=== PATIENT | female | born 1960 | race Caucasian/White ===

== ENCOUNTER 2020-01-01 15:02 | Emergency (ER) | payer OTHER, SELFPAY ==
--- NOTE | 2020-01-01 16:28 | XR_ITS ---
EXAMINATION: XR CHEST CLINICAL INFORMATION: Shortness of breath, chest pain for 2 weeks COMPARISON: 02/26/2019 TECHNIQUE: Frontal view of the chest was obtained. FINDINGS: No significant abnormality is noted involving the heart, lungs, mediastinum, bony thorax or soft tissues. XR/XR chest 1V IMPRESSION: No acute pulmonary disease. No significant change from prior study.
[2020-01-01 16:31] VITALS: BP 161/67; PULSE 92; RESP 16; TEMP 36.9; O2SAT 98; BMI 33.1
--- NOTE | 2020-01-01 16:33 | ED.CHESTPAIN ---
HPI - Chest Pain General Chief Complaint: Chest Pain Stated Complaint: chest pain Time Seen by Provider: 01/01/20 16:17 Source: patient Mode of arrival: ambulatory Limitations: language barrier ( speaks Welsh but able to communicate fairly well in Ukrainian) History of Present Illness HPI narrative: patient comes to the emergency room complaining of 2 weeks of constant chest pain. Patient states 2 weeks ago she started having sharp pain on the left side of her chest and left-sided arm pain, since then the pain has been present. Patient states a week ago she went to see her primary care physician, she was instructed to come to the emergency room but she was afraid to come to the hospital therefore she waited until today, patient is concerned about the ongoing chest pain And left arm pain MD complaint: chest pain Related Data Allergies Allergy/AdvReac Type Severity Reaction Status Date / Time No Known Allergies Allergy Unverified 11/10/19 19:32 [No Known Allergies*] Review of Systems Review of Systems: Constitutional : No Weight loss, No Fever, No Chills, No Night Sweats, No Fatigue, No Malaise ENT/Mouth : No Hearing loss, No Ear Pain, No Nasal Congestion, No Sinus Pain, No Hoarseness, No sore throat, No Rhinorrhea, No Swallowing Difficulty Eyes: No Eye Pain, No Swelling, No Redness, No Foreign Body, No Discharge, No Vision Changes Cardiovascular : patient complaining of sharp chest pain on the left side, continues, radiating to the left arm No Orthopnea, No Edema, No Palpitations Respiratory : No Cough, No Sputum, No Wheezing, No Smoke Exposure, No Dyspnea Gastrointestinal : No Nausea, No Vomiting, No Diarrhea, No Constipation, No abdominal Pain, No Hematochezia, No Melena Genitourinary : no irregular bleeding, No Dysuria, No Urinary Frequency, No Hematuria, No Urinary Incontinence, No Urgency, No Flank Pain, No Urinary Flow Changes, No Hesitancy Musculoskeletal : No joint pain, No Myalgias, No Joint Swelling Skin : No Skin Lesions, No rash Neuro : No Weakness, No Numbness, No Paresthesias, No Loss of Consciousness, No Dizziness, No Headache Psych : No Anxiety/Panic, No Depression, No SI/HI/AH/VH, No Social Issues, Heme/Lymph: No Bruising, No Bleeding,No Lymphadenopathy Endocrine : No Polyuria, No Polydipsia, No Temperature Intolerance PMFSH Past Medical History Medical History (Updated 01/01/20 @ 19:11 by Erica Raymundo MD) Anxiety Hypothyroidism Social History Social History Alcohol intake: never Smoking Status: Never smoker Use of substances other than those prescribed or required for medical reasons: No Advance Directives: No Advance Directives Information Provided: Yes Physical Exam Vital Signs: Vital Signs: Last Vital Signs Temp 98.4 F 01/01/20 16:31 Pulse 83 01/01/20 18:15 Resp 16 01/01/20 18:15 BP 148/79 H 01/01/20 18:15 Pulse Ox 97 01/01/20 18:15 Body Mass Index 33.1 Appearance: Alert. Oriented X3. No acute distress. anxious Eyes: Pupils equal, round and reactive to light. ENT: Pharynx normal. Neck: Patient has a small induration 2 cm x 2 cm on the right side of the neck, above the clavicle, does not seem to be her thyroid. CVS: Normal heart rate and rhythm. Pulses normal. Normal S1 and S2 Respiratory: No respiratory distress. Breath sounds normal. No Wheezing. No rales Abdomen: Soft and nontender. No rigidity. No distention. good BS x4 Skin: Skin warm and dry. Normal skin color. Normal skin turgor. Extremities: No lower extremity edema. No lower extremity edema. No Lacerations. No Rash. Pain to palpation from the upper arm all the way to the wrist to palpation. Neuro: Oriented X 3. No motor deficit. No sensory deficit. Moving all extermities. No slurred speech. Course Course Course Narrative: I discussed the labs and imaging with the patient, patient's troponin and dimer were negative, ultrasound of her left arm within normal limits. I also discussed with the patient her physical exam, the induration on her neck, does not seem to be her thyroid, patient's TSH within normal limits. Patient instructed to follow-up with her primary care physician. I also discussed with the patient that she will likely need a stress test if she continues having the chest discomfort that she has been having. MDM - Chest Pain Differential Diagnosis Differential diagnosis: Likely stable angina, atypical chest pain, costochondritis and chest pain Medical Records Data Attestation: I reviewed the patient's medical records. Lab Data Attestation: I reviewed the patient's lab results. Result diagrams: 01/01/20 16:44 01/01/20 16:44 Labs: Lab Results 01/01/20 01/01/20 01/01/20 Range/Units 16:44 16:44 16:44 WBC 7.8 (4.8-10.8) X10*3/uL RBC 4.46 (4.20-5.50) X10*6/uL Hgb 13.6 (12.0-16.0) g/dl Hct 40.4 (37-47) % MCV 90.6 (80-98) fL MCH 30.5 (27.0-33.0) pg MCHC 33.7 (31.0-35.0) g/dl RDW 11.7 (11.0-16.0) % Plt Count 401 H (160-400) X10*3/uL MPV 9.9 (9.4-12.3) fL Immature Gran % (Auto) 0.4 (0.0-0.4) % Neut % (Auto) 50.4 (45-73) % Lymph % (Auto) 42.7 H (20-40) % Coleman % (Auto) 4.4 (2-11) % Eos % (Auto) 1.5 (0-4) % Baso % (Auto) 0.6 (0-2) % Lymph # (Auto) 3.3 (1.2-4.9) X10*3/uL [place] # (Auto) 0.3 (0.1-1.2) X10*3/uL Eos # (Auto) 0.1 (0.0-0.4) X10*3/uL Baso # (Auto) 0.1 (0.0-0.2) X10*3/uL Abs Immat Gran (auto) 0.03 (0.00-0.03) X10*3/uL Absolute Neuts (auto) 3.9 (2.0-8.3) X10*3/uL Absolute Nucleated RBC 0.000 (0.0-0.012) X10*3/uL Nucleated RBC % (auto) 0.0 (0.0-0.2) /100WBC D-Dimer < 200 NG/ML Sodium 139 (135-145) mmol/L Potassium 4.1 (3.3-5.1) mmol/l Chloride 103 (96-108) mmol/L Carbon Dioxide 24 (22-29) mmol/L Anion Gap 16 (12-20) BUN 11 (9-16) mg/dL Creatinine 0.79 (0.5-1.4) mg/dL Estim Creat Clear Calc 87.1 Estimated GFR > 60 Random Glucose 110 (60-115) mg/dL Calcium 9.3 (8.4-10.2) mg/dL Troponin I High Sens (<3.5-17.0) ng/L TSH (0.32-4.0) mIU/mL 01/01/20 01/01/20 Range/Units 16:44 16:44 WBC (4.8-10.8) X10*3/uL RBC (4.20-5.50) X10*6/uL Hgb (12.0-16.0) g/dl Hct (37-47) % MCV (80-98) fL MCH (27.0-33.0) pg MCHC (31.0-35.0) g/dl RDW (11.0-16.0) % Plt Count (160-400) X10*3/uL MPV (9.4-12.3) fL Immature Gran % (Auto) (0.0-0.4) % Neut % (Auto) (45-73) % Lymph % (Auto) (20-40) % Coleman % (Auto) (2-11) % Eos % (Auto) (0-4) % Baso % (Auto) (0-2) % Lymph # (Auto) (1.2-4.9) X10*3/uL Coleman # (Auto) (0.1-1.2) X10*3/uL Eos # (Auto) (0.0-0.4) X10*3/uL Baso # (Auto) (0.0-0.2) X10*3/uL Abs Immat Gran (auto) (0.00-0.03) X10*3/uL Absolute Neuts (auto) (2.0-8.3) X10*3/uL Absolute Nucleated RBC (0.0-0.012) X10*3/uL Nucleated RBC % (auto) (0.0-0.2) /100WBC D-Dimer NG/ML Sodium (135-145) mmol/L Potassium (3.3-5.1) mmol/l Chloride (96-108) mmol/L Carbon Dioxide (22-29) mmol/L Anion Gap (12-20) BUN (9-16) mg/dL Creatinine (0.5-1.4) mg/dL Estim Creat Clear Calc Estimated GFR Random Glucose (60-115) mg/dL Calcium (8.4-10.2) mg/dL Troponin I High Sens < 3.5 (<3.5-17.0) ng/L TSH 1.08 (0.32-4.0) mIU/mL Imaging Data Left arm duplex ultrasound: Radiologist's impression: The left internal jugular vein, subclavian vein, axillary vein, brachial vein, basilic vein, cephalic vein, and visualized forearm veins were well-identified and normal. They demonstrate normal compressibility and color fill-in. ECG Data ECG #1: Attestation: I personally reviewed and interpreted this ECG as follows: ( sinus rhythm, heart rate 103, nonspecific T-wave abnormalities in V3 no reciprocal changes) Discharge Plan Discharge Clinical Impression: Atypical chest pain, Arm pain, left Patient Disposition: Home, Self-Care Instructions: Chest Pain (ED) Additional Instructions: you may use Tylenol or ibuprofen for the discomfort. Please follow-up with your primary care physician tomorrow. If you have any worsening or new symptoms, please return to the emergency room or call 911
--- NOTE | 2020-01-01 16:37 | ECG_ITS ---
Test Reason : CP Blood Pressure : / mmHG Vent. Rate : 103 BPM Atrial Rate : 103 BPM P-R Int : 144 ms QRS Dur : 088 ms QT Int : 504 ms P-R-T Axes : 034 006 032 degrees QTc Int : 660 ms Sinus tachycardia RSR' or QR pattern in V1 suggests right ventricular conduction delay Low voltage QRS Nonspecific T wave abnormality Abnormal ECG No previous ECGs available Referred By: Erica Raymundo Electronically Signed By:TREVIN CROWE MD
--- NOTE | 2020-01-01 16:47 | US_ITS ---
EXAMINATION: LEFT UPPER EXTREMITY VENOUS ULTRASOUND CLINICAL INFORMATION: Left arm pain and swelling COMPARISON: None. TECHNIQUE: Doppler spectral analysis and color flow Doppler imaging was performed of the left upper extremity. Compression and augmentation maneuvers were performed. FINDINGS: The left internal jugular vein, subclavian vein, axillary vein, brachial vein, basilic vein, cephalic vein, and visualized forearm veins were well-identified and normal. They demonstrate normal compressibility and color fill-in. US/US venous duplex UE LT IMPRESSION: No evidence for left upper extremity deep vein thrombosis.
[2020-01-01 16:50] LABS: MANUAL DIFF FLAG NO
[2020-01-01 16:53] LABS: Basophils Absolute Auto 0.1 X10*3/uL (0.0-0.2); Basophils Percent Auto 0.6 % (0-2); Eosinophils Absolute Auto 0.1 X10*3/uL (0.0-0.4); Eosinophils Percent Auto 1.5 % (0-4); Hematocrit 40.4 % (37-47); Hemoglobin 13.6 g/dl (12.0-16.0); Imm Gran Abs Auto 0.03 X10*3/uL (0.00-0.03); Imm Gran Pct Auto 0.4 % (0.0-0.4); Lymphocytes Absolute Auto 3.3 X10*3/uL (1.2-4.9); Lymphocytes Percent Auto 42.7 % (20-40); Mean Corpuscular HGB Conc 33.7 g/dl (31.0-35.0); Mean Corpuscular Hemoglobin 30.5 pg (27.0-33.0); Mean Corpuscular Volume 90.6 fL (80-98); Mean Platelet Volume 9.9 fL (9.4-12.3); Monocytes Absolute Auto 0.3 X10*3/uL (0.1-1.2); Monocytes Percent Auto 4.4 % (2-11); Neutrophils Absolute Auto 3.9 X10*3/uL (2.0-8.3); Neutrophils Percent Auto 50.4 % (45-73); Platelet Count 401 X10*3/uL (160-400); Red Blood Count 4.46 X10*6/uL (4.20-5.50); Red Cell Distribution Width 11.7 % (11.0-16.0); White Blood Count 7.8 X10*3/uL (4.8-10.8)
[2020-01-01 17:11] LABS: D Dimer < 200 NG/ML
[2020-01-01 17:15] LABS: Anion Gap 16 (12-20); Blood Urea Nitrogen 11 mg/dL (9-16); Calcium 9.3 mg/dL (8.4-10.2); Carbon Dioxide 24 mmol/L (22-29); Chloride 103 mmol/L (96-108); Creatinine Clr Calc Pharmacy 87.1; Estimated Glomerular Filt Rate > 60; Glucose Random 110 mg/dL (60-115); Potassium 4.1 mmol/l (3.3-5.1); Sodium 139 mmol/L (135-145)
[2020-01-01 17:19] LABS: Troponin-I High Sensitivity < 3.5 ng/L (<3.5-17.0)
[2020-01-01 17:36] LABS: TSH reflex Free T4 1.08 mIU/mL (0.32-4.0)
[2020-01-01 18:15] VITALS: BP 148/79; PULSE 83; RESP 16; O2SAT 97
== END 2020-01-01 19:22 | disposition home or self-care (01) ==
PROVIDERS: Emergency Provider Emergency Medicine; PCP Physician Assistant
DX: R07.9 Chest pain, unspecified (principal); M79.602 Pain in left arm; Z79.899 Other long term (current) drug therapy
CPT/HCPCS: 36415; 71045; 80048; 84443; 84484; 85025; 85379; 93005; 93971; 99284

== ENCOUNTER 2021-08-22 10:24 | Outpatient (REF) | payer OTHER, SELFPAY ==
[2021-08-22 11:44] LABS: MANUAL DIFF FLAG NO
[2021-08-22 12:24] LABS: Basophils Percent Auto 0.5 % (0-2); Eosinophils Absolute Auto 0.1 X10*3/uL (0.0-0.4); Eosinophils Percent Auto 2.2 % (0-4); Hematocrit 39.4 % (37.0-47.0); Hemoglobin 12.8 g/dl (12.0-16.0); Imm Gran Abs Auto 0.02 X10*3/uL (0.00-0.03); Imm Gran Pct Auto 0.3 % (0.0-0.4); Lymphocytes Absolute Auto 2.6 X10*3/uL (1.2-4.9); Lymphocytes Percent Auto 43.6 % (20-40); Mean Corpuscular HGB Conc 32.5 g/dl (31.0-35.0); Mean Corpuscular Hemoglobin 29.3 pg (27.0-33.0); Mean Corpuscular Volume 90.2 fL (80.0-98.0); Mean Platelet Volume 10.2 fL (9.4-12.3); Monocytes Absolute Auto 0.3 X10*3/uL (0.1-1.2); Monocytes Percent Auto 4.8 % (2-11); Neutrophils Absolute Auto 2.8 x10*3/uL (2.0-8.3); Neutrophils Percent Auto 48.6 % (45-73); Platelet Count 394 X10*3/uL (160-400); Red Blood Count 4.37 X10*6/uL (4.20-5.50); Red Cell Distribution Width 11.9 % (11.0-16.0); White Blood Count 5.9 X10*3/uL (4.8-10.8)
[2021-08-22 12:25] LABS: Free T4 (Free Thyroxine) 1.14 ng/dL (0.71-1.85); Thyroid Stimulating Hormone 1.09 uIU/mL (0.32-4.0); Vitamin D 25-OH Total 9.5 ng/mL (>30)
[2021-08-22 12:29] LABS: Erythrocyte Sedimentation Rate 15 MM/HR (0-20)
[2021-08-22 12:39] LABS: Alanine Aminotransferase 38 U/L (0-31); Albumin Level 4.2 g/dL (3.5-5.0); Alkaline Phosphatase 84 U/L (39-117); Anion Gap 11 (12-20); Aspartate Amino Transferase 29 U/L (5-31); Bilirubin Total 0.6 mg/dL (0.0-1.0); Blood Urea Nitrogen 10 mg/dL (9-16); C Reactive Protein 0.56 mg/dL (< or = 0.50); Calcium 9.3 mg/dL (8.4-10.2); Carbon Dioxide 26 mmol/L (22-29); Chloride 107 mmol/L (96-108); Cholesterol 265 mg/dL; Estimated Glomerular Filt Rate > 60; Glucose Fasting 104 mg/dL (60-99); HDL Cholesterol 42 mg/dL; LDL Cholesterol Calculated 173 mg/dl; Potassium 4.4 mmol/L (3.3-5.1); Sodium 140 mmol/L (135-145); Total Protein 7.3 g/dL (6.5-8.0); Triglycerides 254 mg/dL
[2021-08-22 12:40] LABS: Folate 12.9 ng/mL (> or = 4.0); Vitamin B12 193 pg/mL (200-900)
[2021-08-22 12:48] LABS: Rheumatoid Factor < 15.0 IU/mL (<15.0)
[2021-08-23 19:31] LABS: Thyroid Peroxidase Antibodies 8 IU/mL (<9)
[2021-08-27 10:22] LABS: Anti Nuclear Antibody Screen NEGATIVE (NEGATIVE)
== END 2021-08-22 10:25 | disposition home or self-care (01) ==
LOC: HO.HMGCLDS 10:24
PROVIDERS: PCP Internal Medicine; Visit Provider Internal Medicine
DX: Z00.01 Encounter for general adult medical examination with abnormal findings (principal); R53.83 Other fatigue; M79.7 Fibromyalgia; M25.50 Pain in unspecified joint; K80.20 Calculus of gallbladder without cholecystitis without obstruction; I83.813 Varicose veins of bilateral lower extremities with pain; G47.00 Insomnia, unspecified; F41.9 Anxiety disorder, unspecified; E03.9 Hypothyroidism, unspecified; Z78.0 Asymptomatic menopausal state
CPT/HCPCS: 36415; 80053; 80061; 82306; 82607; 82746; 84439; 84443; 85025; 85652; 86038; 86039; 86140; 86376; 86431

== ENCOUNTER 2021-09-16 16:35 | Outpatient (REF) | payer OTHER, SELFPAY ==
[2021-09-16 19:50] LABS: CT PCR NOT DETECTED (Not Detect.); NG PCR NOT DETECTED (Not Detect.)
[2021-09-17 09:10] LABS: BV Int Neg Control Negative (Negative); BV Int Pos Control Positive (Positive)
== END 2021-09-16 16:36 | disposition home or self-care (01) ==
LOC: HO.LNP 16:35
PROVIDERS: Visit Provider Physician Assistant
DX: Z11.3 Encounter for screening for infections with a predominantly sexual mode of transmission (principal); N89.8 Other specified noninflammatory disorders of vagina
CPT/HCPCS: 87480; 87491; 87510; 87591; 87660

== ENCOUNTER 2021-10-02 08:29 | Outpatient (REF) | payer OTHER, SELFPAY ==
--- NOTE | ~2021-10-02 | US_ITS ---
EXAMINATION: US ABDOMEN COMPLETE CLINICAL INFORMATION: Calculus in gallbladder without cholecystitis without obstruction. COMPARISON: CT abdomen and pelvis 02/26/2019. TECHNIQUE: Real-time imaging of the abdominal viscera. FINDINGS: PANCREAS: Normal. ABDOMINAL AORTA: The proximal, mid, and distal segments are normal in caliber. INFERIOR VENA CAVA: Visualized portions are normal. LIVER: The liver is normal in size. The liver contour is normal. The liver echotexture is increased. No focal hepatic lesion. There is no intrahepatic biliary duct dilatation seen. GALLBLADDER: Gallbladder is filled with gallstones. The gallbladder is normal in size. The gallbladder wall is normal. There is no pericholecystic fluid. COMMON BILE DUCT: Normal in caliber measuring 0.3 cm in diameter. RIGHT KIDNEY: Normal. No hydronephrosis. No renal calculi or focal parenchymal lesions. The kidney measures 11.3 cm in maximum dimension. LEFT KIDNEY: There are 2 cysts small cysts in the midpole, largest measuring 1.3 x 1 x 1.2 cm. No hydronephrosis or renal calculi. The kidney measures 10.8 cm in maximum dimension. SPLEEN: Normal. The spleen measures 10.0 cm in maximum dimension. FREE FLUID: None. US/US abdomen complete IMPRESSION: Gallbladder filled with gallstones. No evidence of cholecystitis. Slightly echogenic liver. Small left renal cysts.
== END 2021-10-02 08:30 | disposition home or self-care (01) ==
LOC: HO.HMGCX 08:29
PROVIDERS: PCP Internal Medicine; Visit Provider Internal Medicine
DX: R10.11 Right upper quadrant pain (principal); K80.20 Calculus of gallbladder without cholecystitis without obstruction
CPT/HCPCS: 76700

== ENCOUNTER 2021-10-24 15:53 | Outpatient (REF) | payer OTHER, SELFPAY ==
[2021-10-30 00:37] LABS: HPV mRNA E6/E7 rflx Not Detected (Not Detected)
== END 2021-10-24 15:54 | disposition home or self-care (01) ==
LOC: HO.LNP 15:53
PROVIDERS: Visit Provider Advanced Practice Midwife
DX: Z01.419 Encounter for gynecological examination (general) (routine) without abnormal findings (principal); N95.0 Postmenopausal bleeding; R10.2 Pelvic and perineal pain; N76.0 Acute vaginitis; B96.89 Other specified bacterial agents as the cause of diseases classified elsewhere
CPT/HCPCS: 87624; 88142; 99202

== ENCOUNTER 2021-12-10 14:09 | Outpatient (REF) | payer OTHER, SELFPAY ==
--- NOTE | ~2021-12-10 | US_ITS ---
EXAMINATION: US PELVIS CLINICAL INFORMATION: Pain COMPARISON: Previous CT of the abdomen and pelvis February 2019 TECHNIQUE: Ultrasound of the pelvis is performed using both transabdominal and transvaginal transducers along with Doppler. Transvaginal imaging is performed due to inadequate visualization transabdominally. FINDINGS: The uterus is anteverted and measures 6.3 x 3.1 5.1 cm in dimension. No focal uterine lesion is seen. Endometrial thickness is normal measuring 0.4 cm. There is a small amount of fluid in the endometrial cavity. The ovaries are not seen. There is no fluid in the pelvis. US/US pelvic and transvaginal IMPRESSION: Normal-appearing uterus. Ovaries not seen.
== END 2021-12-10 14:10 | disposition home or self-care (01) ==
LOC: HO.US 14:09
PROVIDERS: Visit Provider Advanced Practice Midwife
DX: R10.2 Pelvic and perineal pain (principal); N95.0 Postmenopausal bleeding
CPT/HCPCS: 76830; 76856

== ENCOUNTER → 2021-12-25 14:25 | Outpatient (BNVA) | payer OTHER, SELFPAY | PROVIDERS: PCP Internal Medicine; Visit Provider Advanced Practice Midwife | DX: Z71.2 Person consulting for explanation of examination or test findings (principal) | CPT/HCPCS: 99212 ==

== ENCOUNTER → 2022-01-09 15:06 | Outpatient (REF) | payer OTHER, SELFPAY ==
--- NOTE | 2022-01-09 15:24 | ECG_ITS ---
Test Reason : PREOP Blood Pressure : / mmHG Vent. Rate : 084 BPM Atrial Rate : 084 BPM P-R Int : 150 ms QRS Dur : 094 ms QT Int : 402 ms P-R-T Axes : 042 009 020 degrees QTc Int : 475 ms Normal sinus rhythm Incomplete right bundle branch block Nonspecific T wave abnormality Abnormal ECG When compared with ECG of 09-JAN-2022 15:48, No significant change was found Heart rate has decreased Referred By: Wanda Davis Electronically Signed By:TREVIN CROWE MD
== END ==
LOC: HO.CARD 15:06
PROVIDERS: PCP Internal Medicine; Visit Provider Internal Medicine
DX: Z01.818 Encounter for other preprocedural examination (principal)
CPT/HCPCS: 93005

== ENCOUNTER 2022-01-24 09:51 | Outpatient (REF) | payer OTHER, SELFPAY ==
[2022-01-24 12:36] LABS: Alanine Aminotransferase 28 U/L (0-31); Aspartate Amino Transferase 21 U/L (5-31); Cholesterol 250 mg/dL; Glucose Fasting 95 mg/dL (60-99); HDL Cholesterol 40 mg/dL; LDL Cholesterol Calculated 154 mg/dl; Thyroid Stimulating Hormone 0.99 uIU/mL (0.32-4.0); Triglycerides 284 mg/dL; Vitamin D 25-OH Total 17.7 ng/mL (>30)
[2022-01-24 12:47] LABS: Estimated Average Glucose 88 mg/dL; Hemoglobin A1c % 4.7 %
[2022-01-24 12:59] LABS: Folate 11.7 ng/mL (> or = 4.0); Vitamin B12 366 pg/mL (200-900)
== END 2022-01-24 09:52 | disposition home or self-care (01) ==
LOC: HO.HMGCLDS 09:51
PROVIDERS: PCP Internal Medicine; Visit Provider Internal Medicine
DX: E03.9 Hypothyroidism, unspecified (principal); E53.8 Deficiency of other specified B group vitamins; E55.9 Vitamin D deficiency, unspecified; E78.2 Mixed hyperlipidemia; R73.01 Impaired fasting glucose
CPT/HCPCS: 36415; 80061; 82306; 82607; 82746; 82947; 83036; 84439; 84443; 84450; 84460

== ENCOUNTER 2022-09-11 14:09 | Emergency (ER) | payer OTHER, SELFPAY ==
--- NOTE | ~2022-09-11 | XR_ITS ---
EXAMINATION: XR CHEST CLINICAL INFORMATION: Shortness of breath. COMPARISON: Chest x-ray 01/01/2020 TECHNIQUE: 2 views of the chest were obtained. FINDINGS: No significant abnormality is noted involving the heart, lungs, mediastinum, bony thorax or soft tissues. XR/XR chest 2V IMPRESSION: Unremarkable examination.
--- NOTE | ~2022-09-11 | CT_ITS ---
EXAMINATION: CT HEAD WITHOUT CONTRAST CLINICAL INFORMATION: Pain. COMPARISON: None. TECHNIQUE: Contiguous axial imaging was performed from the skull base to vertex without intravenous administration of contrast. Coronal and sagittal reformatted images are performed at the CT scanner. [This CT examination was performed using dose optimization techniques as appropriate, variously including the following: *Automated exposure control *Adjustment of mA and/or kV according to patient size (this includes techniques or standardized protocols for targeted exams where dose is matched to indication/reason for exam; i.e. extremities or head) *Use of iterative reconstruction technique] DLP: 618 mGy-cm. FINDINGS: There is no evidence of acute intracranial hemorrhage or territorial infarction. No abnormal mass-effect or midline shift is seen. Baird to white matter differentiation is well preserved. No extra-axial fluid collections are identified. The ventricles are normal in size. There is no abnormal attenuation within the brain parenchyma. There is no osseous abnormality. The mastoid air cells and visualized portions of the paranasal sinuses are well-aerated. CT/CT head/brain wo IV con IMPRESSION: No acute intracranial pathology.
--- NOTE | 2022-09-11 14:11 | ECG_ITS ---
Test Reason : chest pain Blood Pressure : / mmHG Vent. Rate : 088 BPM Atrial Rate : 088 BPM P-R Int : 152 ms QRS Dur : 092 ms QT Int : 376 ms P-R-T Axes : 038 005 027 degrees QTc Int : 454 ms Normal sinus rhythm Incomplete right bundle branch block Borderline ECG When compared with ECG of 09-JAN-2022 15:51, No significant change was found Referred By: Generic ED Physician Electronically Signed By:John Rea
[2022-09-11 14:12] VITALS: BP 178/80; PULSE 103; RESP 18; TEMP 35.9; O2SAT 100; BMI 32.6
[2022-09-11 14:46] LABS: MANUAL DIFF FLAG NO
[2022-09-11 14:49] LABS: Basophils Percent Auto 0.6 % (0-2); Eosinophils Absolute Auto 0.1 X10*3/uL (0.0-0.4); Eosinophils Percent Auto 1.5 % (0-4); Hematocrit 37.9 % (37.0-47.0); Hemoglobin 12.4 g/dl (12.0-16.0); Imm Gran Abs Auto 0.02 X10*3/uL (0.00-0.03); Imm Gran Pct Auto 0.3 % (0.0-0.4); Lymphocytes Absolute Auto 2.8 X10*3/uL (1.2-4.9); Lymphocytes Percent Auto 42.1 % (20-40); Mean Corpuscular HGB Conc 32.7 g/dl (31.0-35.0); Mean Corpuscular Hemoglobin 29.6 pg (27.0-33.0); Mean Corpuscular Volume 90.5 fL (80.0-98.0); Mean Platelet Volume 9.9 fL (9.4-12.3); Monocytes Absolute Auto 0.4 X10*3/uL (0.1-1.2); Monocytes Percent Auto 5.2 % (2-11); Neutrophils Absolute Auto 3.4 x10*3/uL (2.0-8.3); Neutrophils Percent Auto 50.3 % (45-73); Platelet Count 369 X10*3/uL (160-400); Red Blood Count 4.19 X10*6/uL (4.20-5.50); Red Cell Distribution Width 12.1 % (11.0-16.0); White Blood Count 6.7 X10*3/uL (4.8-10.8)
[2022-09-11 15:00] LABS: COVID-19 Test Negative (Negative); IDNOW Serial# 08D9AD1C
[2022-09-11 15:02] LABS: Anion Gap 13 (12-20); Blood Urea Nitrogen 14 mg/dL (9-16); Calcium 9.4 mg/dL (8.4-10.2); Carbon Dioxide 24 mmol/L (22-29); Chloride 107 mmol/L (96-108); Creatinine Clr Calc Pharmacy 83.4; Estimated Glomerular Filt Rate > 60; Glucose Random 124 mg/dL (60-115); Potassium 3.5 mmol/L (3.3-5.1); Sodium 140 mmol/L (135-145)
[2022-09-11 15:14] LABS: Troponin-I High Sensitivity < 2.7 ng/L (<3.5-17.0)
--- NOTE | 2022-09-11 17:31 | ED_ITS ---
HPI - Chest Pain General Chief Complaint: Chest Pain Stated Complaint: Chest pain Time Seen by Provider: 09/11/22 17:31 Source: patient, family (), RN notes reviewed and old records reviewed Mode of arrival: ambulatory Limitations: no limitations History of Present Illness HPI narrative: 62-year-old female with past medical history significant for hypothyroidism, recent cholecystectomy in May of this year presents for evaluation of facial pain, headache and shortness of breath. Patient admits to having a dental procedure about 2 and half weeks ago. She states that shortly thereafter she developed a headache, facial congestion and ?mucus going down my throat. ? She states that she has not been able to sleep because she keeps being woken up by the mucus dripping down her throat She feels as though this is attributing to increased shortness of breath Patient denies any fevers or chills She took 2 ibuprofen with minimal relief of her symptoms She has no other complaints or concerns at this time Related Data Home Medications Medication Instructions Recorded Confirmed cholecalciferol (vitamin D3) 50 100 mcg PO DAILY 08/20/21 mcg (2,000 unit) capsule erythromycin 5 mg/gram (0.5 %) eye ophthalmic (eye) 01/21/22 01/21/22 ointment Previous Rx's Medication Instructions Recorded syringe with needle 3 mL 25 gauge #30 ea 09/04/21 x 1 (Monoject 3cc Syringe) clotrimazole-betamethasone 1 1 appl topical BID 10 days #45 02/11/22 %-0.05 % topical cream grams cholecalciferol (vitamin D3) 1,250 1,250 mcg PO QWEEK 3 months #13 05/10/22 mcg (50,000 unit) capsule caps acetaminophen 650 mg 650 mg PO Q8H PRN pain #60 tabs 06/04/22 tablet,extended release (Tylenol 8 Hour) levothyroxine 112 mcg tablet 112 mcg PO DAILY #90 tabs 08/17/22 zolpidem 10 mg tablet 10 mg PO BEDTIME PRN insomnia #15 08/17/22 tabs amoxicillin 875 mg-potassium 1 tab PO BID #14 tabs 09/11/22 clavulanate 125 mg tablet Allergies Allergy/AdvReac Type Severity Reaction Status Date / Time spicy food AdvReac Hives Uncoded 02/11/22 12:43 Review of Systems Constitutional: Constitutional: Denies chills, Denies fever(s), Reports headache(s) and Denies weakness ENT: Reports headache(s), Denies mouth pain, Reports nasal congestion, Denies nasal discharge, Reports sinus pressure and Denies sore throat Cardiovascular: Cardiovascular: Denies chest pain and Reports dyspnea Respiratory: Respiratory: Reports chest congestion, Reports cough and Reports dyspnea Gastrointestinal: Gastrointestinal: Denies abdominal pain, Denies nausea and Denies vomiting Musculoskeletal: Musculoskeletal: Denies back pain Neurologic: Reports headache(s) and Denies weakness PMFSH Past Medical History Medical History (Updated 09/11/22 @ 20:03 by Dean Edmondson) Acquired hypothyroidism Anxiety Cholelithiasis Dry skin dermatitis Fibromyalgia Impaired fasting glucose Insomnia Mixed dyslipidemia Polyarthralgia Polyarthralgia Varicose veins of bilateral lower extremities with pain Vitamin B12 deficiency Vitamin D deficiency Surgical History S/P cholecystectomy Family History Family History Sister Breast cancer Mother Essential hypertension Cholelithiasis Social History Social History Housing: House Alcohol intake: never Patient Tobacco Use Status: Never used Tobacco Smoked in Last 30 Days: No e-Cigarette/Vaping Use: Never Used Use of substances other than those prescribed or required for medical reasons: No Advance Directives: No Advance Directives Information Provided: No Current occupational status: unemployed Cognitive needs: No Hearing needs: No Vision needs: No Physical Exam Vital Signs: Vital Signs: Last Vital Signs Temp 98.1 F 09/11/22 19:27 Pulse 68 09/11/22 19:27 Resp 18 09/11/22 19:27 BP 126/58 L 09/11/22 19:27 Pulse Ox 98 09/11/22 19:27 O2 Del Method Room Air 09/11/22 19:27 BMI result Body Mass Index 32.6 Const: General: healthy appearing, comfortable, no acute distress, alert and awake Nutritional Appearance: well nourished Orientation/consciousness: patient oriented x3 HEENT: Head: Yes normocephalic and Yes atraumatic Face and sinus: Yes sinuses nontender and Yes face symmetric Mouth: Normal oral and palatal mucosa present and lip normal Teeth and gingiva: dentition normal Throat: Yes posterior oropharynx normal Eyes: Eyelids: Yes eyelids normal Conjunctivae: conjunctivae normal Sclerae: sclerae normal Corneas: corneas normal Pupils: Equal, round and reactive pupils present EOM: EOMs intact bilaterally Neck: Neck: Yes full ROM Resp: Effort & Inspection: normal respiratory effort, able to speak in complete sentences, no audible wheezes and not labored Auscultation: clear to auscultation bilaterally Cardio: Rate: regular rate Rhythm: regular rhythm GI: Inspection: No distended Palpation (GI): Soft to palpation, not firm, nontender, no guarding and not rigid Auscultation: normoactive bowel sounds Neuro: General: patient oriented x3 Cranial nerves: Yes CN's II-XII intact bilaterally, Yes Equal, round and reactive pupils present and Yes Bilaterally intact EOM present Cognition (Neuro): normal cognition Medications Administered Discontinued Medications Generic Name Dose Route Start Last Admin Trade Name Freq PRN Reason Stop Dose Admin Acetaminophen/Butalbital/Caffeine 2 tab 09/11/22 18:01 09/11/22 19:35 Butalb/Acetamin/Caff 50/325/40 Tablet PO 09/11/22 18:02 2 tab ONCE ONE Administration Medical Decision Making Medical Decision Making [facility] Narrative: 62-year-old female presents for evaluation of facial pain and headache. Symptoms are consistent acute sinusitis she has facial tenderness. She denies any history of headaches and therefore the CT scan of the brain to rule out other more severe pathology. Patient also has reported chest congestion, her lungs are clear to auscultation will get a chest x-ray to rule out pneumonia. Patient's labs are reassuring, EKG is nonischemic and troponin is negative. She denies any chest pain to me but did complain of chest pain at triage. Patient declined IV or IM medications, treat her headache with Fioricet. Differential Diagnosis Acute headache Acute sinusitis Viral syndrome Upper respiratory infection Intracranial hemorrhage Intracranial mass Pneumonia Lab Data [facility] Lab Attestation statement: I reviewed the patient's lab results. No leukocytosis, no significant anemia, normal platelet levels. Electrolytes are normal limits, renal function within normal limits. 09/11/22 14:34 09/11/22 14:34 Labs: Lab Results 07/20/23 07/20/23 07/20/23 Range/Units 14:34 14:34 14:34 WBC 6.7 (4.8-10.8) X10*3/uL RBC 4.19 L (4.20-5.50) X10*6/uL Hgb 12.4 (12.0-16.0) g/dl Hct 37.9 (37.0-47.0) % MCV 90.5 (80.0-98.0) fL MCH 29.6 (27.0-33.0) pg MCHC 32.7 (31.0-35.0) g/dl RDW 12.1 (11.0-16.0) % Plt Count 369 (160-400) X10*3/uL MPV 9.9 (9.4-12.3) fL Immature Gran % (Auto) 0.3 (0.0-0.4) % Neut % (Auto) 50.3 (45-73) % Lymph % (Auto) 42.1 H (20-40) % [place] % (Auto) 5.2 (2-11) % Eos % (Auto) 1.5 (0-4) % Baso % (Auto) 0.6 (0-2) % Lymph # (Auto) 2.8 (1.2-4.9) X10*3/uL [place] # (Auto) 0.4 (0.1-1.2) X10*3/uL Eos # (Auto) 0.1 (0.0-0.4) X10*3/uL Baso # (Auto) 0.0 (0.0-0.2) X10*3/uL Abs Immat Gran (auto) 0.02 (0.00-0.03) X10*3/uL Absolute Neuts (auto) 3.4 (2.0-8.3) x10*3/uL Absolute Nucleated RBC 0.000 (0.0-0.012) X10*3/uL Nucleated RBC % (auto) 0.0 (0.0-0.2) /100WBC Sodium 140 (135-145) mmol/L Potassium 3.5 D (3.3-5.1) mmol/L Chloride 107 (96-108) mmol/L Carbon Dioxide 24 (22-29) mmol/L Anion Gap 13 (12-20) BUN 14 (9-16) mg/dL Creatinine 0.79 (0.5-1.4) mg/dL Estim Creat Clear Calc 83.4 Estimated GFR > 60 Random Glucose 124 H (60-115) mg/dL Calcium 9.4 (8.4-10.2) mg/dL Troponin I High Sens < 2.7 (<3.5-17.0) ng/L COVID-19 (ZEESHAN) (Negative) COVID-19 Clin Com 09/11/22 Range/Units 14:34 WBC (4.8-10.8) X10*3/uL RBC (4.20-5.50) X10*6/uL Hgb (12.0-16.0) g/dl Hct (37.0-47.0) % MCV (80.0-98.0) fL MCH (27.0-33.0) pg MCHC (31.0-35.0) g/dl RDW (11.0-16.0) % Plt Count (160-400) X10*3/uL MPV (9.4-12.3) fL Immature Gran % (Auto) (0.0-0.4) % Neut % (Auto) (45-73) % Lymph % (Auto) (20-40) % [place] % (Auto) (2-11) % Eos % (Auto) (0-4) % Baso % (Auto) (0-2) % Lymph # (Auto) (1.2-4.9) X10*3/uL [place] # (Auto) (0.1-1.2) X10*3/uL Eos # (Auto) (0.0-0.4) X10*3/uL Baso # (Auto) (0.0-0.2) X10*3/uL Abs Immat Gran (auto) (0.00-0.03) X10*3/uL Absolute Neuts (auto) (2.0-8.3) x10*3/uL Absolute Nucleated RBC (0.0-0.012) X10*3/uL Nucleated RBC % (auto) (0.0-0.2) /100WBC Sodium (135-145) mmol/L Potassium (3.3-5.1) mmol/L Chloride (96-108) mmol/L Carbon Dioxide (22-29) mmol/L Anion Gap (12-20) BUN (9-16) mg/dL Creatinine (0.5-1.4) mg/dL Estim Creat Clear Calc Estimated GFR Random Glucose (60-115) mg/dL Calcium (8.4-10.2) mg/dL Troponin I High Sens (<3.5-17.0) ng/L COVID-19 (ZEESHAN) Negative (Negative) COVID-19 Clin Com See Note Independent Interpretation I performed an independent interpretation of an: Plain X-Ray (No infiltrate) Interpretation: Normal sinus rhythm with a rate of 88 beats per minute. No ST segment changes. No significant change when compared to previous from December of 2021 Radiology Impression Discussion of test interpretation with radiology: I have reviewed the radiologist's reading. Radiologist Impression: No acute pathology Discharge Plan Discharge Clinical Impression: Acute sinusitis Patient Disposition: Home, Self-Care Instructions: Sinusitis (ED) Additional Instructions: Your workup in the emergency room today was reassuring Your symptoms are likely related to a sinus infection Take Augmentin twice daily for the next 7 days Use an [id number] decongestant such as Sudafed Follow-up with your primary doctor Use ibuprofen or Tylenol for any further headache Prescriptions: New amoxicillin-pot clavulanate 875-125 mg tablet 1 tab PO BID Qty: 14 0RF No Action (DME) Monoject 3cc Syr 25Gx1 3 mL 25 gauge x 1 syringe See Rx Instructions .Route Qty: 30 2RF Rx Instructions: As directed once a week cholecalciferol (vitamin D3) 1,250 mcg (50,000 unit) capsule 1,250 mcg PO QWEEK 90 Days Qty: 13 0RF acetaminophen [Tylenol 8 Hour] 650 mg tablet extended release 650 mg PO Q8H PRN (Reason: pain) Qty: 60 1RF zolpidem 10 mg tablet 10 mg PO BEDTIME PRN (Reason: insomnia) Qty: 15 0RF levothyroxine 112 mcg tablet 112 mcg PO DAILY Qty: 90 3RF cholecalciferol (vitamin D3) 50 mcg (2,000 unit) capsule 100 mcg PO DAILY clotrimazole-betamethasone 1-0.05 % cream 1 appl topical BID 10 Days Qty: 45 0RF erythromycin 5 mg/gram (0.5 %) ointment ophthalmic (eye)
[2022-09-11 19:15] VITALS: BP 126/58; PULSE 68; RESP 14; O2SAT 98
[2022-09-11 19:27] VITALS: BP 126/58; PULSE 68; RESP 18; TEMP 36.7; O2SAT 98
--- NOTE | 2022-09-11 19:34 | PC.NURSE ---
declines tele monitor- pt hr stable. denies cp at this time. ecg taken in triage. baox4. calm, coopeartive.
[2022-09-11] MEDS: Butalb/Acetamin/Caff 50/325/40 TABLET 2 TAB PO (19:35)
== END 2022-09-11 20:13 | disposition home or self-care (01) ==
PROVIDERS: Emergency Provider Emergency Medicine; PCP Internal Medicine
DX: J01.90 Acute sinusitis, unspecified (principal); Z20.822 Contact with and (suspected) exposure to COVID-19; E78.2 Mixed hyperlipidemia; Z79.899 Other long term (current) drug therapy
CPT/HCPCS: 36415; 70450; 71046; 80048; 84484; 85025; 87635; 93005; 99284; 99285

== ENCOUNTER → 2022-09-11 14:11 | Outpatient (BNV) | payer OTHER, SELFPAY | PROVIDERS: Emergency Provider Emergency Medicine; PCP Internal Medicine; Visit Provider Internal Medicine Cardiovascular Disease | DX: R07.9 Chest pain, unspecified (principal); R94.31 Abnormal electrocardiogram [ECG] [EKG] | CPT/HCPCS: 93010 ==

== ENCOUNTER 2022-10-13 08:42 | Outpatient (AMB) | payer OTHER, SELFPAY ==
--- NOTE | 2022-10-13 08:51 | MHC.PC.OV ---
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 Required: No Accompanied by: Spouse Allergies spicy food Adverse Reaction (Uncoded 10/13/22 09:20) Hives Medication List - Last Reconciled 10/13/22 by Niecy Cabello MD acetaminophen ER (Tylenol 8 Hour) 650 mg PO Q8H PRN clotrimazole-betamethasone 1-0.05 % 1 appl topical BID 10 days ibuprofen 600 mg PO Q6H PRN levothyroxine 112 mcg PO DAILY syringe with needle (Monoject 3cc Syringe) As directed once a week zolpidem 10 mg PO BEDTIME PRN Tobacco use date assessed: 10/13/22 Dental Screening Dental Screen Date: 10/13/22 Did you have a dental visit in the last 12 months?: Yes Did you have a dental problem in the last 6 months where you did not have access to dental care?: No Was dental information given to patient?: Patient has dentist HPI HPI Comments History of Present Illness Details This is a 62-year-old female with acquired hypothyroidism and mixed hyperlipidemia that comes today accompanied by complaining of diffuse joint pain secondary to fibromyalgia and insomnia even with zolpidem. TSH and lipid panel will be order. I will start her on gabapentin at bedtime in a low dose to see how she responds. Also complains of left shoulder pain and would like to see a female Ortho. Gabapentin may help with the insomnia also. She also has chronic nasal congestion in which antibiotics has not work I will start her on nasal spray and antihistamines. [facility] Medical History (Updated 10/13/22 @ 09:31 by Niecy Cabello MD) Acquired hypothyroidism Anxiety Cholelithiasis Dry skin dermatitis Fibromyalgia Impaired fasting glucose Insomnia Mixed dyslipidemia Polyarthralgia Polyarthralgia Varicose veins of bilateral lower extremities with pain Vitamin B12 deficiency Vitamin D deficiency Surgical History S/P cholecystectomy Family History Sister Breast cancer Mother Essential hypertension Cholelithiasis Social History Housing: House Alcohol intake: never Patient Tobacco Use Status: Never used Tobacco e-Cigarette/Vaping Use: Never Used service: No Current occupational status: unemployed Cognitive needs: No Hearing needs: No Vision needs: No Questionnaire PHQ-9 Over the last 2 weeks, how often have you been bothered by any of the following problems? 1. Little interest or pleasure in doing things: several days 2. Feeling down, depressed, or hopeless: nearly every day 3. Trouble falling or staying asleep, or sleeping too much: nearly every day 4. Feeling tired or having little energy: nearly every day 5. Poor appetite or overeating: not at all 6. Feeling bad about yourself - or that you are a failure or have let yourself or your family down: not at all 7. Trouble concentrating on things, such as reading the newspaper or watching television: not at all 8. Moving or speaking so slowly that other people could have noticed. Or the opposite - being so fidgety or restless that you have been moving around a lot more than usual: not at all 9. Thoughts that you would be better off or of hurting yourself in some way: not at all Total score: 10 Depression Screening Interpretation: Positive Depression Screening Follow-up: Existing condition 68772 - PHQ-9 Billing: Yes Source: Developed by Drs. Sánchez Gupta, Maria Del Rosario Reyna, Jason Coleman and colleagues, with an educational james from [employer]. Thrive Questionnaire Date Thrive assessed: 10/13/22 I am a: Patient What is your living situation today?: I have a steady place to live Within the past 12 months, did the food you bought not last and you didn't have the money to get more?: Never true Within the past 12 months, did you worry whether your food would run out before you got money to buy more?: Never true Do you have trouble paying for medicines?: No Do you have trouble getting transportation to medical appointments?: No Do you have trouble paying your heating and electricity bill?: No Do you have trouble taking care of your child, family member or friend?: No Do you have trouble with day-to-day activities such as bathing, preparing meals, shopping, managing finances, etc.?: No Are you currently unemployed and looking for a job?: No Are you interested in more education?: No Please select the resources that you would like help with: None Currently or been in a relationship where the following occur: no concerns reported AUDIT C Alcohol Use Questionnaire (AUDIT-C) 1. How often do you have a drink containing alcohol?: Never Total Score: 0 HEMA-7 AMB Questionnaire HEMA-7 Date HEMA - 7 assessed: 10/13/22 Feeling nervous, anxious, or on edge: 2 = More than half the days Not being able to stop or control worryin = Not at all Worrying too much about different things: 1 = Several days Trouble relaxin = Not at all Being so restless that it is hard to sit still: 0 = Not at all Becoming easily annoyed or irritable: 0 = Not at all Feeling afraid as if something awful might happen: 0 = Not at all Total HEMA-7 score (0-4 normal; 5-9 mild; 10-14 moderate; 15-21 severe): 3 Source: Developed by Drs. Sánchez Gupta, Maria Del Rosario Reyna, Jason Coleman and colleagues, with an educational james from [employer]. HEMA-7 Assessment Billing HEMA-7 Assessment Tool: HEMA-7 Assessment 80179 Review of Systems Const All systems reviewed & are unremarkable except as noted in HPI and below Eyes Reports no additional complaints, Denies change in vision and Denies other visual disturbances Card Denies chest pain at rest, Denies chest pain with activity, Denies edema, Denies irregular heart rhythm, Denies claudication, Denies dyspnea, Denies dyspnea on exertion, Denies orthopnea, Denies paroxysmal nocturnal dyspnea and Denies slow heart rate Resp Denies cough, Denies dyspnea and Denies dyspnea on exertion GI Denies abdominal pain, Denies change in bowel habits, Denies excessive flatus, Denies nausea and Denies vomiting Denies urinary incontinence, Denies urinary hesitancy and Denies urinary urgency Musc Denies abnormal gait, Denies atrophy, Denies deformity, Reports arthralgias and Denies limited range of motion Skin/Breast Denies bleeding lesions, Denies changing lesions and Denies rash Neuro Denies abnormal gait and Denies lack of coordination Psych Reports abnormal sleep pattern Physical exam (Primary Care) Vital Signs: Last Vital Signs BP 130/80 10/13/22 08:55 BMI result Body Mass Index 32.7 Tobacco/Smoking Status: Tobacco use Status Tobacco use date assessed 10/13/22 10/13/22 09:05 Patient Tobacco Use Status Never used Tobacco 10/13/22 08:52 e-Cigarette/Vaping Use Never Used 10/13/22 08:52 PHQ-9: PHQ-9 Score PHQ-9: Total score 10 10/13/22 10:03 Depression Screening Interpretation: Positive Depression Screening Follow-up: Existing condition Thrive Assessment: Date of Thrive Assessment Date Thrive assessed 10/13/22 10/13/22 08:52 Currently or been in a relationship where the following occur: no concerns reported Eyes General: appearance normal, both eyes and all related structures Eyelids: Yes eyelids normal Conjunctivae: conjunctivae normal Neck Neck: Yes normal visual inspection and Yes supple Resp Effort & Inspection: normal respiratory effort Auscultation: clear to auscultation bilaterally Cardio Jugular venous distension: no JVD Rate: regular rate Rhythm: regular rhythm Heart sounds: S1 normal heart sound present and S2 normal heart sound present Extrem General: Yes full ROM Assessment and Plan Assessment & Plan (1) Fibromyalgia: Comment: sees by Dr amaya Code(s): M79.7 - Fibromyalgia Plan: Start gabapentin. (2) Acquired hypothyroidism: Code(s): E03.9 - Hypothyroidism, unspecified Plan: Continue levothyroxine. Monitor TSH. (3) Mixed dyslipidemia: Code(s): E78.2 - Mixed hyperlipidemia Plan: Repeat lipid panel. Start low-cholesterol diet. (4) Insomnia: Code(s): G47.00 - Insomnia, unspecified Plan: Continue zolpidem. Sleep hygiene education given. Orders: Orders Lipid Panel Today E78.5 - Hyperlipidemia, unspecified Vitamin D 25-OH Total Today E55.9 - Vitamin D deficiency, unspecified Complete Blood Count Auto Diff Today M25.50 - Pain in unspecified joint Comprehensive [place]inqu[place]. Panel Fast Today M25.50 - Pain in unspecified joint Thyroid Stimulating Hormone Today E03.9 - Hypothyroidism, unspecified Referrals Orthopedics Referral M25.512 - Pain in left shoulder Medications: New fluticasone propionate 50 mcg/actuation (Flonase Allergy Relief) administer into each nostril 1 spray intranasal DAILY 30 days 16 grams 1RF gabapentin 100 mg PO BEDTIME 30 days 30 caps 1RF cetirizine (All Day Allergy (cetirizine)) 10 mg PO DAILY 90 days PRN 90 tabs 0RF allergy symptoms Coding Level of Care Code Est Pt Level 4 (97007) Diagnoses Fibromyalgia M79.7 Acquired hypothyroidism E03.9 Mixed dyslipidemia E78.2 Insomnia G47.00 Additional Codes HEMA-7 Assessment Billing - HEMA-7 Assessment Tool: HEMA-7 Assessment 69035 ([id number]) Time Spent (min) 21
[2022-10-13 08:55] VITALS: BP 130/80; BMI 32.7
== END 2022-10-13 09:31 | disposition home or self-care (01) ==
PROVIDERS: Visit Provider Internal Medicine
DX: M79.7 Fibromyalgia (principal); E03.9 Hypothyroidism, unspecified; E78.2 Mixed hyperlipidemia; G47.00 Insomnia, unspecified
CPT/HCPCS: 99214

== ENCOUNTER 2022-10-13 09:41 | Outpatient (REF) | payer OTHER, SELFPAY ==
[2022-10-13 09:56] LABS: MANUAL DIFF FLAG NO
[2022-10-13 10:15] LABS: Basophils Percent Auto 0.5 % (0-2); Eosinophils Absolute Auto 0.1 X10*3/uL (0.0-0.4); Eosinophils Percent Auto 2.2 % (0-4); Hematocrit 36.9 % (37.0-47.0); Hemoglobin 12.1 g/dl (12.0-16.0); Imm Gran Abs Auto 0.01 X10*3/uL (0.00-0.03); Imm Gran Pct Auto 0.2 % (0.0-0.4); Lymphocytes Absolute Auto 2.6 X10*3/uL (1.2-4.9); Lymphocytes Percent Auto 45.1 % (20-40); Mean Corpuscular HGB Conc 32.8 g/dl (31.0-35.0); Mean Corpuscular Hemoglobin 29.6 pg (27.0-33.0); Mean Corpuscular Volume 90.2 fL (80.0-98.0); Monocytes Absolute Auto 0.3 X10*3/uL (0.1-1.2); Monocytes Percent Auto 5.3 % (2-11); Neutrophils Absolute Auto 2.7 x10*3/uL (2.0-8.3); Neutrophils Percent Auto 46.7 % (45-73); Platelet Count 337 X10*3/uL (160-400); Red Blood Count 4.09 X10*6/uL (4.20-5.50); Red Cell Distribution Width 12.1 % (11.0-16.0); White Blood Count 5.9 X10*3/uL (4.8-10.8)
[2022-10-13 10:47] LABS: Alanine Aminotransferase 57 U/L (0-31); Albumin Level 4.1 g/dL (3.5-5.0); Alkaline Phosphatase 74 U/L (39-117); Anion Gap 13 (12-20); Aspartate Amino Transferase 43 U/L (5-31); Bilirubin Total 0.7 mg/dL (0.0-1.0); Blood Urea Nitrogen 11 mg/dL (9-16); Carbon Dioxide 27 mmol/L (22-29); Chloride 105 mmol/L (96-108); Cholesterol 245 mg/dL (<200); Estimated Glomerular Filt Rate > 60; Glucose Fasting 92 mg/dL (60-99); HDL Cholesterol 42 mg/dL (>40); LDL Cholesterol Calculated 149 mg/dL (<100); Potassium 4.2 mmol/L (3.3-5.1); Sodium 141 mmol/L (135-145); Total Protein 7.3 g/dL (6.5-8.0); Triglycerides 270 mg/dL (<150)
[2022-10-13 11:04] LABS: Thyroid Stimulating Hormone 1.67 uIU/mL (0.32-4.0); Vitamin D 25-OH Total 16.1 ng/mL (>30)
== END 2022-10-13 09:42 | disposition home or self-care (01) ==
LOC: HO.LAB 09:41
PROVIDERS: PCP Internal Medicine; Visit Provider Internal Medicine
DX: E78.5 Hyperlipidemia, unspecified (principal); M25.50 Pain in unspecified joint; E55.9 Vitamin D deficiency, unspecified; E03.9 Hypothyroidism, unspecified
CPT/HCPCS: 36415; 80053; 80061; 82306; 84443; 85025

== ENCOUNTER 2022-10-21 07:20 | Outpatient (REF) | payer OTHER, SELFPAY ==
--- NOTE | ~2022-10-21 | XR_ITS ---
EXAMINATION: XR SHOULDER, LEFT CLINICAL INFORMATION: Pain in the left shoulder. COMPARISON: Chest radiograph 09/11/2022. TECHNIQUE: Two views of the left shoulder. FINDINGS: No acute fractures or subluxation. No significant degenerative changes. No osseous erosions. Radiopaque rounded bodies distributed with a linear orientation overlying the left shoulder, possibly external to the patient, correlate with physical examination. Radiopaque clip projecting over the mid cervical region, likely external as well. XR/XR shoulder LT min 2V IMPRESSION: 1. No acute fractures or subluxation. 2. Radiopaque rounded bodies overlying the left shoulder, possibly external to the patient, correlate with physical examination.
== END 2022-10-21 07:21 | disposition home or self-care (01) ==
LOC: HO.HOSX 07:20
PROVIDERS: Visit Provider Orthopaedic Surgery
DX: M54.2 Cervicalgia (principal); M25.512 Pain in left shoulder
CPT/HCPCS: 73030; 99202

== ENCOUNTER 2022-10-21 15:13 | Outpatient (AMB) | payer OTHER, SELFPAY ==
--- NOTE | 2022-10-21 15:34 | MHC.OFFVIS ---
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 She describes her pain as sharp in nature. Her pain has gotten worse over the last few years in spite of continued non operative treatments. She also reports intermittent pain along the lateral aspect of her left shoulder. Patient has tried Tylenol and anti-inflammatory medicines which gave her minimal relief. She has also done physical therapy for 12 weeks over the last 6 months which aggravated her pain. The patient has had injections in the past which gave her minimal relief. Allergies spicy food Adverse Reaction (Uncoded 10/13/22 09:20) Hives Medication List - Last Reconciled 10/21/22 by Mason Avila MD acetaminophen ER (Tylenol 8 Hour) 650 mg PO Q8H PRN cetirizine (All Day Allergy (cetirizine)) 10 mg PO DAILY PRN 90 days cholecalciferol (vitamin D3) 50 mcg PO DAILY 90 days clotrimazole-betamethasone 1-0.05 % 1 appl topical BID 10 days fluticasone propionate 50 mcg/actuation (Flonase Allergy Relief) 1 spray intranasal DAILY 30 days gabapentin 100 mg PO BEDTIME 30 days ibuprofen 600 mg PO Q6H PRN levothyroxine 112 mcg PO DAILY syringe with needle (Monoject 3cc Syringe) As directed once a week zolpidem 10 mg PO BEDTIME PRN PFSH Medical History Acquired hypothyroidism Anxiety Cholelithiasis Dry skin dermatitis Fibromyalgia Impaired fasting glucose Insomnia Mixed dyslipidemia Polyarthralgia Polyarthralgia Varicose veins of bilateral lower extremities with pain Vitamin B12 deficiency Vitamin D deficiency Surgical History S/P cholecystectomy Family History Sister Breast cancer Mother Essential hypertension Cholelithiasis Social History Housing: House Alcohol intake: never Patient Tobacco Use Status: Never used Tobacco e-Cigarette/Vaping Use: Never Used service: No Current occupational status: unemployed Cognitive needs: No Hearing needs: No Vision needs: No Physical Exam Vital Signs: BMI result Body Mass Index 34.7 Const Other: Well-nourished well-developed very friendly female awake alert and oriented x3 in no acute distress Neck Other: Cervical spine examination shows left-sided paraspinal muscle tenderness, pain with range of motion, positive Spurling's test, 4/5 strength with testing of her right biceps and wrist extensors when compared to 5/5 strength on her right side Extrem Other: Left shoulder examination shows slightly decreased range of motion when compared to her right shoulder, 4+ out of 5 strength with supraspinatus testing, positive impingement signs, no instability Results Reviewed Results Reviewed: X-rays of the patient's left shoulder show moderate acromioclavicular joint narrowing, type 2 acromion, no acute bony abnormalities Assessment & Plan Assessment & Plan (1) Neck pain: Code(s): M54.2 - Cervicalgia Plan Ms. Chavis presents with progressively worsening neck pain which radiates down her left arm as well as associated left arm weakness possibly due to cervical stenosis or a disc herniation. Thus, I will send the patient for an MRI of her cervical spine for further evaluation. I will contact her by phone once the MRI results are available. She will call me prior to that time should her symptoms worsen in any way. Feel free to call me at any time should questions regarding her orthopedic management arise. Thank you very much for asking me to see this very friendly patient. I spent 22 minutes in reviewing the patient's records and imaging studies, seeing the patient and documenting in the medical record. Orders: Orders XR shoulder LT min 2V 10/21/22 M25.512 - Pain in left shoulder MR cervical spine wo con 10/21/22 M54.2 - Cervicalgia Medications: New tramadol 50 mg PO Q12H PRN 30 tabs 0RF pain Coding Level of Care Code New Pt Level 2 (60008) Diagnoses Neck pain M54.2
[2022-10-21 15:35] VITALS: BMI 34.7
== END 2022-10-22 07:27 | disposition home or self-care (01) ==
PROVIDERS: PCP Internal Medicine; Visit Provider Orthopaedic Surgery
DX: M54.2 Cervicalgia (principal)
CPT/HCPCS: 99202

== ENCOUNTER 2022-11-07 08:08 | Outpatient (REF) | payer OTHER, SELFPAY ==
--- NOTE | ~2022-11-07 | US_ITS ---
EXAMINATION: US COMPLETE ABDOMEN WITH LIVER ELASTOGRAPHY CLINICAL INFORMATION: Elevated liver transaminase levels COMPARISON: Previous abdominal ultrasound September [address] of the abdomen and pelvis February 2019 TECHNIQUE: Real-time imaging of the abdominal viscera. Noninvasive ultrasound liver fibrosis assessment is performed using Rosaura ElastPQ point quantification shear wave elastography (2D-SWE) with a C5-2 MHz transducer. Multiple elastography samples are obtained. FINDINGS: PANCREAS: Normal. ABDOMINAL AORTA: The proximal, middle, and distal aortic segments are normal in caliber. INFERIOR VENA CAVA: Visualized portions are normal. LIVER: Liver echotexture is slightly increased. The liver demonstrates normal size, and contour. No focal lesion or intrahepatic biliary duct dilatation. The right lobe measures 16 cm in length. The left lobe measures 12 cm in length. Portal flow is normal/hepatopedal Shear wave liver elastography median stiffness is 1.5 m/s (reference: normal median stiffness is 1.3 m/s or less). IQR/median stiffness to assess sampling precision is 0.05 (reference: good quality data set is IQR/median stiffness of 0.15 or less). GALLBLADDER: Surgically removed COMMON BILE DUCT: Normal in caliber measuring 0.4 cm in diameter. Left KIDNEY: Cysts in the lateral lower pole measuring 2 cm. No imaging follow-up recommended. No hydronephrosis. No renal calculi. The kidney measures 11 cm in maximum dimension. Right KIDNEY: Normal. No hydronephrosis. No renal calculi or focal parenchymal lesions. The kidney measures 10.7 cm in maximum dimension. SPLEEN: Normal. The spleen measures 10.7 cm in maximum dimension. FREE FLUID: None. US/US abdomen comp w elastography IMPRESSION: 1. Impression: Slightly echogenic liver. Differential would include fatty infiltration and hepatocellular disease. 2. Liver elastography: Adequate liver sampling. In the absence of other known clinical signs, rules out compensated advanced chronic liver disease. REFERENCE: Society of Radiologists in Ultrasound Liver Stiffness Thresholds (2020): LIVER STIFFNESS THRESHOLDS: *Liver Stiffness equal or less than 1.3 m/s: High probability of being normal. *Liver Stiffness less than 1.7 m/s: In the absence of other known clinical signs, rules out compensated advanced chronic liver disease. *Liver Stiffness 1.7-2.1 m/s: Suggestive of compensated advanced chronic liver disease but need further test for confirmation. *Liver Stiffness over 2.1 m/s: Rules in compensated advanced chronic liver disease. *Liver Stiffness over 2.4 m/s: Suggestive of clinically significant portal hypertension. QUALITY OF DATA SET: *IQR/Median value equal or less than 0.15 implies a quality data set. *IQR/Median value over 0.15 implies a poor quality data set. SIGNIFICANT CHANGE FROM PRIOR EXAM: Significant change if liver stiffness measurement is 10% or greater from prior exam. OTHER CONSIDERATIONS: The stage of liver fibrosis may be overestimated in the setting of acute hepatitis, liver inflammation, elevated liver function tests, hepatic vascular congestion, obstructive cholestasis, non-fasting state, and infiltrative diseases such as amyloidosis and lymphoma. In some patients with NAFLD, the liver stiffness thresholds for compensated advanced chronic liver disease may be lower. In causes other than viral hepatitis and NAFLD, liver stiffness thresholds are not well established.
== END 2022-11-07 08:09 | disposition home or self-care (01) ==
LOC: HO.US 08:08
PROVIDERS: PCP Internal Medicine; Visit Provider Internal Medicine
DX: R74.01 Elevation of levels of liver transaminase levels (principal)
CPT/HCPCS: 76705; 76981

== ENCOUNTER 2022-12-11 10:14 | Outpatient (REF) | payer OTHER, SELFPAY ==
--- NOTE | ~2022-12-11 | MR_ITS ---
EXAMINATION: MR CERVICAL SPINE WITHOUT CONTRAST CLINICAL INFORMATION: Neck pain COMPARISON: None available. TECHNIQUE: MRI of the cervical spine was obtained using routine sequences without contrast. FINDINGS: The visualized posterior fossa is unremarkable. Straightening of the normal cervical lordosis. Grade 1 anterolisthesis at C2-C3. Heterogeneous bone marrow signal, likely degenerative. The vertebral body heights are preserved. Multilevel disc desiccation without significant disc height loss. The spinal cord is normal in caliber. No abnormal cord signal. C2-C3: Bilateral facet arthrosis. No significant spinal canal or neural foraminal narrowing. C3-C4: Disc osteophyte complex and bilateral uncovertebral hypertrophy. No significant spinal canal or neural foraminal narrowing. C4-C5: Disc osteophyte complex with superimposed left paracentral disc protrusion. Bilateral uncovertebral hypertrophy and facet arthrosis. There is near complete effacement of the ventral thecal sac with mild left eccentric spinal canal stenosis. No significant neural foraminal narrowing. C5-C6: Disc osteophyte complex and bilateral uncovertebral hypertrophy. There is partial effacement of the ventral thecal sac without significant spinal canal stenosis. Moderate left neural foraminal narrowing. C6-C7: Disc osteophyte complex. There is complete effacement of the ventral thecal sac with flattening of the cord. Mild spinal canal stenosis. Mild left neural foraminal narrowing. C7-T1: Left paracentral/subarticular disc protrusion and bilateral uncovertebral hypertrophy. No significant spinal canal or neural foraminal narrowing. The paravertebral soft tissues are unremarkable. MR/MR cervical spine wo con IMPRESSION: Multilevel cervical spondylosis as described above, most notable at C6-C7 and to a lesser extent C4-C5 where there is mild spinal canal stenoses. Additionally, there is moderate left neural foraminal narrowing at C5-C6.
== END 2022-12-11 10:15 | disposition home or self-care (01) ==
LOC: HO.MRI 10:14
PROVIDERS: PCP Internal Medicine; Visit Provider Orthopaedic Surgery
DX: M54.2 Cervicalgia (principal)
CPT/HCPCS: 72141

== ENCOUNTER 2023-01-12 12:47 | Emergency (ER) | payer OTHER, SELFPAY ==
--- NOTE | ~2023-01-12 | XR_ITS ---
EXAMINATION: XR HAND, LEFT CLINICAL INFORMATION: Trauma, cut finger with grief counsellor COMPARISON: None available. TECHNIQUE: PA, lateral, and oblique views of the left hand. FINDINGS: The bones and soft tissues are normal. No fracture. Alignment is anatomic. Joint spaces are maintained. No erosions or soft tissue calcifications. XR/XR hand LT min 3V IMPRESSION: Normal left hand.
[2023-01-12 13:28] VITALS: BP 163/82; PULSE 94; RESP 16; TEMP 37.1; O2SAT 100; BMI 35.7
--- NOTE | 2023-01-12 13:29 | ED_ITS ---
HPI - General Adult General Chief complaint: Skin/Abscess/Foreign Body Stated complaint: l index finger laceration trouble locator test desk at home Time Seen by Provider: 01/12/23 14:28 Source: patient Mode of arrival: ambulatory Limitations: no limitations History of Present Illness HPI narrative: 62-year-old female presents with laceration to left index finger status post reaching into a trouble locator test desk and cutting her hand on the bleed. Patient reports bleeding at the site, unclear of tetanus status. She reports this happened a few hours ago. Reports she can move her finger without difficulty. Denies fevers, chills, numbness, tingling. No previous injuries to this finger. Related Data Previous Rx's Medication Instructions Recorded syringe with needle 3 mL 25 gauge #30 ea 09/04/21 x 1 (Monoject 3cc Syringe) clotrimazole-betamethasone 1 1 appl topical BID 10 days #45 02/11/22 %-0.05 % topical cream grams acetaminophen 650 mg 650 mg PO Q8H PRN pain #60 tabs 06/04/22 tablet,extended release (Tylenol 8 Hour) levothyroxine 112 mcg tablet 112 mcg PO DAILY #90 tabs 08/17/22 ibuprofen 600 mg tablet 600 mg PO Q6H PRN pain #20 tabs 09/11/22 fluticasone propionate 50 1 spray intranasal DAILY 30 days 10/13/22 mcg/actuation nasal #16 grams spray,suspension (Flonase Allergy Relief) gabapentin 100 mg capsule 100 mg PO BEDTIME 30 days #30 caps 10/13/22 tramadol 50 mg tablet 50 mg PO Q12H PRN pain #30 tabs 10/21/22 zolpidem 10 mg tablet 10 mg PO BEDTIME PRN insomnia #15 12/26/22 tabs cetirizine 10 mg tablet (All Day 10 mg PO DAILY PRN allergy 01/11/23 Allergy (cetirizine)) symptoms 90 days #90 tabs cholecalciferol (vitamin D3) 50 50 mcg PO DAILY 90 days #90 caps 01/11/23 mcg (2,000 unit) capsule Allergies Allergy/AdvReac Type Severity Reaction Status Date / Time spicy food AdvReac Hives Uncoded 10/13/22 09:20 Review of Systems Review of Systems: Constitutional : No Fever, No Chills, Cardiovascular : No Chest Pain, No SOB Respiratory : No Dyspnea Gastrointestinal : No abdominal pain Musculoskeletal : No Joint Swelling Skin : No rash, positive skin laceration Neuro : No Weakness, No Numbness Psych : No SI/HI Yes all other systems are reviewed and are negative [facility] Past Medical History Attestation statement: The following information was validated with the patient. Source: old records reviewed and nursing notes reviewed Medical History Acquired hypothyroidism Anxiety Cholelithiasis Dry skin dermatitis Fibromyalgia Impaired fasting glucose Insomnia Mixed dyslipidemia Polyarthralgia Polyarthralgia Varicose veins of bilateral lower extremities with pain Vitamin B12 deficiency Vitamin D deficiency Surgical History S/P cholecystectomy Family History Family History Sister Breast cancer Mother Essential hypertension Cholelithiasis Social History Social History Housing: House Alcohol intake: never Patient Tobacco Use Status: Never used Tobacco e-Cigarette/Vaping Use: Never Used Advance Directives: No Advance Directives Information Provided: No service: No Current occupational status: unemployed Cognitive needs: No Hearing needs: No Vision needs: No Physical Exam ED Vital Signs: Vital Signs - 24 hr 01/12/23 13:28 Temperature 98.8 F Pulse Rate 94 Respiratory Rate 16 Blood Pressure 163/82 H Pulse Oximetry 100 Oxygen Delivery Method Room Air BMI result Body Mass Index 35.7 vss Appearance: Alert.? Oriented X3.? No acute distress.? Head: Normocephalic, atraumatic, no step-offs or deformities Eyes: Pupils equal, round and reactive to light.? ENT: Pharynx normal.? Neck: Normal inspection.? Neck supple.? CVS: Normal heart rate and rhythm.? Pulses normal.? Respiratory: No respiratory distress.? Breath sounds normal.? Abdomen: Soft and nontender.? Skin: Skin warm and dry.? Normal skin color.? Normal skin turgor.?+ superficial laceration to the left distal aspect of the index finger overlying the fingernail however not involving the nail bed. Approximately 1 cm. 2+ radial pulses equal bilateral. Capillary refill intact less than 2 seconds to bilateral upper extremity digits. Extremities: No lower extremity edema.? No calf ttp. 5/5 strength to bilateral upper and lower extremities Back: No midline tenderness, no C-spine tenderness, full range of motion, no CVA tenderness bilaterally Neuro: Oriented X 3.? No motor deficit.? No sensory deficit. CN 2-12 intact Course Course Course Narrative: RME performed by Shelby Cardoza PA-C. Patient is a 62 year old assigned female at presenting to the emergency department with left index finger injury after sticking her hand in a trouble locator test desk. Imaging ordered. Patient placed back in the waiting room pending room availability and results. Reevaluation(s) Reevaluation #1: X-ray unremarkable. Dermabond applied to superficial laceration. NV intact. Educated patient on diagnosis and treatment plan, answered all question, patient verbalizes understanding. At this time patient will be discharged home, advised to return with new or worsening symptoms. Educated on worrisome signs and symptoms and when to return. At this time I feel comfortable discharge home. Time: 14:55 Medical Decision Making Medical Decision Making [facility] Narrative: 1412 62-year-old female presents with laceration to left index finger cutting it on a blade of a trouble locator test desk Physical examsuperficial laceration to the left distal aspect of the index finger overlying the fingernail however not involving the nail bed. Approximately 1 cm. Concerns you for simple laceration unlikely fracture, dislocation, neurovascular compromise or threat to Borges. Plan imaging from triage Differential Diagnosis Differential Diagnoses: The differential diagnosis associated with the presentation includes Concerns you for simple laceration unlikely fracture, dislocation, neurovascular compromise or threat to Borges. Admission/Observation Consideration of admission/observation: Escalation of care including admission/observation considered Not indicated Independent Interpretation I performed an independent interpretation of an: Plain X-Ray (XR/XR hand LT min 3V IMPRESSION: Normal left hand.) Radiology Impression Discussion of test interpretation with radiology: I have reviewed the radiologist's reading. Discharge Plan Discharge Clinical Impression: Laceration of index finger Patient Disposition: Home, Self-Care Instructions: Laceration (ED), Laceration Without Closure (ED) Additional Instructions: Take your medications as prescribed. If you were prescribed antibiotics today, it is important that you take your medication to their entirety, do not skip any doses, do not finish them early. Follow-up with your primary care provider this week. Return to the emergency department with new or worsening symptoms. Such as fevers, chills, chest pain, shortness of breath, nausea, vomiting, dizziness, headache, vision changes, lethargy In case of emergency call 911 XR/XR hand LT min 3V IMPRESSION: Normal left hand. Prescriptions: No Action (DME) Monoject 3cc Syr 25Gx1 3 mL 25 gauge x 1 syringe See Rx Instructions .Route Qty: 30 2RF Rx Instructions: As directed once a week acetaminophen [Tylenol 8 Hour] 650 mg tablet extended release 650 mg PO Q8H PRN (Reason: pain) Qty: 60 1RF levothyroxine 112 mcg tablet 112 mcg PO DAILY Qty: 90 3RF zolpidem 10 mg tablet 10 mg PO BEDTIME PRN (Reason: insomnia) Qty: 15 0RF cholecalciferol (vitamin D3) 50 mcg (2,000 unit) capsule 50 mcg PO DAILY 90 Days Qty: 90 0RF cetirizine [All Day Allergy (cetirizine)] 10 mg tablet 10 mg PO DAILY PRN (Reason: allergy symptoms) 90 Days Qty: 90 0RF ibuprofen 600 mg tablet 600 mg PO Q6H PRN (Reason: pain) Qty: 20 0RF clotrimazole-betamethasone 1-0.05 % cream 1 appl topical BID 10 Days Qty: 45 0RF fluticasone propionate [Flonase Allergy Relief] 50 mcg/actuation spray,suspension 1 spray intranasal DAILY 30 Days Qty: 16 1RF Rx Instructions: administer into each nostril gabapentin 100 mg capsule 100 mg PO BEDTIME 30 Days Qty: 30 1RF tramadol 50 mg tablet 50 mg PO Q12H PRN (Reason: pain) Qty: 30 0RF Referrals: Niecy Cummins MD [Primary Care Provider] - 2 days
[2023-01-12] MEDS: Diphth,Pertus(ACell),Tet Adult 0.5 ML SYRINGE IM (15:19)
--- NOTE | 2023-01-12 15:24 | PC.NURSE ---
tdap given R deltoid, vis given, pt tolerated well.
== END 2023-01-12 15:24 | disposition home or self-care (01) ==
PROVIDERS: Emergency Provider Student in an Organized Health Care Education/Training Program; PCP Internal Medicine
DX: S61.217A Laceration without foreign body of left little finger without damage to nail, initial encounter (principal); W29.0XXA Contact with powered kitchen appliance, initial encounter; Y93.9 Activity, unspecified; Y92.010 Kitchen of single-family (private) house as the place of occurrence of the external cause; Y99.9 Unspecified external cause status
CPT/HCPCS: 12001; 73130; 90471; 90715; 99282; 99284

== ENCOUNTER 2023-02-03 11:16 | Outpatient (AMB) | payer OTHER, SELFPAY ==
--- NOTE | 2023-02-03 11:39 | MHC.OFFVIS ---
Intake Vital Signs 02/03/23 11:51 Height 5 ft 2 in Weight 190 lb BMI 34.7 BP 143/73 H Blood Pressure Location Lt brachial Position Sitting Pulse 96 Intake Visit Reasons: Elevated LFTs Intake Note: Patient new consult for Elevated LFTs. Patient cc: diarrhea, abdominal pain with burning sensation and swallowing problems. Accounting Representative Required: No Accompanied by: Spouse Allergies spicy food Adverse Reaction (Uncoded 05/21/23 15:45) Hives Medication List - Last Reconciled 02/03/23 by Gabrielle Herring MD acetaminophen ER (Tylenol 8 Hour) 650 mg PO Q8H PRN cetirizine (All Day Allergy (cetirizine)) 10 mg PO DAILY PRN 90 days cholecalciferol (vitamin D3) 50 mcg PO DAILY 90 days clotrimazole-betamethasone 1-0.05 % 1 appl topical BID 10 days fluticasone propionate 50 mcg/actuation (Flonase Allergy Relief) 1 spray intranasal DAILY 30 days gabapentin 100 mg PO BEDTIME 30 days ibuprofen 600 mg PO Q6H PRN levothyroxine 112 mcg PO DAILY syringe with needle (Monoject 3cc Syringe) As directed once a week tramadol 50 mg PO Q12H PRN zolpidem 10 mg PO BEDTIME PRN HPI Elevated LFTs HPI Details Initial GI clinic visist for this 62-year-old female with acquired hypothyroidism, mixed hyperlipidemia, diffuse joint pain secondary to fibromyalgia and insomnia even with zolpidem referred by Dr. Mclain for evaluation of elevated LFTs. LABS IN [facility] : Reviewed IMAGING STUDIES: 11/07/22 ABDOMINAL ULTRASOUND WITH ELASTOGRAPHY SHOWED: 1. Impression: Slightly echogenic liver. Differential would include fatty infiltration and hepatocellular disease. 2. Liver elastography: Adequate liver sampling. In the absence of other known clinical signs, rules out compensated advanced chronic liver disease. ENDOSCOPIC STUDIES: None in [facility] TODAY'S VISIT: Pt is accompanied by her Patient cc: diarrhea, abdominal pain with burning sensation and swallowing problems. Pt denies past or family hx hx of liver disease She had Lap Yohana in May, for gallstones Noted RUQ pain prior to the surgery and has not resolved after the surgery Pain is intermittent and is not related to eating. ? radiates to the back Usually notes pain when she lies down to sleep at night She has difficulty sleeping and unsure if pain keeps her from sleeping Has diarrhea since she had the surgery and unable to go out sometimes Can have 3 to 6 watery Bms a day - can vary in consistency. Denies post prandial diarrhea or association with milk products Does not take any medications for the diarrhea. Diarrhea appears to have become worse. Never had a colonoscopy - had a stool cologuard test < 1 year ago - negative Complains of intermittent shortness of breath Has been eating less and has lost some weight - from 196 lbs to 190 lbs. Denies black stools or rectal bleeding. Patient denies major cardiac or pulmonary problems, Admits to loud snoring and not tested for sleep apnea Denies being on chronic anticoagulation. Patient denies known family history of colon polyps, colon cancer or other GI malignancies. [facility] Medical History (Updated 05/22/23 @ 13:52 by Niecy Cabello MD) Polyarthralgia Dry skin dermatitis Impaired fasting glucose Mixed dyslipidemia Vitamin B12 deficiency Vitamin D deficiency Varicose veins of bilateral lower extremities with pain Polyarthralgia Cholelithiasis Insomnia Fibromyalgia Acquired hypothyroidism Anxiety Surgical History (Updated 05/21/23 @ 15:50 by Niecy Cabello MD) H/O blepharoplasty S/P cholecystectomy Family History Sister Breast cancer Mother Essential hypertension Cholelithiasis Social History Housing: House Alcohol intake: never Patient Tobacco Use Status: Never used Tobacco e-Cigarette/Vaping Use: Never Used service: No Current occupational status: unemployed Cognitive needs: No Hearing needs: No Vision needs: No Review of Systems Const All systems reviewed & are unremarkable except as noted in HPI and below Physical Exam Vital Signs: Last Vital Signs Pulse 96 02/03/23 11:51 BP 143/73 H 02/03/23 11:51 BMI result Body Mass Index 34.7 Const General: healthy appearing and no acute distress Nutritional Appearance: obese Orientation/consciousness: patient oriented x3 Limitations: no limitations HEENT Head: Yes normal to inspection Ears: hearing grossly normal bilaterally Eyes Sclerae: sclerae normal Pupils: Equal, round and reactive pupils present Neck Neck: Yes normal visual inspection Chest Chest palpation & inspection: normal inspection of the chest Resp Effort & Inspection: normal respiratory effort Auscultation: clear to auscultation bilaterally Cardio Palpation: normal PMI Rate: regular rate Rhythm: regular rhythm Heart sounds: S1 normal heart sound present, S2 normal heart sound present and no murmurs GI Palpation (GI): Soft to palpation, nontender and No hepatosplenomegaly present Auscultation: normal bowel sounds Rectal Exam - Female: deferred Skin General skin exam: no rashes or lesions noted Neuro General: patient oriented x3, gait normal and moves all extremities Cranial nerves: Yes Equal, round and reactive pupils present Psych Appearance: grossly normal Mental Status: mental status grossly normal Assessment & Plan Assessment & Plan (1) Elevated LFTs: Code(s): R79.89 - Other specified abnormal findings of blood chemistry (2) Chronic diarrhea: Code(s): K52.9 - Noninfective gastroenteritis and colitis, unspecified Plan 62-year-old female with acquired hypothyroidism, mixed hyperlipidemia, diffuse joint pain secondary to fibromyalgia and insomnia even with zolpidem referred by Dr. Mclain for evaluation of elevated LFTs. Pt is obese and abdominal US showed slighty echogenic liver - fatty infiltration versus hepatocellular disease. Compensated advanced liver disease was ruled out on elastography. Patient gives a history of intermittent RUQ pain and chronic diarrhea since gallbladder surgery in May, suggestive of post cholecystectomy syndrome Denies post prandial diarrhea or association with milk products Does not take any medications for the diarrhea. Never had a colonoscopy - had a stool cologuard test < 1 year ago - negative PLAN: 1. Repeat LFTs and hepatitis B and C serologies 2. Check fecal calprotectin and Pancreatic elastase 3. Tram of cholestyramine twice daily for diarrhea If above evaluation is negative and symptoms persist, I will schedule further evaluation with an MRCP and a colonoscopy Fu in 2 months POST CHOLECYSTECTOMY SYNDROME (FROM UPTODATE): PCS is defined as early if it occurs in the postoperative period and late if it occurs months or years after surgery. The symptoms of pain and dyspepsia referred to as PCS can be caused by a wide spectrum of conditions, both biliary and extrabiliary. About one-half of the patients with PCS are found to have biliary, pancreatic, or gastrointestinal disorders, while the remaining patients have extraintestinal disease ?Biliary causes of PCS include: Early PCS can be due to biliary injury, retained cystic duct, or CBD stones. Late PCS can be due to recurrent CBD stones, bile duct strictures, an inflamed cystic duct or gallbladder remnant, papillary stenosis, or biliary dyskinesia. Biliary dyskinesia refers to motor forms of sphincter of Oddi dysfunction. Sphincter of Oddi dysfunction can be evaluated with sphincter of Oddi manometry, which is discussed in detail elsewhere. ?Extrabiliary causes of PCS include: Gastrointestinal causes such as irritable bowel syndrome, pancreatitis, pancreatic tumors, pancreas divisum, hepatitis, peptic ulcer disease, mesenteric ischemia, diverticulitis, or esophageal diseases. Extraintestinal causes such as intercostal neuritis, wound neuroma, coronary artery disease, or psychosomatic disorders. Treatment for PCS is tailored to the specific cause of the symptoms. Diagnosis of the underlying problem causing PCS usually requires imaging to look for retained or recurrent stones or identify a bile duct leak, stricture, or transection. This can be accomplished in most cases with ultrasound and/or computed tomography (CT) scanning followed by direct cholangiography or magnetic resonance cholangiopancreatography (MRCP). MRCP provides a noninvasive alternative to direct cholangiography for evaluation of the biliary tract. Orders: Orders Prothrombin Time INR 02/03/23 R79.89 - Other specified abnormal findings of blood chemistry Hepatitis B Core Antibody 02/03/23 R79.89 - Other specified abnormal findings of blood chemistry Hepatitis B Surface Antibody 02/03/23 R79.89 - Other specified abnormal findings of blood chemistry Calprotectin, Fecal 02/03/23 K52.9 - Noninfective gastroenteritis and colitis, unspecified Pancreatic Elastase-1 02/03/23 K52.9 - Noninfective gastroenteritis and colitis, unspecified Immunoglobulin A 02/03/23 K52.9 - Noninfective gastroenteritis and colitis, unspecified C Reactive Protein 02/03/23 R79.89 - Other specified abnormal findings of blood chemistry Hepatitis B Surface Antigen 02/03/23 R79.89 - Other specified abnormal findings of blood chemistry Hepatitis C Antibody 02/03/23 R79.89 - Other specified abnormal findings of blood chemistry Liver Panel 02/03/23 R79.89 - Other specified abnormal findings of blood chemistry Transglutaminase IgA 02/03/23 K52.9 - Noninfective gastroenteritis and colitis, unspecified Medications: New cholestyramine-aspartame 4 gram (Cholestyramine Light) administer w/meal; avoid other meds within 1hr before or 4-6hr after dose 4 grams PO BID 239.4 grams 3RF 30 days K52.9 - Noninfective gastroenteritis and colitis, unspecified Coding Level of Care Code New Pt Level 4 (44307) Diagnoses Elevated LFTs R79.89 Chronic diarrhea K52.9 Time Spent (min) 34
[2023-02-03 11:51] VITALS: BP 143/73; PULSE 96; BMI 34.7
== END 2023-02-03 12:33 | disposition home or self-care (01) ==
PROVIDERS: PCP Internal Medicine; Visit Provider Internal Medicine Gastroenterology
DX: R79.89 Other specified abnormal findings of blood chemistry (principal); K52.9 Noninfective gastroenteritis and colitis, unspecified
CPT/HCPCS: 99204

== ENCOUNTER 2023-02-03 11:16 | Outpatient (REF) | payer OTHER, SELFPAY ==
[2023-02-03 13:30] LABS: INTERNATIONAL NORM RATIO 0.9 (0.9-1.1); Prothrombin Time 11.3 SEC (11.1-13.3)
[2023-02-03 13:57] LABS: Alanine Aminotransferase 42 U/L (0-31); Albumin Level 4.2 g/dL (3.5-5.0); Alkaline Phosphatase 82 U/L (39-117); Aspartate Amino Transferase 31 U/L (5-31); Bilirubin Total 0.5 mg/dL (0.0-1.0); C Reactive Protein 0.25 mg/dL (< or = 0.50); Total Protein 7.6 g/dL (6.5-8.0)
[2023-02-03 14:07] LABS: Bilirubin Direct 0.2 mg/dL (0.0-0.5)
[2023-02-04 09:02] LABS: HBS Num1 2.67 mIU/mL (0-7.99); HBc Num1 0.14 S/CO (0.00-0.79); HBsAGNum1 0.31 S/CO (0.00-0.99); Hepatitis B Core Antibody Nonreactive (Nonreactive); Hepatitis B Surface Antigen Negative (Negative); ~HepC Num1 0.21 S/CO (0.00-0.79); ~Hepatitis B Surface Antibody NONREACTIVE (Nonreactive); ~Hepatitis C Antibody Nonreactive (Nonreactive)
== END 2023-02-03 11:17 | disposition home or self-care (01) ==
LOC: HO.LAB 11:16
PROVIDERS: PCP Internal Medicine; Visit Provider Internal Medicine Gastroenterology
DX: R79.89 Other specified abnormal findings of blood chemistry (principal); K52.9 Noninfective gastroenteritis and colitis, unspecified
CPT/HCPCS: 36415; 80076; 85610; 86140; 86704; 86706; 86803; 87340; 99202

== ENCOUNTER 2023-02-24 10:20 | Outpatient (REF) | payer OTHER, SELFPAY ==
[2023-02-28 21:43] LABS: Calprotectin, Fecal 18 mcg/g
[2023-03-02 20:44] LABS: Pancreatic Elastase-1 >500 mcg/g
== END 2023-02-24 10:21 | disposition home or self-care (01) ==
LOC: HO.LNP 10:20
PROVIDERS: Visit Provider Internal Medicine Gastroenterology
DX: K52.9 Noninfective gastroenteritis and colitis, unspecified (principal)
CPT/HCPCS: 82656; 83993

== ENCOUNTER 2023-05-21 15:22 | Outpatient (AMB) | payer OTHER, SELFPAY ==
[2023-05-21 15:25] VITALS: BP 126/76; PULSE 85; O2SAT 98; BMI 35.3
--- NOTE | 2023-05-21 15:25 | A.OFFPC_ITS ---
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 Accompanied by: Self / Same As Patient Allergies spicy food Adverse Reaction (Uncoded 05/21/23 15:45) Hives Medication List - Last Reconciled 05/21/23 by Niecy Cabello MD acetaminophen ER (Tylenol 8 Hour) 650 mg PO Q8H PRN cetirizine (All Day Allergy (cetirizine)) 10 mg PO DAILY PRN 90 days cholecalciferol (vitamin D3) 50 mcg PO DAILY 90 days cholestyramine-aspartame 4 gram (Cholestyramine Light) 4 grams PO BID 30 days clotrimazole-betamethasone 1-0.05 % 1 appl topical BID 10 days fluticasone propionate 50 mcg/actuation (Flonase Allergy Relief) 1 spray intranasal DAILY 30 days gabapentin 100 mg PO BEDTIME 30 days ibuprofen 600 mg PO Q6H PRN levothyroxine 112 mcg PO DAILY syringe with needle (Monoject 3cc Syringe) As directed once a week tramadol 50 mg PO Q12H PRN zolpidem 10 mg PO BEDTIME PRN Tobacco use date assessed: 05/21/23 Dental Screening Dental Screen Date: 05/21/23 Did you have a dental visit in the last 12 months?: Yes Did you have a dental problem in the last 6 months where you did not have access to dental care?: No Was dental information given to patient?: Patient has dentist HPI HPI Comments History of Present Illness Details This is a 63-year-old female with moderate major depression that comes for her physical exam accompanied by . I will start her on duloxetine for her depression and fibromyalgia. Last mammogram was 2022 and was normal. Last Pap smear was 2021 and was normal. Colonoscopy still pending. No chest pain or shortness of breath. [facility] Medical History (Updated 05/22/23 @ 13:52 by Niecy Cabello MD) Polyarthralgia Dry skin dermatitis Impaired fasting glucose Mixed dyslipidemia Vitamin B12 deficiency Vitamin D deficiency Varicose veins of bilateral lower extremities with pain Polyarthralgia Cholelithiasis Insomnia Fibromyalgia Acquired hypothyroidism Anxiety Surgical History (Updated 05/21/23 @ 15:50 by Niecy Cabello MD) H/O blepharoplasty S/P cholecystectomy Family History Sister Breast cancer Mother Essential hypertension Cholelithiasis Social History Housing: House Alcohol intake: never Patient Tobacco Use Status: Never used Tobacco e-Cigarette/Vaping Use: Never Used service: No Current occupational status: unemployed Cognitive needs: No Hearing needs: No Vision needs: No Questionnaire PHQ-9 Over the last 2 weeks, how often have you been bothered by any of the following problems? 1. Little interest or pleasure in doing things: more than half the days 2. Feeling down, depressed, or hopeless: nearly every day 3. Trouble falling or staying asleep, or sleeping too much: nearly every day 4. Feeling tired or having little energy: nearly every day 5. Poor appetite or overeating: several days 6. Feeling bad about yourself - or that you are a failure or have let yourself or your family down: not at all 7. Trouble concentrating on things, such as reading the newspaper or watching television: several days 8. Moving or speaking so slowly that other people could have noticed. Or the opposite - being so fidgety or restless that you have been moving around a lot more than usual: not at all 9. Thoughts that you would be better off or of hurting yourself in some way: not at all Total score: 13 Depression Screening Interpretation: Positive Depression Screening Done: Yes 52174 - PHQ-9 Billing: Yes Source: Developed by Drs. Sánchez Gupta, Maria Del Rosario Reyna, Jason Coleman and colleagues, with an educational james from [employer]. Thrive Questionnaire Date Thrive assessed: 05/21/23 I am a: Patient What is your living situation today?: I have a steady place to live Within the past 12 months, did the food you bought not last and you didn't have the money to get more?: Never true Within the past 12 months, did you worry whether your food would run out before you got money to buy more?: Never true Do you have trouble paying for medicines?: No Do you have trouble getting transportation to medical appointments?: No Do you have trouble paying your heating and electricity bill?: No Do you have trouble taking care of your child, family member or friend?: No Do you have trouble with day-to-day activities such as bathing, preparing meals, shopping, managing finances, etc.?: No Are you currently unemployed and looking for a job?: No Are you interested in more education?: No Please select the resources that you would like help with: None THRIVE Score: 0 AUDIT C Alcohol Use Questionnaire (AUDIT-C) 1. How often do you have a drink containing alcohol?: Never Total Score: 0 HEMA-7 AMB Questionnaire HEMA-7 Date HEMA - 7 assessed: 05/21/23 Feeling nervous, anxious, or on edge: 0 = Not at all Not being able to stop or control worryin = Not at all Worrying too much about different things: 0 = Not at all Trouble relaxin = Not at all Being so restless that it is hard to sit still: 0 = Not at all Becoming easily annoyed or irritable: 0 = Not at all Feeling afraid as if something awful might happen: 0 = Not at all Total HEMA-7 score (0-4 normal; 5-9 mild; 10-14 moderate; 15-21 severe): 0 Source: Developed by Drs. Sánchez Gupta, Maria Del Rosario Reyna, Jason Coleman and colleagues, with an educational james from [employer]. HEMA-7 Assessment Billing HEMA-7 Assessment Tool: HEMA-7 Assessment 43154 Review of Systems Const All systems reviewed & are unremarkable except as noted in HPI and below Eyes Reports no additional complaints, Denies change in vision and Denies other visual disturbances Card Denies chest pain at rest, Denies chest pain with activity, Denies edema, Denies irregular heart rhythm, Denies claudication, Denies dyspnea, Denies dyspnea on exertion, Denies orthopnea, Denies paroxysmal nocturnal dyspnea and Denies slow heart rate Resp Denies cough, Denies dyspnea and Denies dyspnea on exertion GI Denies abdominal pain, Denies change in bowel habits, Denies excessive flatus, Denies nausea and Denies vomiting Denies urinary incontinence, Denies urinary hesitancy and Denies urinary urgency Physical exam (Primary Care) Vital Signs: Last Vital Signs Pulse 85 05/21/23 15:25 BP 126/76 05/21/23 15:25 Pulse Ox 98 05/21/23 15:25 Oxygen Delivery Method Room Air 05/21/23 15:25 BMI result Body Mass Index 35.3 Tobacco/Smoking Status: Tobacco use Status Tobacco use date assessed 05/21/23 05/21/23 15:26 Patient Tobacco Use Status Never used Tobacco 05/21/23 15:26 e-Cigarette/Vaping Use Never Used 05/21/23 15:26 PHQ-9: PHQ-9 Score PHQ-9: Total score 13 05/21/23 15:54 Depression Screening Interpretation: Positive Thrive Assessment: Date of Thrive Assessment Date Thrive assessed 05/21/23 05/21/23 15:26 Const Orientation/consciousness: patient oriented x3 HENMT Head: Yes normal to inspection, Yes normocephalic and Yes atraumatic Ears: external ears normal Eyes General: appearance normal, both eyes and all related structures Eyelids: Yes eyelids normal Conjunctivae: conjunctivae normal Neck Neck: Yes normal visual inspection and Yes supple Resp Effort & Inspection: normal respiratory effort Auscultation: clear to auscultation bilaterally Cardio Jugular venous distension: no JVD Rate: regular rate Rhythm: regular rhythm Heart sounds: S1 normal heart sound present and S2 normal heart sound present GI Inspection: Yes normal to inspection Palpation (GI): Soft to palpation and nontender Auscultation: normal bowel sounds Skin General skin exam: no rashes or lesions noted Neuro General: patient oriented x3 and no focal motor deficits Extrem General: Yes full ROM Psych Appearance: grossly normal Assessment and Plan Assessment & Plan (1) Physical exam: Code(s): Z00.00 - Encounter for general adult medical examination without abnormal findings Plan: Repeat in a year. (2) Moderate major depression: Code(s): F32.1 - Major depressive disorder, single episode, moderate Plan: Start duloxetine. Orders: Orders Vitamin B12 and Folate 05/21/23 E53.8 - Deficiency of other specified B group vitamins Vitamin D 25-OH Total 05/21/23 E55.9 - Vitamin D deficiency, unspecified IRON PROFILE 05/21/23 D64.9 - Anemia, unspecified Lipid Panel 05/21/23 E78.5 - Hyperlipidemia, unspecified Comprehensive [place]. Panel Fast 05/21/23 R79.89 - Other specified abnormal findings of blood chemistry Thyroid Stimulating Hormone 05/21/23 E03.9 - Hypothyroidism, unspecified Complete Blood Count Auto Diff 05/21/23 D64.9 - Anemia, unspecified Medications: New duloxetine 20 mg PO DAILY 90 caps 1RF 90 days Coding Level of Care Code Est Pt Prev Care 40-64y(00770) Diagnoses Physical exam Z00.00 Moderate major depression F32.1 Additional Codes HEMA-7 Assessment Billing - HEMA-7 Assessment Tool: HEMA-7 Assessment 80579 ([id number]) Time Spent (min) 34
== END 2023-05-21 16:03 | disposition home or self-care (01) ==
PROVIDERS: PCP Internal Medicine; Visit Provider Internal Medicine
DX: Z00.00 Encounter for general adult medical examination without abnormal findings (principal); F32.1 Major depressive disorder, single episode, moderate; M79.7 Fibromyalgia
CPT/HCPCS: 96127; 99396

== ENCOUNTER 2023-05-21 16:11 | Outpatient (REF) | payer OTHER, SELFPAY ==
[2023-05-21 16:39] LABS: MANUAL DIFF FLAG NO
[2023-05-21 18:00] LABS: Basophils Absolute Auto 0.1 X10*3/uL (0.0-0.2); Basophils Percent Auto 0.8 % (0-2); Eosinophils Absolute Auto 0.1 X10*3/uL (0.0-0.4); Eosinophils Percent Auto 2.1 % (0-4); Hematocrit 38.8 % (37.0-47.0); Hemoglobin 12.7 g/dl (12.0-16.0); Imm Gran Abs Auto 0.01 X10*3/uL (0.00-0.03); Imm Gran Pct Auto 0.2 % (0.0-0.4); Lymphocytes Absolute Auto 3.1 X10*3/uL (1.2-4.9); Lymphocytes Percent Auto 46.4 % (20-40); Mean Corpuscular HGB Conc 32.7 g/dl (31.0-35.0); Mean Corpuscular Hemoglobin 29.3 pg (27.0-33.0); Mean Corpuscular Volume 89.6 fL (80.0-98.0); Mean Platelet Volume 10.6 fL (9.4-12.3); Monocytes Absolute Auto 0.3 X10*3/uL (0.1-1.2); Neutrophils Percent Auto 45.5 % (45-73); Platelet Count 384 X10*3/uL (160-400); Red Blood Count 4.33 X10*6/uL (4.20-5.50); Red Cell Distribution Width 12.1 % (11.0-16.0); White Blood Count 6.6 X10*3/uL (4.8-10.8)
[2023-05-21 18:47] LABS: Alanine Aminotransferase 36 U/L (0-31); Albumin Level 4.1 g/dL (3.5-5.0); Alkaline Phosphatase 85 U/L (39-117); Anion Gap 12 (12-20); Aspartate Amino Transferase 27 U/L (5-31); Bilirubin Total 0.4 mg/dL (0.0-1.0); Blood Urea Nitrogen 11 mg/dL (9-16); Calcium 9.4 mg/dL (8.4-10.2); Carbon Dioxide 26 mmol/L (22-29); Chloride 107 mmol/L (96-108); Cholesterol 257 mg/dL (<200); Estimated Glomerular Filt Rate > 60; Glucose Fasting 92 mg/dL (60-99); HDL Cholesterol 47 mg/dL (>40); Iron 38 mcg/dL (30-160); LDL Cholesterol Calculated 168 mg/dL (<100); Percent Iron Saturation 11 % (15-50); Potassium 4.5 mmol/L (3.3-5.1); Sodium 140 mmol/L (135-145); Total Iron Binding Capacity 342 mcg/dL (228-428); Total Protein 7.4 g/dL (6.5-8.0); Triglycerides 212 mg/dL (<150); Unsaturated Iron Binding 304 ug/dL
[2023-05-21 18:52] LABS: Thyroid Stimulating Hormone 2.65 uIU/mL (0.32-4.0); Vitamin D 25-OH Total 15.1 ng/mL (>30)
[2023-05-21 19:08] LABS: Folate 9.7 ng/mL (> or = 4.0); Vitamin B12 281 pg/mL (200-900)
== END 2023-05-21 16:12 | disposition home or self-care (01) ==
LOC: HO.LAB 16:11
PROVIDERS: PCP Internal Medicine; Visit Provider Internal Medicine
DX: E53.8 Deficiency of other specified B group vitamins (principal); E55.9 Vitamin D deficiency, unspecified; E03.9 Hypothyroidism, unspecified; E78.5 Hyperlipidemia, unspecified; R79.89 Other specified abnormal findings of blood chemistry; D64.9 Anemia, unspecified
CPT/HCPCS: 36415; 80053; 80061; 82306; 82607; 82746; 83540; 84443; 85025

== ENCOUNTER 2023-06-04 13:12 | Outpatient (AMB) | payer OTHER, SELFPAY ==
--- NOTE | 2023-06-04 13:15 | A.OFFVIS_ITS ---
Vital Signs 06/04/23 13:16 Height 5 ft 2 in Weight 193 lb BMI 35.3 BP 142/62 H Blood Pressure Location Lt brachial Position Sitting Intake Visit Reasons: follow up chronic diarrhea Intake Note: Patient follow up fro chronic diarrhea. Patient cc: right abdominal pain with bloating, diarrhea, and acid reflex with burning sensation. 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 Accompanied by: Spouse Allergies spicy food Adverse Reaction (Uncoded 05/21/23 15:45) Hives Medication List - Last Reconciled 06/04/23 by Gabrielle Herring MD acetaminophen ER (Tylenol 8 Hour) 650 mg PO Q8H PRN cetirizine (All Day Allergy (cetirizine)) 10 mg PO DAILY PRN 90 days cholecalciferol (vitamin D3) 50 mcg PO DAILY 90 days cholestyramine-aspartame 4 gram (Cholestyramine Light) 4 grams PO BID 30 days clotrimazole-betamethasone 1-0.05 % 1 appl topical BID 10 days duloxetine 20 mg PO DAILY 90 days fluticasone propionate 50 mcg/actuation (Flonase Allergy Relief) 1 spray intranasal DAILY 30 days gabapentin 100 mg PO BEDTIME 30 days ibuprofen 600 mg PO Q6H PRN levothyroxine 112 mcg PO DAILY syringe with needle (Monoject 3cc Syringe) As directed once a week tramadol 50 mg PO Q12H PRN zolpidem 10 mg PO BEDTIME PRN HPI HPI follow up chronic diarrhea: Details: GI clinic visist for this 62-year-old female with acquired hypothyroidism, mixed hyperlipidemia, diffuse joint pain secondary to fibromyalgia and insomnia even with zolpidem referred by Dr. Mclain for evaluation of elevated LFTs. LABS IN [facility] : Reviewed IMAGING STUDIES: 11/07/22 ABDOMINAL ULTRASOUND WITH ELASTOGRAPHY SHOWED: 1. Impression: Slightly echogenic liver. Differential would include fatty infiltration and hepatocellular disease. 2. Liver elastography: Adequate liver sampling. In the absence of other known clinical signs, rules out compensated advanced chronic liver disease. ENDOSCOPIC STUDIES: None in [facility] TODAY'S VISIT: Pt is accompanied by her Patient cc: right abdominal pain with bloating, diarrhea, and acid reflex with burning sensation. Continues to have abdominal pain. No diarrhea since she was fasting. Today she had 3 loose BMs today. PAST VISITS: Pt denies past or family hx hx of liver disease She had Lap Yohana in May, for gallstones Noted RUQ pain prior to the surgery and has not resolved after the surgery Pain is intermittent and is not related to eating. ? radiates to the back Usually notes pain when she lies down to sleep at night She has difficulty sleeping and unsure if pain keeps her from sleeping Has diarrhea since she had the surgery and unable to go out sometimes Can have 3 to 6 watery Bms a day - can vary in consistency. Denies post prandial diarrhea or association with milk products Does not take any medications for the diarrhea. Diarrhea appears to have become worse. Never had a colonoscopy - had a stool cologuard test < 1 year ago - negative Complains of intermittent shortness of breath Has been eating less and has lost some weight - from 196 lbs to 190 lbs. Denies black stools or rectal bleeding. Patient denies major cardiac or pulmonary problems, Admits to loud snoring and not tested for sleep apnea Denies being on chronic anticoagulation. Patient denies known family history of colon polyps, colon cancer or other GI malignancy [facility] Medical History (Updated 06/04/23 @ 13:43 by Gabrielle Herring MD) Polyarthralgia Dry skin dermatitis Impaired fasting glucose Mixed dyslipidemia Vitamin B12 deficiency Vitamin D deficiency Varicose veins of bilateral lower extremities with pain Polyarthralgia Cholelithiasis Insomnia Fibromyalgia Acquired hypothyroidism Anxiety Surgical History H/O blepharoplasty S/P cholecystectomy Family History Sister Breast cancer Mother Essential hypertension Cholelithiasis Social History Housing: House Alcohol intake: never Patient Tobacco Use Status: Never used Tobacco e-Cigarette/Vaping Use: Never Used service: No Current occupational status: unemployed Cognitive needs: No Hearing needs: No Vision needs: No Review of Systems Const All systems reviewed & are unremarkable except as noted in HPI and below Physical Exam Vital Signs: Last Vital Signs BP 142/62 H 06/04/23 13:16 BMI result Body Mass Index 35.3 Const General: healthy appearing and no acute distress Nutritional Appearance: obese Orientation/consciousness: patient oriented x3 Limitations: no limitations HEENT Head: Yes normal to inspection Ears: hearing grossly normal bilaterally Eyes Sclerae: sclerae normal Pupils: Equal, round and reactive pupils present Neck Neck: Yes normal visual inspection Chest Chest palpation & inspection: normal inspection of the chest Resp Effort & Inspection: normal respiratory effort Auscultation: clear to auscultation bilaterally Cardio Palpation: normal PMI Rate: regular rate Rhythm: regular rhythm Heart sounds: S1 normal heart sound present, S2 normal heart sound present and no murmurs GI Palpation (GI): Soft to palpation, nontender and No hepatosplenomegaly present Auscultation: normal bowel sounds Rectal Exam - Female: deferred Skin General skin exam: no rashes or lesions noted Neuro General: patient oriented x3, gait normal and moves all extremities Cranial nerves: Yes Equal, round and reactive pupils present Psych Appearance: grossly normal Mental Status: mental status grossly normal Assessment & Plan Assessment & Plan (1) Vitamin B12 deficiency: Code(s): E53.8 - Deficiency of other specified B group vitamins Category: Medical (2) Elevated LFTs: Code(s): R79.89 - Other specified abnormal findings of blood chemistry Category: Medical (3) Chronic diarrhea: Code(s): K52.9 - Noninfective gastroenteritis and colitis, unspecified Category: Medical (4) RUQ abdominal pain: Code(s): R10.11 - Right upper quadrant pain Category: Medical Plan 63-year-old female with acquired hypothyroidism, mixed hyperlipidemia, diffuse joint pain secondary to fibromyalgia and insomnia even with zolpidem referred by Dr. Mclain for evaluation of elevated LFTs. Pt is obese and abdominal US showed slighty echogenic liver - fatty infiltration versus hepatocellular disease. Compensated advanced liver disease was ruled out on elastography. Patient gives a history of intermittent RUQ pain and chronic diarrhea since gallbladder surgery in May, suggestive of post cholecystectomy syndrome Denies post prandial diarrhea or association with milk products Does not take any medications for the diarrhea. Never had a colonoscopy - had a stool cologuard test < 1 year ago - negative PLAN: 1. Repeat LFTs and hepatitis B and C serologies 2. Check fecal calprotectin and Pancreatic elastase 3. [place] of cholestyramine twice daily for diarrhea 06/04/23 Continues to have abdominal pain. No diarrhea since she was fasting. Today she had 3 loose BMs today. Pt will be scheduled for an MRI with MRCP (evaluation of RUQ pain after Lap Yohana) and colonoscopy (chronic diarrhea) Fu in 4 months POST CHOLECYSTECTOMY SYNDROME (FROM UPTODATE): PCS is defined as early if it occurs in the postoperative period and late if it occurs months or years after surgery. The symptoms of pain and dyspepsia referred to as PCS can be caused by a wide spectrum of conditions, both biliary and extrabiliary. About one-half of the patients with PCS are found to have biliary, pancreatic, or gastrointestinal disorders, while the remaining patients have extraintestinal disease ?Biliary causes of PCS include: Early PCS can be due to biliary injury, retained cystic duct, or CBD stones. Late PCS can be due to recurrent CBD stones, bile duct strictures, an inflamed cystic duct or gallbladder remnant, papillary stenosis, or biliary dyskinesia. Biliary dyskinesia refers to motor forms of sphincter of Oddi dysfunction. Sphincter of Oddi dysfunction can be evaluated with sphincter of Oddi manometry, which is discussed in detail elsewhere. ?Extrabiliary causes of PCS include: Gastrointestinal causes such as irritable bowel syndrome, pancreatitis, pancreatic tumors, pancreas divisum, hepatitis, peptic ulcer disease, mesenteric ischemia, diverticulitis, or esophageal diseases. Extraintestinal causes such as intercostal neuritis, wound neuroma, coronary artery disease, or psychosomatic disorders. Treatment for PCS is tailored to the specific cause of the symptoms. Diagnosis of the underlying problem causing PCS usually requires imaging to look for retained or recurrent stones or identify a bile duct leak, stricture, or transection. This can be accomplished in most cases with ultrasound and/or computed tomography (CT) scanning followed by direct cholangiography or magnetic resonance cholangiopancreatography (MRCP). MRCP provides a noninvasive alternat scott to direct cholangiography for evaluation of the biliary tract Orders: Orders MR abdomen wo/w con 06/04/23 R10.11 - Right upper quadrant pain
[2023-06-04 13:16] VITALS: BP 142/62; BMI 35.3
== END 2023-06-04 14:37 | disposition home or self-care (01) ==
PROVIDERS: PCP Internal Medicine; Visit Provider Internal Medicine Gastroenterology
DX: E53.8 Deficiency of other specified B group vitamins (principal); R79.89 Other specified abnormal findings of blood chemistry; K52.9 Noninfective gastroenteritis and colitis, unspecified; R10.11 Right upper quadrant pain
CPT/HCPCS: 99214

== ENCOUNTER → 2023-06-04 13:12 | Outpatient (BNVA) | payer OTHER, SELFPAY | PROVIDERS: PCP Internal Medicine; Visit Provider Internal Medicine Gastroenterology | DX: E53.8 Deficiency of other specified B group vitamins (principal); R79.89 Other specified abnormal findings of blood chemistry; K52.9 Noninfective gastroenteritis and colitis, unspecified; R10.11 Right upper quadrant pain | CPT/HCPCS: 99212 ==

== ENCOUNTER 2023-08-17 16:20 | Outpatient (AMB) | payer OTHER, SELFPAY ==
[2023-08-17 16:27] VITALS: BP 132/80; BMI 36.3
--- NOTE | 2023-08-17 16:27 | A.OFFPC_ITS ---
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 Accompanied by: Spouse Allergies spicy food Adverse Reaction (Uncoded 08/17/23 16:33) Hives Medication List - Last Reconciled 08/17/23 by Niecy Cabello MD acetaminophen ER (Tylenol 8 Hour) 650 mg PO Q8H PRN cetirizine (All Day Allergy (cetirizine)) 10 mg PO DAILY PRN 90 days cholecalciferol (vitamin D3) 50 mcg PO DAILY 90 days cholestyramine-aspartame 4 gram (Cholestyramine Light) 4 grams PO BID 30 days clotrimazole-betamethasone 1-0.05 % 1 appl topical BID 10 days duloxetine 20 mg PO DAILY 90 days fluticasone propionate 50 mcg/actuation (Flonase Allergy Relief) 1 spray intranasal DAILY 30 days gabapentin 100 mg PO BEDTIME 30 days ibuprofen 600 mg PO Q6H PRN levothyroxine 112 mcg PO DAILY syringe with needle (Monoject 3cc Syringe) As directed once a week tramadol 50 mg PO Q12H PRN zolpidem 10 mg PO BEDTIME PRN Tobacco use date assessed: 05/21/23 Dental Screening Dental Screen Date: 05/21/23 HPI HPI Comments History of Present Illness Details This is a 63-year-old female with mild major depression, insomnia, fibromyalgia, hypothyroidism and low vitamin-D comes today accompanied by for follow-up on her conditions. Depression has been in remission. Insomnia still present with zolpidem and I will increase gabapentin from 100 mg to 300 mg for this matter. Last TSH was normal and this will be repeated as well as vitamin-D. No chest pain or shortness of breath. Complains of low back pain radiating to the left leg but declines physical therapy at the moment. She has obese with a BMI of 36.3 and was advised to diet and exercise to reach BMI goal less than 30. [facility] Medical History Polyarthralgia Dry skin dermatitis Impaired fasting glucose Mixed dyslipidemia Vitamin B12 deficiency Vitamin D deficiency Varicose veins of bilateral lower extremities with pain Polyarthralgia Cholelithiasis Insomnia Fibromyalgia Acquired hypothyroidism Anxiety Surgical History H/O blepharoplasty S/P cholecystectomy Family History Sister Breast cancer Mother Essential hypertension Cholelithiasis Social History Housing: House Alcohol intake: never Patient Tobacco Use Status: Never used Tobacco e-Cigarette/Vaping Use: Never Used Second Hand Smoke Exposure: No service: No Current occupational status: unemployed Cognitive needs: No Hearing needs: No Vision needs: No Questionnaire Thrive Questionnaire Date Thrive assessed: 05/21/23 HEMA-7 AMB Questionnaire HEMA-7 Date HEMA - 7 assessed: 05/21/23 Source: Developed by Drs. Sánchez Gupta, Maria Del Rosario Reyna, Jason Coleman and colleagues, with an educational james from [employer]. Review of Systems Const All systems reviewed & are unremarkable except as noted in HPI and below Card Denies chest pain at rest, Denies chest pain with activity, Denies edema, Denies irregular heart rhythm, Denies claudication, Denies dyspnea, Denies dyspnea on exertion, Denies orthopnea, Denies paroxysmal nocturnal dyspnea and Denies slow heart rate Resp Denies cough, Denies dyspnea and Denies dyspnea on exertion Physical exam (Primary Care) Vital Signs: Last Vital Signs BP 132/80 08/17/23 16:27 BMI result Body Mass Index 36.3 BMI Assessment/Plan discussion: High BMI High, discussed plan: lifestyle, weight reduction, dietary and physical activity Tobacco/Smoking Status: Tobacco use Status Tobacco use date assessed 05/21/23 08/17/23 16:32 Patient Tobacco Use Status Never used Tobacco 08/17/23 16:32 e-Cigarette/Vaping Use Never Used 08/17/23 16:32 Thrive Assessment: Date of Thrive Assessment Date Thrive assessed 05/21/23 08/17/23 16:32 Resp Effort & Inspection: normal respiratory effort Auscultation: clear to auscultation bilaterally Cardio Jugular venous distension: no JVD Rate: regular rate Rhythm: regular rhythm Heart sounds: S1 normal heart sound present and S2 normal heart sound present Extrem General: Yes full ROM Assessment and Plan Assessment & Plan (1) Moderate major depression: Code(s): F32.1 - Major depressive disorder, single episode, moderate Plan: In remission. (2) Insomnia: Code(s): G47.00 - Insomnia, unspecified Plan: Continue zolpidem. Increase gabapentin from 100 mg to 300 mg. (3) Fibromyalgia: Comment: sees by Dr amaya Code(s): M79.7 - Fibromyalgia Plan: Continue gabapentin. (4) Acquired hypothyroidism: Code(s): E03.9 - Hypothyroidism, unspecified Plan: Continue levothyroxine. Monitor TSH. (5) Vitamin D deficiency: Code(s): E55.9 - Vitamin D deficiency, unspecified Plan: Continue vitamin-D supplements. Orders: Orders Thyroid Stimulating Hormone Today E03.9 - Hypothyroidism, unspecified Vitamin D 25-OH Total Today E55.9 - Vitamin D deficiency, unspecified Vitamin B12 and Folate Today E53.8 - Deficiency of other specified B group vitamins Medications: New mecobalamin (vitamin B12) 1,000 mcg PO DAILY 90 days 90 tabs 1RF E53.8 - Deficiency of other specified B group vitamins cholecalciferol (vitamin D3) 50 mcg PO DAILY 90 days 90 tabs 2RF gabapentin 300 mg PO BEDTIME 90 days 90 caps 1RF Changed From acetaminophen ER (Tylenol 8 Hour) 650 mg PO Q8H PRN 60 tabs 1RF pain To acetaminophen ER (Tylenol 8 Hour) 650 mg PO Q8H 30 days PRN 90 tabs 11RF pain Refilled zolpidem 10 mg PO BEDTIME PRN 15 tabs 0RF insomnia cetirizine (All Day Allergy (cetirizine)) 10 mg PO DAILY 90 days PRN 90 tabs 2RF allergy symptoms ibuprofen 600 mg PO Q6H PRN 20 tabs 0RF pain levothyroxine 112 mcg PO DAILY 90 tabs 3RF Discontinued gabapentin Discontinued Reason: Patient Completed Course 100 mg PO BEDTIME 30 days 30 caps 1RF duloxetine Discontinued Reason: Patient Completed Course 20 mg PO DAILY 90 days 90 caps 1RF cholecalciferol (vitamin D3) Discontinued Reason: Patient Completed Course 50 mcg PO DAILY 90 days 90 caps 0RF Coding Level of Care Code Est Pt Level 4 (22764) Complex EM visit Add On G2211 Diagnoses Moderate major depression F32.1 Insomnia G47.00 Fibromyalgia M79.7 Acquired hypothyroidism E03.9 Vitamin D deficiency E55.9 Time Spent (min) 22
== END 2023-08-17 17:35 | disposition home or self-care (01) ==
PROVIDERS: PCP Internal Medicine; Visit Provider Internal Medicine
DX: F32.1 Major depressive disorder, single episode, moderate (principal); G47.00 Insomnia, unspecified; M79.7 Fibromyalgia; E03.9 Hypothyroidism, unspecified; E55.9 Vitamin D deficiency, unspecified
CPT/HCPCS: 99214; G2211

== ENCOUNTER 2023-08-17 16:53 | Outpatient (REF) | payer OTHER, SELFPAY ==
[2023-08-17 18:25] LABS: Thyroid Stimulating Hormone 3.22 uIU/mL (0.32-4.0); Vitamin D 25-OH Total 12.7 ng/mL (>30)
[2023-08-17 18:38] LABS: Folate 12.4 ng/mL (> or = 4.0); Vitamin B12 169 pg/mL (200-900)
== END 2023-08-17 16:54 | disposition home or self-care (01) ==
LOC: HO.LAB 16:53
PROVIDERS: PCP Internal Medicine; Visit Provider Internal Medicine
DX: E55.9 Vitamin D deficiency, unspecified (principal); E03.9 Hypothyroidism, unspecified; E53.8 Deficiency of other specified B group vitamins
CPT/HCPCS: 36415; 82306; 82607; 82746; 84443

== ENCOUNTER 2023-09-03 10:55 | Outpatient (AMB) | payer OTHER, SELFPAY ==
--- NOTE | 2023-09-03 11:06 | AM.OFFVISNUR ---
Intake Visit Reasons: B-12 Shot Allergies spicy food Adverse Reaction (Uncoded 08/17/23 16:33) Hives Office Meds cyanocobalamin (vitamin B-12) 1,000 mcg/mL injection solution Performing Provider: Niecy Cabello MD [facility] Administered by: Augusta Jo RN on 09/03/23 11:15 Dose Route Admin Location Dispensed Lot Number Expiration Date [facility] Splitter Hand 1,000 mcg IM Righ arm 1 mL [id number] 11/20/24 53075-454-35 [employer] Assessment & Plan Assessment & Plan Orders: Orders AMB Vitamin B12 Injection Patient Supplied Today E53.8 - Deficiency of other specified B group vitamins Medications: New cyanocobalamin (vitamin B-12) 1,000 mcg IM ONCE 1 mL 0RF E53.8 - Deficiency of other specified B group vitamins
== END 2023-09-03 11:17 | disposition home or self-care (01) ==
PROVIDERS: PCP Internal Medicine; Visit Provider Internal Medicine
DX: E53.8 Deficiency of other specified B group vitamins (principal)
CPT/HCPCS: 96372; J3420

== ENCOUNTER 2023-10-15 14:54 | Outpatient (AMB) | payer OTHER, SELFPAY ==
--- NOTE | 2023-10-15 15:17 | AM.OFFVISNUR ---
Intake Visit Reasons: B12 Allergies spicy food Adverse Reaction (Uncoded 08/17/23 16:33) Hives Office Meds cyanocobalamin (vitamin B-12) 1,000 mcg/mL injection solution Performing Provider: Niecy Cabello MD [facility] [place] [facility] Administered by: Kathy Vyas RN on 10/15/23 15:17 Dose Route Admin Location Dispensed Lot Number Expiration Date [place] [facility] Coordinator 1,000 mcg IM right deltoid 1 mL [id number] 02/21/25 24275-889-18 [employer] Assessment & Plan Assessment & Plan Orders: Orders AMB Vitamin B12 Injection Patient Supplied Today E53.8 - Deficiency of other specified B group vitamins Medications: New cyanocobalamin (vitamin B-12) 1,000 mcg IM ONCE 1 mL 0RF E53.8 - Deficiency of other specified B group vitamins
== END 2023-10-15 15:19 | disposition home or self-care (01) ==
PROVIDERS: PCP Internal Medicine; Visit Provider Internal Medicine
DX: E53.8 Deficiency of other specified B group vitamins (principal)
CPT/HCPCS: 96372; J3420

== ENCOUNTER 2024-03-24 13:14 | Outpatient (AMB) | payer OTHER, SELFPAY ==
--- NOTE | 2024-03-24 13:26 | MHC.OFFVIS ---
Vital Signs 03/24/24 13:33 Height 5 ft 2 in Weight 190 lb BMI 34.7 BP 133/62 Blood Pressure Location Lt brachial Position Sitting Pulse 73 Intake Visit Reasons: chronic diarrhea Intake Note: Patient follow up for chronic diarrhea. Patient denies any GI issues for today, medication help with diarrhea. She was order a MRI in last visit but I do not see any results. Street Worker Required: No Accompanied by: Spouse Allergies spicy food Adverse Reaction (Uncoded 08/17/23 16:33) Hives Medication List - Last Reconciled 03/24/24 by Gabrielle Herring MD acetaminophen ER (Tylenol 8 Hour) 650 mg PO Q8H PRN 30 days bisacodyl (Dulcolax (bisacodyl)) 20 mg (4 x 5 mg) PO ONCE 1 day cetirizine (All Day Allergy (cetirizine)) 10 mg PO DAILY PRN 90 days cholecalciferol (vitamin D3) 50 mcg PO DAILY 90 days clotrimazole-betamethasone 1-0.05 % 1 appl topical BID 10 days cyanocobalamin (vitamin B-12) 1,000 mcg IM Q4W 4 weeks fluticasone propionate 50 mcg/actuation (Flonase Allergy Relief) 1 spray intranasal DAILY 30 days gabapentin 300 mg PO BEDTIME 90 days ibuprofen 600 mg PO Q6H PRN insulin syringe-needle U-100 (Advocate Syringes) As directed levothyroxine 112 mcg PO DAILY polyethylene glycol 3350 (Miralax) 238 grams PO ONCE 1 day syringe with needle (Monoject 3cc Syringe) As directed once a week tramadol 50 mg PO Q12H PRN zolpidem 10 mg PO BEDTIME PRN HPI HPI chronic diarrhea: Details: GI clinic visit for this 63-year-old [place] female with acquired hypothyroidism, mixed hyperlipidemia, diffuse joint pain secondary to fibromyalgia and insomnia even with zolpidem followed in GI for elevated LFTs, postprandial diarrhea (after Lap Yohana) and colon cancer screening. LABS IN [facility] : Reviewed IMAGING STUDIES: 11/07/22 ABDOMINAL ULTRASOUND WITH ELASTOGRAPHY SHOWED: 1. Impression: Slightly echogenic liver. Differential would include fatty infiltration and hepatocellular disease. 2. Liver elastography: Adequate liver sampling. In the absence of other known clinical signs, rules out compensated advanced chronic liver disease. ENDOSCOPIC STUDIES: None in [facility] TODAY'S VISIT: Patient denies any GI issues for today, medication help with diarrhea Pt is accompanied by her States can have some diarrhea from time to time Has a BM 1-2 times a day which are normal. Notes intermittent RUQ pain - mostly at night when she goes to sleep. RUQ pain gradually improving PAST VISITS: Patient cc: right abdominal pain with bloating, diarrhea, and acid reflex with burning sensation. Continues to have abdominal pain. No diarrhea since she was fasting. Today she had 3 loose BMs today. Pt denies past or family hx hx of liver disease She had Lap Yohana in May, for gallstones Noted RUQ pain prior to the surgery and has not resolved after the surgery Pain is intermittent and is not related to eating. ? radiates to the back Usually notes pain when she lies down to sleep at night She has difficulty sleeping and unsure if pain keeps her from sleeping Has diarrhea since she had the surgery and unable to go out sometimes Can have 3 to 6 watery Bms a day - can vary in consistency. Denies post prandial diarrhea or association with milk products Does not take any medications for the diarrhea. Diarrhea appears to have become worse. Never had a colonoscopy - had a stool cologuard test < 1 year ago - negative Complains of intermittent shortness of breath Has been eating less and has lost some weight - from 196 lbs to 190 lbs. Denies black stools or rectal bleeding. Patient denies major cardiac or pulmonary problems, Admits to loud snoring and not tested for sleep apnea Denies being on chronic anticoagulation. Patient denies known family history of colon polyps, colon cancer or other GI malignancy [facility] Medical History Polyarthralgia Dry skin dermatitis Impaired fasting glucose Mixed dyslipidemia Vitamin B12 deficiency Vitamin D deficiency Varicose veins of bilateral lower extremities with pain Polyarthralgia Cholelithiasis Insomnia Fibromyalgia Acquired hypothyroidism Anxiety Surgical History H/O blepharoplasty S/P cholecystectomy Family History Sister Breast cancer Mother Essential hypertension Cholelithiasis Social History Housing: House Alcohol intake: never Patient Tobacco Use Status: Never used Tobacco e-Cigarette/Vaping Use: Never Used Second Hand Smoke Exposure: No service: No Current occupational status: unemployed Cognitive needs: No Hearing needs: No Vision needs: No Review of Systems Const All systems reviewed & are unremarkable except as noted in HPI and below Physical Exam Vital Signs: Last Vital Signs Pulse 73 03/24/24 13:33 BP 133/62 03/24/24 13:33 BMI result Body Mass Index 34.7 Const General: healthy appearing and no acute distress Nutritional Appearance: obese Orientation/consciousness: patient oriented x3 Limitations: no limitations HEENT Head: Yes normal to inspection Ears: hearing grossly normal bilaterally Eyes Sclerae: sclerae normal Pupils: Equal, round and reactive pupils present Neck Neck: Yes normal visual inspection Chest Chest palpation & inspection: normal inspection of the chest Resp Effort & Inspection: normal respiratory effort Auscultation: clear to auscultation bilaterally Cardio Palpation: normal PMI Rate: regular rate Rhythm: regular rhythm Heart sounds: S1 normal heart sound present, S2 normal heart sound present and no murmurs GI Palpation (GI): Soft to palpation, nontender and No hepatosplenomegaly present Auscultation: normal bowel sounds Rectal Exam - Female: deferred Skin General skin exam: no rashes or lesions noted Neuro General: patient oriented x3, gait normal and moves all extremities Cranial nerves: Yes Equal, round and reactive pupils present Psych Appearance: grossly normal Mental Status: mental status grossly normal Assessment & Plan Assessment & Plan (1) Vitamin D deficiency: Code(s): E55.9 - Vitamin D deficiency, unspecified Category: Medical (2) Vitamin B12 deficiency: Code(s): E53.8 - Deficiency of other specified B group vitamins Category: Medical (3) Elevated LFTs: Code(s): R79.89 - Other specified abnormal findings of blood chemistry Category: Medical (4) Chronic diarrhea: Code(s): K52.9 - Noninfective gastroenteritis and colitis, unspecified Category: Medical (5) RUQ abdominal pain: Code(s): R10.11 - Right upper quadrant pain Category: Medical (6) Pernicious anemia: Code(s): D51.0 - Vitamin B12 deficiency anemia due to intrinsic factor deficiency Category: Medical Plan 63-year-old female with acquired hypothyroidism, mixed hyperlipidemia, diffuse joint pain secondary to fibromyalgia and insomnia even with zolpidem referred by Dr. Mclain for evaluation of elevated LFTs. Pt is obese and abdominal US showed slighty echogenic liver - fatty infiltration versus hepatocellular disease. Compensated advanced liver disease was ruled out on elastography. Patient gives a history of intermittent RUQ pain and chronic diarrhea since gallbladder surgery in May, suggestive of post cholecystectomy syndrome Denies post prandial diarrhea or association with milk products Does not take any medications for the diarrhea. Never had a colonoscopy - had a stool cologuard test < 1 year ago - negative PLAN: 1. Repeat LFTs and hepatitis B and C serologies 2. Check fecal calprotectin and Pancreatic elastase 3. [place] of cholestyramine twice daily for diarrhea 06/04/23 Continues to have abdominal pain. No diarrhea since she was fasting. Today she had 3 loose BMs today. Pt will be scheduled for an MRI with MRCP (evaluation of RUQ pain after Lap Yohana) and colonoscopy (chronic diarrhea) 03/24/24 Postprandial diarrhea has improved. Scheduled for a colonoscopy last year and unable to keep the appt since she was out of town. She would like to reschedule Pt had low Vitamin B12 levels despite oral supplementation and switched to IM Vitamin B12 injections. 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 The symptoms of pain and dyspepsia referred to as PCS can be caused by a wide spectrum of conditions, both biliary and extrabiliary. About one-half of the patients with PCS are found to have biliary, pancreatic, or gastrointestinal disorders, while the remaining patients have extraintestinal disease ?Biliary causes of PCS include: Early PCS can be due to biliary injury, retained cystic duct, or CBD stones. Late PCS can be due to recurrent CBD stones, bile duct strictures, an inflamed cystic duct or gallbladder remnant, papillary stenosis, or biliary dyskinesia. Biliary dyskinesia refers to motor forms of sphincter of Oddi dysfunction. Sphincter of Oddi dysfunction can be evaluated with sphincter of Oddi manometry, which is discussed in detail elsewhere. ?Extrabiliary causes of PCS include: Gastrointestinal causes such as irritable bowel syndrome, pancreatitis, pancreatic tumors, pancreas divisum, hepatitis, peptic ulcer disease, mesenteric ischemia, diverticulitis, or esophageal diseases. Extraintestinal causes such as intercostal neuritis, wound neuroma, coronary artery disease, or psychosomatic disorders. Treatment for PCS is tailored to the specific cause of the symptoms. Diagnosis of the underlying problem causing PCS usually requires imaging to look for retained or recurrent stones or identify a bile duct leak, stricture, or transection. This can be accomplished in most cases with ultrasound and/or computed tomography (CT) scanning followed by direct cholangiography or magnetic resonance cholangiopancreatography (MRCP). MRCP provides a noninvasive alternative to direct cholangiography for evaluation of the biliary tract Orders: Orders Intrinsic Factor Antibodies Today D51.0 - Vitamin B12 deficiency anemia due to intrinsic factor deficiency, R79.89 - Other specified abnormal findings of blood chemistry Parietal Cell Antibody Today D51.0 - Vitamin B12 deficiency anemia due to intrinsic factor deficiency, R79.89 - Other specified abnormal findings of blood chemistry Gastrin Today D51.0 - Vitamin B12 deficiency anemia due to intrinsic factor deficiency, R79.89 - Other specified abnormal findings of blood chemistry Liver Panel Today D51.0 - Vitamin B12 deficiency anemia due to intrinsic factor deficiency, R79.89 - Other specified abnormal findings of blood chemistry Medications: Refilled polyethylene glycol 3350 (Miralax) the day before your procedure mix entire bottle with 64 ounces of a clear liquid, at 5pm start drinking 1 cup every 15 minutes until half is gone. finish drinking remaining prep at 10pm 238 grams PO ONCE 1 day 238 grams 0RF bisacodyl (Dulcolax (bisacodyl)) the day before colonoscopy take 2 pills at 12pm and 2 pills at 5pm with 8ounces of water 20 mg (4 x 5 mg) PO ONCE 1 day 4 tabs 0RF Coding Level of Care Code Est Pt Level 4 (54934) Diagnoses Vitamin D deficiency E55.9 Vitamin B12 deficiency E53.8 Elevated LFTs R79.89 Chronic diarrhea K52.9 RUQ abdominal pain R10.11 Pernicious anemia D51.0 Time Spent (min) 23
[2024-03-24 13:33] VITALS: BP 133/62; PULSE 73; BMI 34.7
== END 2024-03-24 14:04 | disposition home or self-care (01) ==
PROVIDERS: PCP Internal Medicine; Visit Provider Internal Medicine Gastroenterology
DX: E55.9 Vitamin D deficiency, unspecified (principal); E53.8 Deficiency of other specified B group vitamins; R79.89 Other specified abnormal findings of blood chemistry; K52.9 Noninfective gastroenteritis and colitis, unspecified; R10.11 Right upper quadrant pain; D51.0 Vitamin B12 deficiency anemia due to intrinsic factor deficiency
CPT/HCPCS: 99214

== ENCOUNTER → 2024-03-24 13:14 | Outpatient (BNVA) | payer OTHER, SELFPAY | PROVIDERS: PCP Internal Medicine; Visit Provider Internal Medicine Gastroenterology | DX: K52.9 Noninfective gastroenteritis and colitis, unspecified (principal); R79.89 Other specified abnormal findings of blood chemistry; R10.11 Right upper quadrant pain; E55.9 Vitamin D deficiency, unspecified; E53.8 Deficiency of other specified B group vitamins; D51.0 Vitamin B12 deficiency anemia due to intrinsic factor deficiency | CPT/HCPCS: 99212 ==

== ENCOUNTER 2024-03-28 11:52 | Day surgery (SDC) | payer OTHER, SELFPAY ==
[2024-03-28 12:23] VITALS: BP 138/57; PULSE 92; RESP 16; TEMP 37.2; O2SAT 98; BMI 34.6
--- NOTE | 2024-03-28 12:26 | HO.ANESPROP2 ---
PMFSH Active Problems Active Problems: All Active Problems Pernicious anemia (Acute) RUQ abdominal pain (Acute) Moderate major depression (Acute) Physical exam (Acute) Chronic diarrhea (Acute) Elevated LFTs (Acute) Neck pain (Acute) Transaminitis (Acute) Left shoulder pain (Acute) Postmenopausal bleeding (Acute) Pelvic pain in female (Acute) Bacterial vaginosis (Acute) Postcoital bleeding (Acute) Polyarthralgia (Acute) Cholelithiasis (Acute) Insomnia (Acute) Fibromyalgia (Acute) Dry skin dermatitis (Acute) Impaired fasting glucose (Acute) Mixed dyslipidemia (Acute) Acquired hypothyroidism (Acute) Vitamin B12 deficiency (Acute) Vitamin D deficiency (Acute) Past Medical History Medical History Polyarthralgia Dry skin dermatitis Impaired fasting glucose Mixed dyslipidemia Vitamin B12 deficiency Vitamin D deficiency Varicose veins of bilateral lower extremities with pain Polyarthralgia Cholelithiasis Insomnia Fibromyalgia Acquired hypothyroidism Anxiety Functional capacity: independent ambulation Patient : No Family History Family History Sister Breast cancer Mother Essential hypertension Cholelithiasis Family history of problems with anesthesia: No Surgical History Surgical History H/O blepharoplasty S/P cholecystectomy History of Problems with Anesthesia: No Social History Social History Housing: House Alcohol intake: never Patient Tobacco Use Status: Never used Tobacco e-Cigarette/Vaping Use: Never Used Second Hand Smoke Exposure: No Advance Directives: No Advance Directives Information Provided: Yes service: No Current occupational status: unemployed Cognitive needs: No Hearing needs: No Vision needs: No Meds Allergies Allergy/AdvReac Type Severity Reaction Status Date / Time spicy food AdvReac Hives Uncoded 08/17/23 16:33 Exam Airway Mallampati Class: II TM Dist: >3cm Neck ROM: Full Heart: RRR Lungs: CTA Assessment and Plan Assessment Anesthesia Assessment: Anesthesia Plan Discussed Final Anesthetic Review Family History of Problems with Anesthesia: No History of Problems with Anesthesia: No NPO: Yes ASA Class: III Final Preanesthetic Review: Meds/Allgs Chart Reviewed, Consent Obtained/Reviewed and Anes Risks/Benef Reviewed Patient Risk: Intermediate Procedure Risk: Low Anesthetic Plan Anesthetic Plan: MAC: Disposition: Standard PACU
--- NOTE | 2024-03-28 12:28 | HO.ANESPROP2 ---
[facility] Active Problems Active Problems: All Active Problems Pernicious anemia (Acute) RUQ abdominal pain (Acute) Moderate major depression (Acute) Physical exam (Acute) Chronic diarrhea (Acute) Elevated LFTs (Acute) Neck pain (Acute) Transaminitis (Acute) Left shoulder pain (Acute) Postmenopausal bleeding (Acute) Pelvic pain in female (Acute) Bacterial vaginosis (Acute) Postcoital bleeding (Acute) Polyarthralgia (Acute) Cholelithiasis (Acute) Insomnia (Acute) Fibromyalgia (Acute) Dry skin dermatitis (Acute) Impaired fasting glucose (Acute) Mixed dyslipidemia (Acute) Acquired hypothyroidism (Acute) Vitamin B12 deficiency (Acute) Vitamin D deficiency (Acute) Past Medical History Medical History Polyarthralgia Dry skin dermatitis Impaired fasting glucose Mixed dyslipidemia Vitamin B12 deficiency Vitamin D deficiency Varicose veins of bilateral lower extremities with pain Polyarthralgia Cholelithiasis Insomnia Fibromyalgia Acquired hypothyroidism Anxiety Functional capacity: independent ambulation Family History Family History Sister Breast cancer Mother Essential hypertension Cholelithiasis Family history of problems with anesthesia: No Surgical History Surgical History H/O blepharoplasty S/P cholecystectomy History of Problems with Anesthesia: No Social History Social History Housing: House Are you a primary critical care physician to a significant other at home: No Do you presently have visiting nurse or other home services: No Alcohol intake: never Patient Tobacco Use Status: Never used Tobacco e-Cigarette/Vaping Use: Never Used Second Hand Smoke Exposure: No Use of substances other than those prescribed or required for medical reasons: No Have you been hit, kicked, punched, or otherwise hurt by someone within the past year? If so, by whom?: No Are you DNR?: No Advance Directives: No Advance Directives Information Provided: Yes Advance Directives on File: No Recently lost weight without trying: No Nutrition Risks: No Nutritional Risk Patient : No service: No Current occupational status: unemployed Cognitive needs: No Hearing needs: No Vision needs: No Meds Allergies Allergy/AdvReac Type Severity Reaction Status Date / Time spicy food AdvReac Hives Uncoded 08/17/23 16:33 Active Medications: Current Medications Lactated Ringer's (Lr) 1,000 mls @ 80 mls/hr IVCONT .[id number] MIRTHA Exam Height,Weight and Vital Signs: Height 5 ft 2 in Weight 85.729 kg Last Vital Signs Temp 99.0 F 03/28/24 12:23 Pulse 92 03/28/24 12:23 Resp 16 03/28/24 12:23 BP 138/57 L 03/28/24 12:23 Pulse Ox 98 03/28/24 12:23 O2 Del Method Room Air 03/28/24 12:23 Airway Mallampati Class: II TM Dist: >3cm Neck ROM: Full Heart: RRR Lungs: CTA Assessment and Plan Assessment Anesthesia Assessment: Anesthesia Plan Discussed and Chart Reviewed Final Anesthetic Review Family History of Problems with Anesthesia: No History of Problems with Anesthesia: No NPO: Yes ASA Class: II Final Preanesthetic Review: Meds/Allgs Chart Reviewed, Consent Obtained/Reviewed and Anes Risks/Benef Reviewed Patient Risk: Intermediate Procedure Risk: Low Anesthetic Plan Anesthetic Plan: MAC: Disposition: Standard PACU
[2024-03-28 12:39] VITALS: BP 138/57; PULSE 92; RESP 16; TEMP 37.2; O2SAT 98
[2024-03-28] MEDS: Lactated Ringers 1,000 ML 80 ML IVCONT (12:40)
--- NOTE | 2024-03-28 12:59 | MHC.SHP ---
Pre-Procedural Eval Section A - 24 Hr Update-Section A only Date of Service: 03/28/24 The patient is an INPATIENT: No Changes since office visit: Yes Patient answered all questions; No Cold of Flu in the past 2 weeks, No New Medical Problems and No Changes in Medication The patient has been examined within 24 hours of the surgical procedure. The History & Physical has been completed within 30 days and I have reviewed it.: Yes Section B - Complete if H&P > 30 days Chief Complaint: screening, diarrhea, vit B12 def, abd pain Allergies: Allergies Allergy/AdvReac Type Severity Reaction Status Date / Time spicy food AdvReac Hives Uncoded 08/17/23 16:33 Plan Diagnosis/Plan: Unchanged I have reviewed the history and physical and performed a pertinent physical examination on my patient. No changes have occurred unless specified. Time Spent With Patient Time: Total time managing care of this patient today ____ minutes.
--- OUTSIDE RECORDS SUMMARY | 2024-03-28 13:15 | XMS_ITS | Clinical Summary ---
Author Organization [facility] Address [address] [place] [address] Care Team Providers Care Personnel Arbitrator Name Role Phone Hoda Patino PA-C Primary Care Provider + [phone] Source Comments PLEASE NOTE, if this patient is a minor, it may be UNLAWFUL to discuss sensitive information that is contained in these records (such as FAMILY PLANNING, MENTAL HEALTH or SUBSTANCE ABUSE) with the minor patient's parent or other person without the patient's specific authorization.[facility] Allergies No known active allergies Medications acetaminophen (TYLENOL) 500 mg tabletIndication s:Fibromyalgia Take 1 Tablet by mouth 3 (three) times daily 90 Tablet 11 0 Active capsaicin 0.025 % creamIndications :Fibromyalgia Apply topically 3 (three) times daily 60 g 11 0 Active clotrimazole (LOTRIMIN) 1 % creamIndications :Intertrigo Apply topically 2 (two) times daily 60 g 2 0 Active QUEtiapine (SEROQUEL) 25 mg tabletIndication s:Anxiety and depression,Prima ry insomnia Take 1 Tablet by mouth nightly at bedtime as needed (insomnia) 90 Tablet 1 1 Active melatonin 3 mg tabletIndication s:Anxiety and depression,Prima ry insomnia Take 1 Tablet by mouth nightly at bedtime as needed for sleep 90 Tablet 2 1 Active loratadine (CLARITIN) 10 mg tabletIndication s:Post-nasal drip Take 1 Tablet by mouth nightly at bedtime 90 Tablet 1 1 Active diclofenac sodium (VOLTAREN) 1 % gelIndications:N marce fullness Apply 2 gm QID to painful area 100 g 5 1 Active cyanocobalamin, vitamin B-12, 1,000 mcg tabletIndication s:Anemia due to vitamin B12 deficiency, unspecified B12 deficiency type TAKE 1 TABLET BY MOUTH ONCE DAILY 30 Tablet 11 1 Active clotrimazole-bet amethasone (LOTRISONE) 1-0.05 % creamIndications :Tinea cruris APPLY EXTERNALLY TO THE AFFECTED AREA TWICE DAILY 45 g 1 Active meloxicam (MOBIC) 15 mg tabletIndication s:Fibromyalgia Take 1 Tablet by mouth once daily as needed for pain 90 Tablet 3 1 Active zolpidem (AMBIEN) 10 mg tabletIndication s:Primary insomnia Take 1 Tablet by mouth nightly at bedtime as needed for sleep Patient aware that med will lead to memory loss 09/11/2020 30 Tablet 3 1 Active lidocaine (LIDODERM) 5 % patchIndications :Lumbar pain APPLY 1 PATCH TOPICALLY EVERY 12 HOURS ON AND OFF 30 Patch 11 1 Active levothyroxine 112 mcg tabletIndication s: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 TAKE 1 TABLET BY MOUTH EVERY DAY 90 Tablet 3 2 Active cholecalciferol 50 mcg (2,000 unit) capsuleIndicatio ns:Vitamin D deficiency disease TAKE 2 CAPSULES BY MOUTH EVERY DAY 60 Capsule 10 3 Active Active Problems Problem Noted Date Diagnosed Date Primary insomnia 09/11/2020 Plantar fasciitis of right foot 11/02/2019 Colonoscopy refused 10/05/2015 GERD (gastroesophageal reflux disease) 4 Hyperlipidemia LDL goal <100 06/10/2013 Non morbid obesity 07/28/2011 Overview (08/12/2012): BMI=30.5 B12 deficiency anemia 05/14/2011 Overview (08/12/2012): Negative Intrinsic Factor Ab Low back pain 05/06/2011 Overview (08/12/2012): X-rays 05/14/11 - mild dextroscoliosis low lumbar spine Tinea cruris/vulvar candidiasis 12/16/2010 Iron deficiency anemia 04/30/2010 Fibromyalgia 02/11/2010 Overview (11/15/2018): 12/28/17 - Se[place] by [facility]HE[facility] Dr. Wily [place] [facility] dx: polyarthralgia + polymyalgia. Plan: labs; pt on statin, depression, Could be assoc with fibromyalgia. F/U 4 wks. 03/16/18 - Seen by RHEUM Dr. Wily Rubio at [facility]: polyarthralgia is multifactorial: hypothyroidism, pt is on statins, depression, low vit D along with fibromyalgia. Statins could be switched. Cymblata or lyrica may be added. Replacemtn of vit D. 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 Anxiety and depression Overview (04/03/2015): Psych f/u @ [facility], formerly was seen by Dr. Garvin. Hepatic steatosis Overview (07/25/2014): Via [place] 04/06/13 at [facility]. Resolved Problems Problem Noted Date Diagnosed Date Resolved Date Polyarthralgia 11/01/2018 11/01/2018 Immunizations Name Administration Dates Next Due Flu, Preservative Free 02/09/2019,12/11/2017 Hep B, Adult/Adol (ENERGIX/RECOMBIVAX) 2,12/16/2010,12/27/2007 INFLUENZA, SEASONAL, INJECTABLE 11/23/2012,11/30,11/28/2008 MMR (MMR II/Priorix) 12/27/2007,11/04/2007 PPD 08/04/2012,11/17/2007,11/15/2007 Td(adult),2 Lf tetanus toxoi d,preservative free 12/27/2007,11/04/2007 ZOSTER VACCINE, RECOMBINANT (SHINGRIX) 9 Family History Medical History Relation Name Comments Breast cancer Sister age 40 Relation Name Status Comments Sister Social History Tobacco Use Types Packs/Day Years Used Date Smoking Tobacco: Never Smokeless Tobacco: Never Alcohol Use Standard Drinks/Week Comments No 0 (1 standard drink = 0.6 oz pur e alcohol) Social Connections Answer Date Recorded Connectedness 0 11/11/2023 Financial Resource Strain Answer Date R ecorded Financial Resource Strain 0 2018 Stress Answer Date Recorded Stress 0 10/11/2018 Physical Activity Answer Date Recorded Physical Activity 0 10/11/2018 Food Insecurity Answer Date Recorded Food 0 11/19/2023 Transportation Needs Answer Date Record ed Transportation 0 10/11/2018 Housing Stability Answer Date Recorded Housing 0 10/11/2018 Safety and Environment Answer Date Johann rded Safety 0 10/11/2018 Utilities Answer Date Recorded Utilities 0 10/11/2018 Employment Answer Date Recorded Stress 0 11/11/2023 Comments No Sex and Gender Information Value Date Recorded Sex Assigned at Female 06/18/2017 5:53 AM PDT Legal Sex Female 11:36 AM PDT Gender Identity Female 06/18/2017 5:53 AM PDT Sexual Orientation Straight 06/18/2017 5: 53 AM PDT Last Filed Vital Signs Vital Sign Reading Time Taken Comments Blood Pressure 140/72 09/11/2020 10:20 AM EDT Pulse 117 09/11/2020 10:20 AM EDT Temperature 36.8 ??C (98.3 ??F) 09/11/2020 10:20 AM E DT Respiratory Rate 16 09/11/2020 10:20 AM EDT Oxygen Saturation 98% 09/11/2020 10:20 AM EDT Inhaled Oxygen Concentration - - Weight 93 kg (205 lb) 09/11/2020 10:20 AM EDT Height 157.5 cm (5' 2 ) 09/11/2020 10:20 AM EDT Body Mass Index 37.49 09/11/2020 10:20 AM EDT Plan of Treatment Health Maintenance Due Date Last Done Comments HPV Screening 1960 Pap + HPV [address] Colonography 05/20/2007 Colonoscopy 05/20/2007 Colorectal Cancer Screening 05/20/2007 FIT/gFOBT 05/20/2007 Fecal DNA 05/20/2007 Flexible Sigmoidoscopy 05/20/2007 Imm-DTaP/Tdap/Td (1 - Tdap) 12/28/2007 12/27/2007, 0 11/04/2007 Imm-Zoster, Recombinant (2 of 2) 04/06/2019 02/10/20 19 Depression Monitoring 08/22/2020 05/22/2020 Cervical Cancer Screening 12/22/2020 Pap Smear 12/22/2020 12/22/2017, 06/24, 12/16/2010, Additional history exists Annual Preventive Care Visit 05/22/2021, 03/28/2019, 12/22/2017, Additional history exists Diabetes Screening 06/22/2021 06/22/2020, 0 11/02/2019, 11/02/2019, Additional history exists Hypertension Screening (#1) 09/11/2021 Lipid Screening 11/26/2021 11/26/2020, 04/3 , 11/02/2019, Additional history exists TSH Monitoring 11/26/2021 11/26/2020, 043 , 11/02/2019, Additional history exists [id number] ( season) 2023 Breast Cancer Screening (Mammogram) 01/10/2024 01/09/2023, 01/06/2022, 01/03/2021, Additional history exists Alcohol and Drug Screen 02/24/2024 05/23/19 21, 11/02/2019, 08/06/2018, Additional history exists Imm-Hepatitis B Completed 09/08/2011, 11/24, 12/27/2007 HIV Screening Completed 09/21/2017 Hepatitis C Screening Completed 09/21/2017 Imm-Influenza Discontinued 02/09/2019, 11/23, 11/23/2012, Additional history exists Cervical Ablation/Cold-Knife Conization Discontinued Cervical Cryotherapy Discontinued Colposcopy Discontinued Endometrial Biopsy Discontinued Excision/Leep Discontinued HPV Genotyping Discontinued Vaginal Pap Discontinued Vulvoscopy Discontinued Procedures Procedure Name Priority Date/Time Associated Diagnosis Comments HISTORIC MAMMOGRAM 01/09/2023 3: 00 AM EST TSH W/RFLX FREE T4 Routine 11/26/2020 9: 49 AM EDT 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 Hyperlipidemia LDL goal <100 Non morbid obesity LIPID PANEL Routine 11/26/2020 9:49 AM EDT 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 Hyperlipidemia LDL goal <100 Non morbid obesity COMPREHENSIVE METABOLIC PANEL Routine 06/22/2020 2:36 PM EDT Routine general medical examination at a health care facility 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 Suprapubic pain Non morbid obesity Hyperlipidemia LDL goal <100 PAP, LIQUID BASED Routine 12/22/2017 1:3 9 PM EDT Pap smear, as part of routine gynecological examination ANTIBODY HIV-1&HIV-2 SINGLE RESULT Routine 09/21/2017 10:45 AM EDT Routine general medical examination at a [facility] HEPATITIS A,B,C PANEL Routine 09/21/2017 10:45 AM EDT Routine general medical examination at a [facility] from Last 3 Months or Most Recently Relevant to Health Maintenance Results * HISTORIC MAMMOGRAM (01/09/2023 3:00 AM EST) 01/09/2023 3:00 AM EST us Hoda Patino PA-C IMG MAMMO Final Result * TSH W/RFLX FREE T4 (11/26/2020 9:49 AM EDT) TSH W/REFLEX TO FT4 1.75 0.40 - 4.50 mIU/L [facility] Blood Blood / Unknown 11/26/2020 9 :49 AM EDT 11/26/2020 9:49 AM EDT us Hdoa Lukin PA-C LAB - BLOOD DRAW Final Resul t [facility] [address] [address], [facility] [address] [address] * (ABNORMAL) LIPID PANEL (11/26/2020 9:49 AM EDT) CHOLESTEROL, TOTAL 263(H) <200 mg/dL [facility] HDL CHOLESTEROL 43(L) > OR = 50 mg/dL [facility] TRIGLYCERIDES 279(H) <150 mg/dL [facility] Comment: If a non-fasting specimen was collected, consider repeat triglyceride testing on a fasting specimen if clinically indicated. Rigo et al. J. of Clin. Lipidol. 2015;9:129-169. LDL-CHOLESTEROL 170(H) 99 mg/dL (calc) [facility] Comment: Reference range: <100 Desirable range <100 mg/dL for primary prevention; ?? <70 mg/dL for patients with CHD or diabetic patients with > or = 2 CHD risk factors. LDL-C is now calculated using the Calvin-Jose calculation, which is a validated novel method providing better accuracy than the Friedewald equation in the estimation of LDL-C. Calvin SS et al. ASHLEY. 2013;310(19): 6528-6644 (http://education.GLSS/faq/IBB267) CHOL/HDLC RATIO 6.1(H) <5.0 (calc) [facility] NON-HDL CHOLESTEROL 220(H) <130 mg/dL (calc) [facility] Comment: Non-HDL level > or = 220 is very high and may indicate genetic familial hypercholesterolemia (FH). Clinical assessment and measurement of blood lipid levels should be considered for all first-degree relatives of patients with an FH diagnosis. For patients with diabetes plus 1 major ASCVD risk factor, treating to a non-HDL-C goal of <100 mg/dL (LDL-C of <70 mg/dL) is considered a therapeutic option. Blood Blood / Unknown 11/26/2020 9 :49 AM EDT 11/26/2020 9:49 AM EDT Hoda Patino PA-C LAB - BLOOD DRAW Final Resul t [facility] [address] [address], [facility] [address] [address] * (ABNORMAL) COMPRE METAB PANEL (06/22/2020 2:36 PM EDT) GLUCOSE 99 65 - 99 mg/dL [facility] Comment: ?Fasting reference interval UREA NITROGEN (BUN) 10 7 - 25 mg/dL [facility] CREATININE (blood) 0.76 0.50 - 1.05 mg/dL [facility] Comment: For patients >49 years of age, the reference limit for Creatinine is approximately 13% higher for people identified as -Malawian. GFR ESTIMATED 86 > OR = 60 mL/min/1 .73m2 [facility] EGFR 100 > OR = 60 mL/min/1 .73m[address] [facility] BUN/CREATININE RATIO NOT APPLICABLE 6 - [address] [facility] SODIUM 137 135 - 146 mmol/L [facility] POTASSIUM 4.4 3.5 - 5.3 mmol/L [facility] CHLORIDE 102 98 - 110 mmol/L [facility] CARBON DIOXIDE 24 20 - 32 mmol/L [facility] CALCIUM 9.8 8.6 - 10.4 mg/dL [facility] PROTEIN, TOTAL 7.2 6.1 - 8.1 g/dL [facility] ALBUMIN 4.3 3.6 - 5.1 g/dL [facility] GLOBULIN 2.9 1.9 - 3.7 g/dL (calc) [facility] ALBUMIN/GLOBULIN RATIO 1.5 1.0 - 2.5 (calc) [facility] BILIRUBIN, TOTAL 0.4 0.2 - 1.2 mg/dL [facility] ALKALINE PHOSPHATASE 75 37 - 153 U/L [facility] AST 35 10 - 35 U/L [facility] ALT 48(H) 6 - 29 U/L [facility] Blood Blood / Unknown 06/22/2020 2 :36 PM EDT 06/22/2020 2:37 PM EDT Narrative [facility] - 06/22/2020 9:04 PM EDT FASTING:YES Hoda Patino PA-C LAB - BLOOD DRAW Final Resul t [facility] [address] [facility] [address] [place] [address], [place] [facility] [address] [address] * PAP, LIQUID BASED (12/22/2017 1:39 PM EDT) PAP normal NORMAL - ABNORMAL [facility] Specimen from uterine cervix (specimen) Cervix uteri structure / Unknown 12/22/2017 1:39 PM EDT Impressions [facility] - 12/30/2017 2:54 PM EST ThinPrep Pap Negative for squamous intraepithelial lesion and malignancy HPV Negative April Pickard PA-C LAB - NO BLOOD DRAW Final Result [facility] [address] [place] [address], * (ABNORMAL) HEPATITIS A,B,C PANEL (09/21/2017 10:45 AM EDT) HEPATITIS B SURFACE ANTIBODY NEGATIVE NEGATIVE [facility] HEPATITIS B SURFACE ANTIGEN NEGATIVE NEGATIVE [facility] Comment: Over the counter supplements containing high doses of biotin may interfere with this assay. ??If interference is suspected, patients shoud be retested after refraining from biotin supplements for 72 hours. HEPATITIS C VIRUS DIAGNOSTIC NEGATIVE NEGATIVE [facility] HEPATITIS B CORE ANTIBODY NEGATIVE NEGATIVE [facility] HEPATITIS A ANTIBODY TOTAL POSITIVE(A) NEGATIVE [facility] Comment: Over the counter supplements containing high doses of biotin may interfere with this assay. ??If interference is suspected, patients shoud be retested after refraining from biotin supplements for 72 hours. Blood specimen (specimen) Blood / Unknown 09/21/2017 10:45 AM EDT 09/21/2017 12:57 PM EDT [facility] 09/21/2017 2:24 PM EDT [facility] [address] [place] [address] [place] [id number] ORD# [id number] April Pickard PA-C LAB - BLOOD DRAW Edited [employer] Performing Organization Address City/[facility]/ZIP Co de Phone Number [facility] [address] [place] [address], [place] [phone] * HIV-1 & HIV-2 ANTIBODIES (09/21/2017 10:45 AM EDT) [facility] HIV 1 AND 2 ANTIBODY SCREEN NEGATIVE NEGATIVE [facility] Comment: This assay is a 4th generation assay allowing for earlier detection of HIV infection by detecting the presence of the HIV-1 p24 antigen as well as the traditional antibodies to HIV type 1 (including group O) and type 2. ??Use of a 4th generation assay is the current CDC recommendation for HIV screening. Blood specimen (specimen) Blood / Unknown 09/21/2017 10:45 AM EDT 09/21/2017 12:[address] [facility] - 09/21/2017 2:53 PM EDT [facility] [address] [place] [address] [place] [id number] ORD# [id number] April Pickard PA-C LAB - BLOOD DRAW Edited [facility] Performing Organization Address City/[facility] Co de Phone Number [address] [address], [place] [phone] from Last 3 Months or Most Recently Relevant to Health Maintenance Insurance [employer] Care Teams Personnel Arbitrator Relationship Specialty Start Date End Date oHda Patino PA-C [address] [place] [phone] PCP - General Internal Medicine 02/03/19
--- OUTSIDE RECORDS SUMMARY | 2024-03-28 13:15 | XMS_ITS | Clinical Summary ---
Author Organization [facility] Address [address] [place] [id number] Phone Care Team Providers Care Power Equipment Mechanics Instructor Name Role Phone Niecy Cabello MD Primary Care Provider [phone] Encounters Date Type Department Care Team Description 01/22/2024 9:08 AM EST - 01/22/2024 11:59 PM EST Hospital [facility]counter [facility] at [address] [id number] Encounter for screening mammogram for breast cancer Discharge Disposition: Home or Self Care from Last 3 Months Family History Medical History Relation Name Comments Breast cancer Sister Relation Name Status Comments Sister Social History Tobacco Use Types Packs/Day Years Used Date Smoking Tobacco: Never Assessed Sex and Gender Information Value Date Recorded Sex Assigned at Not on file Gender Identity Not on file Sexual Orientation Not on file Job Start Date Occupation Industry Not on file Not on file Not on file Obstetrics History Para Term AB IAB SAB Ectopic Multiple Livin g Live Births 3 Last Filed Vital Signs Vital Sign Reading Time Taken Comments Blood Pressure - - Pulse - - Temperature - - Respiratory Rate - - Oxygen Saturation - - Inhaled Oxygen Concentration - - Weight 89.8 kg (198 lb) 01/22/2024 9:17 AM EST Height 160 cm (5' 3 ) 01/22/2024 9:17 AM EST Body Mass Index 35.07 01/22/2024 9:17 AM EST Plan of Treatment Health Maintenance Due Date Last Done Comments Hepatitis A Vaccines (1 of 2 - Risk 2-dose series) 1981 Cervical Cancer Screening: Pap Smear 12/22/2020 12/22/2017 Colorectal Cancer Screening: Colonoscopy 01/25/2022 Depression Screening 01/25/2022 Hepatitis C Screening 01/25/2022 Social Influencers of Health Screening 01/25/2022 RSV Immunization Patients 60+ Years Old (1 - Risk 60-74 years 1-dose series) 2022 COVID-19 Vaccine (3 - season) 2023 07/28/2020, 07/07/2020 Influenza Vaccine (#1) 2023 , 02/09/2019, 12/11/2017, Additional history exists Cholesterol Screening (Lipid Panel) 11/26/2025 11/26/2020, 11/26/2020, 06/22/2020, Additional history exists Breast Cancer Screening 01/21/2026 01/22/20, 01/09/2023, 01/06/2022, Additional history exists DTaP,Tdap,and Td Vaccines (4 - Td or Tdap) 01/12/2033 01/12/2023, 12/27/2007, 11/04/2007 MMR Vaccines Aged Out 12/27/2007, 11/04/2007 No lo nger eligible based on patient's age to complete this topic Hepatitis B Vaccines Completed 09/08/2011, 12/16/2010, 12/27/2007 HIV Screening Completed 09/21/2017 Zoster Vaccines Completed 09/21/2020, 02/09/2019 HIB Vaccines Aged Out No longer eligi ble based on patient's age to complete this topic HPV Vaccines Aged Out No longer eligi ble based on patient's age to complete this topic IPV Vaccines Aged Out No longer eligi ble based on patient's age to complete this topic Meningococcal ACWY Vaccine Aged Out N o longer eligible based on patient's age to complete this topic Pneumococcal Vaccine: Pediatrics (0 to 5 Years) and At-Risk Patients (6 to 64 Years) Aged Out No longer eligible based on patient's age to complete this topic RSV Immunization Patients Under 20 months Aged Out No longer eligible based on patient's age to complete this topic Varicella Vaccines Aged Out No longer eligible based on patient's age to complete this topic Procedures Procedure Name Priority Date/Time Associated Diagnosis Comments MG MAMMO DIGITAL SCREENING W DASH BILAT Routine 01/22/2024 9:23 AM EST Encounter for screening mammogram for breast cancer from Last 3 Months Results * MG Mammo Digital Screening w Dash bilat (01/22/2024 9:23 AM EST) Anatomical Region Laterality Modality Breast Bilateral Mammography 01/22/2024 11:2 3 AM EST Impressions 01/22/2024 11:32 AM EST No mammographic evidence of malignancy. ?? No suspicious interval change. A negative mammogram in the presence of a clinically suspicious palpable abnormality does not preclude the possibility of malignancy or alter the indications for biopsy. ASSESSMENT: ?? BI-RADS 2: BENIGN RECOMMENDATION(S): 1: Routine screening mammogram BILATERAL in 1 year. -------- FINAL REPORT -------- Dictated By: Burton Tineo Dictated Date: 01/22/2024 11:23 ET Assigned Physician: Burton Tineo Reviewed and Electronically Signed By: Burton Tineo Signed Date: 01/22/2024 11:32 ET Workstation ID: [id number] Transcribed By: Self Edit Transcribed Date: 01/22/2024 11:23 ET Narrative 01/22/2024 11:32 AM EST EXAM: ??SCREENING MAMMOGRAPHY, BILATERAL HISTORY: ??SCREENING. ?? Technologist indicates bruise left breast 11 o'clock position COMPARISON: ??01/09/2023, 01/06/2022, 01/03/2021, 12/16/2019 TECHNIQUE: Synthesized CC and MLO projections of each breast. ??Tomosynthesis of each breast in the CC and MLO projections. ADDITIONAL IMAGING: None Computer-aided detection was employed with the iCAD ??profound AI 3-D. TISSUE DENSITY: There are scattered areas of fibroglandular density. (BI-RADS category B) FINDINGS: RIGHT BREAST: There is no significant change in a 1.1 cm asymmetry 7 cm behind the right nipple on the craniocaudal projection. ??I suspect this is in the 7 o'clock position. ??No additional suspicious right breast findings LEFT BREAST: No convincing change in a 1.0 cm oval low-density mass in the 11 o'clock position 6 cm from the left nipple. ??No additional suspicious left breast findings Procedure Note Burton Tineo MD - 01/22/2024 EXAM: SCREENING MAMMOGRAPHY, BILATERAL HISTORY: SCREENING. Technologist indicates bruise left breast 11 o'clock position COMPARISON: 01/09/2023, 01/06/2022, 01/03/2021, 12/16/2019 TECHNIQUE: Synthesized CC and MLO projections of each breast.Tomosynthesis of each breast in the CC and MLO projections. ADDITIONAL IMAGING: None Computer-aided detection was employed with the iCAD profound AI 3-D. TISSUE DENSITY: There are scattered areas of fibroglandular density.(BI-RADS category B) FINDINGS: RIGHT BREAST: There is no significant change in a 1.1 cm asymmetry 7 cm behind the rightnipple on the craniocaudal projection. I suspect this is in the 7 o'clockposition. No additional suspicious right breast findings LEFT BREAST: No convincing change in a 1.0 cm oval low-density mass in the 11 o'clockposition 6 cm from the left nipple. No additional suspicious left breastfindings IMPRESSION: No mammographic evidence of malignancy. No suspicious interval change. A negative mammogram in the presence of a clinically suspicious palpableabnormality does not preclude the possibility of malignancy or alter theindications for biopsy. ASSESSMENT: BI-RADS 2: BENIGN RECOMMENDATION(S): 1: Routine screening mammogram BILATERAL in 1 year. -------- FINAL REPORT -------- Dictated By: Burton Tineo Dictated Date: 01/22/2024 11:23 ET Assigned Physician: Burton Tineo Reviewed and Electronically Signed By: Burton Tineo Signed Date: 01/22/2024 11:32 ET Workstation ID: [id number] Transcribed By: Self Edit Transcribed Date: 01/22/2024 11:23 ET Self Referral Sppl IMG BI PROCEDURES from Last 3 Months Care Teams Power Equipment Mechanics Instructor Relationship Specialty Start Date End Date Niecy Cabello MD [address] [facility] , [address] [facility] D/B/A: [facility] ALVIN Hernandez PCP - General Internal Medicine 01/22/24
--- NOTE | 2024-03-28 13:35 | P.OPN-COLO_ITS ---
Colonoscopy Operative Note Operative Note Date of Service: 03/28/24 Narrative: FLEXIBLE TRANSORAL UPPER GASTROINTESTINAL ENDOSCOPY WITH BIOPSIES AND COLONOSCOPY TILL CECUM WITH BIOPSIES AND SNARE POLYPECTOMY Pre-op diagnosis: Colon cancer screening, diarrhea, Vitamin B12 Deficiency, abdominal pain, GERD Post-op diagnosis: Gastritis, Gastric polyp, Colon Polyp, Diverticulosis, hemorrhoids Endoscopist:? Gabrielle Herring MD Anesthesia:?MAC UPPER ENDOSCOPY Consent: Indications for the procedure and potential complications of bleeding, perforation, reaction to medications and missed diagnosis were discussed with the patient and informed consent was obtained. Instrument: Olympus GIF H 190 mid size upper endoscope Monitoring: Vital signs and clinical assessment, continuous EKG monitoring, Pulse oximetry, Carbon Dioxide monitoring and blood pressure monitoring were done throughout the procedure. Procedure: The patient was placed in the left lateral decubitis position and pre-procedure medications were administered and a bite block was placed. The endoscope was inserted into the mouth and advanced under direct vision to the third part of duodenum. A careful inspection was made as the upper endoscope was withdrawn including a retroflexed examination of the proximal stomach; Findings and interventions are described below. Findings: Larynx: Normal Esophagus: GE junction at 36 cms. No Her's. Stomach: A few 3-4 mm benign appearing polyps in the gastric body along the greater curvature - removed with a cold biopsy. Moderate diffuse gastric erythema - biopsies were obtained from the gastric body and antrum. Decreased fundal folds and grade 2 flap valve on retroflexed examination of the cardia. Duodenum: Normal bulb and descending duodenum Biopsies were obtained from descending duodenum to check for celiac sprue Intervention: Biopsies as noted above COLONOSCOPY PROCEDURE NOTE Instrument: Olympus PCF H 190 L variable stiffness pediatric colonoscope Monitoring: Vital signs and clinical assessment, intermittent blood pressure monitoring, continuous EKG monitoring, Pulse oximetry and Carbon Dioxide monitoring were done throughout the procedure. Please see anesthesia flowsheet. Colon withdrawl time was 25 minutes. Procedure: The patient was placed in the left lateral decubitis position and pre-procedure medications were administered. After a digital rectal examination of the ano-rectum, the video colonoscope was inserted into the rectum and advanced through the colon to the cecum. The colonoscope was slowly withdrawn in a retrograde panoramic fashion and the colon mucosa was carefully examined including a retroflexed view of the rectum. Findings and interventions are described below. Procedure Difficulty: Colon was long and tortuous and there was spasm and some loop formation Findings: Terminal Ileum: Not evaluated Cecum: 6-7 mm benign appearing nodule in the appendicular orifice - biopsied. Ascending Colon: A 10 -12 mm sessile polyp in the distal AC -removed with a hot snare Moderate diverticulosis scattered throughout the colon Transverse Colon: Moderate diverticulosis scattered throughout the colon Descending Colon: Moderate diverticulosis scattered throughout the colon Sigmoid Colon: Moderate diverticulosis Rectum: Normal Ano-rectum: Moderate internal hemorrhoids Colon preparation: Good after copious irrigation. [place] Bowel Preparation Scale Right colon; 2 Transverse colon: 2 Left colon; 2 (0 = Unprepared colon segment with mucosa not seen due to solid stool that cannot be cleared. 1 = Portion of mucosa of the colon segment seen, but other areas of the colon segment not well seen due to staining, residual stool and/or opaque liquid. 2 = Minor amount of residual staining, small fragments of stool and/or opaque liquid, but mucosa of colon segment seen well. 3 = Entire mucosa of colon segment seen well with no residual staining, small fragments of stool or opaque liquid) Impression and Post Procedure Diagnosis: Endoscopy Findings: ESOPHAGUS: Normal STOMACH: Diffuse gastritis and benign-appearing gastric polyps DUODENUM: Normal - biopsied to check for celiac sprue. Colonoscopy Findings: One medium sized polyp was removed Random biopsies were obtained from the right and left colon to check for microscopic colitis Moderate diverticulosis seen in the entire colon Moderate hemorrhoids on retroflexed exam. Plan: Pt has a FU appointment on 05/05/[address] Herring Repeat Colonoscopy in 3-5 years if polyps are adenomatous and 10 year if polyps are hyperplastic. Above findings were reviewed with the patient and relevant handouts were given and the discharge area. BIOPSIES SHOWED: A. Small bowel, biopsy: Small bowel mucosa within normal limits; preserved villous architecture and no increased intraepithelial lymphocytes seen. B. Stomach, antrum, biopsy: Gastric antral mucosa with mild chronic inactive gastritis and features of reactive gastropathy; negative for Helicobacter pylori, intestinal metaplasia and dysplasia. C. Stomach, body, biopsy: Gastric body type mucosa with moderate chronic inactive gastritis, glandular atrophy and intestinal metaplasia; negative for Helicobacter pylori and dysplasia open (see comment). D. Stomach, polyp, biopsy: Gastric body type mucosa with moderate chronic inactive gastritis, glandular atrophy and intestinal metaplasia; negative for Helicobacter pylori and dysplasia open (see comment). E. Colon, cecum, nodule, biopsy: Colonic mucosa with a lymphoid aggregate; negative for dysplasia. F. Colon, ascending, polypectomy: Tubular adenoma; negative for high-grade dysplasia. G. Colon, right, biopsies: Colonic mucosa within normal limits; negative for active, chronic or microscopic colitis. H. Colon, left side, biopsies: Colonic mucosa within normal limits; negative for active, chronic or microscopic colitis. COMMENT (C&D): The histologic features raise the possibility of chronic autoimmune atrophic gastritis. Clinical and serological correlation is advised Patient placed on the colonoscopy recall list for repeat colonoscopy in 3 years.
[2024-03-28 14:16] VITALS: BP 144/68; PULSE 71; RESP 16; TEMP 36.4; O2SAT 98
[2024-03-28 14:35] VITALS: BP 138/66; PULSE 70; RESP 17; TEMP 36.4; O2SAT 98
--- NOTE | 2024-03-28 15:15 | HO.ANESPROP2 ---
[facility] Active Problems Active Problems: All Active Problems Pernicious anemia (Acute) RUQ abdominal pain (Acute) Moderate major depression (Acute) Physical exam (Acute) Chronic diarrhea (Acute) Elevated LFTs (Acute) Neck pain (Acute) Transaminitis (Acute) Left shoulder pain (Acute) Postmenopausal bleeding (Acute) Pelvic pain in female (Acute) Bacterial vaginosis (Acute) Postcoital bleeding (Acute) Polyarthralgia (Acute) Cholelithiasis (Acute) Insomnia (Acute) Fibromyalgia (Acute) Dry skin dermatitis (Acute) Impaired fasting glucose (Acute) Mixed dyslipidemia (Acute) Acquired hypothyroidism (Acute) Vitamin B12 deficiency (Acute) Vitamin D deficiency (Acute) Past Medical History Medical History Polyarthralgia Dry skin dermatitis Impaired fasting glucose Mixed dyslipidemia Vitamin B12 deficiency Vitamin D deficiency Varicose veins of bilateral lower extremities with pain Polyarthralgia Cholelithiasis Insomnia Fibromyalgia Acquired hypothyroidism Anxiety Functional capacity: independent ambulation Family History Family History Sister Breast cancer Mother Essential hypertension Cholelithiasis Family history of problems with anesthesia: No Surgical History Surgical History H/O blepharoplasty S/P cholecystectomy History of Problems with Anesthesia: No Social History Social History Housing: House Are you a primary health care analyst to a significant other at home: No Do you presently have visiting nurse or other home services: No Alcohol intake: never Patient Tobacco Use Status: Never used Tobacco e-Cigarette/Vaping Use: Never Used Second Hand Smoke Exposure: No Use of substances other than those prescribed or required for medical reasons: No Have you been hit, kicked, punched, or otherwise hurt by someone within the past year? If so, by whom?: No Are you DNR?: No Advance Directives: No Advance Directives Information Provided: Yes Advance Directives on File: No Recently lost weight without trying: No Nutrition Risks: No Nutritional Risk Patient : No service: No Current occupational status: unemployed Cognitive needs: No Hearing needs: No Vision needs: No Meds Allergies Allergy/AdvReac Type Severity Reaction Status Date / Time spicy food AdvReac Hives Uncoded 08/17/23 16:33 Exam Height,Weight and Vital Signs: Height 5 ft 2 in Weight 85.729 kg Last Vital Signs Temp 97.6 F 03/28/24 14:35 Pulse 70 03/28/24 14:35 Resp 17 03/28/24 14:35 BP 138/66 03/28/24 14:35 Pulse Ox 98 03/28/24 14:35 O2 Del Method Room Air 03/28/24 14:35 Assessment and Plan Final Anesthetic Review Family History of Problems with Anesthesia: No History of Problems with Anesthesia: No
--- NOTE | 2024-03-28 15:16 | HO.POSTANES ---
Post Anesthesia Evaluation Post Anesthesia Evaluation Date of Service: 03/28/24 Vital Signs: Vital Signs Temp Pulse Resp BP Pulse Ox O2 Del Method 03/28/24 14:35 97.6 F 70 17 138/66 98 Room Air 03/28/24 14:16 97.6 F 71 16 144/68 H 98 Room Air 03/28/24 12:39 99.0 F 92 16 138/57 L 98 Room Air 03/28/24 12:23 99.0 F 92 16 138/57 L 98 Room Air Mental Status: Awake Pain Control: Satisfactory Hydration: Adequate Anesthesia-Related Issues: No Anes. Related Issues
== END 2024-03-28 14:59 | disposition home or self-care (01) ==
PROVIDERS: PCP Internal Medicine; Visit Provider Internal Medicine Gastroenterology
PROC: (CPT 45385; principal; 2024-03-28 13:40)
DX: Z12.11 Encounter for screening for malignant neoplasm of colon (principal); D12.2 Benign neoplasm of ascending colon; D12.0 Benign neoplasm of cecum; K52.9 Noninfective gastroenteritis and colitis, unspecified; K57.30 Diverticulosis of large intestine without perforation or abscess without bleeding; K64.8 Other hemorrhoids; R10.9 Unspecified abdominal pain; K21.9 Gastro-esophageal reflux disease without esophagitis; K29.50 Unspecified chronic gastritis without bleeding; K31.7 Polyp of stomach and duodenum; D51.0 Vitamin B12 deficiency anemia due to intrinsic factor deficiency; R73.01 Impaired fasting glucose; E03.9 Hypothyroidism, unspecified; E78.2 Mixed hyperlipidemia; E55.9 Vitamin D deficiency, unspecified; M79.7 Fibromyalgia; R79.89 Other specified abnormal findings of blood chemistry; Z79.1 Long term (current) use of non-steroidal anti-inflammatories (NSAID); Z79.899 Other long term (current) drug therapy; Z90.49 Acquired absence of other specified parts of digestive tract; Z56.0 Unemployment, unspecified
CPT/HCPCS: 45385; 45380; 43239; 88305; 88313; 88342; J2003; J2704

== ENCOUNTER → 2024-03-28 11:52 | Outpatient (BNV) | payer OTHER, SELFPAY | PROVIDERS: PCP Internal Medicine; Visit Provider Internal Medicine Gastroenterology | DX: Z12.11 Encounter for screening for malignant neoplasm of colon (principal); R19.7 Diarrhea, unspecified; D12.2 Benign neoplasm of ascending colon; K57.90 Diverticulosis of intestine, part unspecified, without perforation or abscess without bleeding; K64.8 Other hemorrhoids; K21.9 Gastro-esophageal reflux disease without esophagitis; K29.70 Gastritis, unspecified, without bleeding; K31.7 Polyp of stomach and duodenum | CPT/HCPCS: 43239; 45380; 45385 ==

== ENCOUNTER 2024-05-05 13:40 | Outpatient (AMB) | payer OTHER, SELFPAY ==
[2024-05-05 13:43] VITALS: BP 149/63; PULSE 91; O2SAT 99; BMI 34.6
--- NOTE | 2024-05-05 13:43 | MHC.OFFVIS ---
Vital Signs 05/05/24 13:43 Height 5 ft 2 in Weight 189 lb BMI 34.6 BP 149/63 H Blood Pressure Location Lt brachial Position Sitting Pulse 91 Pulse Oximetry (%) 99 Oxygen Delivery Method Room Air Intake Visit Reasons: follow up Intake Note: Patient follow up for chronic diarrhea and Colonoscopy/EGD results Patient denies any GI issues for today visit. Medical Researcher Required: No Accompanied by: Spouse Allergies spicy food Adverse Reaction (Uncoded 07/04/24 10:32) Hives Medication List - Last Reconciled 05/05/24 by Gabrielle Herring MD acetaminophen ER (Tylenol 8 Hour) 650 mg PO Q8H PRN 30 days cetirizine (All Day Allergy (cetirizine)) 10 mg PO DAILY PRN 90 days cholecalciferol (vitamin D3) 50 mcg PO DAILY 90 days clotrimazole-betamethasone 1-0.05 % 1 appl topical BID 10 days cyanocobalamin (vitamin B-12) 1,000 mcg IM Q4W 4 weeks fluticasone propionate 50 mcg/actuation (Flonase Allergy Relief) 1 spray intranasal DAILY 30 days gabapentin 300 mg PO BEDTIME 90 days ibuprofen 600 mg PO Q6H PRN insulin syringe-needle U-100 (Advocate Syringes) As directed levothyroxine 112 mcg PO DAILY syringe with needle (Monoject 3cc Syringe) As directed once a week tramadol 50 mg PO Q12H PRN zolpidem 10 mg PO BEDTIME PRN HPI HPI follow up: Details: GI clinic visit for this 63-year-old Beninese-Hungarian female with acquired hypothyroidism, mixed hyperlipidemia, diffuse joint pain secondary to fibromyalgia and insomnia even with zolpidem followed in GI for elevated LFTs, postprandial diarrhea (after Lap Yohana) and colon cancer screening. [facility] Reviewed TODAY'S VISIT: Patient denies any GI issues for today, medication help with diarrhea Pt is accompanied by her EGD and colon results reviewed. Notes intermittent diarrhea Notes generalized swelling for the past 2 months Complains of sleep disturbance due to anxiety. States can have some diarrhea from time to time Has a BM 1-2 times a day which are normal. Notes intermittent RUQ pain - mostly at night when she goes to sleep. RUQ pain gradually improving PAST VISITS: Patient cc: right abdominal pain with bloating, diarrhea, and acid reflex with burning sensation. Continues to have abdominal pain. No diarrhea since she was fasting. Today she had 3 loose BMs today. Pt denies past or family hx hx of liver disease She had Lap Yohana in May, for gallstones Noted RUQ pain prior to the surgery and has not resolved after the surgery Pain is intermittent and is not related to eating. ? radiates to the back Usually notes pain when she lies down to sleep at night She has difficulty sleeping and unsure if pain keeps her from sleeping Has diarrhea since she had the surgery and unable to go out sometimes Can have 3 to 6 watery Bms a day - can vary in consistency. Denies post prandial diarrhea or association with milk products Does not take any medications for the diarrhea. Diarrhea appears to have become worse. Never had a colonoscopy - had a stool cologuard test < 1 year ago - negative Complains of intermittent shortness of breath Has been eating less and has lost some weight - from 196 lbs to 190 lbs. Denies black stools or rectal bleeding. Patient denies major cardiac or pulmonary problems, Admits to loud snoring and not tested for sleep apnea Denies being on chronic anticoagulation. Patient denies known family history of colon polyps, colon cancer or other GI malignancy IMAGING STUDIES: 11/07/22 ABDOMINAL ULTRASOUND WITH ELASTOGRAPHY SHOWED: 1. Impression: Slightly echogenic liver. Differential would include fatty infiltration and hepatocellular disease. 2. Liver elastography: Adequate liver sampling. In the absence of other known clinical signs, rules out compensated advanced chronic liver disease. ENDOSCOPIC STUDIES: 03/28/24 EGD AND COLON SHOWED: Endoscopy Findings: ESOPHAGUS: Normal STOMACH: Diffuse gastritis and benign-appearing gastric polyps DUODENUM: Normal - biopsied to check for celiac sprue. Colonoscopy Findings: One medium sized polyp was removed Random biopsies were obtained from the right and left colon to check for microscopic colitis Moderate diverticulosis seen in the entire colon Moderate hemorrhoids on retroflexed exam. Plan: Repeat EGD and Colonoscopy in 3-5 years if polyps are adenomatous and 10 year if polyps are hyperplastic. Above findings were reviewed with the patient and relevant handouts were given and the discharge area. BIOPSIES SHOWED: A. Small bowel, biopsy: Small bowel mucosa within normal limits; preserved villous architecture and no increased intraepithelial lymphocytes seen. B. Stomach, antrum, biopsy: Gastric antral mucosa with mild chronic inactive gastritis and features of reactive gastropathy; negative for Helicobacter pylori, intestinal metaplasia and dysplasia. C. Stomach, body, biopsy: Gastric body type mucosa with moderate chronic inactive gastritis, glandular atrophy and intestinal metaplasia; negative for Helicobacter pylori and dysplasia open (see comment). D. Stomach, polyp, biopsy: Gastric body type mucosa with moderate chronic inactive gastritis, glandular atrophy and intestinal metaplasia; negative for Helicobacter pylori and dysplasia open (see comment). E. Colon, cecum, nodule, biopsy: Colonic mucosa with a lymphoid aggregate; negative for dysplasia. F. Colon, ascending, polypectomy: Tubular adenoma; negative for high-grade dysplasia. G. Colon, right, biopsies: Colonic mucosa within normal limits; negative for active, chronic or microscopic colitis. H. Colon, left side, biopsies: Colonic mucosa within normal limits; negative for active, chronic or microscopic colitis. COMMENT (C&D): The histologic features raise the possibility of chronic autoimmune atrophic gastritis. Clinical and serological correlation is advised Patient placed on the colonoscopy recall list for repeat EGD (FU of gastric intestinal metaplasia) and colonoscopy in 3 years. [facility] Medical History STEMI (ST elevation myocardial infarction) Polyarthralgia Dry skin dermatitis Impaired fasting glucose Mixed dyslipidemia Vitamin B12 deficiency Vitamin D deficiency Varicose veins of bilateral lower extremities with pain Polyarthralgia Cholelithiasis Insomnia Fibromyalgia Acquired hypothyroidism Anxiety Surgical History Status post cardiac catheterization History of esophagogastroduodenoscopy (EGD) Hx of colonoscopy H/O blepharoplasty S/P cholecystectomy Family History Sister Breast cancer Mother Essential hypertension Cholelithiasis Social History Housing: House Are you a primary career services coordinator to a significant other at home: No Do you presently have visiting nurse or other home services: No Alcohol intake: never Patient Tobacco Use Status: Never used Tobacco e-Cigarette/Vaping Use: Never Used Second Hand Smoke Exposure: No service: No Current occupational status: unemployed Cognitive needs: No Hearing needs: No Vision needs: No Review of Systems Const All systems reviewed & are unremarkable except as noted in HPI and below Physical Exam Vital Signs: Last Vital Signs Pulse 91 05/05/24 13:43 BP 149/63 H 05/05/24 13:43 Pulse Ox 99 05/05/24 13:43 Oxygen Delivery Method Room Air 05/05/24 13:43 BMI result Body Mass Index 34.6 Const General: healthy appearing and no acute distress Nutritional Appearance: obese Orientation/consciousness: patient oriented x3 Limitations: no limitations HEENT Head: Yes normal to inspection Ears: hearing grossly normal bilaterally Eyes Sclerae: sclerae normal Pupils: Equal, round and reactive pupils present Neck Neck: Yes normal visual inspection Chest Chest palpation & inspection: normal inspection of the chest Resp Effort & Inspection: normal respiratory effort Auscultation: clear to auscultation bilaterally Cardio Palpation: normal PMI Rate: regular rate Rhythm: regular rhythm Heart sounds: S1 normal heart sound present, S2 normal heart sound present and no murmurs GI Palpation (GI): Soft to palpation, nontender and No hepatosplenomegaly present Auscultation: normal bowel sounds Rectal Exam - Female: deferred Skin General skin exam: no rashes or lesions noted Neuro General: patient oriented x3, gait normal and moves all extremities Cranial nerves: Yes Equal, round and reactive pupils present Psych Appearance: grossly normal Mental Status: mental status grossly normal Assessment & Plan Assessment & Plan (1) Cholelithiasis: Code(s): K80.20 - Calculus of gallbladder without cholecystitis without obstruction Category: Medical (2) Vitamin B12 deficiency: Code(s): E53.8 - Deficiency of other specified B group vitamins Category: Medical (3) Transaminitis: Code(s): R74.01 - Elevation of levels of liver transaminase levels Category: Medical (4) Elevated LFTs: Code(s): R79.89 - Other specified abnormal findings of blood chemistry Category: Medical (5) Chronic diarrhea: Code(s): K52.9 - Noninfective gastroenteritis and colitis, unspecified Category: Medical (6) RUQ abdominal pain: Code(s): R10.11 - Right upper quadrant pain Category: Medical (7) Autoimmune gastritis: Code(s): K29.40 - Chronic atrophic gastritis without bleeding Category: Medical (8) Internal hemorrhoids: Code(s): K64.8 - Other hemorrhoids Category: Medical (9) Pernicious anemia: Code(s): D51.0 - Vitamin B12 deficiency anemia due to intrinsic factor deficiency Category: Medical (10) Facial swelling: Code(s): R22.0 - Localized swelling, mass and lump, head Category: Medical Plan 63-year-old female with acquired hypothyroidism, mixed hyperlipidemia, diffuse joint pain secondary to fibromyalgia and insomnia even with zolpidem referred by Dr. Mclain for evaluation of elevated LFTs. Pt is obese and abdominal US showed slighty echogenic liver - fatty infiltration versus hepatocellular disease. Compensated advanced liver disease was ruled out on elastography. Patient gives a history of intermittent RUQ pain and chronic diarrhea since gallbladder surgery in May, suggestive of post cholecystectomy syndrome Denies post prandial diarrhea or association with milk products Does not take any medications for the diarrhea. Never had a colonoscopy - had a stool cologuard test < 1 year ago - negative PLAN: 1. Repeat LFTs and hepatitis B and C serologies 2. Check fecal calprotectin and Pancreatic elastase 3. [place] of cholestyramine twice daily for diarrhea 06/04/23 Continues to have abdominal pain. No diarrhea since she was fasting. Today she had 3 loose BMs today. Pt will be scheduled for an MRI with MRCP (evaluation of RUQ pain after Lap Yohana) and colonoscopy (chronic diarrhea) 03/24/24 Postprandial diarrhea has improved. Scheduled for a colonoscopy last year and unable to keep the appt since she was out of town. She would like to reschedule Pt had low Vitamin B12 levels despite oral supplementation and switched to IM Vitamin B12 injections. Pt advised to schedule an EGD (RUQ pain and Vitamin B 12 def) and a colonoscopy (Screening and diarrhea) - scheduled on 03/28/24 (Since pt wants to schedule before Ramadan) 05/05/24 EGD and colon results reviewed. Notes intermittent diarrhea Notes generalized swelling for the past 2 months Complains of sleep disturbance due to anxiety. hydrocortisone cream for hemorrhoids Fu in 4 months - scheduled 11/03/24 Orders: Orders Complete Blood Count Auto Diff 05/05/24 D51.0 - Vitamin B12 deficiency anemia due to intrinsic factor deficiency B Type Natriuretic Peptide 05/05/24 K29.40 - Chronic atrophic gastritis without bleeding UA CC w/rflx Micro + Cult 05/05/24 R22.0 - Localized swelling, mass and lump, head Gastrin 05/05/24 K29.40 - Chronic atrophic gastritis without bleeding Parietal Cell Antibody 05/05/24 K29.40 - Chronic atrophic gastritis without bleeding Intrinsic Factor Antibodies 05/05/24 K29.40 - Chronic atrophic gastritis without bleeding Comprehensive Met. Panel 05/05/24 D51.0 - Vitamin B12 deficiency anemia due to intrinsic factor deficiency Medications: New hydrocortisone 2.5% 1 appl GA BID-QID PRN 30 grams 3RF hemorrhoids 2 weeks K64.8 - Other hemorrhoids Coding Level of Care Code Est Pt Level 4 (17081) Diagnoses Cholelithiasis K80.20 Vitamin B12 deficiency E53.8 Transaminitis R74.01 Elevated LFTs R79.89 Chronic diarrhea K52.9 RUQ abdominal pain R10.11 Autoimmune gastritis K29.40 Internal hemorrhoids K64.8 Pernicious anemia D51.0 Facial swelling R22.0 Time Spent (min) 21
--- OUTSIDE RECORDS SUMMARY | 2024-05-05 17:16 | XMS_ITS | Clinical Summary ---
Author Organization [facility] Address [address] [place] [address] Care Team Providers Care Embroidery Designer Name Role Phone Hoda Patino PA-C Primary Care Provider + [phone] Source Comments PLEASE NOTE, if this patient [...] Seen by RHEM Dr. Wily Rubio at [facility]: dx: polyarthralgia + polymyalgia. Plan: labs; pt on statin, depression, Could be assoc with fibromyalgia. F/U 4 wks. 03/16/18 - Seen by RHEUM Dr. Wily Rubio at [facility]: polyarthralgia is multifactorial: hypothyroidism, pt [...] and depression Overview (04/03/2015): Psych f/u @ [facility], formerly was seen by Dr. Garvin. Hepatic steatosis Overview (07/25/2014): Via [place] 04/06/13 at [facility]. Resolved Problems Problem Noted Date Diagnosed [...] 11/26/2020, 043 , 11/02/2019, Additional history exists [id number] ( season) 2023 Breast Cancer Screening (Mammogram) [...] EDT Routine general medical examination at a [facility] care facility HEPATITIS A,B,C PANEL Routine 09/21/2017 10:45 AM EDT Routine general medical examination at a [facility] care facility from Last 3 Months or Most Recently Relevant to Health Maintenance Results * HISTORIC MAMMOGRAM (01/09/2023 3:00 AM EST) 01/09/2023 3:00 AM EST us Hoda Patino PA-C IMG MAMMO Final Result * TSH W/RFLX FREE T4 (11/26/2020 9:49 AM EDT) TSH W/REFLEX TO FT4 1.75 0.40 - 4.50 mIU/L cartmi [facility] Blood Blood / Unknown 11/26/2020 9 :49 AM EDT 11/26/2020 9:49 AM EDT us Hoda Lukin PA-C LAB - BLOOD DRAW Final Resul t cartmi [facility] [address] [address], cartmi [facility] [address] [address] * (ABNORMAL) LIPID PANEL (11/26/2020 9:49 AM EDT) CHOLESTEROL, TOTAL 263(H) <200 mg/dL QED | [facility] HDL CHOLESTEROL 43(L) > OR = 50 mg/dL [facility] TRIGLYCERIDES 279(H) <150 mg/dL [facility] Comment: If a non-fasting specimen was collected, consider repeat triglyceride testing on a fasting specimen if clinically indicated. Rigo et al. J. of Clin. Lipidol. 2015;9:129-169. LDL-CHOLESTEROL 170(H) 99 mg/dL (calc) [facility] | [facility] Comment: Reference range: <100 Desirable range <100 mg/dL for primary prevention; ?? <70 mg/dL for patients with CHD or diabetic patients with > or = 2 CHD risk factors. LDL-C is now calculated using the Calvin-Jose calculation, which is a validated novel method providing better accuracy than the Friedewald equation in the estimation of LDL-C. Calvin SS et al. ASHLEY. 2013;310(19): 1165-8276 (http://education.MedAware/faq/YBC450) CHOL/HDLC RATIO 6.1(H) <5.0 (calc) [facility] | [facility] NON-HDL CHOLESTEROL 220(H) <130 mg/dL (calc) [facility] Comment: Non-HDL level > or = 220 [...] LAB - BLOOD DRAW Final Resul t cartmi [facility] [address] [address], cartmi [facility] [address] [address] * (ABNORMAL) COMPRE METAB PANEL (06/22/2020 2:36 PM EDT) GLUCOSE 99 65 - 99 mg/dL [facility] | [facility] Comment: ?Fasting reference interval UREA NITROGEN (BUN) 10 7 - 25 mg/dL cartmi [facility] CREATININE (blood) 0.76 0.50 - 1.05 mg/dL Q[facility] | [facility] Comment: For patients >49 years of age, the reference limit for Creatinine is approximately 13% higher for people identified as -Italian. GFR ESTIMATED 86 > OR = 60 mL/min/1 .73m2 cartmi [facility] EGFR 100 > OR = 60 mL/min/1 .73m2 Q[facility] | [facility] BUN/CREATININE RATIO NOT APPLICABLE 6 - 22 Q[facility] | [facility] SODIUM 137 135 - 146 mmol/L cartmi [facility] POTASSIUM 4.4 3.5 - 5.3 mmol/L cartmi [facility] CHLORIDE 102 98 - 110 mmol/L Q[facility] | [facility] CARBON DIOXIDE 24 20 - 32 mmol/L cartmi [facility] CALCIUM 9.8 8.6 - 10.4 mg/dL cartmi [facility] PROTEIN, TOTAL 7.2 6.1 - 8.1 g/dL cartmi [facility] ALBUMIN 4.3 3.6 - 5.1 g/dL cartmi [facility] GLOBULIN 2.9 1.9 - 3.7 g/dL (calc) cartmi [facility] ALBUMIN/GLOBULIN RATIO 1.5 1.0 - 2.5 (calc) cartmi [facility] BILIRUBIN, TOTAL 0.4 0.2 - 1.2 mg/dL cartmi [facility] ALKALINE PHOSPHATASE 75 37 - 153 U/L [facility] | [facility] AST 35 10 - 35 U/L [facility] ALT 48(H) 6 - 29 U/L [facility] | [facility] Blood Blood / Unknown 06/22/2020 2 :36 PM EDT 06/22/2020 2:37 PM EDT Narrative [facility] - 06/22/2020 9:04 PM EDT FASTING:YES Hoda Patino PA-C LAB - BLOOD DRAW Final Resul t [facility] [address] [facility] [address] [place] [address], [place] [facility] [address] [address] * PAP, LIQUID BASED (12/22/2017 1:39 PM EDT) PAP normal NORMAL - ABNORMAL [facility] Specimen from uterine cervix (specimen) Cervix uteri structure / Unknown 12/22/2017 1:39 PM EDT Impressions [facility] - 12/30/2017 2:54 PM EST ThinPrep Pap Negative for squamous intraepithelial lesion and malignancy HPV Negative April Pickard PA-C LAB - NO BLOOD DRAW Final Result [facility] [address] [place] [address], * (ABNORMAL) HEPATITIS A,B,C PANEL (09/21/2017 10:45 AM EDT) HEPATITIS B SURFACE ANTIBODY NEGATIVE NEGATIVE [facility] HEPATITIS B SURFACE ANTIGEN NEGATIVE NEGATIVE [facility] Comment: Over the counter supplements containing high doses of biotin may interfere with this assay. ??If interference is suspected, patients shoud be retested after refraining from biotin supplements for 72 hours. HEPATITIS C VIRUS DIAGNOSTIC NEGATIVE NEGATIVE [facility] HEPATITIS B CORE ANTIBODY NEGATIVE NEGATIVE [facility] HEPATITIS A ANTIBODY TOTAL POSITIVE(A) NEGATIVE [facility] Comment: Over the counter supplements containing high doses of biotin may interfere with this assay. ??If interference is suspected, patients shoud be retested after refraining from biotin supplements for 72 hours. Blood specimen (specimen) Blood / Unknown 09/21/2017 10:45 AM EDT 09/21/2017 12:57 PM EDT [facility] - 09/21/2017 2:24 PM EDT [employer] [address] [place] [address] [place] [id number] ORD# [id number] April Pickard PA-C LAB - BLOOD DRAW Edited [employer] Performing Organization Address City/[facility]/ZIP Co de Phone Number [facility] [address] [place] [address], [place] [phone] * HIV-1 & HIV-2 ANTIBODIES (09/21/2017 10:45 AM EDT) [facility] HIV 1 AND 2 ANTIBODY SCREEN NEGATIVE NEGATIVE [facility] Comment: This assay is a [...] 10:45 AM EDT 09/21/2017 12:57 PM EDT [facility] - 09/21/2017 2:53 PM EDT [employer] [address] [place] [address] [place] [id number] ORD# [id number] April Pickard PA-C LAB - BLOOD DRAW Edited [employer] [facility] Performing Organization Address City/[facility] Co de Phone Number [address] [address], [place] [phone] from Last 3 Months or Most Recently Relevant to Health Maintenance Insurance [employer] Care Teams Embroidery Designer Relationship Specialty Start Date End Date Hoda Patino PA-C [address] [place] [phone] PCP - General Internal Medicine 02/03/19"
--- OUTSIDE RECORDS SUMMARY | 2024-05-05 17:16 | XMS_ITS | Clinical Summary ---
Author Organization [facility] Address [address] [place] [phone] Phone Care Team Providers Care Office Services Coordinator Name Role Phone Niecy Cabello MD Primary Care Provider [phone] Family History Medical History Relation Name Comments Breast cancer Sister Relation Name Status Comments Sister Social History Tobacco Use Types Packs/Day Years Used Date Smoking Tobacco: Never Assessed Comments No Sex and Gender Information Value Date Recorded Sex Assigned at Not on file Legal Sex Female 8:19 PM EST Gender Identity Not on file Sexual Orientation Not on file Obstetrics History Para Term [...] of 2 - Risk 2-dose series) 1981 Pneumococcal Vaccine: 50+ Years (1 of 1 - PCV) 2012 Cervical Cancer Screening: Pap Smear 12/22/2020 12/22/2017 Colorectal Cancer Screening: Colonoscopy 01/25/2022 Depression Screening 01/25/2022 Hepatitis C Screening 01/25/2022 Social Influencers of Health Screening 01/25/2022 RSV Immunization Patients 60+ Years Old (1 - Risk 60-74 years 1-dose series) 2022 COVID-19 Vaccine ( season) 2023 07/28/2020, 07/07/2020 Influenza Vaccine (#1) [...] patient's age to complete this topic Meningococcal B Vacine Aged Out No lo nger eligible based on patient's [...] for breast cancer from Last 3 Months or Most Recently Relevant to Health Maintenance Results * MG Mammo Digital Screening w [...] Signed Date: 01/22/2024 11:32 ET Workstation ID: [id number] Transcribed By: Self Edit Transcribed Date: 01/22/2024 [...] Signed Date: 01/22/2024 11:32 ET Workstation ID: [id number] Transcribed By: Self Edit Transcribed Date: 01/22/2024 11:23 ET us Self Referral Sppl IMG BI PROCEDURES Final Resul t from Last 3 Months or Most Recently Relevant to Health Maintenance Insurance MEDICAID - [place] Care Teams Office Services Coordinator Relationship Specialty Start Date End Date Niecy Cabello MD [address] [facility] [address] [facility] D/B/A: [facility] [place] PCP - General Internal Medicine 01/22/24
== END 2024-05-05 14:33 | disposition home or self-care (01) ==
LOC: HO.HGI 13:40
PROVIDERS: PCP Internal Medicine; Visit Provider Internal Medicine Gastroenterology
DX: K80.20 Calculus of gallbladder without cholecystitis without obstruction (principal); E53.8 Deficiency of other specified B group vitamins; R74.01 Elevation of levels of liver transaminase levels; K52.9 Noninfective gastroenteritis and colitis, unspecified; R10.11 Right upper quadrant pain; K29.40 Chronic atrophic gastritis without bleeding
CPT/HCPCS: 99214

== ENCOUNTER 2024-05-05 13:40 | Outpatient (REF) | payer OTHER, SELFPAY ==
[2024-05-05 14:55] LABS: MANUAL DIFF FLAG NO
[2024-05-05 15:48] LABS: Basophils Percent Auto 0.6 % (0-2); Eosinophils Absolute Auto 0.1 X10*3/uL (0.0-0.4); Eosinophils Percent Auto 1.7 % (0-4); Hematocrit 39.6 % (37.0-47.0); Hemoglobin 12.5 g/dl (12.0-16.0); Imm Gran Abs Auto 0.02 X10*3/uL (0.00-0.03); Imm Gran Pct Auto 0.3 % (0.0-0.4); Lymphocytes Absolute Auto 2.8 X10*3/uL (1.2-4.9); Mean Corpuscular HGB Conc 31.6 g/dl (31.0-35.0); Mean Corpuscular Hemoglobin 29.3 pg (27.0-33.0); Mean Corpuscular Volume 92.7 fL (80.0-98.0); Mean Platelet Volume 10.6 fL (9.4-12.3); Monocytes Absolute Auto 0.3 X10*3/uL (0.1-1.2); Monocytes Percent Auto 5.4 % (2-11); Platelet Count 388 X10*3/uL (160-400); Red Blood Count 4.27 X10*6/uL (4.20-5.50); Red Cell Distribution Width 12.1 % (11.0-16.0); White Blood Count 6.3 X10*3/uL (4.8-10.8)
[2024-05-05 15:58] LABS: Appearance Urine Clear; Color Urine Yellow; Glucose Urine UA Negative (Negative); Leukocyte Esterase Urine Negative (Negative); Nitrite Urine Negative (Negative); PH 5.5 (5.0-9.0); Specific Gravity - Urine >= 1.030 (1.005-1.025); UMIC TRIGGER UACC YES; Urine Blood Moderate (2+) (Negative); Urine Ketones Trace mg/dL (Negative); Urine Protein Negative (Neg-Trace)
[2024-05-05 16:01] LABS: Bacteria Urine None Seen (None Seen); Hyaline Casts Urine 0-2 /LPF (0-2); RBC Urine >20 /HPF (0-2); Squamous Epithelial Cell Urine 0-2 /HPF (0-2); WBC Urine 0-5 /HPF (0-5)
[2024-05-05 16:25] LABS: B Type Natriuretic Peptide 33 pg/mL (<100)
[2024-05-05 16:53] LABS: Alanine Aminotransferase 35 U/L (0-31); Albumin Level 4.2 g/dL (3.5-5.0); Alkaline Phosphatase 83 U/L (39-117); Anion Gap 15 (12-20); Aspartate Amino Transferase 27 U/L (5-31); Bilirubin Direct 0.1 mg/dL (0.0-0.5); Bilirubin Total 0.4 mg/dL (0.0-1.0); Blood Urea Nitrogen 14 mg/dL (9-16); Calcium 9.1 mg/dL (8.4-10.2); Carbon Dioxide 24 mmol/L (22-29); Chloride 108 mmol/L (96-108); Estimated Glomerular Filt Rate > 60; Glucose Random 106 mg/dL (60-115); Potassium 4.5 mmol/L (3.3-5.1); Sodium 142 mmol/L (135-145); Total Protein 7.9 g/dL (6.5-8.0)
--- OUTSIDE RECORDS SUMMARY | 2024-05-05 18:29 | XMS_ITS | Clinical Summary ---
Author Organization [facility] Address [address] [place] [phone] Phone Care Team Providers Care Middleware Developer Name Role Phone Niecy Cabello MD Primary Care Provider [phone] Family History Medical History Relation Name Comments [...] Signed Date: 01/22/2024 11:32 ET Workstation ID: [id number] Transcribed By: Self Edit Transcribed Date: 01/22/2024 [...] Signed Date: 01/22/2024 11:32 ET Workstation ID: [id number] Transcribed By: Self Edit Transcribed Date: 01/22/2024 11:23 ET us Self Referral Sppl IMG BI PROCEDURES Final Resul t from Last 3 Months or Most Recently Relevant to Health Maintenance Insurance [place] Care Teams Middleware Developer Relationship Specialty Start Date End Date Niecy Cabello MD [address] [facility] [address] [facility] [facility] D/B/A: [facility] [place] PCP - General Internal Medicine 01/22/24
--- OUTSIDE RECORDS SUMMARY | 2024-05-05 18:29 | XMS_ITS | Clinical Summary ---
Author Organization [facility] Address [address] [place] [address] Care Team Providers Care Post Anesthesia Care Unit Nurse Name Role Phone Hoda Patino PA-C Primary Care Provider + [phone] Source Comments PLEASE NOTE, if this patient [...] Seen by RHEM Dr. Wily Rubio [place] [facility] dx: polyarthralgia + polymyalgia. Plan: labs; pt on statin, depression, Could be assoc with fibromyalgia. F/U 4 wks. 03/16/18 - Seen by RHEUM Dr. Wily Rubio at [facility]: polyarthralgia is multifactorial: hypothyroidism, pt is [...] and depression Overview (04/03/2015): Psych f/u @ [facility], formerly was seen by Dr. Garvin. Hepatic steatosis Overview (07/25/2014): Via [place] 04/06/13 at [facility]. Resolved Problems Problem Noted Date Diagnosed [...] 11/26/2020, 043 , 11/02/2019, Additional history exists [id number] ( season) 2023 Breast Cancer Screening (Mammogram) [...] EDT Routine general medical examination at a [facility] care facility HEPATITIS A,B,C PANEL Routine 09/21/2017 10:45 AM EDT Routine general medical examination at a [facility] care facility from Last 3 Months or Most Recently Relevant to Health Maintenance Results * HISTORIC MAMMOGRAM (01/09/2023 3:00 AM EST) 01/09/2023 3:00 AM EST us Hoda Patino PA-C IMG MAMMO Final Result * TSH W/RFLX FREE T4 (11/26/2020 9:49 AM EDT) TSH W/REFLEX TO FT4 1.75 0.40 - 4.50 mIU/L [facility] Blood Blood / Unknown 11/26/2020 9 :49 AM EDT 11/26/2020 9:49 AM EDT us Hoda Lukin PA-C LAB - BLOOD DRAW Final Resul t [employer] [facility] [address] [address], [employer] [facility] [address] [address] * (ABNORMAL) LIPID PANEL (11/26/2020 9:49 AM EDT) CHOLESTEROL, TOTAL 263(H) <200 mg/dL [facility] HDL CHOLESTEROL 43(L) > OR = 50 mg/dL [facility] TRIGLYCERIDES 279(H) <150 mg/dL [facility] Comment: If a non-fasting specimen was collected, consider repeat triglyceride testing on a fasting specimen if clinically indicated. Rigo et al. J. of Clin. Lipidol. 2015;9:129-169. LDL-CHOLESTEROL 170(H) 99 mg/dL (calc) [facility] Comment: Reference range: <100 [...] LDL-C. Calvin SS et al. ASHLEY. 2013;310(19): 1980-8671 (http://education.[employer]/faq/BEL800) CHOL/HDLC RATIO 6.1(H) <5.0 (calc) [facility] NON-HDL CHOLESTEROL 220(H) <130 mg/dL (calc) [facility] Comment: Non-HDL level > or = 220 [...] LAB - BLOOD DRAW Final Resul t [employer] [facility] [employer] [facility] [address] [address], [employer] [facility] [employer] [facility] [address] [address] * (ABNORMAL) COMPRE METAB PANEL (06/22/2020 2:36 PM EDT) GLUCOSE 99 65 - 99 mg/dL [facility] Comment: ?Fasting reference interval UREA NITROGEN (BUN) 10 7 - 25 mg/dL [facility] CREATININE (blood) 0.76 0.50 - 1.05 mg/dL [facility] Comment: For patients >49 years of age, the reference limit for Creatinine is approximately 13% higher for people identified as -Stateless. GFR ESTIMATED 86 > OR = 60 mL/min/1 .73m2 [facility] EGFR 100 > OR = 60 mL/min/[address] [facility] BUN/CREATININE RATIO NOT APPLICABLE 6 - [address] [facility] SODIUM 137 135 - 146 mmol/L [facility] POTASSIUM 4.4 3.5 - 5.3 mmol/L [facility] CHLORIDE 102 98 - 110 mmol/L [facility] CARBON DIOXIDE 24 20 - 32 mmol/L [facility] CALCIUM 9.8 8.6 - 10.4 mg/dL [facility] PROTEIN, TOTAL 7.2 6.1 - 8.1 g/dL [facility] ALBUMIN 4.3 3.6 - 5.1 g/dL [facility] GLOBULIN 2.9 1.9 - 3.7 g/dL (calc) [facility] ALBUMIN/GLOBULIN RATIO 1.5 1.0 - 2.5 (calc) [facility] BILIRUBIN, TOTAL 0.4 0.2 - 1.2 mg/dL [facility] ALKALINE PHOSPHATASE 75 37 - 153 U/L [facility] AST 35 10 - 35 U/L [facility] ALT 48(H) 6 - 29 U/L [facility] Blood Blood / Unknown 06/22/2020 2 :36 PM EDT 06/22/2020 2:37 PM EDT Narrative [facility] - 06/22/2020 9:04 PM EDT FASTING:YES Hoda Patino PA-C LAB - BLOOD DRAW Final Resul t [facility] [address] [facility] [address] [place] [address], [place] [facility] [address] [address] * PAP, LIQUID BASED (12/22/2017 1:39 PM EDT) PAP normal NORMAL - ABNORMAL [facility] Specimen from uterine cervix (specimen) Cervix uteri structure / Unknown 12/22/2017 1:39 PM EDT Impressions [facility] - 12/30/2017 2:54 PM EST [employer] Pap Negative for squamous intraepithelial lesion and malignancy HPV Negative April Pickard PA-C LAB - NO BLOOD DRAW Final Result [facility] [address] [place] [address], * (ABNORMAL) HEPATITIS A,B,C PANEL (09/21/2017 10:45 AM EDT) HEPATITIS B SURFACE ANTIBODY NEGATIVE NEGATIVE [facility] HEPATITIS B SURFACE ANTIGEN NEGATIVE NEGATIVE [facility] Comment: Over the counter supplements containing high doses of biotin may interfere with this assay. ??If interference is suspected, patients shoud be retested after refraining from biotin supplements for 72 hours. HEPATITIS C VIRUS DIAGNOSTIC NEGATIVE NEGATIVE [facility] HEPATITIS B CORE ANTIBODY NEGATIVE NEGATIVE [facility] HEPATITIS A ANTIBODY TOTAL POSITIVE(A) NEGATIVE [facility] Comment: Over the counter supplements containing high doses of biotin may interfere with this assay. ??If interference is suspected, patients shoud be retested after refraining from biotin supplements for 72 hours. Blood specimen (specimen) Blood / Unknown 09/21/2017 10:45 AM EDT 09/21/2017 12:57 PM EDT [facility] - 09/21/2017 2:24 PM EDT [employer] [address] [place] [address] [place] [id number] ORD# [id number] April Pickard PA-C LAB - BLOOD DRAW Edited [employer] Performing Organization Address City/[facility]/ZIP Co de Phone Number [facility] [address] [place] [address], [place] [phone] * HIV-1 & HIV-2 ANTIBODIES (09/21/2017 10:45 AM EDT) [facility] HIV 1 AND 2 ANTIBODY SCREEN NEGATIVE NEGATIVE [facility] Comment: This assay is a 4th generation [...] 10:45 AM EDT 09/21/2017 12:57 PM EDT [facility] - 09/21/2017 2:53 PM EDT [employer] [address] [place] [address] [place] [id number] ORD# [id number] April Pickard PA-C LAB - BLOOD DRAW Edited [employer] [facility] Performing Organization Address City/[facility] Co de Phone Number [address] [address], [place] [phone] from Last 3 Months or Most Recently Relevant to Health Maintenance Insurance [employer] Care Teams Post Anesthesia Care Unit Nurse Relationship Specialty Start Date End Date Hoda Patino PA-C [address] [place] [phone] PCP - General Internal Medicine 02/03/19
[2024-05-09 23:44] LABS: Intrinsic Factor Antibodies Negative (Negative)
[2024-05-10 12:13] LABS: Parietal Cell Antibody 117.1 Unit (<=20.0)
[2024-05-10 14:48] LABS: Gastrin 744 pg/mL (<=100)
== END 2024-05-05 13:41 | disposition home or self-care (01) ==
LOC: HO.LAB 13:40
PROVIDERS: PCP Internal Medicine; Visit Provider Internal Medicine Gastroenterology
DX: D51.0 Vitamin B12 deficiency anemia due to intrinsic factor deficiency (principal); K29.40 Chronic atrophic gastritis without bleeding; R79.89 Other specified abnormal findings of blood chemistry; D12.2 Benign neoplasm of ascending colon; K57.30 Diverticulosis of large intestine without perforation or abscess without bleeding; K64.8 Other hemorrhoids; R74.01 Elevation of levels of liver transaminase levels; K52.9 Noninfective gastroenteritis and colitis, unspecified; R10.11 Right upper quadrant pain; R22.0 Localized swelling, mass and lump, head; E66.9 Obesity, unspecified; Z87.19 Personal history of other diseases of the digestive system; Z98.890 Other specified postprocedural states; Z90.49 Acquired absence of other specified parts of digestive tract
CPT/HCPCS: 36415; 80053; 81001; 82248; 82941; 83516; 83880; 85025; 86340; 99212

== ENCOUNTER 2024-05-21 15:07 | Emergency (ER) | payer OTHER, SELFPAY ==
--- NOTE | 2024-05-21 15:08 | ED_ITS ---
<Statement entered by Ebenezer Reece MD - 05/24/24 00:51> duplicate chart HPI - General Adult General Chief complaint: Chest Pain Stated complaint: sob,chest pain Time Seen by Provider: 05/21/24 15:16 Related Data Previous Rx's ?Medication ?Instructions ?Recorded clotrimazole-betamethasone 1 1 appl topical BID 10 days #45 02/11/ %-0.05 % topical cream grams tramadol 50 mg tablet 50 mg PO Q12H PRN pain #30 tabs 10/21/22 acetaminophen 650 mg 650 mg PO Q8H PRN pain 30 days #90 08/17/23 tablet,extended release (Tylenol 8 tabs Hour) cetirizine 10 mg tablet (All Day 10 mg PO DAILY PRN allergy 08/17/23 Allergy (cetirizine)) symptoms 90 days #90 tabs gabapentin 300 mg capsule 300 mg PO BEDTIME 90 days #90 caps 08/17/23 levothyroxine 112 mcg tablet 112 mcg PO DAILY #90 tabs 08/17/23 cyanocobalamin (vitamin B-12) 1,000 mcg IM Q4W 4 weeks #1 mL 10/17/23 1,000 mcg/mL injection solution insulin syringe-needle U-100 0.3 #1 ea 10/17/23 mL 30 gauge x 5/16 ([facility] Syringes) cholecalciferol (vitamin D3) 50 50 mcg PO DAILY 90 days #90 tabs 10/29/23 mcg (2,000 unit) tablet syringe with needle 3 mL 25 gauge #30 ea 02/05/24 x 1 (Monoject 3cc Syringe) fluticasone propionate 50 1 spray intranasal DAILY 30 days 02/11/24 mcg/actuation nasal #16 grams spray,suspension (Flonase Allergy Relief) ibuprofen 600 mg tablet 600 mg PO Q6H PRN pain #20 tabs 02/11/24 zolpidem 10 mg tablet 10 mg PO BEDTIME PRN insomnia #15 04/27/24 tabs hydrocortisone 2.5 % topical cream 1 appl [place] BID-QID PRN hemorrhoids 05/05/24 with perineal applicator 2 weeks #30 grams Allergies Allergy/AdvReac Type Severity Reaction Status Date / Time spicy food AdvReac Hives Uncoded 05/21/24 15:20 [facility] Past Medical History Medical History Polyarthralgia Dry skin dermatitis Impaired fasting glucose Mixed dyslipidemia Vitamin B12 deficiency Vitamin D deficiency Varicose veins of bilateral lower extremities with pain Polyarthralgia Cholelithiasis Insomnia Fibromyalgia Acquired hypothyroidism Anxiety Surgical History History of esophagogastroduodenoscopy (EGD) Hx of colonoscopy H/O blepharoplasty S/P cholecystectomy Family History Family History Sister Breast cancer Mother Essential hypertension Cholelithiasis Social History Social History Housing: House Are you a primary managed care coordinator to a significant other at home: No Do you presently have visiting nurse or other home services: No Alcohol intake: never Patient Tobacco Use Status: Never used Tobacco e-Cigarette/Vaping Use: Never Used Second Hand Smoke Exposure: No Advance Directives: No Advance Directives Information Provided: No Do you have a plan to hurt others: No Plan service: No Current occupational status: unemployed Cognitive needs: No Hearing needs: No Vision needs: No Physical Exam ED Vital Signs: BMI result Body Mass Index 33.6 Course Course Course Narrative: Medical screening exam performed. Please refer to detailed history, exam, evaluation, and management by primary provider. 64-year-old Azeri speaking female reporting chest pain, abdominal pain and generalized weakness. EKG and labs ordered. Medications Administered Discontinued Medications Generic Name Dose Route Start Last Admin Trade Name David PRN Reason Stop Dose Admin Aspirin 324 mg 05/21/24 15:17 05/21/24 15:22 Aspirin 81 Mg Tab.Chew PO 05/21/24 15:18 324 mg ONCE ONE Administration Atorvastatin Calcium 80 mg 05/21/24 15:24 05/21/24 15:26 Atorvastatin Calcium 80 Mg Tablet PO 05/21/24 15:25 80 mg ONCE ONE Administration Heparin Sodium (Porcine) 5,000 unit 05/21/24 15:17 05/21/24 15:22 Heparin Sodium,Porcine 5,000 Unit/Ml Vial IVPUSH 05/21/24 15:18 5,000 unit ONCE ONE Administration Nitroglycerin 0.4 mg 05/21/24 15:24 05/21/24 15:26 Nitroglycerin 0.4 Mg Tab.Subl SUBLINGUAL 05/21/24 15:25 0.4 mg ONCE ONE Administration Ticagrelor 180 mg 05/21/24 15:17 05/21/24 15:22 Ticagrelor 90 Mg Tablet PO 05/21/24 15:18 180 mg ONCE ONE Administration Medical Decision Making Lab Data 05/21/24 15:31 05/21/24 15:30 Labs: Lab Results 05/21/24 05/21/24 05/21/24 Range/Units 15:30 15:31 15:35 WBC 8.0 (4.8-10.8) X10*3/uL RBC 4.37 (4.20-5.50) X10*6/uL Hgb 13.3 (12.0-16.0) g/dl Hct 39.8 (37.0-47.0) % MCV 91.1 (80.0-98.0) fL MCH 30.4 (27.0-33.0) pg MCHC 33.4 (31.0-35.0) g/dl RDW 12.0 (11.0-16.0) % Plt Count 382 (160-400) X10*3/uL MPV 10.3 (9.4-12.3) fL Immature Gran % (Auto) 0.3 (0.0-0.4) % Neut % (Auto) 34.9 L (45-73) % Lymph % (Auto) 58.0 H (20-40) % [place] % (Auto) 4.9 (2-11) % Eos % (Auto) 1.4 (0-4) % Baso % (Auto) 0.5 (0-2) % Lymph # (Auto) 4.6 (1.2-4.9) X10*3/uL [place] # (Auto) 0.4 (0.1-1.2) X10*3/uL Eos # (Auto) 0.1 (0.0-0.4) X10*3/uL Baso # (Auto) 0.0 (0.0-0.2) X10*3/uL Abs Immat Gran (auto) 0.02 (0.00-0.03) X10*3/uL Absolute Neuts (auto) 2.8 (2.0-8.3) x10*3/uL Absolute Nucleated RBC 0.000 (0.0-0.012) X10*3/uL Nucleated RBC % (auto) 0.0 (0.0-0.2) /100WBC Hold Blue Top SEE NOTE Sodium Cancelled Potassium Cancelled Chloride Cancelled Carbon Dioxide Cancelled Anion Gap Cancelled BUN Cancelled Creatinine Cancelled Estim Creat Clear Calc Cancelled Estimated GFR Cancelled POC Glucose (60-115) mg/dL Random Glucose Cancelled Calcium Cancelled Total Bilirubin Cancelled AST Cancelled ALT Cancelled Alkaline Phosphatase Cancelled Troponin I High Sens < 2.7 (<3.5-17.0) ng/L Total Protein Cancelled Albumin Cancelled Lipase Cancelled Influenza Type A (PCR) NEGATIVE (Negative) Influenza Type B (PCR) NEGATIVE (Negative) RSV RNA Qual (PCR) NEGATIVE (Negative) SARS-CoV-2 RNA (RT-PCR) NEGATIVE (Negative) 05/21/24 Range/Units 15:38 WBC (4.8-10.8) X10*3/uL RBC (4.20-5.50) X10*6/uL Hgb (12.0-16.0) g/dl Hct (37.0-47.0) % MCV (80.0-98.0) fL MCH (27.0-33.0) pg MCHC (31.0-35.0) g/dl RDW (11.0-16.0) % Plt Count (160-400) X10*3/uL MPV (9.4-12.3) fL Immature Gran % (Auto) (0.0-0.4) % Neut % (Auto) (45-73) % Lymph % (Auto) (20-40) % [place] % (Auto) (2-11) % Eos % (Auto) (0-4) % Baso % (Auto) (0-2) % Lymph # (Auto) (1.2-4.9) X10*3/uL [place] # (Auto) (0.1-1.2) X10*3/uL Eos # (Auto) (0.0-0.4) X10*3/uL Baso # (Auto) (0.0-0.2) X10*3/uL Abs Immat Gran (auto) (0.00-0.03) X10*3/uL Absolute Neuts (auto) (2.0-8.3) x10*3/uL Absolute Nucleated RBC (0.0-0.012) X10*3/uL Nucleated RBC % (auto) (0.0-0.2) /100WBC Hold Blue Top Sodium Potassium Chloride Carbon Dioxide Anion Gap BUN Creatinine Estim Creat Clear Calc Estimated GFR POC Glucose 146 H (60-115) mg/dL Random Glucose Calcium Total Bilirubin AST ALT Alkaline Phosphatase Troponin I High Sens (<3.5-17.0) ng/L Total Protein Albumin Lipase Influenza Type A (PCR) (Negative) Influenza Type B (PCR) (Negative) RSV RNA Qual (PCR) (Negative) SARS-CoV-2 RNA (RT-PCR) (Negative) Discharge Plan Discharge Clinical Impression: ST elevation (STEMI) myocardial infarction involving right coronary artery Patient Disposition: [facility] Transfer Details: [facility] lab assistant zach Olivier Prescriptions: No Action (DME) insulin syringe-needle U-100 [[facility]] 0.3 mL 30 gauge x 5/16 syringe See Rx Instructions .Route Qty: 1 6RF Rx Instructions: As directed cyanocobalamin (vitamin B-12) 1,000 mcg/mL solution 1,000 mcg IM Q4W 28 Days Qty: 1 6RF cholecalciferol (vitamin D3) 50 mcg (2,000 unit) tablet 50 mcg PO DAILY 90 Days Qty: 90 2RF (DME) Monoject 3cc Syr 25Gx1 3 mL 25 gauge x 1 syringe See Rx Instructions .Route Qty: 30 2RF Rx Instructions: As directed once a week ibuprofen 600 mg tablet 600 mg PO Q6H PRN (Reason: pain) Qty: 20 0RF fluticasone propionate [Flonase Allergy Relief] 50 mcg/actuation spray,suspension 1 spray intranasal DAILY 30 Days Qty: 16 1RF Rx Instructions: administer into each nostril zolpidem 10 mg tablet 10 mg PO BEDTIME PRN (Reason: insomnia) Qty: 15 0RF clotrimazole-betamethasone 1-0.05 % cream 1 appl topical BID 10 Days Qty: 45 0RF acetaminophen [Tylenol 8 Hour] 650 mg tablet extended release 650 mg PO Q8H PRN (Reason: pain) 30 Days Qty: 90 11RF cetirizine [All Day Allergy (cetirizine)] 10 mg tablet 10 mg PO DAILY PRN (Reason: allergy symptoms) 90 Days Qty: 90 2RF levothyroxine 112 mcg tablet 112 mcg PO DAILY Qty: 90 3RF gabapentin 300 mg capsule 300 mg PO BEDTIME 90 Days Qty: 90 1RF tramadol 50 mg tablet 50 mg PO Q12H PRN (Reason: pain) Qty: 30 0RF hydrocortisone 2.5 % cream with perineal applicator 1 appl IL BID-QID PRN (Reason: hemorrhoids) 14 Days Qty: 30 3RF Interventions: Acute Care Transfer Worksheet (ED) Last Done: 05/21/24 16:00 Discharge Date/Time: 05/21/24 16:01 Print Language: Ukrainian
--- NOTE | 2024-05-21 15:08 | ECG_ITS ---
Test Reason : CHEST PAIN Blood Pressure : */* mmHG Vent. Rate : 91 BPM Atrial Rate : 91 BPM P-R Int : 162 ms QRS Dur : 90 ms QT Int : 380 ms P-R-T Axes : 18 61 106 degrees QTcB Int : 467 ms Sinus rhythm with Premature supraventricular complexes ST elevation consider inferior injury or acute infarct ACUTE NH / STEMI Consider right ventricular involvement in acute inferior infarct Abnormal ECG When compared with ECG of 11-Sep-2022 14:22, Significant changes have occurred Referred By: Federico Altman Electronically Signed By: TOBIAS LESLIE MD
[2024-05-21 15:19] VITALS: BMI 33.6
[2024-05-21] MEDS: Ticagrelor 90 MG TABLET 180 MG PO (15:22)
[2024-05-21] MEDS: Heparin Sodium,Porcine 5,000 UNIT/ML VIAL 5000 UNIT IVPUSH (15:22)
[2024-05-21] MEDS: Aspirin 81 MG TAB.CHEW 324 MG PO (15:22)
--- NOTE | 2024-05-21 15:25 | ED_ITS ---
HPI - Chest Pain General Chief Complaint: Chest Pain Stated Complaint: sob,chest pain Time Seen by Provider: 05/21/24 15:16 Source: patient Mode of arrival: ambulatory Limitations: no limitations History of Present Illness ED Provider: HPI narrative: Patient is 64 years old with history of major depression fibromyalgia hypothyroidism comes here for mid chest pain started 30 minutes prior to arrival severe constricting feeling in the triage EKG done which showed ST-elevation lead 2 3 AVF about 4 mm each reciprocal changes in anterior leads Related Data Previous Rx's ?Medication ?Instructions ?Recorded clotrimazole-betamethasone 1 1 appl topical BID 10 days #45 02/11/22 %-0.05 % topical cream grams tramadol 50 mg tablet 50 mg PO Q12H PRN pain #30 tabs 10/21/22 acetaminophen 650 mg 650 mg PO Q8H PRN pain 30 days #90 08/17/23 tablet,extended release (Tylenol 8 tabs Hour) cetirizine 10 mg tablet (All Day 10 mg PO DAILY PRN allergy 08/17/23 Allergy (cetirizine)) symptoms 90 days #90 tabs gabapentin 300 mg capsule 300 mg PO BEDTIME 90 days #90 caps 08/17/23 levothyroxine 112 mcg tablet 112 mcg PO DAILY #90 tabs 08/17/23 cyanocobalamin (vitamin B-12) 1,000 mcg IM Q4W 4 weeks #1 mL 10/17/23 1,000 mcg/mL injection solution insulin syringe-needle U-100 0.3 #1 ea 10/17/23 mL 30 gauge x 5/16 ([facility] Syringes) cholecalciferol (vitamin D3) 50 50 mcg PO DAILY 90 days #90 tabs 10/29/23 mcg (2,000 unit) tablet syringe with needle 3 mL 25 gauge #30 ea 02/05/24 x 1 (Monoject 3cc Syringe) fluticasone propionate 50 1 spray intranasal DAILY 30 days 02/11/24 mcg/actuation nasal #16 grams spray,suspension (Flonase Allergy Relief) ibuprofen 600 mg tablet 600 mg PO Q6H PRN pain #20 tabs 02/11/24 zolpidem 10 mg tablet 10 mg PO BEDTIME PRN insomnia #15 04/27/24 tabs hydrocortisone 2.5 % topical cream 1 appl [place] BID-QID PRN hemorrhoids 05/05/24 with perineal applicator 2 weeks #30 grams Allergies Allergy/AdvReac Type Severity Reaction Status Date / Time spicy food AdvReac Hives Uncoded 05/21/24 15:20 Review of Systems 2 Review of Systems: Yes all other systems are reviewed and are negative [facility] Past Medical History Medical History Polyarthralgia Dry skin dermatitis Impaired fasting glucose Mixed dyslipidemia Vitamin B12 deficiency Vitamin D deficiency Varicose veins of bilateral lower extremities with pain Polyarthralgia Cholelithiasis Insomnia Fibromyalgia Acquired hypothyroidism Anxiety Surgical History History of esophagogastroduodenoscopy (EGD) Hx of colonoscopy H/O blepharoplasty S/P cholecystectomy Family History Family History Sister Breast cancer Mother Essential hypertension Cholelithiasis Social History Social History Housing: House Are you a primary account executive healthcare to a significant other at home: No Do you presently have visiting nurse or other home services: No Alcohol intake: never Patient Tobacco Use Status: Never used Tobacco e-Cigarette/Vaping Use: Never Used Second Hand Smoke Exposure: No Do you have a plan to hurt others: No Plan service: No Current occupational status: unemployed Cognitive needs: No Hearing needs: No Vision needs: No Physical Exam 2 Vital Signs: Vital Signs: Last Vital Signs Pulse 92 05/21/24 15:26 BP 131/74 05/21/24 15:26 BMI result Body Mass Index 33.6 Appearance: Alert. Oriented X3. Moderate distress. Eyes: No pallor or icterus ENT: Pharynx normal. Oral Mucosa moist Neck: Normal inspection. Neck supple. CVS: Normal heart rate and rhythm. Pulses normal. No murmur rub or gallop Respiratory: No respiratory distress. Equal air entry bilateral, no wheezing/rales/rhonchi Abdomen: Soft and nontender. Bowel sounds are present, no mass palpable, no CVA tenderness Skin: Skin warm and dry. Normal skin color. Normal skin turgor. Extremities: No lower extremity edema. No calf tenderness Neuro: Oriented X 3. No motor deficit. No sensory deficit.No cerebellar signs , cranial nerves II-XII intact Medications Administered Discontinued Medications Generic Name Dose Route Start Last Admin Trade Name David PRN Reason Stop Dose Admin Aspirin 324 mg 05/21/24 15:17 05/21/24 15:22 Aspirin 81 Mg Tab.Chew PO 05/21/24 15:18 324 mg ONCE ONE Administration Atorvastatin Calcium 80 mg 05/21/24 15:24 05/21/24 15:26 Atorvastatin Calcium 80 Mg Tablet PO 05/21/24 15:25 80 mg ONCE ONE Administration Heparin Sodium (Porcine) 5,000 unit 05/21/24 15:17 05/21/24 15:22 Heparin Sodium,Porcine 5,000 Unit/Ml Vial IVPUSH 05/21/24 15:18 5,000 unit ONCE ONE Administration Nitroglycerin 0.4 mg 05/21/24 15:24 05/21/24 15:26 Nitroglycerin 0.4 Mg Tab.Subl SUBLINGUAL 05/21/24 15:25 0.4 mg ONCE ONE Administration Ticagrelor 180 mg 05/21/24 15:17 05/21/24 15:22 Ticagrelor 90 Mg Tablet PO 05/21/24 15:18 180 mg ONCE ONE Administration Medical Decision Making Medical Decision Making [facility] Narrative: Patient has acute chest pain ED showed ST-elevation inferior leads with reciprocal changes case discussed with the electrical laboratory technician zach Prajapati accepted the patient for electrical laboratory technician Patient has received 5000 units of heparin bolus, 180 mg of Brilinta p.o., aspirin 324 mg, nitroglycerin x2, Lipitor 80 mg still having the chest pain EMS here to take the patient Consult Healthcare Provider Management of the patient was discussed with: Cryogenic Transport Driver Lab Data 05/21/24 15:31 05/21/24 15:30 Independent Interpretation I performed an independent interpretation of an: EKG Interpretation: Normal sinus rhythm heart rate 91 beats per normal axis ST-elevation 3-4 mm inferior leads with reciprocal changes in anterior leads STEMI Discharge Plan Discharge Clinical Impression: ST elevation (STEMI) myocardial infarction involving right coronary artery Patient Disposition: [facility] Transfer Details: [facility] electrical laboratory technician zach Olivier Prescriptions: No Action (DME) insulin syringe-needle U-100 [[facility] Syringes] 0.3 mL 30 gauge x 5/16 syringe See Rx Instructions .Route Qty: 1 6RF Rx Instructions: As directed cyanocobalamin (vitamin B-12) 1,000 mcg/mL solution 1,000 mcg IM Q4W 28 Days Qty: 1 6RF cholecalciferol (vitamin D3) 50 mcg (2,000 unit) tablet 50 mcg PO DAILY 90 Days Qty: 90 2RF (DME) Monoject 3cc Syr 25Gx1 3 mL 25 gauge x 1 syringe See Rx Instructions .Route Qty: 30 2RF Rx Instructions: As directed once a week ibuprofen 600 mg tablet 600 mg PO Q6H PRN (Reason: pain) Qty: 20 0RF fluticasone propionate [Flonase Allergy Relief] 50 mcg/actuation spray,suspension 1 spray intranasal DAILY 30 Days Qty: 16 1RF Rx Instructions: administer into each nostril zolpidem 10 mg tablet 10 mg PO BEDTIME PRN (Reason: insomnia) Qty: 15 0RF clotrimazole-betamethasone 1-0.05 % cream 1 appl topical BID 10 Days Qty: 45 0RF acetaminophen [Tylenol 8 Hour] 650 mg tablet extended release 650 mg PO Q8H PRN (Reason: pain) 30 Days Qty: 90 11RF cetirizine [All Day Allergy (cetirizine)] 10 mg tablet 10 mg PO DAILY PRN (Reason: allergy symptoms) 90 Days Qty: 90 2RF levothyroxine 112 mcg tablet 112 mcg PO DAILY Qty: 90 3RF gabapentin 300 mg capsule 300 mg PO BEDTIME 90 Days Qty: 90 1RF tramadol 50 mg tablet 50 mg PO Q12H PRN (Reason: pain) Qty: 30 0RF hydrocortisone 2.5 % cream with perineal applicator 1 appl ME BID-QID PRN (Reason: hemorrhoids) 14 Days Qty: 30 3RF Print Language: Welsh
[2024-05-21 15:26] VITALS: BP 131/74; PULSE 92
[2024-05-21] MEDS: Nitroglycerin 0.4 MG TAB.SUBL SUBLINGUAL (15:26)
[2024-05-21] MEDS: Atorvastatin Calcium 80 MG TABLET PO (15:26)
[2024-05-21 15:33] VITALS: BP 135/78; PULSE 82; RESP 28; O2SAT 100
[2024-05-21 15:35] VITALS: BP 141/72; PULSE 88; RESP 28; O2SAT 100
[2024-05-21 15:37] LABS: MANUAL DIFF FLAG NO
[2024-05-21 15:40] VITALS: BP 104/66; PULSE 87; RESP 32; TEMP 36.7; O2SAT 100
--- NOTE | 2024-05-21 15:40 | PC.NURSE ---
report given to GÓMEZ Franks. pt leaving [facility] ED at this time.
[2024-05-21 15:42] LABS: Basophils Percent Auto 0.5 % (0-2); Eosinophils Absolute Auto 0.1 X10*3/uL (0.0-0.4); Eosinophils Percent Auto 1.4 % (0-4); Hematocrit 39.8 % (37.0-47.0); Hemoglobin 13.3 g/dl (12.0-16.0); Imm Gran Abs Auto 0.02 X10*3/uL (0.00-0.03); Imm Gran Pct Auto 0.3 % (0.0-0.4); Lymphocytes Absolute Auto 4.6 X10*3/uL (1.2-4.9); Mean Corpuscular HGB Conc 33.4 g/dl (31.0-35.0); Mean Corpuscular Hemoglobin 30.4 pg (27.0-33.0); Mean Corpuscular Volume 91.1 fL (80.0-98.0); Mean Platelet Volume 10.3 fL (9.4-12.3); Monocytes Absolute Auto 0.4 X10*3/uL (0.1-1.2); Monocytes Percent Auto 4.9 % (2-11); Neutrophils Absolute Auto 2.8 x10*3/uL (2.0-8.3); Neutrophils Percent Auto 34.9 % (45-73); Platelet Count 382 X10*3/uL (160-400); Red Blood Count 4.37 X10*6/uL (4.20-5.50)
--- NOTE | 2024-05-21 15:43 | PC.NURSE ---
attempted to call [facility] cardiac [facility] cath lab at this time to perform nurse to nurse - no answer. will reattempt.
--- NOTE | 2024-05-21 15:49 | PC.NURSE ---
2nd time attempting to call [facility] cardiac laborer [facility] - no response at this time.
--- NOTE | 2024-05-21 15:57 | PC.NURSE ---
report given to RUPAL He on M3 at [facility] at this time.
[2024-05-21 16:00] VITALS: BP 104/66; PULSE 87; RESP 32; TEMP 36.7; O2SAT 100
[2024-05-21 16:01] LABS: Troponin-I High Sensitivity < 2.7 ng/L (<3.5-17.0)
[2024-05-21 16:24] LABS: Influenza A PCR NEGATIVE (Negative); Influenza B PCR NEGATIVE (Negative); Resp Syncy Virus RNA Qual PCR NEGATIVE (Negative); SARS COV2 PCR INHOUSE NEGATIVE (Negative)
[2024-05-21 17:37] LABS: Glucose, Whole Blood 146 mg/dL (60-115)
== END 2024-05-21 16:01 | disposition short-term general hospital (02) ==
PROVIDERS: Physician Assistant; Emergency Provider Internal Medicine; PCP Internal Medicine
DX: I21.3 ST elevation (STEMI) myocardial infarction of unspecified site (principal); R07.89 Other chest pain; R06.02 Shortness of breath; Z03.818 Encounter for observation for suspected exposure to other biological agents ruled out
CPT/HCPCS: 0241U; 80053; 82947; 83690; 84484; 85025; 93005; 99283; 99285; J1644

== ENCOUNTER → 2024-05-21 15:08 | Outpatient (BNV) | payer OTHER, SELFPAY | PROVIDERS: Emergency Provider Internal Medicine; PCP Internal Medicine; Visit Provider Internal Medicine Cardiovascular Disease | DX: I49.1 Atrial premature depolarization (principal); I21.3 ST elevation (STEMI) myocardial infarction of unspecified site | CPT/HCPCS: 93010 ==

== ENCOUNTER 2024-05-27 14:50 | Outpatient (AMB) | payer OTHER, SELFPAY ==
--- NOTE | 2024-05-27 15:10 | MHC.PC.OV ---
Vital Signs 05/27/24 15:11 Height 5 ft 2 in Weight 188 lb BMI 34.4 BP 118/64 Blood Pressure Location Lt brachial Position Sitting Respiration 18 Pulse 80 Pulse Source Pulse Oximeter Temp 98.8 F Temp Source Oral Pulse Oximetry (%) 99 Oxygen Delivery Method Room Air Intake Visit Reasons: [facility] [place] Heart Attack Intake Note: Patient is here for hospital discharge follow up. Patient was discharged from [facility] in [facility] on 05/23/2024. Skull Grinder Required: No Accompanied by: Spouse Allergies spicy food Adverse Reaction (Uncoded 05/27/24 15:27) Hives Medication List - Last Reconciled 05/27/24 by BETH Ellison acetaminophen ER (Tylenol 8 Hour) 650 mg PO Q8H PRN 30 days aspirin (Adult Low Dose Aspirin) 81 mg PO DAILY atorvastatin 80 mg PO QPM cetirizine (All Day Allergy (cetirizine)) 10 mg PO DAILY PRN 90 days cholecalciferol (vitamin D3) 50 mcg PO DAILY 90 days clopidogrel 75 mg PO DAILY clotrimazole-betamethasone 1-0.05 % 1 appl topical BID 10 days cyanocobalamin (vitamin B-12) 1,000 mcg IM Q4W 4 weeks fluticasone propionate 50 mcg/actuation (Flonase Allergy Relief) 1 spray intranasal DAILY 30 days gabapentin 300 mg PO BEDTIME 90 days hydrocortisone 2.5% 1 appl [place] BID-QID PRN 2 weeks insulin syringe-needle U-100 ([facility]ocate Syringes) As directed levothyroxine 112 mcg PO DAILY metoprolol succinate ER 25 mg PO DAILY syringe with needle (Monoject 3cc Syringe) As directed once a week tramadol 50 mg PO Q12H PRN zolpidem 10 mg PO BEDTIME PRN Tobacco use date assessed: 05/27/24 Dental Screening Dental Screen Date: 05/27/24 Did you have a dental visit in the last 12 months?: Yes Did you have a dental problem in the last 6 months where you did not have access to dental care?: No Was dental information given to patient?: Patient has dentist HPI [facility] 05[place] Heart Attack HPI Details The patient is a 64-year-old female with a history of anxiety, fibromyalgia, polyarthralgia, hypothyroidism, insomnia and type 2 diabetes Patient is presenting for post hospital follow up due to heart attack. Patient of Dr. Mclain, was last seen in office on 08/17/2023 Per note the patient was transferred from [facility] for inferior STEMI to [facility]. Cath identified the culprit lesion as 99% stenosis of the mid RCA with thrombus. The thrombus was successfully aspirated and a ELEONORA was placed in the mid right RCA at [facility]. Follow up EKG demonstrated resolution of ST elevations. The patient was started on GDMT with plans for her to follow up with Cardiology and PCP. Patient reports that she was already seen by Cardiology outpatient. Informed cardiology of her plans to travel to [place] in 1 week for a month and they told her that it was okay and gave her enough medications. The patient reports that since she started taking the new medications, she has been getting intermittent skin rashes and she thinks it is the atorvastatin 80 mg. Reports that her daughter is a pharmacist and she reported this to her. Reports that her daughter told her that the medication might be too strong for her and she should take half of the pill and see what happened. Patient reports that she took half of the 80 mg and saw and significant difference with the skin lesions. Patient reports that she updated Dr. Mclain about not being able to tolerate the 80 mg of atorvastatin. She reports that Dr. Mclain prescribed ezetimibe 10 mg daily. The patient reports that her daughter told her that this medication was no good so she asks for it to be changed. Dr. Mclain ordered rosuvastatin 20 mg daily. Reports that she has not pick this medication up as yet but will before leaving for [place]. The rosuvastatin was canceled by accident during the patient checking. Per patient and , the medication that was supposed to be canceled was atorvastatin 80 mg. Discussed with patient and that 20 mg of Rosuvastatin is half the potency of 80 mg of atorvastatin. However, the patient and was adamant about not being able to tolerate the 80 mg of atorvastatin. Rosuvastatin 20 mg p.o. daily reordered and atorvastatin 80 mg was discontinued per patient/ request. Encouraged patient to informed cardiology of her not being able to tolerate atorvastatin 80 mg since this is their treatment plan and it is the standard for her condition. The patient reports that she had an EKG on Thursday but would like to get a follow up EKG before she leaves to [place] for a peace of mind. EKG done in office similar to previous with her known infarct. The patient is requesting order for a blood pressure machine and medication for itchiness if the rash re-appears Patient denies chest pain, increase in shortness of breath-reports still feeling weak, denies heart palpitation and dizziness PFS Medical History (Updated 05/28/24 @ 17:58 by BETH Ellison) STEMI (ST elevation myocardial infarction) Polyarthralgia Dry skin dermatitis Impaired fasting glucose Mixed dyslipidemia Vitamin B12 deficiency Vitamin D deficiency Varicose veins of bilateral lower extremities with pain Polyarthralgia Cholelithiasis Insomnia Fibromyalgia Acquired hypothyroidism Anxiety Surgical History (Updated 05/28/24 @ 17:38 by BETH Ellison) Status post cardiac catheterization History of esophagogastroduodenoscopy (EGD) Hx of colonoscopy H/O blepharoplasty S/P cholecystectomy Family History Sister Breast cancer Mother Essential hypertension Cholelithiasis Social History Housing: House Are you a primary daycare manager to a significant other at home: No Do you presently have visiting nurse or other home services: No Alcohol intake: never Patient Tobacco Use Status: Never used Tobacco e-Cigarette/Vaping Use: Never Used Second Hand Smoke Exposure: No service: No Current occupational status: unemployed Cognitive needs: No Hearing needs: No Vision needs: No Questionnaire PHQ-9 Over the last 2 weeks, how often have you been bothered by any of the following problems? 1. Little interest or pleasure in doing things: not at all 2. Feeling down, depressed, or hopeless: not at all 3. Trouble falling or staying asleep, or sleeping too much: nearly every day 4. Feeling tired or having little energy: nearly every day 5. Poor appetite or overeating: more than half the days 6. Feeling bad about yourself - or that you are a failure or have let yourself or your family down: not at all 7. Trouble concentrating on things, such as reading the newspaper or watching television: not at all 8. Moving or speaking so slowly that other people could have noticed. Or the opposite - being so fidgety or restless that you have been moving around a lot more than usual: not at all 9. Thoughts that you would be better off or of hurting yourself in some way: not at all Total score: 8 Depression Screening Interpretation: Positive Depression Screening Done: Yes 59645 - PHQ-9 Billing: Yes Source: Developed by Drs. Sánchez Gupta, Maria Del Rosario Reyna, Jason Coleman and colleagues, with an educational james from [employer]. Thrive Questionnaire Date Thrive assessed: 05/27/24 I am a: Patient What is your living situation today?: I have a steady place to live Within the past 12 months, did the food you bought not last and you didn't have the money to get more?: Never true Within the past 12 months, did you worry whether your food would run out before you got money to buy more?: Never true Do you have trouble paying for medicines?: No Do you have trouble getting transportation to medical appointments?: No Do you have trouble paying your heating and electricity bill?: No Do you have trouble taking care of your child, family member or friend?: No Do you have trouble with day-to-day activities such as bathing, preparing meals, shopping, managing finances, etc.?: No Are you currently unemployed and looking for a job?: No Are you interested in more education?: No Please select the resources that you would like help with: None Currently or been in a relationship where the following occur: No concerns reported THRIVE Score: 0 AUDIT C Alcohol Use Questionnaire (AUDIT-C) 1. How often do you have a drink containing alcohol?: Never 3. How often do you have six or more drinks on one occasion?: Never Total Score: 0 HEMA-7 AMB Questionnaire HEMA-7 Date HEMA - 7 assessed: 05/27/24 Feeling nervous, anxious, or on edge: 0 = Not at all Not being able to stop or control worryin = Not at all Worrying too much about different things: 0 = Not at all Trouble relaxin = Not at all Being so restless that it is hard to sit still: 0 = Not at all Becoming easily annoyed or irritable: 0 = Not at all Feeling afraid as if something awful might happen: 0 = Not at all Total HEMA-7 score (0-4 normal; 5-9 mild; 10-14 moderate; 15-21 severe): 0 Source: Developed by Drs. Sánchez Gupta, Maria Del Rosario Reyna, Jason Coleman and colleagues, with an educational james from [employer]. HEMA-7 Assessment Billing HEMA-7 Assessment Tool: HEMA-7 Assessment 83993 Review of Systems ENT Denies sore throat Card Denies chest pain, Denies leg edema, Denies lightheadedness and Reports dyspnea on exertion (reports that she feels like she has not regain her strength) Resp Denies cough, Denies hemoptysis and Reports dyspnea on exertion (reports that she feels like she has not regain her strength) GI Denies abdominal pain, Denies melena, Denies constipation, Denies diarrhea and Denies vomiting Denies urinary frequency, Denies dysuria and Denies urinary urgency Physical exam (Primary Care) Vital Signs: Last Vital Signs Temp 98.8 F 05/27/24 15:11 Pulse 80 05/27/24 15:11 Resp 18 05/27/24 15:11 BP 118/64 05/27/24 15:11 Pulse Ox 99 05/27/24 15:11 Oxygen Delivery Method Room Air 05/27/24 15:11 BMI result Body Mass Index 34.4 Tobacco/Smoking Status: Tobacco use Status Tobacco use date assessed 05/27/24 05/27/24 15:25 Patient Tobacco Use Status Never used Tobacco 05/27/24 15:25 e-Cigarette/Vaping Use Never Used 05/27/24 15:25 PHQ-9: PHQ-9 Score PHQ-9: Total score 8 05/27/24 16:30 Depression Screening Interpretation: Positive Thrive Assessment: Date of Thrive Assessment Date Thrive assessed 05/27/24 05/27/24 15:25 Currently or been in a relationship where the following occur: No concerns reported Const General: healthy appearing, no acute distress, alert and awake Nutritional Appearance: well nourished HENMT Ears: TM's normal bilaterally General nose exam: Normal nasal mucous membranes and turbinates present Eyes Conjunctivae: conjunctivae normal Sclerae: sclerae normal Neck Neck: Yes no lymphadenopathy and Yes no JVD Thyroid: Thyroid normal Carotids: no bruits Resp Effort & Inspection: normal respiratory effort and not tachypneic Auscultation: no crackles, no rales, no rhonchi and no wheezes Cardio Rate: regular rate Rhythm: regular rhythm Heart sounds: no murmurs and normal S1 and S2 GI Palpation (GI): Soft to palpation, nontender, no hepatomegaly and no splenomegaly Auscultation: normal bowel sounds Skin General skin exam: no rashes or lesions noted and dry skin Office Procedures EKG 17034-[id number], Complete Coding Level of Care Code Est Pt Level 4 (49238) Diagnoses ST elevation myocardial infarction involving right coronary artery I21.11 Involved coronary artery: right coronary artery Status post cardiac catheterization Z98.890 Itchy skin L29.9 CPT Codes EKG - CPT: 06345-[id number], Complete ([id number]) Additional Codes HEMA-7 Assessment Billing - HEMA-7 Assessment Tool: HEMA-7 Assessment 90068 ([id number]) PHQ-9 - 21172 - PHQ-9 Billing: Yes ([id number]) Time Spent (min) 46 Assessment & Plan Assessment & Plan (1) STEMI (ST elevation myocardial infarction): Code(s): I21.3 - ST elevation (STEMI) myocardial infarction of unspecified site Category: Medical Qualifiers: Involved coronary artery: right coronary artery Qualified Code(s): I21.11 - ST elevation (STEMI) myocardial infarction involving right coronary artery Plan: The patient was transferred from [facility] to [facility] due to severe chest pain and ST elevations. Cardiac catheterization showed 99% stenosis of the mid RCA with thrombus. ELEONORA placed in the mid RCA. Post catheterization EKG shows resolution of ST elevation. Echocardiogram on 05/22 showed EF of 50-55% with mild left wall thickening: The basal to mid inferior, inferolateral wall is hypokinetic The patient was started on 81 mg of aspirin, atorvastatin 80 mg q.h.s., clopidogrel 75 mg daily. Reports not being able to tolerate atorvastatin 80 mg and as been taking Half. Requested medication to be changed from her PCP. She was ordered Rosuvastatin 20 mg. Informed the patient and of the less coverage that she is getting. They understand the risk but the patient cannot tolerate the stronger dose. The patient is aware to go the emergent room for any chest pain or increase sob. continue aspirin 81 mg daily, clopidogrel 75 mg daily, rosuvastatin 20 mg daily, and metoprolol succinate ER 25 mg daily Follow up with Cardiology as scheduled (2) Status post cardiac catheterization: Comment: 05/22/24- ELEONORA placed in mid RCA Code(s): Z98.890 - Other specified postprocedural states Category: Surgical Plan: Ninety-nine percent stenosis of the mid RCA with thrombus. The thrombus was aspirated and a ELEONORA was placed in the mid RCA. continue aspirin 81 mg daily, clopidogrel 75 mg daily, rosuvastatin 20 mg daily. Follow up with Cardiology as scheduled (3) Itchy skin: Code(s): L29.9 - Pruritus, unspecified Category: Medical Plan: hydroxyzine HCI 50 mg p.o. q.i.d. p.r.n. ordered Orders: Orders AMB EKG-In Office 05/27/24 Z13.6 - Encounter for screening for cardiovascular disorders Medications: New rosuvastatin 20 mg PO DAILY 90 tabs 3RF hydroxyzine HCl 50 mg PO QID PRN 60 tabs 2RF itching [blood preesue machine] As directed 1 ea 0RF I21.11 - ST elevation (STEMI) myocardial infarction involving right coronary artery, Z98.890 - Other specified postprocedural states [blood pressure machine] As directed 1 ea 0RF I21.11 - ST elevation (STEMI) myocardial infarction involving right coronary artery, Z98.890 - Other specified postprocedural states
[2024-05-27 15:11] VITALS: BP 118/64; PULSE 80; RESP 18; TEMP 37.1; O2SAT 99; BMI 34.4
--- OUTSIDE RECORDS SUMMARY | 2024-05-27 16:20 | XMS_ITS | Clinical Summary ---
Author Organization [facility] Address [address] [place] [address] Care Team Providers Care Psychological Operations Specialist Name Role Phone Hoda Patino PA-C Primary Care Provider + [phone] Source Comments PLEASE NOTE, if this patient [...] Seen by RHEM Dr. Wily Rubio at [facility]: dx: polyarthralgia + polymyalgia. Plan: labs; pt on statin, depression, Could be assoc with fibromyalgia. F/U 4 wks. 03/16/18 - Seen by RHEUM Dr. Wily Rubio at [facility]: polyarthralgia is multifactorial: hypothyroidism, pt is on [...] and depression Overview (04/03/2015): Psych f/u @ [facility], formerly was seen by Dr. Garvin. Hepatic steatosis Overview (07/25/2014): Via [place] 04/06/13 at [facility]. Resolved Problems Problem Noted Date Diagnosed Date Resolved Date Polyarthralgia 11/01/2018 11/01/2018 Immunizations Immunization Administration Dates Next Due Flu, Preservative Free [...] Health Maintenance Due Date Last Done Comments Anxiety Screening 1960 HPV Screening 1960 Pap + HPV 1960 [...] Additional history exists TSH Monitoring 11/26/2021 11/26/2020, 04/3 , 11/02/2019, Additional history exists [id number] ( season) 2023 Breast Cancer Screening (Mammogram) [...] medical examination at a health care facility HEPATITIS A,B,C PANEL Routine 09/21/2017 10:45 AM EDT Routine general medical examination at a health care facility from Last 3 Months or Most Recently Relevant to Health Maintenance Results * HISTORIC MAMMOGRAM (01/09/2023 3:00 AM EST) 01/09/2023 3:00 AM EST us Hoda Patino PA-C IMG MAMMO Final Result * TSH W/RFLX FREE T4 (11/26/2020 9:49 AM EDT) TSH W/REFLEX TO FT4 1.75 0.40 - 4.50 mIU/L [facility] Blood Blood / Unknown 11/26/2020 9 :49 AM EDT 11/26/2020 9:49 AM EDT us Hoda Patino PA-C LAB - BLOOD DRAW Final Resul t [facility] [place] [facility] [address] [address], [facility] [address] [address] * (ABNORMAL) LIPID PANEL (11/26/2020 9:49 AM EDT) CHOLESTEROL, TOTAL 263(H) <200 mg/dL [facility] HDL CHOLESTEROL 43(L) > OR = 50 mg/dL [facility] TRIGLYCERIDES 279(H) <150 mg/dL [facility] Comment: If a non-fasting specimen was collected, consider repeat triglyceride testing on a fasting specimen if clinically indicated. Rigo et al. J. of Clin. Lipidol. 2015;9:129-169. LDL-CHOLESTEROL 170(H) 99 mg/dL (calc) [facility] Comment: Reference range: <100 Desirable range <100 mg/dL for primary prevention; ?? <70 mg/dL for patients with CHD or diabetic patients with > or = 2 CHD risk factors. LDL-C is now calculated using the Calvin-Jose calculation, which is a validated novel method providing better accuracy than the Friedewald equation in the estimation of LDL-C. Calvin SS et al. ASHLEY. 2013;310(19): 0964-9131 (http://education.Tastemade/faq/ARU906) CHOL/HDLC RATIO 6.1(H) <5.0 (calc) [facility] NON-HDL CHOLESTEROL 220(H) <130 mg/dL (calc) [facility] Comment: Non-HDL level > or = 220 [...] EDT 11/26/2020 9:49 AM EDT us Hoda Patino PA-C LAB - BLOOD DRAW Final Resul t [facility] [address] [address], [facility] [address] [address] * (ABNORMAL) COMPRE METAB PANEL (06/22/2020 2:36 PM EDT) GLUCOSE 99 65 - 99 mg/dL [facility] Comment: ?Fasting reference interval UREA NITROGEN (BUN) 10 7 - 25 mg/dL [facility] CREATININE (blood) 0.76 0.50 - 1.05 mg/dL [facility] Comment: For patients >49 years of age, the reference limit for Creatinine is approximately 13% higher for people identified as -Wallisian. GFR ESTIMATED 86 > OR = 60 mL/min/1 .73m2 [facility] EGFR 100 > OR = 60 mL/min/1 .73m2 [facility] BUN/CREATININE RATIO NOT APPLICABLE 6 - 22 [facility] SODIUM 137 135 - 146 mmol/L [facility] POTASSIUM 4.4 3.5 - 5.3 mmol/L [facility] CHLORIDE 102 98 - 110 mmol/L [facility] CARBON DIOXIDE 24 20 - 32 mmol/L [facility] CALCIUM 9.8 8.6 - 10.4 mg/dL [facility] PROTEIN, TOTAL 7.2 6.1 - 8.1 g/dL [facility] ALBUMIN 4.3 3.6 - 5.1 g/dL [facility] GLOBULIN 2.9 1.9 - 3.7 g/dL (calc) [facility] [place] [facility] ALBUMIN/GLOBULIN RATIO 1.5 1.0 - 2.5 (calc) [facility] BILIRUBIN, TOTAL 0.4 0.2 - 1.2 mg/dL [facility] ALKALINE PHOSPHATASE 75 37 - 153 U/L [facility] AST 35 10 - 35 U/L [facility] ALT 48(H) 6 - 29 U/L [facility] Blood Blood / Unknown 06/22/2020 2 :36 PM EDT 06/22/2020 2:37 PM EDT Narrative [facility] - 06/22/2020 9:04 PM EDT FASTING:YES Hoda Patino PA-C LAB - BLOOD DRAW Final Resul t [facility] [address] [facility] [address] [place] [address], [facility] 200 [facility] [address] [facility] [address] * PAP, LIQUID BASED (12/22/2017 1:39 PM EDT) PAP normal NORMAL - ABNORMAL [facility] Specimen from uterine cervix (specimen) Cervix uteri structure / Unknown 12/22/2017 1:39 PM EDT Impressions [facility] - 12/30/2017 2:54 PM EST [facility] Pap Negative for squamous intraepithelial lesion and malignancy HPV Negative April Pickard PA-C LAB - NO BLOOD DRAW Final Result [facility] [address] [place] [address], * (ABNORMAL) HEPATITIS A,B,C PANEL (09/21/2017 10:45 AM EDT) HEPATITIS B SURFACE ANTIBODY NEGATIVE NEGATIVE [facility] HEPATITIS B SURFACE ANTIGEN NEGATIVE NEGATIVE [facility] Comment: Over the counter supplements containing high doses of biotin may interfere with this assay. ??If interference is suspected, patients shoud be retested after refraining from biotin supplements for 72 hours. HEPATITIS C VIRUS DIAGNOSTIC NEGATIVE NEGATIVE [facility] HEPATITIS B CORE ANTIBODY NEGATIVE NEGATIVE [facility] HEPATITIS A ANTIBODY TOTAL POSITIVE(A) NEGATIVE [facility] Comment: Over the counter supplements containing high doses of biotin may interfere with this assay. ??If interference is suspected, patients shoud be retested after refraining from biotin supplements for 72 hours. Blood specimen (specimen) Blood / Unknown 09/21/2017 10:45 AM EDT 09/21/2017 12:57 PM EDT [facility] - 09/21/2017 2:24 PM EDT [employer] [address] [place] [address] [place] [id number] ORD# [id number] April Pickard PA-C LAB - BLOOD DRAW Edited R [employer] - Final Performing Organization Address [facility] Co de Phone Number [address] [address], [place] [phone] * HIV-1 & HIV-2 ANTIBODIES (09/21/2017 10:45 AM EDT) [facility] HIV 1 AND 2 ANTIBODY SCREEN NEGATIVE NEGATIVE [facility] Comment: This assay is a 4th generation [...] 10:45 AM EDT 09/21/2017 12:57 PM EDT [facility] - 09/21/2017 2:53 PM EDT [employer] [address] [place] [address] [place] [id number] ORD# [id number] April Pickard PA-C LAB - BLOOD DRAW Edited [employer] - Final Performing Organization Address [facility] de Phone Number [address] [address], [place] [phone] from Last 3 Months or Most Recently Relevant to Health Maintenance Insurance [employer] Care Teams Psychological Operations Specialist Relationship Specialty Start Date End Date Hoda Patino PA-C [address] [place] [phone] PCP - General Internal Medicine 02/03/19
--- OUTSIDE RECORDS SUMMARY | 2024-05-27 16:20 | XMS_ITS | Clinical Summary ---
Author Organization [facility] Address [address] [place] [phone] Phone Care Team Providers Care Cut Off Machine Helper Name Role Phone Niecy Cabello MD Primary Care Provider [phone] Family History Medical History Relation Name Comments [...] [employer] Health Screening 01/25/2022 RSV Immunization Adult Patients (1 - Risk 60-74 years 1-dose series) [...] Signed Date: 01/22/2024 11:32 ET Workstation ID: [id number] Transcribed By: Self Edit Transcribed Date: 01/22/2024 [...] Signed Date: 01/22/2024 11:32 ET Workstation ID: [id number] Transcribed By: Self Edit Transcribed Date: 01/22/2024 11:23 ET us Self Referral Sppl IMG BI PROCEDURES Final Resul t from Last 3 Months or Most Recently Relevant to Health Maintenance Insurance MEDICA[place] - [place] Care Teams Cut Off Machine Helper Relationship Specialty Start Date End Date Niecy Cabello MD [address] [facility] , [address] [facility] D/B/A: [facility] [place], [place] PCP - General Internal Medicine 01/22/24
--- OUTSIDE RECORDS SUMMARY | 2024-05-27 16:20 | XMS_ITS | Continuity of Care Document ---
Author Organization [facility] ter Address [address] [place] [id number] Care Team Providers Care Yard Hostler Name Role Phone Susan LUCERO, Wanda Ladd Primary Care Physician [id number] Date(s): 05/21/24 - 05/23/[address] [address]- Discharge Disposition: A-D/C Home Attending Physician: Kyle Watson MD Admitting Physician: Kyle Watson MD Referring Physician: Not on Staff, Referring MD Encounter Type: Disch IP Allergies, Adverse Reactions, Alerts No Known Allergies Medications acetaminophen 650 mg oral tablet, extended release 1 tablet = 650 mg, By Mouth, Every 8 hours, PRN Pain , Mild, # 42 tablet, 0 Refills, Maintenance, 05/21/24 7:32:00 PM EDT, ER Tablet Start Date: 05/21/24 Stop Date: 06/04/24 Status: Ordered Quantity: 42.0 Unit: tablet Repeat number: 1 aspirin 81 mg oral delayed release tablet 81 mg, 1, tablet, By Mouth, Daily, # 90 tablet, Refills 0, Tot. Refills 0, Maintenance, 05/23/24 10:14:00 AM EDT, Route to Pharmacy Electronically, [facility], Partial fill upon patient request if the prescription is for a schedule II opioid drug., 157, cm, 05/21/24 18:16:00 EDT, Height, 93.6, kg, 05/21/24 18:16:00 EDT, Dry Weight Start Date: 05/23/24 Status: Ordered Quantity: 90.0 Unit: tablet Repeat number: 1 atorvastatin 80 mg oral tablet 1 tablet = 80 mg, By Mouth, Daily, # 90 tablet, 0 Refills, Maintenance, 05/23/24 10:14:00 AM EDT, Tablet, [facility], Partial fill upon patient request if the prescription is for a schedule II opioid drug., 157, cm, 05/21/24 18:16:00 EDT, Height, 93.6, kg, 05/21/24 18:16:00 EDT, Dry Weight Start Date: 05/23/24 Status: Ordered Quantity: 90.0 Unit: tablet Repeat number: 1 clopidogrel 75 mg oral tablet 75 mg, 1, tablet, By Mouth, Daily, # 90 tablet, Refills 0, Tot. Refills 0, Maintenance, 05/23/24 10:14:00 AM EDT, Route to Pharmacy Electronically, [facility], Partial fill upon patient request if the prescription is for a schedule II opioid drug., 157, cm, 05/21/24 18:16:00 EDT, Height, 93.6, kg, 05/21/24 18:16:00 EDT, Dry Weight Start Date: 05/23/24 Status: Ordered Quantity: 90.0 Unit: tablet Repeat number: 1 cyanocobalamin 1000 mcg/ml injectable solution 1 mL = 1,000 mcg, Intramuscular, Every 28 days, # 10 mL, 0 Refills, Maintenance, 05/21/24 7:32:00 PMEDT, Solution Start Date: 05/21/24 Status: Ordered Quantity: 10.0 Unit: mL Repeat number: 1 ergocalciferol 50 mcg (2000 intl units) oral capsule 1 capsule = 50 mcg, By Mouth, Daily, with food, # 60 capsule, 0 Refills, Maintenance, 05/21/24 7:36:00 PM EDT, Capsule Start Date: 05/21/24 Status: Ordered Quantity: 60.0 Unit: capsule Repeat number: 1 gabapentin 300 mg oral capsule 300 mg, 1, capsule, By Mouth, Daily at bedtime, PRN, Refills 0, Maintenance, Pain , Mild, 05/21/24 7:32:00 PM EDT Start Date: 05/21/24 Status: Ordered Repeat number: 1 hydrocortisone 2.5% topical cream 1 application, Topically, 2 times a day, PRN Rash, # 28 Gm, 0 Refills, Maintenance, 05/21/24 7:32:00PM EDT, Cream Start Date: 05/21/24 Status: Ordered Quantity: 28.0 Unit: g Repeat number: 1 levothyroxine 0.112 mg oral tablet 1 tablet = 112 mcg, By Mouth, Daily, # 90 tablet, 0 Refills, Maintenance, 05/21/24 7:32:00 PM EDT, Tablet Start Date: 05/21/24 Status: Ordered Quantity: 90.0 Unit: tablet Repeat number: 1 metoprolol 25 mg oral tablet, extended release 25 mg, XL Tablet, By Mouth, Once, Routine, 05/23/24 12:00:00 PM EDT, Stop date 05/23/24 10:42:34 AM EDT Notes: Product selected is XL - ensure this selection was intended Start Date: 05/23/24 Stop Date: 05/23/24 Status: Completed Repeat number: 1 Metoprolol Succinate ER 25 mg oral tablet, extended release 25 mg, 1, tablet, By Mouth, Daily, # 90 tablet, Refills 0, Tot. Refills 0, Maintenance, 05/23/24 10:27:00 AM EDT, Route to Pharmacy Electronically, [facility], Partial fill upon patient request if the prescription is for a schedule II opioid drug., 157, cm, 05/21/24 18:16:00 EDT, Height, 93.6, kg, 05/21/24 18:16:00 EDT, Dry Weight Start Date: 05/23/24 Status: Ordered Quantity: 90.0 Unit: tablet Repeat number: 1 zolpidem 10 mg oral tablet 1 tablet = 10 mg, By Mouth, Daily at bedtime, PRN as needed for insomnia, 0 Refills, Maintenance, 05/21/24 7:32:00 PM EDT, Tablet Start Date: 05/21/24 Status: Ordered Repeat number: 1 Problem List Condition Confirmation Course Effective Dates Status H ealth Status Informant Anemia Confirmed Active Anxiety Confirmed Active Mixed dyslipidemia Confirmed Active Fibromyalgia Confirmed Active Hypothyroidism Confirmed Active Insomnia Confirmed Active Polyarthralgia Confirmed Active Obese class I Confirmed Active T2DM (type 2 diabetes mellitus) Confirmed Active Vitamin D deficiency Confirmed Active Procedures Procedure Date Related Diagnosis Body Site Status Blepharoplasty 2023 Completed Cholecystectomy 2023 Completed Results Radiology Reports * Exam Date Time Procedure Performing Provider Status 05/22/24 3:38 PM Chest Portable Pranay Henson; Auth (Ve rified) Notes: (Chest Portable) Reason For Exam: Shortness of Breath RESULT: Chest Portable Chest Portable Reason: Shortness of Breath COMPARISON: Chest x-ray obtained earlier on the same day FINDINGS: The lung apices are partially excluded by the patient's head and neck. Within this confine: LINES AND TUBES: None. LUNGS AND PLEURA: Very low lung volumes. No focal consolidation. No pleural effusion. No pneumothorax. HEART, MEDIASTINUM AND CEE: Heart is normal in size. Normal mediastinal and hilar contour. BONES AND SOFT TISSUES: No acute abnormality. IMPRESSION: Low lung volumes without focal consolidation. WSN: [id number] Ordering Physician: Catherine Sabillon Dictated By: Bharathi Rhodes MD Dictated Date/Time: 05/22/24 3:55 pm Reviewed By: Bharathi Rhodes MD Signed By: Bharathi Rhodes MD Signed Date/Time: 05/22/24 3:55 pm Transcribed By: JACKSON Transcribed Date/Time: 05/22/24 3:54 pm * Exam Date Time Procedure Performing Provider Status 05/22/24 7:34 AM Chest Portable Charissa Mays; Auth (Verified) Notes: (Chest Portable) Reason For Exam: CHF RESULT: Chest Portable Chest Portable REASON: CHF; Clinical Question(s): Pulmonary Edema / Pulmonary Edema COMPARISON: None. FINDINGS: LINES AND TUBES: None. LUNGS AND PLEURA: Clear lungs. Normal pulmonary vascularity. No pleural effusion. No pneumothorax. HEART, MEDIASTINUM AND CEE: Heart is normal in size. Normal mediastinal and hilar contour. BONES AND SOFT TISSUES: No acute abnormality. IMPRESSION: No evidence of acute abnormality. WSN: [id number] Ordering Physician: Aleyda De La Cruz Dictated By: Joseluis Turcios MD Dictated Date/Time: 05/22/24 7:35 am Reviewed By: Joseluis Turcios MD Signed By: Joseluis Turcios MD Signed Date/Time: 05/22/24 7:35 am Transcribed By: JACKSON Transcribed Date/Time: 05/22/24 7:35 am Vital Signs Most recent to oldest [Reference Range]: 1 2 3 Height 157 cm (05/23/24 11:17 AM) 157 cm (05/21/24 6:12 PM) Weight 86.2 kg (05/23/24 11:17 AM) 100.3 kg (05/22/24 7:32 AM) 100.3 kg (05/22/24 5:39 AM) Oxygen Saturation [94-100 %] 95 % (05/23/24 11:17 AM) 95 % (05/23/24 10:00 AM) 97 % (05/23/24 9:00 AM) Pulse Rate [55-90 bpm] 87 bpm (05/23/24 12:00 PM) 81 bpm (05/23/24 11:17 AM) 86 bpm (05/23/24 10:42 AM) Body Mass Index [18.5-24.99 kg/m2] 34.97 kg/m2 *>HHI* (05/23/24 11:17 AM) 37.97 kg/m2 *>HHI* (05/21/24 6:12 PM) Blood Pressure [90-138/55-84 mm Hg] 120/65mm Hg (05/23/24 12:00 PM) 113/57mm Hg (05/23/24 11:17 AM) 125/78mm Hg (05/23/24 10:42 AM) Respiratory Rate [16-30 br/min] 17 br/min (05/23/24 11:17 AM) 15 br/min *L* (05/23/24 10:00 AM) 19 br/min (05/23/24 9:00 AM) Temperature [96.8-100.4 DegF] 98 DegF (05/23/24 11:17 AM) 98.0 DegF (05/23/24 8:00 AM) 98.7 DegF (05/23/24 4:00 AM) Mode of Delivery (Oxygen) Room air (05/23/24 11:17 AM) Room air (05/23/24 10:00 AM) Room air (05/23/24 8:00 AM) Blood pressure sites Arm, left (05/23/24 12:00 PM) Arm, left (05/23/24 11:17 AM) Arm, left (05/23/24 10:00 AM) Temperature Route Oral (05/23/24 11:17 AM) Oral (05/23/24 8:00 AM) Oral (05/23/24 4:00 AM) Dry Weight 86 kg (05/23/24 11:17 AM) 93.6 kg (05/21/24 6:12 PM) Weight Obtained Via Bed scale (05/23/24 11:17 AM) Bed scale (05/22/24 5:39 AM) Dry Weight Obtained Via Patient/family s tated (05/23/24 11:17 AM) Social History Social History Type Response Smoking Status Never (less than 100 in lifetime) entered on: 05/21/24 Sex Sex Representation Female (finding) Note * Event Display: Hemodynamic Procedure Report Authored Date: * Event Display: Hemodynamic Procedure Report Authored Date: * Nick GOLDSMITH, Johnathon: MODIFY Nick GOLDSMITH, Johnathon: MODIFY, SIGN Nick GOLDSMITH, Johnathon: SIGN, SIGN, VERIFY Event Display: Cardiac Rehab Note Authored Date: Patient: VLADIMIR HOLBROOK Age: 64 years Sex: Female : 1960 Associated Diagnoses: None Author: Zachary GOLDSMITH, Tomasa Weinstein Pre-exercise Vitals Vital Signs Comment: Reviewed in [facility]. Pre-exercise Physical Examination Neurologic: alert & oriented. Patient Education Education: Family present, Post procedure guidelines, Stent card reviewed, Heart Attack Handbook. Education topic Teachback comprehension 75% Topic: Medication education, Role of exercise, Home activity guidelines/limits, Infarct recovery guidelines, Will be leaving in 1 week to [place] for 1 month. Will need prescriptions filled until she returns. She will also need cariology f/u appt arranged prior to discharge. She will start cardiac rehab when she returns. Recommendation and Plan Outpatient follow up recommended: [facility]. Cardiac Rehab: Will sign off at this time. Recommendation comment: RN notified of plan. * Johnathon Romero RN: PERFORM Event Display: Cardiac Rehab Note Authored Date: [id number] Patient requested Cardiac Rehab at [facility]. Reviewed Phase 2 program. Orientation scheduled for 07/04/24 @ 10:30 - patient requested later date as they are travelling to [place] for a month. All questions answered and patient being discharged home. * Marianna Myers RN: PERFORM Event Display: Discharge/Transfer Note Hospital Authored Date: [id number] Nursing Discharge Note Entered On: 05/23/2024 14:00 EDT Performed On: 05/23/2024 13:59 EDT by Marianna Myers RN Nursing Discharge Note 2 Discharge Time : 05/23/2024 13:50 EDT Discharge Level of Care at Discharge : Home/Fpc/Foster Care Patient Left Unit Via : Ambulatory Patient Accompanied Off Unit with : Responsible adult DC Instructions Provided & Signed by Pt : Yes Patient Understands D/C Instructions : Yes Patient Instructions Discharge Signed : Yes Did Pt have Specialty Bed or Wound Vac : No Marianna Myers RN - 05/23/2024 13:59 EDT * Bernice Michelle MD: MODIFY, MODIFY, MODIFY, MODIFY, MODIFY, MODIFY, MODIFY, MODIFY, PERFORM, MODIFY, MODIFY Event Display: Discharge/Transfer Note Hospital Authored Date: [id number] Patient: ??VLADIMIR HOLBROOK ? Age:??64 Years?Sex:??Female?:??1960?? Patient Information Discharge Location: [facility] Primary Care Physician: Susan LUCERO , Wanda Ladd Admit Date/Time: 05/21/2024 17:16 Discharge Disposition Discharge Disposition: Home: No Services Discharge Diagnosis ST elevation (STEMI) myocardial infarction involving right coronary artery (I21.11) Hypothyroidism (E03.9) Anemia (D64.9) Anxiety (F41.9) Fibromyalgia (M79.7) Mixed dyslipidemia (E78.2) Polyarthralgia (M25.50) Vitamin B12 deficiency (E53.8) Vitamin D deficiency (E55.9) _ Discharge Medications Acetaminophen (acetaminophen 650 mg oral tablet, extended release)??1 tab(s) 650 Milligram By MouthEvery 8 hours as needed Pain , Mild for 14 Days Aspirin (aspirin 81 mg oral delayed release tablet)??81 Milligram 1 tablet By Mouth Daily Atorvastatin (atorvastatin 80 mg oral tablet)??1 tab(s) 80 Milligram By Mouth Daily Clopidogrel (clopidogrel 75 mg oral tablet)??75 Milligram 1 tablet By Mouth Daily Cyanocobalamin (cyanocobalamin 1000 mcg/ml injectable solution)??1 Milliliter 1,000 Microgram Intramuscular Every 28 days Ergocalciferol (ergocalciferol 50 mcg (2000 intl units) oral capsule)??1 capsule 50 Microgram By Mouth Daily with food Gabapentin (gabapentin 300 mg oral capsule)??300 Milligram 1 capsule By Mouth Daily at bedtime as needed Pain , Mild Hydrocortisone Topical (hydrocortisone 2.5% topical cream)??1 dinh Topically 2 times a day as neededRash Levothyroxine (levothyroxine 0.112 mg oral tablet)??1 tab(s) 112 Microgram By Mouth Daily Metoprolol (Metoprolol Succinate ER 25 mg oral tablet, extended release)??25 Milligram 1 tablet By Mouth Daily Zolpidem (zolpidem 10 mg oral tablet)??1 tab(s) 10 Milligram By Mouth Daily at bedtime as needed asneeded for insomnia ? Quality Measures Chest Pain, AMI Quality Measures:?Beta-Ashly Prescribed at Discharge:??Beta-Ashly Prescibed ?Aspirin Prescribed at Discharge:??Aspirin Prescribed ?Statin Prescribed at Discharge:??Statin Prescribed ? Inpatient Medications Medications (23) Active SCHEDULED: (6) Aspirin 81 mg EC Tablet (Aspirin Tablet) ??81 mg, By Mouth, Daily Atorvastatin 80 mg Tablet (atorvastatin 80 mg oral tablet) ??80 mg, By Mouth, Daily at bedtime Clopidogrel 75 mg Tablet (Plavix 75 mg oral tablet) ??75 mg, By Mouth, Daily Enoxaparin 40 mg Inj (Enoxaparin Inj) ??40 mg 0.4 mL, Subcutaneous Injection, Daily Fluzone Trivalent (6mo ??? 64yr) Inj 0.5mL (Influenza, Trivalent Vaccine) ??0.5 mL, Intramuscular, Once Levothyroxine 112 mcg Tablet (levothyroxine 0.112 mg oral tablet) ??112 mcg, By Mouth, Daily CONTINUOUS: (1) Sodium Chloride 0.9% 1000 mL [1.5 mL/kg/hr] (Sodium Chloride 0.9% Normalized 1000 mL [1.5 mL/kg/hr]) ??1,000 mL, IV Infusion, 120 mL/hr PRN: (16) Acetaminophen 325 mg Tablet (Acetaminophen Tablet) ??650 mg, By Mouth, Every 4 hours Dextromethorphan-Guaifenesin 20 mg-200 mg/10 mL Liqu UD (Robitussin DM Liquid) ??10 mL, By Mouth, Every 4 hours Dextrose Inj Syringe (Dextrose 50% Inj Syringe (25Gm)) ??12.5 Gm, IV Push Slowly, Every 20 minutes Dextrose Inj Syringe (Dextrose 50% Inj Syringe (25Gm)) ??25 Gm, IV Push Slowly, Every 15 minutes Gabapentin 300 mg Capsule (gabapentin 300 mg oral capsule) ??300 mg, By Mouth, Daily at bedtime Glucagon 1 mg Inj (Glucagon Inj) ??1 mg, Intramuscular, Once Glucose 40% Gel (15 Gm) (Glucose Gel) ??15 Gm, By Mouth, Every 20 minutes Glucose 40% Gel (15 Gm) (Glucose Gel) ??30 Gm, By Mouth, Every 20 minutes Hydrocortisone 2.5% Cream (HydroCORTisone ??2.5% Topical) ??1 application, Topically, Daily Ibuprofen 600 mg Tablet (ibuprofen 600 mg oral tablet) ??600 mg, By Mouth, 4 times a day Melatonin 3 mg Tablet (Melatonin Tablet) ??3 mg, By Mouth, Daily at bedtime Polyethylene Glycol 17 Gm Powder (MiraLax Powder) ??17 Gm 1 pack/packet, By Mouth, Daily Quetiapine 25 mg Tablet (SEROquel 25 mg oral tablet) ??12.5 mg, By Mouth, 3 times a day Senna Tablet ??8.6 mg 1 tablet, By Mouth, 2 times a day Simethicone 80 mg Chewable Tablet (Simethicone Tablet) ??80 mg, Chew, 3 times a day Zolpidem 5 mg Tablet (zolpidem 5 mg oral tablet) ??10 mg, By Mouth, Daily at bedtime ? Medications Started Aspirin 81 mg daily Atorvastatin 80 mg??daily at bedtime Clopidogrel??75 mg daily Metoprolol??25 mg daily Medications Discontinued None Doses Changed None Allergies Allergies ?(Active and Proposed Allergies Only) NKA? (Severity: Unknown severity, Onset: Unknown) ? PCP Follow-Up/Heads-Up Admitted for??inferior STEMI.?? Catheterization identified??a 99% stenosis of the mid RCA with thrombus, 80??drug-eluting stent wasplaced in the mid RCA.?? Echocardiogram following cath showed??preserved ejection fraction of 50 to55%. She was started on aspirin??81 mg daily, atorvastatin 80 mg nightly,??clopidogrel 75 mg daily, metoprolol 25 mg daily.?? You can consider??starting her on a GLP-1??agonist??given??she is post [place] and BMI is 37. F/u cardiology outpt Repeat CBC CMP in 1 week Future Appointments cardiology, PCP in 1 week Hospital Course ??Vladimir Holbrook is a 64-year-old female with a history of anxiety, fibromyalgia, polyarthralgia, hypothyroidism, insomnia, and history of??T2DM who presents as a transfer from [place] for inferior STEMI.??Cath identified??the??culprit lesion as 99% stenosis of the mid RCA with thrombus. The thrombuswas successfully aspirated and a ELEONORA was placed in the mid RCA at [facility]. Follow up??EKG demonstrated resolution of ST elevations.??Started on??GDMT with plans to follow up with PCP and cardiology. ?? #STEMI #Mixed dyslipidemia Risk factors: Mixed dyslipidemia/DM2 Suddenly burning epigastric pain, nausea, diaphoresis, and slight SOB??30 min prior to presentation EKG showed??ST??elevations in inferior leads with reciprocal change Cath identified??the??culprit lesion as 99% stenosis of the mid RCA with thrombus. The thrombus wassuccessfully aspirated and a ELEONORA was placed in the mid RCA. Currently /10 pressure-like pain, worse with deep inspiration, better than pain felt before cath. Could be reperfusion pain or pericarditic pain. Post-cath??EKG shows resolution of ST elevations. -Echocardiogram??05/22: ? -??Echo globally poor study despite contrast. ? - EF 50-55% with mild LV wall thickening ? - The basal to mid inferior, inferolateral wall is hypokinetic ? -??There is no doppler evidence of increased filling pressures ?? Recommendations -Aspirin 81 mg daily -Atorvastatin 80 mg QHS - Clopidogrel 75mg daily -EKG PRN for chest pain, rhythm changes -Risk factor stratification: HgbA1c (4.8), lipid panel Cholesterol 121, TG 57, HDL 26L, LDL 84, nonHDL 95, TSH (0.79) -F/u iron + iron binding capacity, ferritin ?? #Fibromyalgia #Polyarthralgia #Insomnia Pt endorses chronic pain in all joints, says takes NSAIDs and Tylenol occasionally. Also takes shant PRN for the fibromyalgia but states this helps little. ?? -Continue home Tylenol 650 mg q8hr PRN for pain, mild -Continue home gabapentin 300 mg qHS for fibromyalgia pain, sleep -Continue home Zolpidem PRN ?? #T2DM ?? No DM meds at home A1C 4.8 05/22 - no indication??for therapy at this time ?? recommendations f/u with pcp? #Hypothyroidism ?? Recommendations -Continue home levothyroxine 112 -f/u with pcp??prn ?? #Hypocalcemia - repeat labs with PCP??in 1 week ?? #Vitamin D deficiency #Vitamin B12 deficiency Pt gets a B12 shot every 4 weeks, 2000 units vitamin D daily ?? -Cardiac diet - Vitamin B shot q4w - 2000 units Vit D daily ? Objective Assessment and Plan ? Vital Signs?? Temperature: 98 DegF (05/23/24 08:00:00) Temperature Route: Oral (05/23/24 08:00:00) Heart Rate Monitored: 90 bpm (05/23/24 09:00:18) Respiratory Rate: 19 br/min (05/23/24 09:00:18) Systolic Blood Pressure: 120 mm Hg (05/23/24 08:00:00) Diastolic Blood Pressure: 70 mm Hg (05/23/24 08:00:00) Blood pressure sites: Arm, left (05/23/24 08:00:00) Pulse Pressure: 50 mm Hg (05/23/24 08:00:00) Oxygen Saturation: 97 % (05/23/24 09:00:18) Mode of Delivery (Oxygen): Room air (05/23/24 08:00:00) ? Intake/Output? 05/21 17:16 05/23 06:00 05/22 07:00 05/21 07:00 05/20 07:00 ?? 05/23 10:12 05/23 10:12 05/23 06:59 05/22 06:59 05/21 06:59 Intake ? 2466 ?0 ? 1440 ? 1026 ?0 Output ? 3100 ?0 ? 1600 ? 1500 ?0 Net Total ? -634 ?0 ? -160 ? -474 ?0 ? Urine Count ?4 ?1 ?2 ?1 ?0 ? . Physical Exam Constitutional: Alert, in no distress. Respiratory: Clear to auscultation. No wheezing, rales or rhonchi. Cardiovascular: S1 S2 regular. 2/6 systolic murmur heard throughout.??No edema. Gastrointestinal: Abdomen soft, non-distended.??Tender to palpation of LLQ. Neurologic: Cranial nerves II-XII grossly intact. No focal neurological deficits. Moves all extremities spontaneously. Skin: No rashes or lesions. No petechiae or purpura. TR band on??R??radial intact. Musculoskeletal: No cyanosis or clubbing. No gross deformities. Normal range of motion. Psychiatric: Normal mood and affect. [facility] Patient Education Titles Web[employer] Patient Education - Clopidogrel?? [employer] Patient Education - Atorvastatin?? Web[employer] Patient Education - Aspirin?? Follow-Up Appointments Added Follow Up ?Time Frame ?Comments [facility] Cardiac Rehab?2 months?[phone] to schedule an appointment when you return from [place] if you don't hear from [place] within 1 week Wanda Davis MD Patient Instructions You were admitted to the hospital for a myocardial infarction, also called a heart attack. You had a cardiac catheterization??which showed a blockage in one of your heart vessels. A stent was placed in the blood vessel to open it up. Please follow up with your PCP to repeat blood work in one week. You will also get a call from the instructor of spanish to make a follow up appointment. Please return to theemergency department if you have similar symptoms as your heart attack, chest pain/pressure, nausea, shortness of breath, or you develop any other symptom that is concerning to you. Please continue taking the following medications: aspirin 81mg daily, atorvastatin 80mg daily at bedtime, clopidogrel 75mg daily, metoprolol XL 25mg daily.?? 31 minutes spent on discharge ?? Case and plan discussed with attending, Dr. Alexander ?? Bernice Michelle MD PGY-1 Emergency Medicine ?? This note should be considered preliminary until signed by an attending physician. * Marianna Myers RN: PERFORM Event Display: Patient Education/Instruction Authored Date: [id number] Inpatient Adult Discharge Instructions. [place] [id number] Name: VLADIMIR HOLBROOK : 1960?? Visit: 05/21/2024 17:16?? Current Date: 05/23/2024 13:23 ?? Account: [id number]?? Inpatient Adult Discharge Instructions We would like to thank you for allowing us to assist you with your healthcare needs. The following includes patient education materials and information regarding your injury/illness. Our entire staffstrives to provide an excellent experience for our patients and their families. PLEASE ENSURE YOU FOLLOW-UP PER THE INSTRUCTIONS BELOW! ?? YOUR OPINION IS IMPORTANT TO US! Please complete the survey you may receive by mail or email. Your feedback will be used to make improvements to the healthcare experiences of our patients and their families. Surveys are administered by [employer] ?? If further treatment with your primary care physician or another doctor is recommended, it is important for you to keep the appointment. Call your primary care physician or return to the Emergency Department immediately if your condition worsens, fails to improve, or new symptoms develop. If you need to find a doctor, you can call [facility] for a referral at [phone] or toll free at [phone]) or log in to [email or web address].. ?? [facility], in keeping with [facility] guidance, no longer requires face masks for staff, patientsor visitors in most situations. Similiar to time spent indoors at other locations, there is the chance that you were exposed to repiratory viruses during your time with us (such as flu or COVID-19). If you develop symptoms concerning for a viral respiratory infection, please seek testing (and treatment if indicated) from your medical provider or home test kit. ?? You can view and manage your care through the patient portal or by using a health care dinh of your choosing. [employer] is a website that allows you to securely view your medical information including your hospital discharge summary, office visit summaries, medications and follow-up visits. You can also request appointments, renew medications, and request access to your medical information using a health care dinh of your choosing, or just ask a question. You are entitled to know the individuals who participated in your treatment. This information is available within your medical record and will be provided upon your request. You can enroll at [email or web address] or register d uring your next office visit. [facility] Boys, Patient Care Unit: M7??. If you have any questions regarding these instructions, including results of studies pending, afteryou leave, please call us and we will be happy to assist you 15/09. [employer] Your Care Team Attending Physician Kyle Watson MD?? Consulting Providers Kyle Watson MD?? Discharging Providers Gisselle Burk MD Reason for Your Visit STEMI?? Your Diagnosis Anemia Anxiety Fibromyalgia Hypothyroidism Mixed dyslipidemia Polyarthralgia ST elevation (STEMI) myocardial infarction involving right coronary artery Vitamin B12 deficiency Vitamin D deficiency Tests Performed Below is a partial list of the tests performed during your hospitalization. You may have had other tests and procedures not included in this list. Please discuss all test results with your provider. ALBUMIN Alk Phos Basic Metabolic Panel CBC CBC w/ Differential Comprehensive Metabolic Panel COVID-19 (Novel Coronavirus), Rapid PCR FERRITIN GLUCOSE POC HEMOGLOBIN A1C High Sensitivity Troponin T HOLD BAIRD TUBE Ionized Calcium IRON & TIBC Lactate Level LIPID PANEL Lytes Magnesium Level Phosphorus Level PT (INR) PTT Troponin T, High Sensitivity TSH Type and Screen CXR Portable XR Chest Portable Add On Lab Order?? Albumin Level (ALBUMIN)?? Alk Phos?? Basic Metabolic Panel?? CBC?? CBC w/ Differential?? COVID-19 (Novel Coronavirus), Rapid PCR?? Comprehensive Metabolic Panel?? Electrolytes (Lytes)?? Ferritin?? Glucose POC?? Hemoglobin A1C (Monitoring) (HEMOGLOBIN A1C)?? High??Sensitivity??Troponin T (Troponin T, High Sensitivity)?? Hold Baird Top Tube (HOLD BAIRD TUBE)?? INR (PT (INR))?? Ionized Calcium?? Iron + Iron Binding Capacity (IRON & TIBC)?? Lactic Acid Level (Lactate Level)?? Lipid Panel?? Magnesium Level?? PTT?? Phosphorus Level?? TSH?? Type and Screen?? Chest Portable (CXR Portable)?? Primary Care Provider Susan LUCERO , Wanda Ladd? Advance Directive Health Care Proxy on File No Patient refuses to discuss Discharge Vitals Temperature: 98 DegF Height: 157 cm Pulse Rate: 87 bpm Weight: 86.2 kg Respiratory Rate: 17 br/min Body Mass Index:??34.97 kg/m2??Critical Systolic Blood Pressure: 120 mm Hg Body surface area: 1.94 Diastolic Blood Pressure: 65 mm Hg ?? Oxygen Saturation: 95 % ?? Studies Pending All studies ordered during this hospital stay have been completed unless listed below. Please discuss all pending results with your provider listed above in these instructions. ?? CBC?? What to do next Instructions From Your Doctor You were admitted to the hospital for a myocardial infarction, also called a heart attack. You had a cardiac catheterization??which showed a blockage in one of your heart vessels. A stent was placed in the blood vessel to open it up. Please follow up with your PCP to repeat blood work in one week. You will also get a call from the instructor of spanish to make a follow up appointment. Please return to theemergency department if you have similar symptoms as your heart attack, chest pain/pressure, nausea, shortness of breath, or you develop any other symptom that is concerning to you. Please continue taking the following medications: aspirin 81mg daily, atorvastatin 80mg daily at bedtime, clopidogrel 75mg daily, metoprolol XL 25mg daily.? Orders? 05/23/24 12:54:00 EDT?? You Need to Schedule the Following Appointments Follow Up with??[facility] When:??Within 2 months Why: [phone] to schedule an appointment when you return from [facility] if you don't hear from [place] within 1 week Where: [address] [place] [address] Follow Up with??Wanda Davis MD When:??In 0 days Where: [address] [place] [address]- [facility] (1) Discharge Medications VLADIMIR HOLBROOK :1960 Visit Date:05/21/2024 Medications: Please continue your medications until treatment is completed or stopped by your provider. Medications not listed below should be discontinued. Discuss any questions related to medications with your provider. What How Much When Instructions Next Dose New Aspirin (aspirin 81 mg oral delayed release tablet) 1 tab(s) Oral Daily Pickup at [place] [address] tomorrow at 8am New Atorvastatin (atorvastatin 80 mg oral tablet) 1 tab(s) Oral Daily Pickup at [place] [address] tonight at bedtime New Clopidogrel (clopidogrel 75 mg oral tablet) 1 tab(s) Oral Daily Pickup at [place] [address] tomorrow at 8am New Metoprolol (Metoprolol Succinate ER 25 mg oral tablet, extended release) 1 tab(s) Oral Daily Pickup at [place] [address] tomorrow at 8am Changed Cyanocobalamin (cyanocobalamin 1000 mcg/ ml injectable solution) 1 Milliliter Intramuscular Every 28 days resume schedule Changed Ergocalciferol (ergocalciferol 50 mcg (2000 intl units) oral capsule) 1 capsule Oral Daily with food ?? tomorrow at 8am Changed Gabapentin (gabapentin 300 mg oral capsule) 1 capsule Oral Daily at Bedtime as needed for Pain , Mild Oral Daily at Bedtime as needed for Pain , Mild Changed Levothyroxine (levothyroxine 0.112 mg oral tablet) 1 tab(s) Oral Daily tomorrow at 7am Unchanged Acetaminophen (acetaminophen 650 mg oral tablet, extended release) 1 tab(s) Oral Every 8 hours as needed for Pain , Mild Duration: 14 Days Every 8 hours as needed for Pain , Mild Unchanged Hydrocortisone Topical (hydrocortisone 2.5% topical cream) 1 dinh Topically Twice a day as needed for Rash Twice a day as needed for Rash Unchanged Zolpidem (zolpidem 10 mg oral tablet) 1 tab(s) Oral Daily at Bedtime as needed for as needed for insomnia Daily at Bedtime as needed for as needed for insomnia Pharmacy Information [facility] 3: [address] [place] [address] [phone] ?? What How Much When Comments Stop Taking Ibuprofen (ibuprofen 600 mg oral tablet) 1 tab(s) Oral 4 times a day as needed for as needed for arthritis Stop Taking Ibuprofen Stop Taking Ibuprofen (ibuprofen 600 mg oral tablet) 1 tab(s) Oral 4 times a day Stop Taking Ibuprofen Stop Taking Miscellaneous Rx (Misc Rx) Stop Taking Naproxen (naproxen 500 mg oral tablet) 1 tab(s) Oral Twice a day Stop Taking Ibuprofen Prescription Given During Visit Aspirin (aspirin 81 mg oral delayed release tablet) - 1 tablet = 81 mg, By Mouth, Daily, # 90 tablet, 0 Refills, [facility] [address], [address] [place] [phone]?? Atorvastatin (atorvastatin 80 mg oral tablet) - 1 tablet = 80 mg, By Mouth, Daily, # 90 tablet, 0 Refills, [facility] [address] [address] [phone]?? Clopidogrel (clopidogrel 75 mg oral tablet) - 1 tablet = 75 mg, By Mouth, Daily, # 90 tablet, 0 Refills, [facility] [address], [address] [place] [phone]?? Metoprolol (Metoprolol Succinate ER 25 mg oral tablet, extended release) - 1 tablet = 25 mg, By Mouth, Daily, # 90 tablet, 0 Refills, [facility], [address] [place] [address] [phone]?? Laboratory Results Below is a partial list of the most recent Laboratory test results done prior to this discharge. You may have had other tests and procedures not included in this list. Please discuss all test resultswith your provider. Est Creatinine Clearance - 63.52 mL/min (05/22/2024) ALBUMIN (05/21/2024) ???Albumin - 3.6 Gm/dL Alk Phos (05/21/2024) ???Alkaline Phosphatase - 40 units/L Basic Metabolic Panel (05/21/2024) ???Sodium - 138 mmol/L???Potassium - HEMOLYZED???Chloride - 108 mmol/L???Bicarbonate Level - 19 mmol/L???Anion Gap - 11 mmol/L???Glucose Level - 82 mg/dL???BUN - 9 mg/dL???Creatinine-Blood - 0.52 mg/dL???Estimated GFR Creatinine - 105 ML/MIN/1.73 M2???Calcium - 7.4 mg/dL CBC (05/23/2024) ???WBC - 7.7 k/mm3???RBC - 4.00 m/mm3???Hgb - 11.8 Gm/dL???Hct - 36.8 %???MCV - 92.0 femtoliters???MCH - 29.5 pg???MCHC - 32.1 Gm/dL???Platelet Count - 320 k/mm3???RDW-SD - 41.2 femtoliters???MPV - 10.2 femtoliters???Nucleated RBC (Automated) - 0.0 #/100 WBC'S???Abs. NRBC - 0.0 k/mm3 CBC w/ Differential (05/21/2024) ???WBC - 6.2 k/mm3???RBC - 2.68 m/mm3???Hgb - 8.0 Gm/dL???Hct - 25.2 %???MCV - 94.0 femtoliters???MCH - 29.9 pg???MCHC - 31.7 Gm/dL???Platelet Count - 243 k/mm3???RDW-SD - 41.1 femtoliters???MPV - 10.5 femtoliters???Nucleated RBC (Automated) - 0.0 #/100 WBC'S???Abs. NRBC - 0.0 k/mm3???Abs. Neut - 4.6 k/mm3???Abs. Lymph - 1.4 k/mm3???Abs. Denali - 0.2 k/mm3???Abs. Eo - 0.0 k/mm3???Abs. Baso - 0.0 k/mm3???Neut % - 73.4 %???Lymph % - 21.9 %???Denali % - 3.4 %???Eos % - 0.3 %???Baso % - 0.5 %???Imm Gran - 0.5 %???Abs. Imm Gran - 0.0 k/mm3 Comprehensive Metabolic Panel (05/23/2024) ???Sodium - 138 mmol/L???Potassium - 3.8 mmol/L???Chloride - 105 mmol/L???Bicarbonate Level - 23 mmol/L???Anion Gap - 10 mmol/L???Glucose Level - 93 mg/dL???BUN - 10 mg/dL???Creatinine-Blood - 0.72 mg/dL???Estimated GFR Creatinine - 94 ML/MIN/1.73 M2???Calcium - 8.7 mg/dL???Protein, Total - 6.7 Gm/d L???Albumin - 3.8 Gm/dL???AG Ratio - 1.3???Alkaline Phosphatase - 82 units/L???AST (SGOT) - 72 units/L???ALT (SGPT) - 31 units/L???Bilirubin, Total - 0.8 mg/dL COVID-19 (Novel Coronavirus), Rapid PCR (05/21/2024) ???COVID-19 by RT-PCR - NEGATIVE FERRITIN (05/21/2024) ???Ferritin Level - 18 ng/mL GLUCOSE POC (05/22/2024) ???Glucose, POC - 104 mg/dL HEMOGLOBIN A1C (05/22/2024) ???Hemoglobin A1C (Monitoring) - 4.8 % High Sensitivity Troponin T (05/21/2024) ???High Sensitivity Troponin (HSTnT) - HEMOLYZED HOLD BAIRD TUBE (05/21/2024) ???Hold Baird Top - SPECIMEN DISCARDED AFTER 1 WEEK Ionized Calcium (05/23/2024) ???Calcium, Ionized pH Corrected - 1.20 mmol/L IRON & TIBC (05/21/2024) ???Iron Level - 23 mcg/dL???Iron Binding Capacity, Unsaturated - 167 mcg/dL???Iron Binding Capacity, Estimated Total - 190 mcg/dL???% Iron Saturation - 12 % Lactate Level (05/23/2024) ???Lactate - 1.5 mmol/L LIPID PANEL (05/21/2024) ???Cholesterol - 121 mg/dL???Triglycerides - 57 mg/dL???HDL Cholesterol - 26 mg/dL???LDL Cholesterol - 84 mg/dL???Non HDL Cholesterol - 95 mg/dL Lytes (05/21/2024) ???Sodium - 137 mmol/L???Potassium - 4.5 mmol/L???Chloride - 103 mmol/L???Bicarbonate Level - 22 mmol/L???Anion Gap - 12 mmol/L Magnesium Level (05/23/2024) ???Magnesium - 2.0 mg/dL Phosphorus Level (05/23/2024) ???Phosphorus - 3.4 mg/dL PT (INR) (05/22/2024) ???INR - 1.0???Protime (PT) - 10.6 seconds PTT (05/22/2024) ???APTT - 22.8 seconds Troponin T, High Sensitivity (05/22/2024) ???High Sensitivity Troponin (HSTnT) - 1325 ng/L TSH (05/21/2024) ???TSH - 0.79 uIU/mL Type and Screen (05/21/2024) ???Blood Type - O Positive???Antibody Screen - Negative You will be contacted within 72 hours with your results. Allergies (NKA means No Known Allergies) NKA Problems Active Problems??(10) Anemia?? Anxiety?? Fibromyalgia?? Hypothyroidism?? Insomnia?? Mixed dyslipidemia?? Obese class I?? Polyarthralgia?? T2DM (type 2 diabetes mellitus)?? Vitamin D deficiency?? Education Materials Below is the list of Educational Leaflet Providered with your Discharge Instructions. WebMD Ignite Patient Education - Metoprolol?? WebMD Ignite Patient Education - Clopidogrel?? WebMD Ignite Patient Education - Zones AMI?? WebMD Ignite Patient Education - What is a Heart Stent??? WebMD Ignite Patient Education - Understanding Transradial Cardiac Catheterization?? WebMD Ignite Patient Education - Understanding Coronary Artery Disease (CAD)?? WebMD Ignite Patient Education - Surgery Radial Cath Approach Discharge Instructions?? WebMD Ignite Patient Education - MyPlate Food Guide: Make It Work for You?? WebMD Ignite Patient Education - Discharge Instructions for Cardiac Catheterization?? WebMD Ignite Patient Education - Diet, Low Salt 3gm?? WebMD Ignite Patient Education - Diet-Cardiac?? WebMD Ignite Patient Education - Coronary Stents?? WebMD Ignite Patient Education - Bleeding or Hematoma After Cardiac Catheterization?? WebMD Ignite Patient Education - Clopidogrel?? WebMD Ignite Patient Education - Atorvastatin?? WebMD Ignite Patient Education - Aspirin?? Valuables and Belongings I fully understand and agree that [facility] accepts no responsibility for all my personal property including clothing, toilet articles, radios, jewelry, dentures, hearing aids, rings, money, or any other property that is in my possession or is brought to me after admission. I understand certain valuables may be placed in a hospital safe for a short period of time. I understand that the hospital is not liable for loss or damage due to accident, fire, or other natural occurrence while said property is in the safe. I accept full responsibility for any personal property that I keep with me, and will not hold the hospital responsible in case of loss or disappearance. I acknowledge that i have been encouraged to send valuables and belongings home. ?? Date for Pt to Sign Valuables/Belongings: 05/21/24 18:15:00 ?? Other Discharge Information ? Pulmonary Rehab Status?? Pulmonary Rehab Discharge Status?? Respiratory Rate: 17 br/min ? Cardiac Rehab Assessment?? Cardiac Rehab Inpatient Assessment?? Comments-Education: post infarct recovery, home activity Comments-Exercise Activity: phase 2 referral Comments-Nutrition: per RD Comments-Lipids: meds and diet Patient attending Phase II: Yes Phase II Site of Care: [place] [address] [place] [address] [phone] Common Emergency Awareness Tips IS IT A STROKE? Act FAST and Check for these signs: FACE Does the face look uneven? ARM Does one arm drift down? SPEECH Does their speech sound strange? TIME Call at any sign of stroke ?? Heart Attack Signs Chest discomfort: Most heart attacks involve discomfort in the center of the chest and lasts more than a few minutes, or goes away and comes back. It can feel like uncomfortable pressure, squeezing, fullness or pain. Discomfort in upper body: Symptoms can include pain or discomfort in one or both arms, back, neck, jaw or stomach. Shortness of breath: With or without discomfort. Other signs: Breaking out in a cold sweat, nausea, or lightheaded. Remember, MINUTES DO MATTER. If you experience any of these heart attack warning signs, call to get immediate medical attention! ?? Smoking can increase your chances of developing chronic health problems and can cause harmful effects to other family members in your house. If you smoke, you are strongly encouraged to quit. Please call [facility] Link at [phone] or [phone] ([phone]) or log in to [email or web address] for referrals to smoking cessation programs. ?? 306 Suicide & Crisis Lifeline is available 15/09 if you or someone you know needs to find a reason to keep living. By calling 690 you'll be connected to a skilled, trained counselor at a crisis center in your area. INPATIENT DISCHARGE INSTRUCTIONS SIGNATURE PAGE CANDELARIAVLADIMIR HEATON Location:[employer] Registration Date and Time:05/21/2024 17:16 EDT Primary Care Physician: Susan LUCERO , Wanda Ladd, Attending Physician: Sola LUCERO, Kyle Acosta, I VLADIMIR HOLBROOK, have received the above patient education materials/instructions and have verbalized understanding. If ambulance or transport services are being used I further acknowledge being given a choice of service. ?? If you need to contact me, please call me at this number: . Patient/Earth Science Faculty Member Name: Patient/Earth Science Faculty Member Signature: Relationship to Patient: Witness Name/Signature: Date: * Tomasa Sharma RN: PERFORM, SIGN, VERIFY Event Display: Patient Education Handout Authored Date: [id number] * Marianna Myers RN: PERFORM Event Display: Patient Education Leaflets Authored Date: [id number] Metoprolol ?? [id number] Metoprolol Brand Name(s): Kapspargo Sprinkle??, Lopressor??, Toprol??, Toprol?? XL, Dutoprol?? (as a combination product containing Metoprolol, Hydrochlorothiazide), Lopressidone?? (as a combination product containing Chlorthalidone, Metoprolol), Lopressor?? HCT (as a combination product containing Metoprolol, Hydrochlorothiazide); also available generically ?? WHY is this medicine prescribed? Metoprolol is used alone or in combination with other medications to treat high blood pressure. It also is used to treat chronic (long-term) angina (chest pain). Metoprolol is also used to improve survival after a heart attack. Metoprolol also is used in combination with other medications to treat heart failure. Metoprolol is in a class of medications called beta blockers. It works by relaxing blood vessels and slowing heart rate to improve blood flow and decrease blood pressure. High blood pressure is a common condition and when not treated, can cause damage to the brain, heart, blood vessels, kidneys and other parts of the body. Damage to these organs may cause heart disease, a heart attack, heart failure, stroke, kidney failure, loss of vision, and other problems. In addition to taking medication, making lifestyle changes will also help to control your blood pressure. These changes include eating a diet that is low in fat and salt, maintaining a healthy weight, exercising at least 30 minutes most days, not smoking, and using alcohol in moderation. HOW should this medicine be used? Metoprolol comes as a tablet, an extended-release (long-acting) tablet, and an extended-release capsule to take by mouth. The regular tablet is usually taken once or twice a day with meals or immediately after meals. The extended-release tablet and extended-release capsule are usually taken once a day. To help you remember to take metoprolol, take it around the same time(s) every day. Follow the directions on your prescription label carefully, and ask your doctor or pharmacist to explain any part you do not understand. Take metoprolol exactly as directed. Do not take more or less of it or take it more often than prescribed by your doctor. The extended-release tablet may be split. Swallow the whole or half extended- release tablets whole;do not chew or crush them. Swallow the extended-release capsules whole; do not split, chew, or crush them. If you are unable to swallow the capsules, you may open the capsule and sprinkle the contents over a spoonful of soft food, such as applesauce, pudding, or yogurt and swallow the mixture immediately. Do not swallow the mixture more than 60 minutes after you sprinkle the contents of the capsule. Your doctor may start you on a low dose of metoprolol and gradually increase your dose. Metoprolol helps to control your condition but will not cure it. Continue to take metoprolol even if you feel well. Do not stop taking metoprolol without talking to your doctor. If you suddenly stop taking metoprolol you may experience serious heart problems such as severe chest pain, a heart attack, or an irregular heartbeat. Your doctor will probably want to decrease your dose gradually over 1 to 2 weeks and will monitor you closely. Are there OTHER USES for this medicine? Metoprolol is also used sometimes to treat certain types of irregular heartbeats. Talk to your doctor about the possible risks of using this medication for your condition. This medication may be prescribed for other uses; ask your doctor or pharmacist for more information. What SPECIAL PRECAUTIONS should I follow? Before taking metoprolol, ??? tell your doctor and pharmacist if you are allergic to metoprolol, any other medications, or any of the ingredients in metoprolol tablets, extended-release tablets, or extended-release capsules. Ask your pharmacist for a list of the ingredients. ??? tell your doctor and pharmacist what prescription and nonprescription medications, vitamins, nutritional supplements, and herbal products you aretaking or plan to take. Your doctor may need to change the doses of your medications or monitor youcarefully for side effects. ??? tell your doctor if you have a slow or irregular heartbeat or heartfailure. Your doctor may tell you not to take metoprolol. ??? tell your doctor if you have or have e roz had asthma or other lung diseases; problems with blood circulation; pheochromocytoma (a tumor that develops on a gland near the kidneys and may cause high blood pressure and fast heartbeat); heart or liver disease;diabetes; or hyperthyroidism (an overactive thyroid gland). Also tell your doctorif you have ever had a serious allergic reaction to a food or any other substance. ??? tell your doctor if you are , plan to become , or are . If you become while taking metoprolol, call your doctor. ??? if you are having surgery, including dental surgery, tellthe doctor or dentist that you are taking metoprolol. ??? you should know that metoprolol may make you drowsy. Do not drive a car or operate machinery until you know how this medication affects you. ??? do not drink any alcoholic drinks or take any prescription or nonprescription medications that contain alcohol if you are taking metoprolol extended-release capsules. Ask your doctor or pharmacistif you do not know if a medication that you plan to take contains alcohol. ??? you should know thatmetoprolol may increase the risk of hypoglycemia (low blood sugar) and prevent the warning signs and symptoms that would tell you that your blood sugar is low. Let your doctor know if you are unable to eat or drink normally or are vomiting while you are taking metoprolol. You should know the symptoms of low blood sugar and what to do if you have these symptoms. ??? you should know that if you have allergic reactions to different substances, your reactions may be worse while you are using metoprolol, and your allergic reactions may not respond to the usual doses of injectable epinephrine. What SPECIAL DIETARY instructions should I follow? IUnless your doctor tells you otherwise, continue your normal diet. What should I do IF I FORGET to take a dose? Skip the missed dose and continue your regular dosing schedule. Do not take a double dose to make up for a missed one. What SIDE EFFECTS can this medicine cause? Some side effects can be serious. The following symptoms are uncommon, but if you experience any ofthem, call your doctor immediately: ??? shortness of breath or difficulty breathing ??? wheezing ??? swelling of the hands, feet, ankles, or lower legs ??? weight gain ??? fainting ??? rapid, pounding, or irregular heartbeat Metoprolol may cause other side effects. Call your doctor if you have any unusual problems while taking this medication. If you experience a serious side effect, you or your doctor may send a report to the Food and Drug Administration's (FDA) MedWatch Adverse Event Reporting program online (https://www.fda.gov/Safety/MedWatch) or by phone ( ). What should I know about STORAGE and DISPOSAL of this medication? Keep this medication in the container it came in, tightly closed, and out of reach of children. Store it at room temperature and away from excess heat and moisture (not in the bathroom). It is important to keep all medication out of sight and reach of children as many containers (such as weekly pill minders and those for eye drops, creams, patches, and inhalers) are not child-resistant and young children can open them easily. To protect young children from poisoning, always lock safety caps and immediately place the medication in a safe location ??? one that is up and away and out of their sight and reach. https://www.ihijindaway.org Unneeded medications should be disposed of in special ways to ensure that pets, children, and otherpeople cannot consume them. However, you should not flush this medication down the toilet. Instead,the best way to dispose of your medication is through a medicine take-back program. Talk to your pharmacist or contact your local garbage/recycling department to learn about take-back programs in your community. See the FDA's Safe Disposal of Medicines website (https://goo.gl/c4Rm4p) for more information if you do not have access to a take-back program. What should I do in case of OVERDOSE? In case of overdose, call the poison control helpline at . Information is also available online at https://www.poisonhelp.org/help. If the victim has collapsed, had a seizure, has trouble breathing, or can't be awakened, immediately call emergency services at 911. Symptoms of overdose may include the following: ??? nausea ??? vomiting ??? decreased consciousness or loss of consciousness (coma) ??? irregular, fast, or slow heartbeat ??? chest pain ??? dizziness ??? fatigue or weakness ??? fainting ??? difficulty breathing ??? cough or wheezing ??? swelling of the hands, feet, ankles, or lower legs What OTHER INFORMATION should I know? Keep all appointments with your doctor. Your blood pressure should be checked regularly to determine your response to metoprolol. Your doctor may ask you to check your pulse (heart rate). Ask your pharmacist or doctor to teach you how to take your pulse. If your pulse is faster or slower than it should be, call your doctor. Do not let anyone else take your medication. Ask your pharmacist any questions you have about refilling your prescription. It is important for you to keep a written list of all of the prescription and nonprescription (fkkc-rqb-klwkjso) medicines you are taking, as well as any products such as vitamins, minerals, or otherdietary supplements. You should bring this list with you each time you visit a doctor or if you areadmitted to a hospital. It is also important information to carry with you in case of emergencies. This report on medications is for your information only, and is not considered individual patient advice. Because of the changing nature of drug information, please consult your physician or pharmacist about specific clinical use. The [employer] represents that the information provided hereunder was formulated with a reasonable standard of care, and in conformity with professional standards in the field. The [employer] makes no representations or warranties, express or implied, including, but not limited to, any implied warranty of merchantability and/or fitness for a particular purpose, with respect to such information and specifically disclaims all such warranties. Users are advised that decisions regarding drug therapy are complex medical decisions requiring the independent, informed decision of an appropriate health child care attendant school, and the information is provided for informational purposes only. The entire monograph for a drug should be reviewed for a thorough understanding of the drug's actions, uses and side effects. The [employer] does not endorse or recommend the use of any drug.The information is not a substitute for medical care. AHFS?? Patient Medication Information???. ?? Copyright, 2023. The [employer]??, [address], [address], [place], [place]. All Rights Reserved. Duplication for commercial use must be authorized by [facility]. Selected Revisions: November 07, 2022. AHFS?? Patient Medication Information???. ?? Copyright, 2024 ?? * Marianna Myers RN: PERFORM Event Display: Patient Education Leaflets Authored Date: [id number] Clopidogrel ?? [id number] Clopidogrel Brand Name(s): Plavix??; also available generically ?? IMPORTANT WARNING: Clopidogrel must be changed to an active form in your body so that it can treat your condition. Some people do not change clopidogrel to its active form in the body as well as other people. Because the medication does not work as well in these people, they may be at a higher risk of having a heart attack or stroke. There are tests available to identify people who have trouble changing clopidogrelto an active form. Talk to your doctor about whether you should be tested. If you are found to havedifficulty converting clopidogrel to its active form, your doctor may change your dose of clopidogrel or tell you not to take clopidogrel. Your doctor or pharmacist will give you the torch shearer's patient information sheet (Medication Guide) when you begin treatment with clopidogrel and each time you refill your prescription. Read the information carefully and ask your doctor or pharmacist if you have any questions. You can also visit the Food and Drug Administration (FDA) website (https://www.fda.gov/Drugs/DrugSafety/vdz878876.htm) or the torch shearer's website to obtain the Medication Guide. Talk to your doctor about the risks of taking clopidogrel. WHY is this medicine prescribed? Clopidogrel is used alone or with aspirin to prevent serious or life-threatening problems with the heart and blood vessels in people who have had a stroke, heart attack, or severe chest pain. This includes people who have percutaneous coronary intervention (PCI; angioplasty; a type of heart surgery) that may involve inserting coronary stents (metal tubes surgically placed in clogged blood vesselsto improve blood flow) or who have coronary artery bypass grafting (CABG; a type of heart surgery).Clopidogrel is also used to prevent serious or life-threatening problems with the heart and blood vessels in people who have peripheral arterial disease (poor circulation in the blood vessels that supply blood to the legs). Clopidogrel is in a class of medications called antiplatelet medications. It works by preventing platelets (a type of blood cell) from collecting and forming clots that may cause a heart attack or stroke. HOW should this medicine be used? Clopidogrel comes as a tablet to take by mouth. It is usually taken once a day with or without food. Take clopidogrel at around the same time every day. Follow the directions on your prescription label carefully, and ask your doctor or pharmacist to explain any part you do not understand. Take clopidogrel exactly as directed. Do not take more or less of it or take it more often than prescribed byyour doctor. Clopidogrel will help prevent serious problems with your heart and blood vessels only as long as you take the medication. Continue to take clopidogrel even if you feel well. Do not stop taking clopidogrel without talking to your doctor. If you stop taking clopidogrel, there is a higher risk that you may have a heart attack or stroke. If you have a stent, there is also a higher risk that you coulddevelop a blood clot in the stent if you stop taking clopidogrel too soon. Are there OTHER USES for this medicine? Clopidogrel is also sometimes used to prevent blood clots in people with atrial fibrillation (a condition in which the heart beats irregularly). Talk to your doctor about the possible risks of using this medication for your condition. This medication may be prescribed for other uses; ask your doctor or pharmacist for more information. What SPECIAL PRECAUTIONS should I follow? Before taking clopidogrel, ??? tell your doctor and pharmacist if you are allergic to clopidogrel, prasugrel (Effient), ticlopidine, any other medications, or any ingredient in clopidogrel tablets. Ask your pharmacist or checkthe Medication Guide for a list of the ingredients. ??? tell your doctor and pharmacist what other prescription and nonprescription medications, vitamins, nutritional supplements, and herbal productsyou are taking or plan to take while taking clopidogrel. Your doctor may need to change the doses of your medications or monitor you carefully for side effects. . ??? The following nonprescription products may interact with clopidogrel: omeprazole (Prilosec, Prilosec OTC, Zegerid); esomeprazole (Nex ium); aspirin and other nonsteroidal anti-inflammatory drugs (NSAIDs) such as ibuprofen (Advil, Motrin) and naproxen (Aleve, Naprosyn). Be sure to let your doctor and pharmacist know that you are taking these medications before you start taking clopidogrel. Do not start any of these medications while taking clopidogrel without discussing with your healthcare provider. ??? tell your doctor if you have bleeding ulcers (sores in the lining of the stomach or small intestine that are bleeding), bleeding in the brain, or any other condition that causes severe bleeding. Your doctor may tell you thatyou should not take clopidogrel. ??? tell your doctor if you have recently been injured and if you h ave or have ever had liver or kidney disease or any condition that may cause bleeding, including stomach problems such as ulcers. ??? tell your doctor if you are , plan to become , orare breast-feeding. If you become while taking clopidogrel, call your doctor. ??? if you are having surgery, including dental surgery, tell the doctor or dentist that you are taking clopidogrel. Your doctor may tell you to stop taking clopidogrel at least 5 days prior to your surgery to avoid excessive bleeding during surgery. Your doctor will tell you when to start taking clopidogrel again after your surgery. ??? you should know that you may bleed more easily or for a longer time than usual while you are taking clopidogrel. Be careful not to cut or hurt yourself while you are takingclopidogrel. What SPECIAL DIETARY instructions should I follow? Unless your doctor tells you otherwise, continue your normal diet. What should I do IF I FORGET to take a dose? Take the missed dose as soon as you remember it. However, if it is almost time for the next dose, skip the missed dose and continue your regular dosing schedule. Do not take a double dose to make up for a missed one. What SIDE EFFECTS can this medicine cause? Some side effects can be serious. If you experience any of the following symptoms, call your doctorimmediately: ??? hives ??? rash ??? itching ??? difficulty breathing or swallowing ??? swelling of the face, throat, tongue, lips, eyes, hands, feet, ankles, or lower legs ??? hoarseness ??? black and tarry stools ??? red blood in stools ??? bloody vomit ??? vomit that looks like coffee grounds ??? unusual bleeding or bruising ??? pink or brown urine ??? slow or difficult speech ??? weakness or numbness of anarm or a leg ??? changes in vision ??? fever ??? shortness of breath ??? fast heartbeat ??? pale skin ??? purple patches or bleeding under the skin ??? confusion ??? yellowing of the skin or eyes ???seizures Clopidogrel may cause other side effects. Call your doctor if you have any unusual problems while taking this medication. If you experience a serious side effect, you or your doctor may send a report to the Food and Drug Administration's (FDA) MedWatch Adverse Event Reporting program online (https://www.fda.gov/Safety/MedWatch) or by phone ( ). What should I know about STORAGE and DISPOSAL of this medication? Keep this medication in the container it came in, tightly closed, and out of reach of children. Store it at room temperature and away from excess heat and moisture (not in the bathroom). Unneeded medications should be disposed of in special ways to ensure that pets, children, and otherpeople cannot consume them. However, you should not flush this medication down the toilet. Instead,the best way to dispose of your medication is through a medicine take-back program. Talk to your pharmacist or contact your local garbage/recycling department to learn about take-back programs in your community. See the FDA's Safe Disposal of Medicines website (https://goo.gl/c4Rm4p) for more information if you do not have access to a take-back program. It is important to keep all medication out of sight and reach of children as many containers (such as weekly pill minders and those for eye drops, creams, patches, and inhalers) are not child-resistant and young children can open them easily. To protect young children from poisoning, always lock safety caps and immediately place the medication in a safe location ??? one that is up and away and out of their sight and reach. https://www.upandaway.org What should I do in case of OVERDOSE? In case of overdose, call the poison control helpline at . Information is also available online at https://www.poisonhelp.org/help. If the victim has collapsed, had a seizure, has trouble breathing, or can't be awakened, immediately call emergency services at 530. Symptoms of overdose may include the following: ??? unusual bruising or bleeding What OTHER INFORMATION should I know? Keep all appointments with your doctor. Do not let anyone else take your medication. Ask your pharmacist any questions you have about refilling your prescription. It is important for you to keep a written list of all of the prescription and nonprescription (cqdr-crt-gjupsqc) medicines you are taking, as well as any products such as vitamins, minerals, or otherdietary supplements. You should bring this list with you each time you visit a doctor or if you areadmitted to a hospital. It is also important information to carry with you in case of emergencies. This report on medications is for your information only, and is not considered individual patient advice. Because of the changing nature of drug information, please consult your physician or pharmacist about specific clinical use. The [employer] represents that the information provided hereunder was formulated with a reasonable standard of care, and in conformity with professional standards in the field. The [employer] makes no representations or warranties, express or implied, including, but not limited to, any implied warranty of merchantability and/or fitness for a particular purpose, with respect to such information and specifically disclaims all such warranties. Users are advised that decisions regarding drug therapy are complex medical decisions requiring the independent, informed decision of an appropriate health child care attendant school, and the information is provided for informational purposes only. The entire monograph for a drug should be reviewed for a thorough understanding of the drug's actions, uses and side effects. The [employer] does not endorse or recommend the use of any drug.The information is not a substitute for medical care. AHFS?? Patient Medication Information???. ?? Copyright, 2023. The [employer]??, [address], [address], [place], [place]. All Rights Reserved. Duplication for commercial use must be authorized by [facility]. Selected Revisions: August 13, 2023. AHFS?? Patient Medication Information???. ?? Copyright, 2024 ?? * Marianna Myers RN: PERFORM Event Display: Patient Education Leaflets Authored Date: [id number] Zones [facility]I ?? 340 ACUTE MYOCARDIAL INFARCTION ZONES EVERY DAY EVERY DAY: ??? Take your medicine as prescribed, even if you feel good. ??? Check for swelling in your feet, ankles, legs and stomach. ??? Eat a diet low in saturated fat, cholesterol and salt. ??? Balance activity and rest periods. ??? Don???t smoke, and avoid other people???s tobacco smoke. ??? Avoid alcohol use. ??? Practice relaxation skills to help manage and reduce stress. ??? Join a cardiac rehabilitation program in your area. Which Zone are you today? GREEN, YELLOW, or RED? GREEN ZONE ALL CLEAR - This zone is your goal Your symptoms are under control when: ??? No shortness of breath. ??? No chest pain or angina. ??? No swelling of your feet, ankles, legs or stomach. YELLOW ZONE STOP & CALL CAUTION - This zone is a warning If you have one or more, of the following: Call Customer Strategy Manager: ??? Chest pain relieved with nitroglycerin. ??? More shortness of breath than usual. ??? Swelling of your feel, ankles, legs, or stomach. ??? Weight gain of more than 3 pounds in 2 days. [facility] Go to the emergency room or call 911 if you have any of the following DO NOT DRIVE YOURSELF : ??? Unrelieved shortness of breath while sitting still. ??? Chest pain unrelieved by nitroglycerin. ??? Discomfort in other areas of the upper body. ??? Breaking out in a cold sweat, nausea, or lightheadedness. ??? Sudden weakness or numbness of the face, arm, or leg, especially on one side of the body. ??? Suddenly have a hard time speaking. ??? Suddenly can???t see out of one eye. ??? Suddenly can???t understand what someone is saying. ??? Confusion or unable to think clearly. ? * Event Display: Hemodynamic Procedure Report Authored Date: Admission evaluation note * Bowen Smalls MD: PERFORM Event Display: Admission Note Authored Date: [id number] Patient: ??VLADIMIR HOLBROOK ? Age:??64 Years?Sex:??Female?:??1960?? Chief Complaint/Reason for Consultation STEMI History of Present Illness Vladimir Holbrook is a 64-year-old female with a history of anxiety, fibromyalgia, polyarthralgia, hypothyroidism, insomnia, and DM??who presents as a transfer from [place] for inferior STEMI s/p ELEONORA to [facility]. ?? She states she was lying in bed 05/21 and suddenly experienced burning epigastric pain, nausea, diaphoresis, and slight SOB, and about 30 min??later presented at??[place]. No previous cardiac history.At the [place] ED pt was hemodynamically stable, EKG showed ST??elevations in inferior leads with re ciprocal change. 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 Cath identified??the??culprit lesion as 99% stenosis of the mid RCA with thrombus. The thrombus was successfully aspirated and a ELEONORA was placed in the mid RCA. ?? In the [facility] the patient was hemodynamically stable and lying comfortably in bed but reported 8/10 burning epigastric pain. However when asked how it compared to before the cath she said her pain is very much improved. EKG showed resolution of ST elevations. She denied SOB, dizziness, palpitations, chest pain, diaphoresis, and n/v.?? Review of Systems As stated in HPI. Objective Measurements?? Height: 157 cm (05/21/24) Weight: 93.6 kg (05/21/24) Dry Weight: 93.6 kg (05/21/24) Body Mass Index:??37.97 kg/m2??Critical (05/21/24) ? Vital Signs?? Temperature: 98.7 DegF (05/21/24 20:00:00) Temperature Route: Oral (05/21/24 20:00:00) Pulse Rate: 80 bpm (05/21/24 18:12:00) Heart Rate Monitored: 82 bpm (05/21/24 21:00:20) Respiratory Rate: 22 br/min (05/21/24 21:00:20) Systolic Blood Pressure: 135 mm Hg (05/21/24 21:00:00) Diastolic Blood Pressure: 62 mm Hg (05/21/24 21:00:00) Blood pressure sites: Arm, left (05/21/24 21:00:00) Mean Arterial Pressure: 86 mm Hg (05/21/24 18:12:00) Pulse Pressure: 73 mm Hg (05/21/24 21:00:00) Oxygen Saturation: 96 % (05/21/24 21:00:20) Mode of Delivery (Oxygen): Room air (05/21/24 21:00:00) ? Physical Exam Constitutional: Alert, in no distress. Respiratory: Clear to auscultation. No wheezing, rales or rhonchi. Cardiovascular: S1 S2 regular. 2/6 systolic murmur heard throughout.??No edema. Gastrointestinal: Abdomen soft, non-distended.??Tender to palpation of LLQ. Neurologic: Cranial nerves II-XII grossly intact. No focal neurological deficits. Moves all extremities spontaneously. Skin: No rashes or lesions. No petechiae or purpura. TR band on??R??radial intact. Musculoskeletal: No cyanosis or clubbing. No gross deformities. Normal range of motion. Psychiatric: Normal mood and affect. Assessment/Plan Diagnoses Anemia ??(D64.9) Anxiety ??(F41.9) Fibromyalgia ??(M79.7) Hypothyroidism ??(E03.9) Mixed dyslipidemia ??(E78.2) Polyarthralgia ??(M25.50) ST elevation (STEMI) myocardial infarction involving right coronary artery ??(I21.11) T2DM (type 2 diabetes mellitus) ??(E11.9) Vitamin B12 deficiency ??(E53.8) Vitamin D deficiency ??(E55.9) ?? Assessment:??Vladimir Holbrook is a 64-year-old female with a history of T2DM and hypothyroidism who presents as a transfer from [place] for inferior STEMI s/p ELEONORA to mid RCA. ?? NEUROLOGY #Fibromyalgia #Polyarthralgia #Insomnia Pt endorses chronic pain in all joints, says takes NSAIDs and Tylenol occasionally. Also takes shant PRN for the fibromyalgia but states this helps little. ?? -Continue home Tylenol 650 mg q8hr PRN for pain, mild -Continue home ibuprofen 600 mg 4x/day PRN for polyarthritis -Continue home gabapentin 300 mg qHS for fibromyalgia pain, sleep -Hold home Zolpidem -PRN melatonin, trazodone 25 for sleep ?? CARDIOVASCULAR #STEMI #Mixed dyslipidemia Risk factors: Mixed dyslipidemia/DM2 Suddenly burning epigastric pain, nausea, diaphoresis, and slight SOB??30 min prior to presentation EKG showed??ST??elevations in inferior leads with reciprocal change. Cath identified??the??culprit lesion as 99% stenosis of the mid RCA with thrombus. The thrombus wassuccessfully aspirated and a ELEONORA was placed in the mid RCA. Currently 8/10 pressure-like pain, worse with deep inspiration, better than pain felt before cath. Could be reperfusion pain or pericarditic pain. Post-cath??EKG shows resolution of ST elevations. ?? -Trend troponin q6hr??to peak -Sublingual nitro PRN for chest pain -Aspirin 81 mg daily -Atorvastatin 80 mg QHS -Ticagrelor 90 mg BID for 1 year -Consider GDMT tomorrow -Monitor right radial access -Cardiac rehab ordered -Echocardiogram ordered -Cardiac telemetry monitoring -Repeat EKG tomorrow AM -EKG PRN for chest pain, rhythm changes -Risk factor stratification: HgbA1c, lipid panel, TSH -F/u iron + iron binding capacity, ferritin -IVF post-catheterization as per Interventional Cardiology -Monitor daily electrolytes, goal K >4,??Mg >2 ?? RESPIRATORY No acute issues. ?? INFECTIOUS DISEASE No acute issues. ?? ENDOCRINE #T2DM #Hypothyroidism Pt denies having DM but was on problem list from [place] No DM meds at home ?? -Continue home levothyroxine 112 -Lispro SSI TID -POC TID and bedtime -Hypoglycemia emergency orders ?? RENAL #Hypocalcemia Pt had low calcium, Mg <2, K was hemolyzed ?? -Replete lytes as needed -Repeat lytes for K -Daily BMP, Mg ?? GI #Vitamin D deficiency #Vitamin B12 deficiency Pt gets a B12 shot every 4 weeks, 2000 units vitamin D daily ?? -Cardiac diet -Hold vitamin B12, D? HEME #Anemia Pt noted to have Hgb??8.0 on admission. No labs from [place] to??compare. - Monitor CBC,??transfuse Hgb < 7 ? Quality measures Diet: Cardiac DVT ppx:??SQ Lovenox Code: Full HCP: Lori? Bowen Smalls MD, PGY-2 Patient??discussed with the Bindery Operator??Dr. Laurent. ? Histories Allergies Allergies ?(Active and Proposed Allergies Only) NKA? (Severity: Unknown severity, Onset: Unknown) ? Past Medical History/Problem List Active Problems(11) Anemia Anxiety Fibromyalgia Hypothyroidism Insomnia Mixed dyslipidemia Polyarthralgia Severe obesity (BMI 35.0-39.9) with comorbidity T2DM (type 2 diabetes mellitus) Vitamin B12 deficiency Vitamin D deficiency ? Past Surgical History Blepharoplasty: 2023 Cholecystectomy: 2023 ? Social History Alcohol Details:??Use: Never. 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 Home/Environment Details:??Living situation: Home/Independent. Substance Abuse Details:??Use: Never. Tobacco Details:??Use: Never (less than 100 in lifetime). Electronic Cigarette/Vaping Details:??Electronic Cigarette Use: Never. ? Family History Mother: Gallbladder disease; Hypertension Sister: Cancer of breast ? Medications Home Medications Acetaminophen (acetaminophen 650 mg oral tablet, extended release)??1 tab(s) 650 Milligram By MouthEvery 8 hours as needed Pain , Mild for 14 Days Cyanocobalamin (cyanocobalamin 1000 mcg/ml injectable solution)??1 Milliliter 1,000 Microgram Intramuscular Every 28 days Ergocalciferol (ergocalciferol 50 mcg (2000 intl units) oral capsule)??1 capsule 50 Microgram By Mouth Daily with food Gabapentin (gabapentin 300 mg oral capsule)??300 Milligram 1 capsule By Mouth Daily at bedtime as needed Pain , Mild Hydrocortisone Topical (hydrocortisone 2.5% topical cream)??1 dinh Topically 2 times a day as neededRash Ibuprofen (ibuprofen 600 mg oral tablet)??600 Milligram 1 tablet By Mouth 4 times a day as needed as needed for arthritis Levothyroxine (levothyroxine 0.112 mg oral tablet)??1 tab(s) 112 Microgram By Mouth Daily Zolpidem (zolpidem 10 mg oral tablet)??1 tab(s) 10 Milligram By Mouth Daily at bedtime as needed asneeded for insomnia ? Inpatient Medications Medications (26) Active SCHEDULED: (8) Aspirin 81 mg EC Tablet (Aspirin Tablet) ??81 mg, By Mouth, Daily Atorvastatin 80 mg Tablet (atorvastatin 80 mg oral tablet) ??80 mg, By Mouth, Daily at bedtime Calcium Gluconate 4.6mEq/50mLNaCL (1Gm) (Calcium Gluconate 4.6mEq/50mL NaCL (1Gm)) ??4.6 mEq 50 mL,IVPB, Once Enoxaparin 40 mg Inj (Enoxaparin Inj) ??40 mg 0.4 mL, Subcutaneous Injection, Daily Insulin Lispro 100 units/mL Inj (Insulin LISPRO Sliding Scale) ??2-10 units, Subcutaneous Injection, 3 times a day before meals Levothyroxine 112 mcg Tablet (levothyroxine 0.112 mg oral tablet) ??112 mcg, By Mouth, Daily Magnesium Sulfate 1 Gm/ 100 mL D5W (Magnesium Sulfate IVPB) ??1 Gm 100 mL, IVPB, Once Ticagrelor 90 mg Tablet (Ticagrelor Tablet) ??90 mg 1 tablet, By Mouth, 2 times a day CONTINUOUS: (1) Sodium Chloride 0.9% 1000 mL [1.5 mL/kg/hr] (Sodium Chloride 0.9% Normalized 1000 mL [1.5 mL/kg/hr]) ??1,000 mL, IV Infusion, 120 mL/hr PRN: (17) Acetaminophen 325 mg Tablet (Acetaminophen Tablet) ??650 mg, By Mouth, Every 4 hours Dextromethorphan-Guaifenesin 20 mg-200 mg/10 mL Liqu UD (Robitussin DM Liquid) ??10 mL, By Mouth, Every 4 hours Dextrose Inj Syringe (Dextrose 50% Inj Syringe (25Gm)) ??12.5 Gm, IV Push Slowly, Every 20 minutes Dextrose Inj Syringe (Dextrose 50% Inj Syringe (25Gm)) ??25 Gm, IV Push Slowly, Every 15 minutes Gabapentin 300 mg Capsule (gabapentin 300 mg oral capsule) ??300 mg, By Mouth, Daily at bedtime Glucagon 1 mg Inj (Glucagon Inj) ??1 mg, Intramuscular, Once Glucose 40% Gel (15 Gm) (Glucose Gel) ??15 Gm, By Mouth, Every 20 minutes Glucose 40% Gel (15 Gm) (Glucose Gel) ??30 Gm, By Mouth, Every 20 minutes Hydrocortisone 2.5% Cream (HydroCORTisone ??2.5% Topical) ??1 application, Topically, Daily Ibuprofen 600 mg Tablet (ibuprofen 600 mg oral tablet) ??600 mg, By Mouth, 4 times a day Melatonin 3 mg Tablet (Melatonin Tablet) ??3 mg, By Mouth, Daily at bedtime MorPHINE 4 mg Inj Syringe (MorPHINE Inj) ??4 mg, IV Push Slowly, Every 5 minutes Nitroglycerin 0.4 mg Sublingual Tablet (Nitroglycerin 0.4mg Sublingual Tablet) ??0.4 mg, Sublingual, Every 5 minutes Polyethylene Glycol 17 Gm Powder (MiraLax Powder) ??17 Gm 1 pack/packet, By Mouth, Daily Senna Tablet ??8.6 mg 1 tablet, By Mouth, 2 times a day Simethicone 80 mg Chewable Tablet (Simethicone Tablet) ??80 mg, Chew, 3 times a day Trazodone 50 mg Tablet (Trazodone Tablet) ??25 mg, By Mouth, Daily at bedtime ? Results Recent Labs BLOOD BANK Blood Type O Positive ()?? 05/21/2024 16:04 Antibody Screen Negative ()?? 05/21/2024 16:04 ?? BLOOD COUNT & DIFF WBC 6.2 k/mm3 ()?? 05/21/2024 17:22 RBC 2.68 m/mm3 (Low)?? 05/21/2024 17:22 Hgb 8.0 Gm/dL (Low)?? 05/21/2024 17:22 Hct 25.2 % (Low)?? 05/21/2024 17:22 MCV 94.0 femtoliters ()?? 05/21/2024 17:22 MCH 29.9 pg ()?? 05/21/2024 17:22 MCHC 31.7 Gm/dL (Low)?? 05/21/2024 17:22 Platelet Count 243 k/mm3 ()?? 05/21/2024 17:22 RDW-SD 41.1 femtoliters ()?? 05/21/2024 17:22 MPV 10.5 femtoliters ()?? 05/21/2024 17:22 Nucleated RBC (Automated) 0.0 #/100 WBC'S ()?? 05/21/2024 17:22 Abs. NRBC 0.0 k/mm3 ()?? 05/21/2024 17:22 Abs. Neut 4.6 k/mm3 ()?? 05/21/2024 17:22 Abs. Lymph 1.4 k/mm3 ()?? 05/21/2024 17:22 Abs. Denali 0.2 k/mm3 (Low)?? 05/21/2024 17:22 Abs. Eo 0.0 k/mm3 ()?? 05/21/2024 17:22 Abs. Baso 0.0 k/mm3 ()?? 05/21/2024 17:22 Neut % 73.4 % ()?? 05/21/2024 17:22 Lymph % 21.9 % ()?? 05/21/2024 17:22 Denali % 3.4 % (Low)?? 05/21/2024 17:22 Eos % 0.3 % ()?? 05/21/2024 17:22 Baso % 0.5 % ()?? 05/21/2024 17:22 Imm Gran 0.5 % ()?? 05/21/2024 17:22 Abs. Imm Gran 0.0 k/mm3 ()?? 05/21/2024 17:22 ?? CARDIAC High Sensitivity Troponin (HSTnT) HEMOLYZED ng/L ()?? 05/21/2024 21:05 ?? CHEM GENERAL Sodium 137 mmol/L ()?? 05/21/2024 21:05 Potassium 4.5 mmol/L ()?? 05/21/2024 21:05 Chloride 103 mmol/L ()?? 05/21/2024 21:05 Bicarbonate Level 22 mmol/L ()?? 05/21/2024 21:05 Anion Gap 12 mmol/L ()?? 05/21/2024 21:05 Glucose Level 82 mg/dL ()?? 05/21/2024 19:06 Glucose, POC 107 mg/dL (High)?? 05/21/2024 21:12 BUN 9 mg/dL ()?? 05/21/2024 19:06 Creatinine-Blood 0.52 mg/dL ()?? 05/21/2024 19:06 Estimated GFR Creatinine 105 ML/MIN/1.73 M2 ()?? 05/21/2024 19:06 Calcium 7.4 mg/dL (Low)?? 05/21/2024 19:06 Calcium, Ionized pH Corrected 1.18 mmol/L ()?? 05/21/2024 21:05 Magnesium 1.6 mg/dL ()?? 05/21/2024 19:06 Albumin 3.6 Gm/dL ()?? 05/21/2024 19:06 Alkaline Phosphatase 40 units/L ()?? 05/21/2024 17:22 Iron Level 23 mcg/dL (Low)?? 05/21/2024 17:22 Iron Binding Capacity, Unsaturated 167 mcg/dL ()?? 05/21/2024 17:22 Iron Binding Capacity, Estimated Total 190 mcg/dL ()?? 05/21/2024 17:22 % Iron Saturation 12 % (Low)?? 05/21/2024 17:22 Ferritin Level 18 ng/mL ()?? 05/21/2024 17:22 ?? COAG APTT 59.4 seconds (High)?? 05/21/2024 19:06 ?? ENDOCRINE/TUMOR MARKER TSH 0.79 uIU/mL ()?? 05/21/2024 17:22 ?? LIPID STUDIES Cholesterol 121 mg/dL ()?? 05/21/2024 17:22 Triglycerides 57 mg/dL ()?? 05/21/2024 17:22 HDL Cholesterol 26 mg/dL (Low)?? 05/21/2024 17:22 LDL Cholesterol 84 mg/dL ()?? 05/21/2024 17:22 Non HDL Cholesterol 95 mg/dL ()?? 05/21/2024 17:22 ?? URINE OTHER Est Creatinine Clearance 87.95 mL/min ()?? 05/21/2024 20:28 ?? VIROLOGY COVID-19 by RT-PCR NEGATIVE ()?? 05/21/2024 16:00 ? * Sola LUCERO, Kyle Acosta: PERFORM Event Display: Admission Note Authored Date: Attending Attestation:??I have seen and evaluated this patient. ??I have discussed the case and itsmanagement with the resident and agree with the findings and plan as documented in the resident???snote. ?? Patient without much prior medical history presents with STEMI.?? There is a mention of diabetes but her hemoglobin A1c is 4.8 she is on no medical treatment she does not have diabetes.?? She does have some dyslipidemia with a low HDL but LDL is not high. ?? Status post PCI to the right coronary artery.?? Continue medical therapy. EKG study * Event Display: ECG 12-Lead Authored Date: Please click on pdf link to open report * Event Display: ECG 12-Lead Authored Date: Ventricular Rate: 81 BPM Atrial Rate: 81 BPM P-R Interval: 156 ms QRS Duration: 92 ms Q-T Interval: 424 ms QTC Calculation(Bazett): 492 ms P Cleves: 47 degrees R Cleves: -23 degrees T Cleves: -51 degrees Normal sinus rhythm Low voltage QRS Inferior infarct (cited on or before 21-May-2024) Abnormal ECG Confirmed by FLORENCIA CISNEROS ([id number]) on 05/23/2024 1:55:29 PM [place]: FLORENCIA CISNEROS * Event Display: EKG Authored Date: * Event Display: EKG Authored Date: * Event Display: ECG 12-Lead Authored Date: Please click on pdf link to open report * Event Display: ECG 12-Lead Authored Date: Ventricular Rate: 88 BPM Atrial Rate: 88 BPM P-R Interval: 150 ms QRS Duration: 88 ms Q-T Interval: 390 ms QTC Calculation(Bazett): 471 ms P Cleves: 45 degrees R Cleves: -31 degrees T Cleves: -32 degrees Normal sinus rhythm Left axis deviation Inferior infarct , age undetermined Abnormal ECG When compared with ECG of 21-May-2024 16:03, Changes of infero-posterior infarct are less pronounced Confirmed by Arthur Erazo ([id number]) on 05/22/2024 8:33:19 AM [place]: Arthur Erazo * Event Display: ECG 12-Lead Authored Date: [id number] Please click on pdf link to open report * Event Display: ECG 12-Lead Authored Date: [id number] Ventricular Rate: 77 BPM Atrial Rate: 77 BPM P-R Interval: 166 ms QRS Duration: 96 ms Q-T Interval: 374 ms QTC Calculation(Bazett): 423 ms P Cleves: 43 degrees R Cleves: 16 degrees T Cleves: 101 degrees Critical Test Result: STEMI Normal sinus rhythm infero-posterior infarct , possibly acute T wave abnormality, consider lateral ischemia ACUTE [place] / STEMI Consider right ventricular involvement in acute inferior infarct Abnormal ECG When compared with ECG of 15-Aug-2011 10:06, infero-posterior infarct is now Present Non-specific change in ST segment in Inferior leads T wave inversion now evident in Anterolateral leads Confirmed by KYLE WATSON MD ([id number]) on 05/22/2024 2:00:15 PM [place]: KYLE WATSON MD US Heart * Event Display: Echocardiogram - Complete Authored Date: [id number] Transthoracic Echocardiography Report (TTE) Patient Demographics Patient Name VLADIMIR HOLBROOK Date of Study 05/22/2024 Corporate Gender Female Facility Race Unknown .[id number] Ethnicity Date of 1960 Height: 61.81 inches Age 64 year(s) Weight: 207.24 pounds Accession Number [id number] BSA: 1.94 m2 Room Number [id number] BMI: 38.14 kg/m2 Referring Slim Wiseman MD Interpreting Sola Paredes MD Physician Physician Accounts Receivable Bookkeeper Kristine MAZARIEGOS Keerthi Indications STEMI. Clinical History Obesity. Study Data Type of Study TTE procedure:Echo Complete-(Doppler, Colorflow) with Contrast. Procedure Information:Definity was administered by Route Driver Salesperson . Study Date05/22/2024 Start Time: 07:48 AM Study Location: [facility] – [place] Echo Study Status: ICU/CCU Patient Status: Routine Technical Quality: Poor due to body habitus. Blood Pressure:91/67 mmHg EKG: Normal sinus rhythm HR: 79 bpm Contrast Medium: Definity. Amount - 2 ml 2D Measurements LV Diastolic Dimension: 4.56 cm LV Systolic Dimension: 3.55 cm LV Septum Diastolic: 1.12 cm LV PW Diastolic: 1.2 cm AO Root Dimension: 2.5 cm LA Dimension: 2.8 cm LVOT Stroke Volume: 51.79 ml LVOT: 2.05 cm Stroke Volume Index26.7 ml/m2 Ascending Aorta:2.9 cm Cardiac Index:2.11 l/min/m2 Doppler Measurements AV Peak Velocity: 143 cm/s MV Peak E-Wave: 57.2 cm/s AV Peak Gradient: 8.18 mmHg MV Peak A-Wave: 59 cm/s AV Mean Gradient: 4.32 mmHg MV E/A Ratio: 0.97 AV VTI:23.72 cm MV P1/2t: 67 msec LVOT Peak Velocity: 91.1 cm/s LVOT VTI15.7 cm MV Deceleration Time: 229 msec AV Area (Continuity):2.18 cm2 MV Area (PHT): 3.28 cm2 PV Peak Velocity: 78.4 cm/s PV Peak Gradient: 2.46 mmHg E' Septal Velocity: 5.87 cm/s E' Lateral Velocity: 7.4 cm/s E/Med E':[id number] E/Lat E':7.74539 Cardiac Anatomy Left Ventricle/Interventricular Septum The left ventricle is poorly visualized despite contrast enhancement. The apical views are foreshortened. The left ventricular size is normal. The left ventricular wall thickness is mildly increased. The LV systolic function is low normal . The left ventricular ejection fraction is 50-55 %. The basal to mid inferior, inferolateral wall is hypokinetic . There is no doppler evidence of increased filling pressures. Left Atrium/Interatrial Septum The left atrium is normal in size. Aortic Valve The aortic valve is is poorly visualized. There is no significant aortic stenosis. There is no aortic regurgitation. Mitral Valve The mitral valve opening is normal. There is trivial mitral regurgitation. Aorta The aortic root is normal in size. The ascending aorta is not well visualized. Right Ventricle The right ventricle is poorly visualized. The right ventricle is normal in size. Right ventricular systolic function appears preserved. Right Atrium The right atrium is poorly visualized. Pulmonic Valve The pulmonic valve is poorly visualized. Tricuspid Valve The tricuspid valve is poorly visualized. Pumonary Artery An accurate pulmonary artery pressure could not be obtained. Venous Structures The inferior vena cava appears grossly normal. Pericardium/Extracardiac There is no significant pericardial effusion. Summary The left ventricle is poorly visualized despite contrast enhancement. The apical views are foreshortened. The left ventricular size is normal. The left ventricular wall thickness is mildly increased. The LV systolic function is low normal . The left ventricular ejection fraction is 50-55 %. The basal to mid inferior, inferolateral wall is hypokinetic . There is no doppler evidence of increased filling pressures. The right ventricle is poorly visualized. The right ventricle is normal in size. Right ventricular systolic function appears preserved. Comparison No prior study available for comparison. Signature * Event Display: Echocardiogram - Complete Authored Date: Cardiology * Event Display: Cardiac Rhythm Strips Authored Date: * Event Display: Cardiac Rhythm Strips Authored Date: Hospital Progress note * Danitza Hamilton RN: PERFORM, SIGN, VERIFY Event Display: Progress Note Hospital Authored Date: Patient: VLADIMIR HOLBROOK Age: 64 years Sex: Female : 1960 Associated Diagnoses: None Author: Danitza Hamilton RN Findings Problem Related to Alteration in Cardiac Function (new) : Alteration in Cardiac Function/new 05/23/2024 12:00 EDT Alteration in Cardiac Status Related to Cardiac Procedure, Chest pain Goals & Outcomes, Cardiac Status Pt will resume/maintain adequate cardiac output, Pt will resume/maintain adequate hemodynamic status, Pt will resume/maintain adequate respiratory function, Pt will resume/maintain intact neuro function, Pt will maintain adequate GI/ function appropriate for pt, Pt will maintain adequate nutrition status, Pt will maintain adequate tissue oxygenation/ventilation, Pt/caregiver will state understanding of procedure, Pt will state pain at procedure site to be tolerable Cardiac Interventions Implemented Assess/monitor cardiac status, Assess/monitor neuro status, Assess/monitor respiratory status, Assess for tolerance of IV infusions; verify rate & dose, Document& Monitor O2 Sats; Administer O2 as ordered, Ensure adequate caloric intake, If no bowel movement in 3 days activate bowel regime, Obtain 12 Lead ECG and CXR as ordered, Prep pt for treatments &am p; procedures, Teach/encourage deep breath & cough exercises, Teach/encourage use of incentive spirometer, Apply pressure at puncture site if hematoma develops, Assess baseline peripheral pulses,Assess for post procedural discomfort, Assess for post procedural hematoma at site, Implement post p rocedure orders, Pre/post cath guideline Goals/Interventions, Cardiac Yes Cardiac, Problem Start 05/21/2024 17:16 Reviewed Plan with, Cardiac Status Patient Patient Progression, Cardiac Status Patient progressing according to plan . Nursing Data Vital Signs : VITAL SIGNS SECTION 05/23/2024 12:00 EDT Pulse Rate 87 bpm Systolic Blood Pressure 120 mm Hg Diastolic Blood Pressure 65 mm Hg Blood pressure sites Arm, left 05/23/2024 11:17 EDT Temperature 98 DegF Temperature Route Oral Pulse Rate 81 bpm Respiratory Rate 17 br/min Systolic Blood Pressure 113 mm Hg Diastolic Blood Pressure 57 mm Hg Blood pressure sites Arm, left Mean Arterial Pressure 76 mm Hg Pulse Pressure 56 mm Hg Oxygen Saturation 95 % Mode of Delivery (Oxygen) Room air . Narrative/Incidental Pt arrived to at approximately 11:17 via wheelchair. Ambulated from chair to bed independently -steady gait noted. weight/VS obtained on admission to room. AOx4, NS on tele - denied chest pain/discomfort. RA sat of 95% - denied SOB. Dressing to right wrist, clean dry and intact, distal pulses palpable - denied discomfort. Pt to be potentially discharged home today. Pt resting in bed, family at bedside, bed in lowest locked position and rings appropriately. . Discharge Information Cardiac Rehab Discharge : Cardiac Rehab 05/23/2024 11:26 EDT Patient attending Phase II Yes Where will pt be attending [address] [id number] [phone] * Charo Sanchez RN: PERFORM, MODIFY, SIGN, VERIFY Event Display: Progress Note Hospital Authored Date: [id number] Patient: VLADIMIR HOLBROOK Age: 64 years Sex: Female : 1960 Associated Diagnoses: None Author: Charo Sanchez RN Findings Problem Related to Alteration in Cardiac Function (new) : Alteration in Cardiac Function/new 05/23/2024 8:00 EDT Alteration in Cardiac Status Related to Cardiac Procedure, Chest pain Goals & Outcomes, Cardiac Status Pt will resume/maintain adequate cardiac output, Pt will resume/maintain adequate hemodynamic status, Pt will resume/maintain adequate respiratory function, Pt will resume/maintain intact neuro function, Pt will maintain adequate GI/ function appropriate for pt, Pt will maintain adequate nutrition status, Pt will maintain adequate tissue oxygenation/ventilation, Pt/caregiver will state understanding of procedure, Pt will state pain at procedure site to be tolerable Cardiac Interventions Implemented Assess/monitor cardiac status, Assess/monitor neuro status, Assess/monitor respiratory status, Assess for tolerance of IV infusions; verify rate & dose, Call/Report variances in ECG to provider, Document & Monitor O2 Sats; Administer O2 as ordered, Ensure adequate caloric intake, If no bowel movement in 3 days activate bowel regime, Monitor & document daily weight, Monitor anticoagulation values, Monitor ECG w/administration of antiarrhythmics (CO 13.420), Obtain 12 Lead ECG and CXR as ordered, Prep pt for treatments & procedures, Teach/encourage deep breath & cough exercises, Team conversation regarding appropriate level of care, Turn & reposition Q2 hours per activity restrictions, Use adjunctive therapies per Standards of Practice Goals/Interventions, Cardiac Yes Cardiac, Problem Start 05/21/2024 17:16 Reviewed Plan with, Cardiac Status Patient Patient Progression, Cardiac Status Patient progressing according to plan Comment: Cardiac Status Pt denies CP/SOB this am. Asking if she might be d/c'd home. at .s. Will discuss in rounds . Nursing Data Cardiac Data. : Cardiac Data. 05/23/2024 8:00 EDT Anterior Tibial Pulse, Left Normal Anterior Tibial Pulse, Right Normal Cardiovascular Symptoms None Nail Bed Color, Fingers Sobieski Nail Bed Color, Toes Sobieski Clubbing Present No Skin Temperature Upper Extremities Warm Skin Temperature Lower Extremities Warm Heart Sounds S1, S2 Heart Rhythm Regular Pacemaker No EKG Changes No Monitoring Lead II, V1/MCL1 Cardiac Rhythm Normal sinus rhythm Capillary Refill < 3 seconds Radial Pulse, Left Normal Radial Pulse, Right Normal Dorsalis Pedis Pulse, Left Normal Dorsalis Pedis Pulse, Right Normal Edema None AV fistula No . Evaluation P: See Care Plan above for problems I: See Care Plan above for interventions E: Pt s/p STEMI with ELEONORA to RCA. Right wrist site C/D/I. Pt denies CP/SOB. Tolerated ASA and Plavixthis am. Pt independent to BR, performs toileting independently. Educated pt on morning meds and importance of taking them daily. Educated pt on limiting lifting to 10lbs for 1 week and how to care for wrist site. Pt given Metoprolol and plan to monitor b/p for 2hrs and possible d/c home afterwards. Report called to M7 and RN informed of plan. at b.s. and updated on plan as well. . * Bety Hurley RN: PERFORM, SIGN, VERIFY Event Display: Progress Note Hospital Authored Date: Patient: VLADIMIR HOLBROOK Age: 64 years Sex: Female : 1960 Associated Diagnoses: None Author: Bety Hurley RN Findings Problem Related to Alteration in Cardiac Function (new) : Alteration in Cardiac Function/new 05/22/2024 21:49 EDT Alteration in Cardiac Status Related to Cardiac Procedure, Chest pain Goals & Outcomes, Cardiac Status Pt will resume/maintain adequate cardiac output, Pt will resume/maintain adequate hemodynamic status, Pt will resume/maintain adequate respiratory function, Pt will resume/maintain intact neuro function, Pt will maintain adequate GI/ function appropriate for pt, Pt will maintain adequate nutrition status, Pt will maintain adequate tissue oxygenation/ventilation, Pt/caregiver will state understanding of procedure, Pt will state pain at procedure site to be tolerable Cardiac Interventions Implemented Assess/monitor cardiac status, Assess/monitor neuro status, Assess/monitor respiratory status, Document & Monitor O2 Sats; Administer O2 as ordered, Teach/encourage deep breath & cough exercises Goals/Interventions, Cardiac Yes Cardiac, Problem Start 05/21/2024 17:16 Reviewed Plan with, Cardiac Status Patient Patient Progression, Cardiac Status Patient progressing according to plan . Evaluation Assumed care at 1900. Patient AxO x4, PERRLA. Pt on RA, no desaturations noted. Pt given PRN ambiento help with sleep. Medications given and labs drawn per MD order. Day shift nurse endorsed on patient care, safety maintained at all times. . Patient Care team information Care Team Personnel Name: Susan LUCERO , Wanda Ladd Position: Reference Physician Member Role: PCP Address: [address] Telecom: Care Team Related Persons Name: LORI HOLBROOK Insurance Providers Guarantor name: VLADIMIR HOLBROOK Health Plan Information #: 1 Payer: [employer] Member Number: [id number] Policy Number: NA Group Number: [facility] Health Plan Information #: 2 Payer: [employer] Member Number: [id number] Policy Number: NA Group Number: Health Plan Information #: 3 Payer: [employer] Member Number: NA Policy Number: NA Group Number: NA
== END 2024-05-27 16:32 | disposition home or self-care (01) ==
LOC: HO.HMCH 14:51
PROVIDERS: PCP Internal Medicine
DX: I21.11 ST elevation (STEMI) myocardial infarction involving right coronary artery (principal); Z98.890 Other specified postprocedural states; L29.9 Pruritus, unspecified

== ENCOUNTER → 2024-05-27 14:50 | Outpatient (BNVA) | payer OTHER, SELFPAY | PROVIDERS: PCP Internal Medicine | DX: M79.7 Fibromyalgia (principal); F41.9 Anxiety disorder, unspecified; E03.9 Hypothyroidism, unspecified; E11.9 Type 2 diabetes mellitus without complications; I21.11 ST elevation (STEMI) myocardial infarction involving right coronary artery; L29.9 Pruritus, unspecified; Z98.890 Other specified postprocedural states | CPT/HCPCS: 93005; 96127; 99212 ==

== ENCOUNTER 2024-06-30 09:11 | Outpatient (AMB) | payer OTHER, SELFPAY ==
--- OUTSIDE RECORDS SUMMARY | 2024-06-30 09:44 | XMS_ITS | Clinical Summary ---
Author Organization [facility] Address [address] [place] [address] Care Team Providers Care Coke Loader Name Role Phone Hoda Patino PA-C Primary Care Provider + [phone] Source Comments PLEASE NOTE, if this patient [...] Seen by RHEM Dr. Wily Rubio at [facility] [place]: dx: polyarthralgia + polymyalgia. Plan: labs; pt on statin, depression, Could be assoc with fibromyalgia. F/U 4 wks. 03/16/18 - Seen by RHEUM Dr. Wily Rubio at [facility]: polyarthralgia is multifactorial: hypothyroidism, pt is [...] and depression Overview (04/03/2015): Psych f/u @ [facility], formerly was seen by Dr. Garvin. Hepatic steatosis Overview (07/25/2014): Via [place] 04/06/13 at [facility]. Resolved Problems Problem Noted Date Diagnosed [...] 11/26/2020, 04/3 , 11/02/2019, Additional history exists [id number] ( season) 2023 Breast Cancer Screening (Mammogram) [...] TO FT4 1.75 0.40 - 4.50 mIU/L [facility] Blood Blood / Unknown 11/26/2020 9 :49 AM EDT 11/26/2020 9:49 AM EDT us Hoda Patino PA-C LAB - BLOOD DRAW Final Resul t [facility] [place] [employer] [address] [address], [facility] [address] [address] * (ABNORMAL) LIPID PANEL (11/26/2020 9:49 AM EDT) CHOLESTEROL, TOTAL 263(H) <200 mg/dL [facility] HDL CHOLESTEROL 43(L) > OR = 50 mg/dL [facility] TRIGLYCERIDES 279(H) <150 mg/dL [facility] Comment: If a non-fasting specimen was collected, consider repeat triglyceride testing on a fasting specimen if clinically indicated. Rigo et al. J. of Clin. Lipidol. 2015;9:129-169. LDL-CHOLESTEROL 170(H) 99 mg/dL (calc) [facility] Comment: Reference range: <100 Desirable range <100 mg/dL for primary prevention; ?? <70 mg/dL for patients with CHD or diabetic patients with > or = 2 CHD risk factors. LDL-C is now calculated using the Calvin-Jose calculation, which is a validated novel method providing better accuracy than the Friedewald equation in the estimation of LDL-C. Calvin SS et al. ASHLEY. 2013;310(19): 3483-2875 (http://education.Vega-Chi/faq/KMQ320) CHOL/HDLC RATIO 6.1(H) <5.0 (calc) [facility] NON-HDL CHOLESTEROL 220(H) <130 mg/dL (calc) [facility] Comment: Non-HDL level > or = 220 [...] LAB - BLOOD DRAW Final Resul t [facility] [address] [address], [employer] [facility] [address] [address] * (ABNORMAL) COMPRE METAB PANEL (06/22/2020 2:36 PM EDT) GLUCOSE 99 65 - 99 mg/dL [employer] Comment: ?Fasting reference interval UREA NITROGEN (BUN) 10 7 - 25 mg/dL [employer] CREATININE (blood) 0.76 0.50 - 1.05 mg/dL [employer] Comment: For patients >49 years of age, the reference limit for Creatinine is approximately 13% higher for people identified as -Micronesian. GFR ESTIMATED 86 > OR = 60 mL/min/1 .73m2 [employer] EGFR 100 > OR = 60 mL/min/1 .73m2 [facility] BUN/CREATININE RATIO NOT APPLICABLE 6 - 22 [employer] SODIUM 137 135 - 146 mmol/L [facility] POTASSIUM 4.4 3.5 - 5.3 mmol/L [facility] CHLORIDE 102 98 - 110 mmol/L [facility] CARBON DIOXIDE 24 20 - 32 mmol/L [facility] CALCIUM 9.8 8.6 - 10.4 mg/dL [employer] PROTEIN, TOTAL 7.2 6.1 - 8.1 g/dL [facility] ALBUMIN 4.3 3.6 - 5.1 g/dL [facility] GLOBULIN 2.9 1.9 - 3.7 g/dL (calc) [facility] [place] [employer] ALBUMIN/GLOBULIN RATIO 1.5 1.0 - 2.5 (calc) [facility] BILIRUBIN, TOTAL 0.4 0.2 - 1.2 mg/dL [employer] ALKALINE PHOSPHATASE 75 37 - 153 U/L [facility] AST 35 10 - 35 U/L [facility] ALT 48(H) 6 - 29 U/L [facility] Blood Blood / Unknown 06/22/2020 2 :36 PM EDT 06/22/2020 2:37 PM EDT Narrative [facility] - 06/22/2020 9:04 PM EDT FASTING:YES Hoda Patino PA-C LAB - BLOOD DRAW Final Resul t [facility] [address] [facility] [address] [place] [address], [facility] [address] [facility] [address] [facility] [address] * PAP, LIQUID BASED (12/22/2017 1:39 PM EDT) PAP normal NORMAL - ABNORMAL [facility] Specimen from uterine cervix (specimen) Cervix uteri structure / Unknown 12/22/2017 1:39 PM EDT Impressions [facility] - 12/30/2017 2:54 PM EST ThinPrep Pap Negative for squamous intraepithelial lesion and malignancy HPV Negative April Pickard PA-C LAB - NO BLOOD DRAW Final Result [facility] [address] [place] [address], * (ABNORMAL) HEPATITIS A,B,C PANEL (09/21/2017 10:45 AM EDT) HEPATITIS B SURFACE ANTIBODY NEGATIVE NEGATIVE [facility] HEPATITIS B SURFACE ANTIGEN NEGATIVE NEGATIVE [facility] Comment: Over the counter supplements containing high doses of biotin may interfere with this assay. ??If interference is suspected, patients shoud be retested after refraining from biotin supplements for 72 hours. HEPATITIS C VIRUS DIAGNOSTIC NEGATIVE NEGATIVE [facility] HEPATITIS B CORE ANTIBODY NEGATIVE NEGATIVE [facility] HEPATITIS A ANTIBODY TOTAL POSITIVE(A) NEGATIVE [facility] Comment: Over the counter supplements containing high doses of biotin may interfere with this assay. ??If interference is suspected, patients shoud be retested after refraining from biotin supplements for 72 hours. Blood specimen (specimen) Blood / Unknown 09/21/2017 10:45 AM EDT 09/21/2017 12:57 PM EDT [facility] - 09/21/2017 2:24 PM EDT [employer]metry [address] [place] [address] [place] [id number] ORD# [id number] April Pickard PA-C LAB - BLOOD DRAW Edited R [employer] - Final Performing Organization Address [facility] Co de Phone Number [address] [address], [place] [phone] * HIV-1 & HIV-2 ANTIBODIES (09/21/2017 10:45 AM EDT) [facility] HIV 1 AND 2 ANTIBODY SCREEN NEGATIVE NEGATIVE [facility] Comment: This assay is a [...] AM EDT 09/21/2017 12:57 PM EDT [facility] - 09/21/2017 2:53 PM EDT [employer] [address] [place] [address] [place] [id number] ORD# [id number] April Pickard PA-C LAB - BLOOD DRAW Edited [employer] - Final Performing Organization Address [facility] de Phone Number [address] [address], [place] [phone] from Last 3 Months or Most Recently Relevant to Health Maintenance Insurance [employer] Care Teams Coke Loader Relationship Specialty Start Date End Date Hoda Patino PA-C [address] [place] [phone] PCP - General Internal Medicine 02/03/19
--- OUTSIDE RECORDS SUMMARY | 2024-06-30 09:44 | XMS_ITS | Clinical Summary ---
Author Organization [facility] Address [address] [place] [phone] Phone Care Team Providers Care External Grinder Tool Name Role Phone Niecy Cabello MD Primary Care Provider [phone] Family History Medical History Relation Name Comments [...] ( season) 2023 07/28/2020, 07/07/2020 Influenza Vaccine (Season Ended) 2024 10/19/2020, 02/09/2019, 12/11/2017, Additional history exists Cholesterol Screening [...] age to complete this topic Meningococcal B Vaccine Aged Out No l onger eligible based on patient's age to complete [...] Signed Date: 01/22/2024 11:32 ET Workstation ID: [id number] Transcribed By: Self Edit Transcribed Date: 01/22/2024 [...] Signed Date: 01/22/2024 11:32 ET Workstation ID: [id number] Transcribed By: Self Edit Transcribed Date: 01/22/2024 11:23 ET us Self Referral Sppl IMG BI PROCEDURES Final Resul t from Last 3 Months or Most Recently Relevant to Health Maintenance Insurance MEDICA[place] - [place] Care Teams External Grinder Tool Relationship Specialty Start Date End Date Niecy Cabello MD [address] [place] [address] , [address] [facility] D[facility]A: [facility] [place], [place] PCP - General Internal Medicine 01/22/24
--- NOTE | 2024-06-30 10:02 | AM.OFFWIN_ITS ---
Intake Vital Signs 3 06/30/24 10:03 Weight 189 lb BP 120/80 Blood Pressure Location Lt brachial Position Sitting Pulse 80 Pulse Source Pulse Oximeter Pulse Oximetry (%) 98 Oxygen Delivery Method Room Air Intake Visit Reasons: EP- Cold sore on lip check Intake Note: Patient here for sore on lip on upper lip that has been present for about 1 week. Patient Tobacco Use Status: Never used Tobacco Allergies spicy food Adverse Reaction (Uncoded 06/30/24 10:42) Hives Medication List - Last Reconciled 06/30/24 by ELISEO Bermudez- acetaminophen ER (Tylenol 8 Hour) 650 mg PO Q8H PRN 30 days aspirin (Adult Low Dose Aspirin) 81 mg PO DAILY atorvastatin 80 mg PO DAILY [blood pressure machine As directed] cetirizine (All Day Allergy (cetirizine)) 10 mg PO DAILY PRN 90 days cholecalciferol (vitamin D3) 50 mcg PO DAILY 90 days clopidogrel 75 mg PO DAILY clotrimazole-betamethasone 1-0.05 % 1 appl topical BID 10 days cyanocobalamin (vitamin B-12) 1,000 mcg IM Q4W 4 weeks fluticasone propionate 50 mcg/actuation (Flonase Allergy Relief) 1 spray intranasal DAILY 30 days gabapentin 300 mg PO BEDTIME 90 days hydrocortisone 2.5% 1 appl [place] BID-QID PRN 2 weeks hydroxyzine HCl 50 mg PO QID PRN insulin syringe-needle U-100 ([employer] Syringes) As directed levothyroxine 112 mcg PO DAILY metoprolol succinate ER 25 mg PO DAILY rosuvastatin 20 mg PO DAILY syringe with needle (Monoject 3cc Syringe) As directed once a week tramadol 50 mg PO Q12H PRN zolpidem 10 mg PO BEDTIME PRN Do you need a note to return to daycare/school/sports/work: No HPI HPI Comments 2 History of Present Illness0 Details History of Present Illness - The patient is a 64-year-old female pr esenting with a cold sore. - The cold sore initially appeared a few weeks prior and is present on her upper lip, lasting about 3 weeks so far. - It bleeds upon contact, attributed to blood-thinning medication. - Swelling noted predominantly externall y around the mouth. - The patient has no history of herpes s implex cold sores but has a history of coronary artery disease with stent placement. - Post heart attack surgery, the patient encountered a rash inside the mouth, potentially a medication reaction; specific medication details are not known. She does report this area started after exposure to this med. She is not doing anything to treat the area. - Experiencing related symptoms of high fever and excessive sweating following surgery. - The initial medication causing the xavi h was reportedly changed, though unconfirmed details regarding the new medication are unavailable. Physical Exam Discussion Notes Today, I discussed at length with the patient her current condition, including the presence of a sore on her lip lasting several weeks and its tendency to bleed, possibly exacerbated by blood-thinning medications. This could be a scab/clot, but i am not sure, it does not look like herpes. We deliberated about applying bacitracin to the affected area to help soften it and mitigate the risk of bleeding, though I emphasized not to pick or pull at the lesion to avoid complications. Due to the nature of our setting today, I am unable to arrange for referral directly but suggested contact with the primary care provider for further assessment or to secure a biopsy if deemed necessary. I sent a message marked as urgent to the patient's primary care office to prompt more immediate evaluation and possible referral. I instructed the patient to follow up with her primary and advised on the application of a topical emollient to keep the area soft and potentially promote healing. I also noted her prior medication reaction and suggested this be added to her medical record for future reference to prevent reoccurrence. No promises about the timeframe for her primary office's response were made, but urgency for evaluation was stressed. I spent time looking for her d/c paperwork but was unable to find it. Patient Instructions - Apply bacitracin topically on the cold sore to keep it soft and avoid picking at it. - Use a gentle emollient and avoid abras scott contact to prevent bleeding. - Follow up with your primary care provi fran as soon as possible for further assessment. - Make sure your medication allergy list is updated with your experience of a rash post heart surgery. - Contact your healthcare provider immed iately if the sore worsens or you experience other symptoms. Consent The patient verbally consented to the use of topical treatments to alleviate the symptoms of her cold sore and understands that further evaluation will be necessary through her primary care provider. She acknowledges the importance of updating her medical records related to medication allergies for her future healthcare. Patient was informed and verbally consented to the use of an ambient scribe for clinic note documentation during this visit. Total time spent caring for the patient today was 30 minutes. This includes time spent before the visit reviewing the chart, time spent during the visit, and time spent after the visit on documentation, reviewing laboratory results, diagnostic imaging, medications, performing a medically necessary evaluation, counseling on diagnoses, care coordination, ordering appropriate tests, ordering appropriate medications, review of tests performed by other providers, reporting test results with the patient, communication with other healthcare providers. [facility] Medical History (Updated 06/30/24 @ 11:19 by BOBBI Bermudez) Acquired hypothyroidism Anxiety Cholelithiasis Dry skin dermatitis Fibromyalgia Impaired fasting glucose Insomnia Mixed dyslipidemia Polyarthralgia Polyarthralgia STEMI (ST elevation myocardial infarction) Varicose veins of bilateral lower extremities with pain Vitamin B12 deficiency Vitamin D deficiency Surgical History (Updated 05/28/24 @ 17:38 by BETH Ellison) H/O blepharoplasty History of esophagogastroduodenoscopy (EGD) Hx of colonoscopy S/P cholecystectomy Status post cardiac catheterization Family History Sister Breast cancer Mother Essential hypertension Cholelithiasis Social History Housing: House Are you a primary child care coordinator to a significant other at home: No Do you presently have visiting nurse or other home services: No Alcohol intake: never Patient Tobacco Use Status: Never used Tobacco e-Cigarette/Vaping Use: Never Used Second Hand Smoke Exposure: No service: No Current occupational status: unemployed Cognitive needs: No Hearing needs: No Vision needs: No Physical Exam Vital Signs: Last Vital Signs Pulse 80 06/30/24 10:03 BP 120/80 06/30/24 10:03 Pulse Ox 98 06/30/24 10:03 Oxygen Delivery Method Room Air 06/30/24 10:03 Assessment & Plan Assessment & Plan (1) Sore of lower lip: Code(s): K13.0 - Diseases of lips Plan: . Coding Level of Care Code Est Pt Level 4 (57711) Diagnoses Sore of lower lip K13.0
[2024-06-30 10:03] VITALS: BP 120/80; PULSE 80; O2SAT 98
== END 2024-06-30 10:51 | disposition home or self-care (01) ==
PROVIDERS: PCP Internal Medicine; Visit Provider Nurse Practitioner Family
DX: K13.0 Diseases of lips (principal)

== ENCOUNTER → 2024-06-30 09:11 | Outpatient (BNVA) | payer OTHER, SELFPAY | PROVIDERS: PCP Internal Medicine; Visit Provider Nurse Practitioner Family | DX: K13.0 Diseases of lips (principal) | CPT/HCPCS: 99212 ==

== ENCOUNTER 2024-07-04 10:21 | Outpatient (AMB) | payer OTHER, SELFPAY ==
--- NOTE | 2024-07-04 10:22 | MHC.PC.OV ---
Vital Signs 07/04/24 10:23 Height 5 ft 2 in Weight 189 lb BMI 34.6 BP 120/72 Blood Pressure Location Lt brachial Position Sitting Intake Visit Reasons: lesion on upper lip- double book per DR Mclain Carbon Brushes Assembler Required: No Accompanied by: Self / Same As Patient Allergies spicy food Adverse Reaction (Uncoded 07/04/24 10:32) Hives Medication List - Last Reconciled 07/04/24 by Niecy Cabello MD acetaminophen ER (Tylenol 8 Hour) 650 mg PO Q8H PRN 30 days aspirin (Adult Low Dose Aspirin) 81 mg PO DAILY atorvastatin 80 mg PO DAILY [blood pressure machine As directed] cetirizine (All Day Allergy (cetirizine)) 10 mg PO DAILY PRN 90 days cholecalciferol (vitamin D3) 50 mcg PO DAILY 90 days clopidogrel 75 mg PO DAILY clotrimazole-betamethasone 1-0.05 % 1 appl topical BID 10 days cyanocobalamin (vitamin B-12) 1,000 mcg IM Q4W 4 weeks fluticasone propionate 50 mcg/actuation (Flonase Allergy Relief) 1 spray intranasal DAILY 30 days gabapentin 300 mg PO BEDTIME 90 days hydrocortisone 2.5% 1 appl MO BID-QID PRN 2 weeks hydroxyzine HCl 50 mg PO QID PRN insulin syringe-needle U-100 (Advocate Syringes) As directed levothyroxine 112 mcg PO DAILY metoprolol succinate ER 25 mg PO DAILY rosuvastatin 20 mg PO DAILY syringe with needle (Monoject 3cc Syringe) As directed once a week tramadol 50 mg PO Q12H PRN zolpidem 10 mg PO BEDTIME PRN Tobacco use date assessed: 05/27/24 Dental Screening Dental Screen Date: 05/27/24 HPI HPI Comments History of Present Illness Details The patient is a 64-year-old female presenting with concerns surrounding her chronic health conditions and a new lip lesion. She experienced a ST-Elevation Myocardial Infarction in April and received a stent in the mid-right coronary artery. Post-myocardial infarction management changes included the temporary discontinuation of atorvastatin due to suspected side effects. She has a background of pernicious anemia managed with vitamin B12 and hypothyroidism controlled with levothyroxine. The patient reports experiencing a lip lesion that appeared about three weeks ago. It initially presented as swollen and has since reduced in size, although there was notable bleeding upon accidental contact. There are additional concerns surrounding the recent episode of abnormal uterine bleeding, which means a significant deviation from her normal state. [facility] Medical History (Updated 07/04/24 @ 10:44 by Niecy Cabello MD) STEMI (ST elevation myocardial infarction) Polyarthralgia Dry skin dermatitis Impaired fasting glucose Mixed dyslipidemia Vitamin B12 deficiency Vitamin D deficiency Varicose veins of bilateral lower extremities with pain Polyarthralgia Cholelithiasis Insomnia Fibromyalgia Acquired hypothyroidism Anxiety Surgical History Status post cardiac catheterization History of esophagogastroduodenoscopy (EGD) Hx of colonoscopy H/O blepharoplasty S/P cholecystectomy Family History Sister Breast cancer Mother Essential hypertension Cholelithiasis Social History Housing: House Are you a primary district manager primary care sales to a significant other at home: No Do you presently have visiting nurse or other home services: No Alcohol intake: never Patient Tobacco Use Status: Never used Tobacco e-Cigarette/Vaping Use: Never Used Second Hand Smoke Exposure: No service: No Current occupational status: unemployed Cognitive needs: No Hearing needs: No Vision needs: No Questionnaire Thrive Questionnaire Date Thrive assessed: 05/27/24 HEMA-7 AMB Questionnaire HEMA-7 Date HEMA - 7 assessed: 05/27/24 Source: Developed by Drs. Sánchez Gupta, Maria Del Rosario Reyna, Jason Coleman and colleagues, with an educational james from [employer]. Review of Systems Const All systems reviewed & are unremarkable except as noted in HPI and below Card Denies chest pain at rest, Denies chest pain with activity, Denies edema, Denies irregular heart rhythm, Denies claudication, Denies dyspnea, Denies dyspnea on exertion, Denies orthopnea, Denies paroxysmal nocturnal dyspnea and Denies slow heart rate Resp Denies cough, Denies dyspnea and Denies dyspnea on exertion Skin/Breast Reports lesions Physical exam (Primary Care) Vital Signs: Last Vital Signs BP 120/72 07/04/24 10:23 BMI result Body Mass Index 34.6 BMI Assessment/Plan discussion: High BMI High, discussed plan: lifestyle, weight reduction, dietary and physical activity Tobacco/Smoking Status: Tobacco use Status Tobacco use date assessed 05/27/24 07/04/24 10:28 Patient Tobacco Use Status Never used Tobacco 07/04/24 10:28 e-Cigarette/Vaping Use Never Used 07/04/24 10:28 Thrive Assessment: Date of Thrive Assessment Date Thrive assessed 05/27/24 07/04/24 10:28 Resp Effort & Inspection: normal respiratory effort Auscultation: clear to auscultation bilaterally Cardio Jugular venous distension: no JVD Rate: regular rate Rhythm: regular rhythm Heart sounds: S1 normal heart sound present and S2 normal heart sound present Skin Other: upper lip dark lesion Extrem General: Yes full ROM Coding Level of Care Code Est Pt Level 4 (05880) Complex EM visit Add On G2211 Diagnoses Lip lesion K13.0 Dysfunctional uterine bleeding N93.8 ST elevation myocardial infarction involving right coronary artery I21.11 Involved coronary artery: right coronary artery Pernicious anemia D51.0 Moderate major depression F32.1 Transaminitis R74.01 Acquired hypothyroidism E03.9 Time Spent (min) 23 Assessment & Plan Assessment & Plan (1) Lip lesion: Code(s): K13.0 - Diseases of lips Category: Medical (2) Dysfunctional uterine bleeding: Code(s): N93.8 - Other specified abnormal uterine and vaginal bleeding Category: Medical (3) STEMI (ST elevation myocardial infarction): Code(s): I21.3 - ST elevation (STEMI) myocardial infarction of unspecified site Category: Medical Qualifiers: Involved coronary artery: right coronary artery Qualified Code(s): I21.11 - ST elevation (STEMI) myocardial infarction involving right coronary artery (4) Pernicious anemia: Code(s): D51.0 - Vitamin B12 deficiency anemia due to intrinsic factor deficiency Category: Medical (5) Moderate major depression: Code(s): F32.1 - Major depressive disorder, single episode, moderate Category: Medical (6) Transaminitis: Code(s): R74.01 - Elevation of levels of liver transaminase levels Category: Medical (7) Acquired hypothyroidism: Code(s): E03.9 - Hypothyroidism, unspecified Category: Medical Plan The current management for pernicious anemia, hypothyroidism, insomnia, and allergy will continue. Atorvastatin has been suspended due to suspected adverse effects, pending re-evaluation. A case reviewer will assess the lip lesion, and a biopsy should be scheduled if it persists. Cardiovascular health monitoring will include routine bloodwork. An AIRPORT TRAFFIC CONTROLLER will evaluate the episode of abnormal uterine bleeding. Allergies will continue to be managed with cetirizine, and chronic pain with gabapentin. Patient was informed and verbally consented to the use of an ambient scribe for clinic note documentation during this visit. I discussed with the patient the management plans for her existing conditions, including myocardial infarction post-management and her allergic reactions. We reviewed the risks and benefits of stopping atorvastatin, noting the nurse practitioner's advice to halt its use due to potential side effects. Additionally, I explained the need for further assessment of the lip lesion by dermatology and the possibility of a biopsy, if warranted. I addressed her concern about the unexpected uterine bleeding, recommending AIRPORT TRAFFIC CONTROLLER consultation for a thorough evaluation. Follow-up was discussed to monitor her chronic conditions and address any new developments. Orders: Orders Vitamin D 25-OH Total Today E55.9 - Vitamin D deficiency, unspecified Lipid Panel Today E78.5 - Hyperlipidemia, unspecified Complete Blood Count Auto Diff Today D64.9 - Anemia, unspecified IRON PROFILE Today D64.9 - Anemia, unspecified Vitamin B12 and Folate Today E53.8 - Deficiency of other specified B group vitamins Comprehensive [place]. Panel Fast Today I21.11 - ST elevation (STEMI) myocardial infarction involving right coronary artery Thyroid Stimulating Hormone Today E03.9 - Hypothyroidism, unspecified Referrals Dermatology Referral K13.0 - Diseases of lips AIRPORT TRAFFIC CONTROLLER Referral N93.8 - Other specified abnormal uterine and vaginal bleeding Patient Instructions: - Continue current medications for pernicious anemia and hypothyroidism as prescribed. - Avoid high-dose atorvastatin as previously discussed. - Monitor the lip lesion for any changes or complications and follow up with a case reviewer. - Note any recurrence or changes in bleeding patterns and consult with AIRPORT TRAFFIC CONTROLLER. - Report any significant changes in health conditions or new symptoms. - Schedule follow-up appointments and bloodwork as recommended within the next three months.
[2024-07-04 10:23] VITALS: BP 120/72; BMI 34.6
--- OUTSIDE RECORDS SUMMARY | 2024-07-04 10:54 | XMS_ITS | Clinical Summary ---
Author Organization [facility] Address [address] [place] [phone] Phone Care Team Providers Care Systems Tester Name Role Phone Niecy Cabello MD Primary Care Provider [phone] Family History Medical History Relation Name Comments [...] Signed Date: 01/22/2024 11:32 ET Workstation ID: [id number] Transcribed By: Self Edit Transcribed Date: 01/22/2024 [...] Signed Date: 01/22/2024 11:32 ET Workstation ID: [id number] Transcribed By: Self Edit Transcribed Date: 01/22/2024 11:23 ET us Self Referral Sppl IMG BI PROCEDURES Final Resul t from Last 3 Months or Most Recently Relevant to Health Maintenance Insurance MEDICA[place] Care Teams Systems Tester Relationship Specialty Start Date End Date Niecy Cabello MD [address] [place] [address] , [address] [facility] D/B/A: [facility] [place], [place] PCP - General Internal Medicine 01/22/24
--- OUTSIDE RECORDS SUMMARY | 2024-07-04 10:54 | XMS_ITS | Clinical Summary ---
Author Organization [facility] Address [address] [place] [address] Care Team Providers Care Public Health Inspector Name Role Phone Hoda Patino PA-C Primary Care Provider [phone] Source Comments PLEASE NOTE, if this patient [...] [place] RHEM [place] [facility] [place]: [place] + polymyalgia. Plan: labs; pt on statin, depression, Could be assoc with fibromyalgia. F/U 4 wks. 03/16/18 - Seen by RHEUM Dr. Wily Rubio at [facility]: polyarthralgia is multifactorial: hypothyroidism, pt is [...] and depression Overview (04/03/2015): Psych f/u @ [facility], formerly was seen by Dr. Garvin. Hepatic steatosis Overview (07/25/2014): Via [place] 04/06/13 at [facility]. Resolved Problems Problem Noted Date Diagnosed Date [...] 11/26/2020, 04/3 , 11/02/2019, Additional history exists [id number] ( season) 2023 Breast Cancer Screening (Mammogram) [...] TO FT4 1.75 0.40 - 4.50 mIU/L [facility] Blood Blood / Unknown 11/26/2020 9 :49 AM EDT 11/26/2020 9:49 AM EDT us Hoda Patino PA-C LAB - BLOOD DRAW Final Resul t [facility] [address] [address], [facility] [address] [address] * (ABNORMAL) LIPID PANEL (11/26/2020 9:49 AM EDT) CHOLESTEROL, TOTAL 263(H) <200 mg/dL [facility] HDL CHOLESTEROL 43(L) > OR = 50 mg/dL [facility] TRIGLYCERIDES 279(H) <150 mg/dL [facility] Comment: If a non-fasting specimen was collected, consider repeat triglyceride testing on a fasting specimen if clinically indicated. Rigo et al. J. of Clin. Lipidol. 2015;9:129-169. LDL-CHOLESTEROL 170(H) 99 mg/dL (calc) [facility] Comment: Reference range: <100 Desirable range <100 mg/dL for primary prevention; ?? <70 mg/dL for patients with CHD or diabetic patients with > or = 2 CHD risk factors. LDL-C is now calculated using the Calvin-Jose calculation, which is a validated novel method providing better accuracy than the Friedewald equation in the estimation of LDL-C. Calvin SS et al. ASHLEY. 2013;310(19): 8385-0868 (http://education.[employer]/faq/OUI954) CHOL/HDLC RATIO 6.1(H) <5.0 (calc) [facility] NON-HDL CHOLESTEROL 220(H) <130 mg/dL (calc) [facility] Comment: Non-HDL level > or = 220 [...] LAB - BLOOD DRAW Final Resul t [facility] [address] [address], [facility] [address] [address] * (ABNORMAL) COMPRE METAB PANEL (06/22/2020 2:36 PM EDT) GLUCOSE 99 65 - 99 mg/dL [facility] Comment: ?Fasting reference interval UREA NITROGEN (BUN) 10 7 - 25 mg/dL [facility] CREATININE (blood) 0.76 0.50 - 1.05 mg/dL [facility] Comment: For patients >49 years of age, the reference limit for Creatinine is approximately 13% higher for people identified as -Macedonian. GFR ESTIMATED 86 > OR = 60 mL/min/1 .73m2 [facility] EGFR 100 > OR = 60 mL/min/1 .73m2 [facility] BUN/CREATININE RATIO NOT APPLICABLE 6 - 22 [facility] SODIUM 137 135 - 146 mmol/L [facility] POTASSIUM 4.4 3.5 - 5.3 mmol/L [facility] CHLORIDE 102 98 - 110 mmol/L [facility] CARBON DIOXIDE 24 20 - 32 mmol/L [facility] CALCIUM 9.8 8.6 - 10.4 mg/dL [facility] PROTEIN, TOTAL 7.2 6.1 - 8.1 g/dL [facility] ALBUMIN 4.3 3.6 - 5.1 g/dL [facility] GLOBULIN 2.9 1.9 - 3.7 g/dL (calc) [facility] [place] [facility] ALBUMIN/GLOBULIN RATIO 1.5 1.0 - 2.5 (calc) [facility] BILIRUBIN, TOTAL 0.4 0.2 - 1.2 mg/dL [facility] ALKALINE PHOSPHATASE 75 37 - 153 U/L [facility] AST 35 10 - 35 U/L [facility] ALT 48(H) 6 - 29 U/L [facility] Blood Blood / Unknown 06/22/2020 2 :36 PM EDT 06/22/2020 2:37 PM EDT Narrative [facility] - 06/22/2020 9:04 PM EDT FASTING:YES Hoda Patino PA-C LAB - BLOOD DRAW Final Resul t [facility] [address] [facility] [address] [place] [address], [facility] [address] [facility] [address] [facility] [address] * PAP, LIQUID BASED (12/22/2017 1:39 PM EDT) PAP normal NORMAL - ABNORMAL [facility] Specimen from uterine cervix (specimen) Cervix uteri structure / Unknown 12/22/2017 1:39 PM EDT Impressions [facility] - 12/30/2017 2:54 PM EST ThinPrep Pap Negative for squamous intraepithelial lesion and malignancy HPV Negative April Pickard PA-C LAB - NO BLOOD DRAW Final Result [facility] [address] [place] [address], * (ABNORMAL) HEPATITIS A,B,C PANEL (09/21/2017 10:45 AM EDT) HEPATITIS B SURFACE ANTIBODY NEGATIVE NEGATIVE [facility] HEPATITIS B SURFACE ANTIGEN NEGATIVE NEGATIVE [facility] Comment: Over the counter supplements containing high doses of biotin may interfere with this assay. ??If interference is suspected, patients shoud be retested after refraining from biotin supplements for 72 hours. HEPATITIS C VIRUS DIAGNOSTIC NEGATIVE NEGATIVE [facility] HEPATITIS B CORE ANTIBODY NEGATIVE NEGATIVE [facility] HEPATITIS A ANTIBODY TOTAL POSITIVE(A) NEGATIVE [facility] Comment: Over the counter supplements containing high doses of biotin may interfere with this assay. ??If interference is suspected, patients shoud be retested after refraining from biotin supplements for 72 hours. Blood specimen (specimen) Blood / Unknown 09/21/2017 10:45 AM EDT 09/21/2017 12:57 PM EDT [facility] - 09/21/2017 2:24 PM EDT [employer] [address] [place] [address] [place] [id number] ORD# [id number] April Pickard PA-C LAB - BLOOD DRAW Edited R [employer] - Final Performing Organization Address [facility] Co de Phone Number [address] [address], [place] [phone] * HIV-1 & HIV-2 ANTIBODIES (09/21/2017 10:45 AM EDT) [facility] HIV 1 AND 2 ANTIBODY SCREEN NEGATIVE NEGATIVE [facility] Comment: This assay is a 4th generation [...] 10:45 AM EDT 09/21/2017 12:57 PM EDT [facility] - 09/21/2017 2:53 PM EDT [employer] [address] [place] [address] [place] [id number] ORD# [id number] April Pickard PA-C LAB - BLOOD DRAW Edited [employer] - Final Performing Organization Address [facility] de Phone Number [address] [address], [place] [phone] from Last 3 Months or Most Recently Relevant to Health Maintenance Insurance [employer] Care Teams Public Health Inspector Relationship Specialty Start Date End Date Hoda Patino PA-C [address] [place] [phone] PCP - General Internal Medicine 02/03/19
== END 2024-07-04 10:46 | disposition home or self-care (01) ==
PROVIDERS: PCP Internal Medicine; Visit Provider Internal Medicine
DX: I25.2 Old myocardial infarction (principal); F32.1 Major depressive disorder, single episode, moderate; K13.0 Diseases of lips; N93.8 Other specified abnormal uterine and vaginal bleeding; D51.0 Vitamin B12 deficiency anemia due to intrinsic factor deficiency; R74.01 Elevation of levels of liver transaminase levels; E03.9 Hypothyroidism, unspecified

== ENCOUNTER → 2024-07-04 10:21 | Outpatient (BNVA) | payer OTHER, SELFPAY | PROVIDERS: PCP Internal Medicine; Visit Provider Internal Medicine | DX: N93.8 Other specified abnormal uterine and vaginal bleeding (principal); K13.0 Diseases of lips; I21.11 ST elevation (STEMI) myocardial infarction involving right coronary artery; D51.0 Vitamin B12 deficiency anemia due to intrinsic factor deficiency; F32.1 Major depressive disorder, single episode, moderate; R74.01 Elevation of levels of liver transaminase levels; E03.9 Hypothyroidism, unspecified; E55.9 Vitamin D deficiency, unspecified; E78.5 Hyperlipidemia, unspecified; D64.9 Anemia, unspecified | CPT/HCPCS: 99212 ==

== ENCOUNTER 2024-07-05 08:34 | Outpatient (REF) | payer OTHER, SELFPAY ==
--- OUTSIDE RECORDS SUMMARY | 2024-07-05 08:51 | XMS_ITS | Clinical Summary ---
Author Organization [facility] Address [address] [place] [address] Care Team Providers Care Stationary Engineer Name Role Phone Hoda Patino PA-C Primary Care Provider + [phone] Source Comments PLEASE NOTE, if this patient [...] Seen by RHEM Dr. Wily Rubio at [facility]: dx: polyarthralgia + polymyalgia. Plan: labs; pt on statin, depression, Could be assoc with fibromyalgia. F/U 4 wks. 03/16/18 - Seen by RHEUM Dr. Wily Rubio at [facility]: polyarthralgia is multifactorial: hypothyroidism, pt is on [...] and depression Overview (04/03/2015): Psych f/u @ [facility], formerly was seen by Dr. Garvin. Hepatic steatosis Overview (07/25/2014): Via [place] 04/06/13 at [facility]. Resolved Problems Problem Noted Date Diagnosed [...] 11/26/2020, 04/3 , 11/02/2019, Additional history exists [id number] ( season) 2023 Breast Cancer Screening (Mammogram) [...] EST) 01/09/2023 3:00 AM EST us Hoda aPtino PA-C IMG MAMMO Final Result * TSH W/RFLX FREE T4 (11/26/2020 9:49 AM EDT) TSH W/REFLEX TO FT4 1.75 0.40 - 4.50 mIU/L [facility] Blood Blood / Unknown 11/26/2020 9 :49 AM EDT 11/26/2020 9:49 AM EDT us Hoda Patino PA-C LAB - BLOOD DRAW Final Resul t [facility] [place] [address] [address], [facility] [address] [address] * (ABNORMAL) LIPID PANEL (11/26/2020 9:49 AM EDT) CHOLESTEROL, TOTAL 263(H) <200 mg/dL [facility] HDL CHOLESTEROL 43(L) > OR = 50 mg/dL [facility] TRIGLYCERIDES 279(H) <150 mg/dL [facility] Comment: If a non-fasting specimen was collected, consider repeat triglyceride testing on a fasting specimen if clinically indicated. Rigo et al. J. of Clin. Lipidol. 2015;9:129-169. LDL-CHOLESTEROL 170(H) 99 mg/dL (calc) [facility] Comment: Reference range: <100 Desirable range <100 mg/dL for primary prevention; ?? <70 mg/dL for patients with CHD or diabetic patients with > or = 2 CHD risk factors. LDL-C is now calculated using the Calvin-Jose calculation, which is a validated novel method providing better accuracy than the Friedewald equation in the estimation of LDL-C. Calvin SS et al. ASHLEY. 2013;310(19): 1819-3881 (http://education.[employer]/faq/RFL663) CHOL/HDLC RATIO 6.1(H) <5.0 (calc) [facility] NON-HDL CHOLESTEROL 220(H) <130 mg/dL (calc) [facility] Comment: Non-HDL level > or = 220 [...] LAB - BLOOD DRAW Final Resul t [facility] [address] [address], [facility] [address] [address] * (ABNORMAL) COMPRE METAB PANEL (06/22/2020 2:36 PM EDT) GLUCOSE 99 65 - 99 mg/dL [facility] Comment: ?Fasting reference interval UREA NITROGEN (BUN) 10 7 - 25 mg/dL [facility] CREATININE (blood) 0.76 0.50 - 1.05 mg/dL [facility] Comment: For patients >49 years of age, the reference limit for Creatinine is approximately 13% higher for people identified as -[place]. GFR ESTIMATED 86 > OR = 60 mL/min/1 .73m2 [facility] EGFR 100 > OR = 60 mL/min/1 .73m2 [facility] BUN/CREATININE RATIO NOT APPLICABLE 6 - 22 [facility] SODIUM 137 135 - 146 mmol/L [facility] POTASSIUM 4.4 3.5 - 5.3 mmol/L [facility] CHLORIDE 102 98 - 110 mmol/L [facility] CARBON DIOXIDE 24 20 - 32 mmol/L [facility] CALCIUM 9.8 8.6 - 10.4 mg/dL [facility] PROTEIN, TOTAL 7.2 6.1 - 8.1 g/dL [facility] ALBUMIN 4.3 3.6 - 5.1 g/dL [facility] GLOBULIN 2.9 1.9 - 3.7 g/dL (calc) [facility] [place] ALBUMIN/GLOBULIN RATIO 1.5 1.0 - 2.5 (calc) [facility] BILIRUBIN, TOTAL 0.4 0.2 - 1.2 mg/dL [facility] ALKALINE PHOSPHATASE 75 37 - 153 U/L [facility] AST 35 10 - 35 U/L [facility] ALT 48(H) 6 - 29 U/L [facility] Blood Blood / Unknown 06/22/2020 2 :36 PM EDT 06/22/2020 2:37 PM EDT Narrative [facility] - 06/22/2020 9:04 PM EDT FASTING:YES Hoda Patino PA-C LAB - BLOOD DRAW Final Resul t [facility] [address] [facility] [address] [place] [address], [facility] [place] 200 [facility] [address] [facility] [address] * PAP, LIQUID BASED (12/22/2017 1:39 PM EDT) PAP normal NORMAL - ABNORMAL [facility] Specimen from uterine cervix (specimen) Cervix uteri structure / Unknown 12/22/2017 1:39 PM EDT Impressions [facility] - 12/30/2017 2:54 PM EST ThinPrep Pap Negative for squamous intraepithelial lesion and malignancy HPV Negative April Pickard PA-C LAB - NO BLOOD DRAW Final Result [facility] [address] [place] [address], * (ABNORMAL) HEPATITIS A,B,C PANEL (09/21/2017 10:45 AM EDT) HEPATITIS B SURFACE ANTIBODY NEGATIVE NEGATIVE [facility] HEPATITIS B SURFACE ANTIGEN NEGATIVE NEGATIVE [facility] Comment: Over the counter supplements containing high doses of biotin may interfere with this assay. ??If interference is suspected, patients shoud be retested after refraining from biotin supplements for 72 hours. HEPATITIS C VIRUS DIAGNOSTIC NEGATIVE NEGATIVE [facility] HEPATITIS B CORE ANTIBODY NEGATIVE NEGATIVE [facility] HEPATITIS A ANTIBODY TOTAL POSITIVE(A) NEGATIVE [facility] Comment: Over the counter supplements containing high doses of biotin may interfere with this assay. ??If interference is suspected, patients shoud be retested after refraining from biotin supplements for 72 hours. Blood specimen (specimen) Blood / Unknown 09/21/2017 10:45 AM EDT 09/21/2017 12:57 PM EDT [facility] - 09/21/2017 2:24 PM EDT [facility] [address] [place] [address] [place] [id number] ORD# [id number] April Pickard PA-C LAB - BLOOD DRAW Edited R PFSwebult - Final Performing Organization Address [facility] Co de Phone Number [address] [address], [place] [phone] * HIV-1 & HIV-2 ANTIBODIES (09/21/2017 10:45 AM EDT) [facility] HIV 1 AND 2 ANTIBODY SCREEN NEGATIVE NEGATIVE [facility] Comment: This assay is a 4th generation [...] 10:45 AM EDT 09/21/2017 12:57 PM EDT [facility] - 09/21/2017 2:53 PM EDT [facility] [address] [place] [address] [place] [id number] ORD# [id number] April Pickard PA-C LAB - BLOOD DRAW Edited Very [place] [employer] - Final Performing Organization Address [facility] de Phone Number [address] [address], [place] [phone] from Last 3 Months or Most Recently Relevant to Health Maintenance Insurance [employer] Care Teams Stationary Engineer Relationship Specialty Start Date End Date Hoda Patino PA-C [address] [place] [phone] PCP - General Internal Medicine 02/03/19
--- OUTSIDE RECORDS SUMMARY | 2024-07-05 08:51 | XMS_ITS | Clinical Summary ---
Author Organization [facility] Address [address] [place] [phone] Phone Care Team Providers Care Dessert Cup Machine Feeder Name Role Phone Niecy Cabello MD Primary Care Provider [phone] Family History Medical History Relation Name Comments [...] Signed Date: 01/22/2024 11:32 ET Workstation ID: [id number] Transcribed By: Self Edit Transcribed Date: 01/22/2024 [...] Signed Date: 01/22/2024 11:32 ET Workstation ID: [id number] Transcribed By: Self Edit Transcribed Date: 01/22/2024 11:23 ET us Self Referral Sppl IMG BI PROCEDURES Final Resul t from Last 3 Months or Most Recently Relevant to Health Maintenance Insurance MEDICA[place] Care Teams Dessert Cup Machine Feeder Relationship Specialty Start Date End Date Niecy Cabello MD [address] [place] [address] , [address] [facility]: [facility] [place], [place] PCP - General Internal Medicine 01/22/24
[2024-07-05 08:57] LABS: MANUAL DIFF FLAG NO
[2024-07-05 09:09] LABS: Basophils Percent Auto 0.7 % (0-2); Eosinophils Absolute Auto 0.2 X10*3/uL (0.0-0.4); Eosinophils Percent Auto 2.9 % (0-4); Hematocrit 37.1 % (37.0-47.0); Hemoglobin 11.8 g/dl (12.0-16.0); Imm Gran Abs Auto 0.01 X10*3/uL (0.00-0.03); Imm Gran Pct Auto 0.2 % (0.0-0.4); Lymphocytes Absolute Auto 2.3 X10*3/uL (1.2-4.9); Lymphocytes Percent Auto 41.9 % (20-40); Mean Corpuscular HGB Conc 31.8 g/dl (31.0-35.0); Mean Corpuscular Hemoglobin 29.5 pg (27.0-33.0); Mean Corpuscular Volume 92.8 fL (80.0-98.0); Mean Platelet Volume 9.9 fL (9.4-12.3); Monocytes Absolute Auto 0.3 X10*3/uL (0.1-1.2); Monocytes Percent Auto 5.1 % (2-11); Neutrophils Absolute Auto 2.7 x10*3/uL (2.0-8.3); Neutrophils Percent Auto 49.2 % (45-73); Platelet Count 357 X10*3/uL (160-400); Red Cell Distribution Width 12.4 % (11.0-16.0); White Blood Count 5.5 X10*3/uL (4.8-10.8)
[2024-07-05 10:23] LABS: Folate 10.8 ng/mL (> or = 4.0); Vitamin B12 > 2000 pg/mL (200-900)
[2024-07-05 10:29] LABS: Alanine Aminotransferase 28 U/L (0-31); Aspartate Amino Transferase 27 U/L (5-31); Bilirubin Total 0.5 mg/dL (0.0-1.0); Blood Urea Nitrogen 10 mg/dL (9-16); Calcium 8.9 mg/dL (8.4-10.2); Cholesterol 167 mg/dL (<200); Estimated Glomerular Filt Rate > 60; Glucose Fasting 103 mg/dL (60-99); HDL Cholesterol 33 mg/dL (>40); Iron 47 mcg/dL (30-160); LDL Cholesterol Calculated 89 mg/dL (<100); Percent Iron Saturation 17 % (15-50); Thyroid Stimulating Hormone 2.45 uIU/mL (0.32-4.0); Total Iron Binding Capacity 279 mcg/dL (228-428); Total Protein 7.1 g/dL (6.5-8.0); Triglycerides 229 mg/dL (<150); Unsaturated Iron Binding 232 ug/dL; Vitamin D 25-OH Total 14.6 ng/mL (>30)
[2024-07-05 10:41] LABS: Anion Gap 13 (12-20); Carbon Dioxide 26 mmol/L (22-29); Chloride 108 mmol/L (96-108); Potassium 4.5 mmol/L (3.3-5.1); Sodium 142 mmol/L (135-145)
[2024-07-05 11:34] LABS: Appearance Urine Clear; Color Urine Yellow; Glucose Urine UA Negative (Negative); Leukocyte Esterase Urine Negative (Negative); Nitrite Urine Negative (Negative); PH 5.5 (5.0-9.0); UMIC TRIGGER UACC YES; Urine Blood Moderate (2+) (Negative); Urine Ketones Trace mg/dL (Negative); Urine Protein Negative (Neg-Trace)
[2024-07-05 11:47] LABS: Bacteria Urine None Seen (None Seen); Hyaline Casts Urine 0-2 /LPF (0-2); RBC Urine >20 /HPF (0-2); Squamous Epithelial Cell Urine 0-2 /HPF (0-2); WBC Urine 0-5 /HPF (0-5)
[2024-07-05 12:44] LABS: Alkaline Phosphatase 75 U/L (39-117)
== END 2024-07-05 08:35 | disposition home or self-care (01) ==
LOC: HO.LAB 08:34
PROVIDERS: Internal Medicine Gastroenterology; PCP Internal Medicine; Visit Provider Internal Medicine
DX: D64.9 Anemia, unspecified (principal); E55.9 Vitamin D deficiency, unspecified; E53.8 Deficiency of other specified B group vitamins; I21.11 ST elevation (STEMI) myocardial infarction involving right coronary artery; E03.9 Hypothyroidism, unspecified; E78.5 Hyperlipidemia, unspecified
CPT/HCPCS: 36415; 80053; 80061; 81001; 82306; 82607; 82746; 83540; 84443; 85025

== ENCOUNTER 2024-10-04 13:34 | Outpatient (AMB) | payer OTHER, SELFPAY ==
--- OUTSIDE RECORDS SUMMARY | 2024-10-02 23:59 | XMS_ITS | Continuity of Care Document ---
Author Organization [facility] Address [address] [place] [address]- Care Team Providers Care Process Trainer Name Role Phone Susan LUCERO, Wanda Ladd Primary Care Physician Encounter [facility] Date(s[place] 05/24/24 - 10/02/24 [facility] [address] [place] [address]- Attending Physician: Paulette Payne NP Admitting Physician: Paulette Payne NP Encounter Type: Pre-OutPatient One Time Allergies, Adverse Reactions, Alerts No Known Allergies [...] By Mouth, Daily, # 90 tablet, Refills 3, Tot. Refills 3, Maintenance, 08/15/24 3:24:00 PM EDT, Route to Pharmacy Electronically, [facility]/pharmacy #[id number], Partial fill upon patient requestif the prescription is for a schedule II opioid drug., 158, cm, 07/20/24 22:41:00 EDT, Height, 86, kg, 07/20/24 22:41:00 EDT, Dry Weight Start Date: 08/15/24 Status: Ordered Quantity: 90.0 Unit: tablet Repeat number: 4 clopidogrel 75 mg oral tablet 75 mg, 1, tablet, By Mouth, Daily, # 90 tablet, Refills 2, Tot. Refills 2, Maintenance, 08/15/24 3:24:00 PM EDT, Route to Pharmacy Electronically, [facility]/pharmacy #[id number], Partial fill upon patient requestif the prescription is for a schedule II opioid drug., 158, cm, 07/20/24 22:41:00 EDT, Height, 86, kg, 07/20/24 22:41:00 EDT, Dry Weight Start Date: 08/15/24 Status: Ordered Quantity: 90.0 Unit: tablet Repeat number: 3 cyanocobalamin 1000 mcg/ml injectable solution 1 mL [...] Quantity: 90.0 Unit: tablet Repeat number: 1 rosuvastatin 20 mg oral tablet 1 tablet = 20 mg, By Mouth, Daily, # 30 tablet, 5 Refills, Maintenance, 08/11/24 11:41:00 AM EDT, Tablet, [facility]/pharmacy #[id number], Partial fill upon patient request if the prescription is for a schedule IIopioid drug., 158, cm, 07/20/24 22:41:00 EDT, Height, 86, kg, 07/20/24 22:41:00 EDT, Dry Weight Start Date: 08/11/24 Status: Ordered Quantity: 30.0 Unit: tablet Repeat number: 6 zolpidem 10 mg oral tablet 1 tablet [...] Confirmed Active Vitamin D deficiency Confirmed Active Social History Social History Type Response Smoking Status Never (less than 100 in lifetime) entered on: 05/21/24 Sex Sex Representation Female (finding) Patient Care team information Care Team Personnel Name: Susan LUCERO , Wanda Ladd Position: Reference Physician Member Role: PCP Address: [address] Telecom: Care Team Related Persons Name: LORI HOLBROOK Insurance Providers Guarantor name: VLADIMIR YUSEF [facility] Information #: 1 Payer: [employer] Payer Identifier: NA Member Number: [id number] Group Number: NA Subscriber Identifier: [id number] Relationship to Subscriber: self Coverage Type: NA Coverage Verification Date: NA Telecom: NA Address: Health Plan Information #: 2 Payer: [employer] Payer Identifier: NA Member Number: NA Group Number: NA Subscriber Identifier: [id number] Relationship to Subscriber: self Coverage Type: Other Private Insurance Coverage Verification Date: Telecom: Address:
[2024-10-04 13:52] VITALS: BP 126/64; PULSE 67; O2SAT 97; BMI 35.3
--- NOTE | 2024-10-04 13:52 | A.OFFPC_ITS ---
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 Required: No Accompanied by: Spouse Allergies spicy food Adverse Reaction (Uncoded 10/04/24 14:16) Hives Medication List - Last Reconciled 10/04/24 by Niecy Cabello MD acetaminophen ER (Tylenol 8 Hour) 650 mg PO Q8H PRN 30 days aspirin (Adult Low Dose Aspirin) 81 mg PO DAILY [blood pressure machine As directed] cetirizine (All Day Allergy (cetirizine)) 10 mg PO DAILY PRN 90 days cholecalciferol (vitamin D3) 50 mcg PO DAILY 90 days clopidogrel 75 mg PO DAILY clotrimazole-betamethasone 1-0.05 % 1 appl topical BID 10 days cyanocobalamin (vitamin B-12) 1,000 mcg IM Q4W 4 weeks fluticasone propionate 50 mcg/actuation (Flonase Allergy Relief) 1 spray intranasal DAILY 30 days gabapentin 300 mg PO BEDTIME 90 days hydrocortisone 2.5% 1 appl MS BID-QID PRN 2 weeks hydroxyzine HCl 50 mg PO QID PRN insulin syringe-needle U-100 ([facility]ocate Syringes) As directed levothyroxine 112 mcg PO DAILY metoprolol succinate ER 25 mg PO DAILY rosuvastatin 20 mg PO DAILY syringe with needle (Monoject 3cc Syringe) As directed once a week tramadol 50 mg PO Q12H PRN zolpidem 10 mg PO BEDTIME PRN Tobacco use date assessed: 05/27/24 Dental Screening Dental Screen Date: 10/04/24 Did you have a dental visit in the last 12 months?: No Did you have a dental problem in the last 6 months where you did not have access to dental care?: No Was dental information given to patient?: No HPI HPI Comments History of Present Illness Details The patient is a 64-year-old female presenting with a physical examination and management of chronic conditions. She reports experiencing daytime somnolence, characterized by dosing off while watching TV, lying down in the afternoon, and sitting and reading, with a score of 12 on the [place] Sleepiness Scale. A sleep study has been ordered to further evaluate this condition. In April, the patient suffered a myocardial infarction and has been unable to participate in cardiac rehabilitation due to fatigue and diffuse joint pain. She will be referred to rheumatology for further evaluation of her joint pain. Additionally, she requires a shower chair and a cane for mobility assistance. Preventative care measures include a colonoscopy performed this year, a mammogram done in December 2023, and a Pap smear conducted in 2021. [facility] Medical History (Updated 10/04/24 @ 14:42 by Niecy Cabello MD) STEMI (ST elevation myocardial infarction) Polyarthralgia Dry skin dermatitis Impaired fasting glucose Mixed dyslipidemia Vitamin B12 deficiency Vitamin D deficiency Varicose veins of bilateral lower extremities with pain Polyarthralgia Cholelithiasis Insomnia Fibromyalgia Acquired hypothyroidism Anxiety Surgical History Status post cardiac catheterization History of esophagogastroduodenoscopy (EGD) Hx of colonoscopy H/O blepharoplasty S/P cholecystectomy Family History Sister Breast cancer Mother Essential hypertension Cholelithiasis Social History Housing: House Are you a primary gericare aide to a significant other at home: No Do you presently have visiting nurse or other home services: No Alcohol intake: never Patient Tobacco Use Status: Never used Tobacco e-Cigarette/Vaping Use: Never Used Second Hand Smoke Exposure: No service: No Current occupational status: unemployed Cognitive needs: No Hearing needs: No Vision needs: No Questionnaire PHQ-9 Over the last 2 weeks, how often have you been bothered by any of the following problems? 1. Little interest or pleasure in doing things: several days 2. Feeling down, depressed, or hopeless: several days 3. Trouble falling or staying asleep, or sleeping too much: several days 4. Feeling tired or having little energy: several days 5. Poor appetite or overeating: several days 6. Feeling bad about yourself - or that you are a failure or have let yourself or your family down: several days 7. Trouble concentrating on things, such as reading the newspaper or watching television: several days 8. Moving or speaking so slowly that other people could have noticed. Or the opposite - being so fidgety or restless that you have been moving around a lot more than usual: several days 9. Thoughts that you would be better off or of hurting yourself in some way: not at all Total score: 8 Depression Screening Interpretation: Positive Depression Screening Follow-up: Existing condition, In treatment and Follow-up Visit Requested Depression Screening Done: Yes 76555 - PHQ-9 Billing: Yes Source: Developed by Drs. Sánchez Gupta, Maria Del Rosario Reyna, Jason Coleman and colleagues, with an educational james from [employer]. Thrive Questionnaire Date Thrive assessed: 10/04/24 I am a: Patient What is your living situation today?: I have a steady place to live Within the past 12 months, did the food you bought not last and you didn't have the money to get more?: I choose not to answer this question Within the past 12 months, did you worry whether your food would run out before you got money to buy more?: I choose not to answer this question Do you have trouble paying for medicines?: I choose not to answer this question Do you have trouble getting transportation to medical appointments?: I choose not to answer this question Do you have trouble paying your heating and electricity bill?: I choose not to answer this question Do you have trouble taking care of your child, family member or friend?: I choose not to answer this question Do you have trouble with day-to-day activities such as bathing, preparing meals, shopping, managing finances, etc.?: I choose not to answer this question Are you currently unemployed and looking for a job?: I choose not to answer this question Are you interested in more education?: I choose not to answer this question Please select the resources that you would like help with: None Currently or been in a relationship where the following occur: I choose not to answer THRIVE Score: 0 AUDIT C Alcohol Use Questionnaire (AUDIT-C) 1. How often do you have a drink containing alcohol?: Never Total Score: 0 Score Reviewed/Action Taken: No HEMA-7 AMB Questionnaire HEMA-7 Date HEMA - 7 assessed: 05/27/24 Feeling nervous, anxious, or on edge: 1 = Several days Not being able to stop or control worryin = Several days Worrying too much about different things: 1 = Several days Trouble relaxin = Several days Being so restless that it is hard to sit still: 1 = Several days Becoming easily annoyed or irritable: 1 = Several days Feeling afraid as if something awful might happen: 1 = Several days Total HEMA-7 score (0-4 normal; 5-9 mild; 10-14 moderate; 15-21 severe): 7 Source: Developed by Drs. Sánchez Gupta, Maria Del Rosario Reyna, Jason Coleman and colleagues, with an educational james from [employer]. HEMA-7 Assessment Billing HEMA-7 Assessment Tool: HEMA-7 Assessment 13643 Review of Systems Const All systems reviewed & are unremarkable except as noted in HPI and below Card Denies chest pain at rest, Denies chest pain with activity, Denies edema, Denies irregular heart rhythm, Denies claudication, Denies dyspnea, Denies dyspnea on exertion, Denies orthopnea, Denies paroxysmal nocturnal dyspnea and Denies slow heart rate Resp Denies cough, Denies dyspnea and Denies dyspnea on exertion GI Denies abdominal pain, Denies change in bowel habits, Denies excessive flatus, Denies nausea and Denies vomiting Physical exam (Primary Care) Vital Signs: Last Vital Signs Pulse 67 10/04/24 13:52 BP 126/64 10/04/24 13:52 Pulse Ox 97 10/04/24 13:52 BMI result Body Mass Index 35.3 Tobacco/Smoking Status: Tobacco use Status Tobacco use date assessed 05/27/24 10/04/24 13:57 Patient Tobacco Use Status Never used Tobacco 10/04/24 13:57 e-Cigarette/Vaping Use Never Used 10/04/24 13:57 PHQ-9: PHQ-9 Score PHQ-9: Total score 8 10/04/24 13:57 Depression Screening Interpretation: Positive Depression Screening Follow-up: Existing condition, In treatment and Follow-up Visit Requested Thrive Assessment: Date of Thrive Assessment Date Thrive assessed 10/04/24 10/04/24 13:57 Currently or been in a relationship where the following occur: I choose not to answer [facility] Head: Yes normal to inspection, Yes normocephalic and Yes atraumatic Ears: external ears normal Eyes General: appearance normal, both eyes and all related structures Eyelids: Yes eyelids normal Conjunctivae: conjunctivae normal Neck Neck: Yes normal visual inspection and Yes supple Resp Effort & Inspection: normal respiratory effort Auscultation: clear to auscultation bilaterally Cardio Jugular venous distension: no JVD Rate: regular rate Rhythm: regular rhythm Heart sounds: S1 normal heart sound present and S2 normal heart sound present GI Inspection: Yes normal to inspection Palpation (GI): Soft to palpation and nontender Auscultation: normal bowel sounds Skin General skin exam: no rashes or lesions noted Neuro General: no focal motor deficits Extrem General: Yes full ROM Psych Appearance: grossly normal Coding Level of Care Code Est Pt Level 3 (77177) Est Pt Prev Care 40-64y([address]508) Diagnoses Physical exam Z00.00 Fibromyalgia M79.7 Polyarthralgia M25.50 Moderate major depression F32.1 ST elevation myocardial infarction involving right coronary artery I21.11 Involved coronary artery: right coronary artery Daytime somnolence R40.0 Additional Codes PHQ-9 - 72429 - PHQ-9 Billing: Yes ([id number]) HEMA-7 Assessment Billing - HEMA-7 Assessment Tool: HEMA-7 Assessment 30605 ([id number]) Time Spent (min) 35 Assessment & Plan Assessment & Plan (1) Physical exam: Code(s): Z00.00 - Encounter for general adult medical examination without abnormal findings Category: Medical (2) Fibromyalgia: Comment: sees by Dr amaya Code(s): M79.7 - Fibromyalgia Category: Medical (3) Polyarthralgia: Code(s): M25.50 - Pain in unspecified joint Category: Medical (4) Moderate major depression: Code(s): F32.1 - Major depressive disorder, single episode, moderate Category: Medical (5) STEMI (ST elevation myocardial infarction): Code(s): I21.3 - ST elevation (STEMI) myocardial infarction of unspecified site Category: Medical Qualifiers: Involved coronary artery: right coronary artery Qualified Code(s): I21.11 - ST elevation (STEMI) myocardial infarction involving right coronary artery (6) Daytime somnolence: Code(s): R40.0 - Somnolence Category: Medical Plan A sleep study has been ordered to evaluate the patient's daytime somnolence, which is characterized by a score of 12 on the [place] Sleepiness Scale. The patient will be referred to rheumatology for further evaluation of her diffuse joint pain, which has impacted her ability to participate in cardiac rehabilitation following her myocardial infarction in April. She requires a shower chair and a cane for mobility assistance. Orders: Orders Lipid Panel Today E78.5 - Hyperlipidemia, unspecified IRON PROFILE Today D64.9 - Anemia, unspecified Comprehensive [place]. Panel Fast Today R73.01 - Impaired fasting glucose Thyroid Stimulating Hormone Today E03.9 - Hypothyroidism, unspecified RT home sleep study Today R40.0 - Somnolence XR DEXA axial skeleton Today Z78.0 - Asymptomatic menopausal state Complete Blood Count Auto Diff Today D64.9 - Anemia, unspecified Vitamin D 25-OH Total Today E55.9 - Vitamin D deficiency, unspecified Vitamin B12 and Folate Today E53.8 - Deficiency of other specified B group vitamins Referrals Rheumatology Referral M25.50 - Pain in unspecified joint Medications: New [shower chair] As directed 1 ea 0RF M79.7 - Fibromyalgia cane As directed 1 ea 0RF M79.7 - Fibromyalgia Refilled cholecalciferol (vitamin D3) 50 mcg PO DAILY 90 tabs 2RF 90 days Discontinued tramadol Discontinued Reason: Patient Completed Course 50 mg PO Q12H PRN 30 tabs 0RF pain
--- OUTSIDE RECORDS SUMMARY | 2024-10-04 14:27 | XMS_ITS | Clinical Summary ---
Author Organization Formerly [facility] Address [address] [place] [address] [place] [address] Phone Care Team Providers Care Part Maker Name Role Phone Wanda Davis MD Primary Care Provider Social History Tobacco Use Types Packs/Day Years Used Date Smoking Tobacco: Never Assessed Education Answer Date Recorded Are you interested in more education? Not on spring e 05/24/2024 Are you concerned about learning? Not on file 05/24/2024 No 05/24/2024 No 05/24/2024 Digital Access Answer Date Recorded No 05/24/2024 No 05/24/2024 Reliable internet access at home? Not on file 05/24/2024 Device with a working camera? Not on file Comments Unknown Sex and Gender Information Value Date Recorded Sex Assigned at Not on file Legal Sex Female 10:01 AM EDT Gender Identity Not on file Sexual Orientation Not on file Plan of Treatment Not on file Medical Devices Not on file Insurance [place] [place] [address] [facility] [place] [place] [address] [place] [address] [address] ACO [facility] ACO Care Teams Part Maker Relationship Specialty Start Date End Date Wanda Davis MD 1959 [facility] [address] [place] [address] PCP - General Internal Medicine 05/24/24 Additional Source Comments The information contained in this document represents components of the legal health record. It is not the complete legal health record.Formerly [facility]
--- OUTSIDE RECORDS SUMMARY | 2024-10-04 14:27 | XMS_ITS | Clinical Summary ---
Author Organization [facility] Address [address] [place] [phone] Phone Care Team Providers Care Orthodontic Technician Assistant Name Role Phone Niecy Cabello MD Primary Care Provider [phone] Family History Medical History Relation Name Comments [...] 12/22/2020 12/22/2017 Colorectal Cancer Screening: Colonoscopy 01/25/2022 Hepatitis C Screening 01/25/2022 Social Influencers of Health Screening 01/25/2022 RSV Immunization Adult Patients (1 - Risk 60-74 years 1-dose series) 2022 COVID-19 Vaccine ( season) 2023 07/28/2020, 07/07/2020 Depression Screening 02/24/2024 Influenza Vaccine (#1) 2024 , 02/09/2019, 12/11/2017, Additional history exists Cholesterol [...] AM EST No mammographic evidence of malignancy. No suspicious interval change. A negative mammogram in the presence of a clinically suspicious palpable abnormality does not preclude the possibility of malignancy or alter the indications for biopsy. ASSESSMENT: BI-RADS 2: BENIGN RECOMMENDATION(S): 1: Routine screening mammogram BILATERAL in 1 year. -------- FINAL REPORT -------- Dictated By: Burton Tineo Dictated Date: 01/22/2024 11:23 ET Assigned Physician: Burton Tineo Reviewed and Electronically Signed By: Burton Tineo Signed Date: 01/22/2024 11:32 ET Workstation ID: [id number] Transcribed By: Self Edit Transcribed Date: 01/22/2024 11:23 ET Narrative 01/22/2024 11:32 AM EST EXAM: SCREENING MAMMOGRAPHY, BILATERAL HISTORY: SCREENING. Technologist indicates bruise left breast 11 o'clock position COMPARISON: 01/09/2023, 01/06/2022, 01/03/2021, 12/16/2019 TECHNIQUE: Synthesized CC and MLO projections of each breast. Tomosynthesis of each breast in the CC and MLO projections. ADDITIONAL IMAGING: None Computer-aided detection was employed with the [employer] 3-D. TISSUE DENSITY: There are scattered areas of fibroglandular density. (BI-RADS category B) FINDINGS: RIGHT BREAST: There is no significant change in a 1.1 cm asymmetry 7 cm behind the right nipple on the craniocaudal projection. I suspect this is in the 7 o'clock position. No additional suspicious right breast findings LEFT BREAST: No convincing change in a 1.0 cm oval low-density mass in the 11 o'clock position 6 cm from the left nipple. No additional suspicious left breast findings Procedure Note Burton Tineo MD - 01/22/2024 EXAM: SCREENING MAMMOGRAPHY, BILATERAL HISTORY: SCREENING. Technologist indicates bruise left breast 11 o'clock position COMPARISON: 01/09/2023, 01/06/2022, 01/03/2021, 12/16/2019 TECHNIQUE: Synthesized CC and MLO projections of each breast.Tomosynthesis of each breast in the CC and MLO projections. ADDITIONAL IMAGING: None Computer-aided detection was employed with the [employer] AI 3-D. TISSUE DENSITY: There are scattered [...] Signed Date: 01/22/2024 11:32 ET Workstation ID: [id number] Transcribed By: Self Edit Transcribed Date: 01/22/2024 11:23 ET us Self Referral Sppl IMG BI PROCEDURES Final Resul t from Last 3 Months or Most Recently Relevant to Health Maintenance Insurance MEDICAID - [place] Care Teams Orthodontic Technician Assistant Relationship Specialty Start Date End Date Niecy Cabello MD 2 [facility] , [address] [facility] D/B/A: [facility] ALVIN Hernandez PCP - General Internal Medicine 01/22/24
--- OUTSIDE RECORDS SUMMARY | 2024-10-04 14:27 | XMS_ITS | Clinical Summary ---
Author Organization [facility] Address [address] [place] [address] Care Team Providers Care Major Assembly Inspector Name Role Phone Hoda Patino PA-C Primary Care Provider + [phone] Source Comments PLEASE NOTE, if this patient [...] Seen by RHEUM Dr. Wily Rubio at [facility]: polyarthralgia is multifactorial: hypothyroidism, pt is on [...] depression Overview (04/03/2015): Psych f/u @ [facility], formerly was seen by Dr. Garvin. Hepatic steatosis Overview (07/25/2014): Via [place] 04/06/13 at [facility]. Resolved Problems Problem Noted Date Diagnosed Date Resolved Date Polyarthralgia 11/01/2018 11/01/2018 Immunizations Immunization Administration Dates Next Due Flu, Preservative Free 02/09/2019,12/11/2017 Hep B, Adult/Adol (CLHHMQQ-P-KWQIJ/RECOMBIVAX-ADULT) 09/08/2011,12/16/2010,12/27/2007 INFLUENZA, SEASONAL, INJECTABLE 11/23/2012,11/30,11/28/2008 MMR (MMR II/Priorix) 12/27/2007,11/04/2007 PPD 08/04/2012,11/17/2007,11/15/2007 Td (adult),2 Lf tetanus toxo id (TDVAX), preservative free 12/27/2007,11/04/2007 ZOSTER VACCINE, RECOMBINANT (SHINGRIX) 9 [...] 117 09/11/2020 10:20 AM EDT Temperature 36.8 C (98.3 F) 09/11/2020 10:20 AM EDT Respiratory Rate 16 09/11/2020 10:20 AM EDT [...] (1 - Tdap) 12/28/2007 12/27/2007, 0 11/04/2007 Imm-Pneumococcal 50+ (1 of 1 - PCV) 2012 Imm-Zoster, Recombinant (2 of 2) 04/06/2019 02/10/20 19 Depression Monitoring 08/22/2020 05/22/2020 Cervical Cancer Screening 12/22/2020 Pap Smear 12/22/2020 12/22/2017, 06/24, 12/16/2010, Additional history exists Annual Wellness (Adult): Indicated (All Coverage) 05/22/2021 05/22/2020, 03/28/2019, 12/22/2017, Additional history exists Diabetes Screening 06/22/2021 06/22/2020, 0 11/02/2019, 11/02/2019, Additional history exists Hypertension Screening (#1) 09/11/2021 Lipid Screening 11/26/2021 11/26/2020, 05/26, 11/02/2019, Additional history exists TSH Monitoring 11/26/2021 11/26/2020, 3 , 11/02/2019, Additional history exists [id number] ( season) 2023 Breast Cancer Screening (Mammogram) [...] 3:00 AM EST us Hoda Patino PA-C IM MAMMO Final Result * TSH W/RFLX FREE T4 (11/26/2020 9:49 AM EDT) TSH W/REFLEX TO FT4 1.75 0.40 - 4.50 mIU/L [employer] [facility] Blood Blood / Unknown 11/26/2020 9 :49 AM EDT 11/26/2020 9:49 AM EDT us Hoda Patino PA-C LAB - BLOOD DRAW Final Resul t [employer] [address] [address], [employer] [address] [address] * (ABNORMAL) LIPID PANEL (11/26/2020 9:49 AM EDT) CHOLESTEROL, TOTAL 263(H) <200 mg/dL [facility] HDL CHOLESTEROL 43(L) > OR = 50 mg/dL [facility] TRIGLYCERIDES 279(H) <150 mg/dL [facility] Comment: If a non-fasting specimen was collected, consider repeat triglyceride testing on a fasting specimen if clinically indicated. Rigo et al. J. of Clin. Lipidol. 2015;9:129-169. LDL-CHOLESTEROL 170(H) 99 mg/dL (calc) [facility] Comment: Reference range: <100 Desirable range <100 mg/dL for primary prevention; <70 mg/dL for patients with CHD or diabetic patients with > or = 2 CHD risk factors. LDL-C is now calculated using the Calvin-Jose calculation, which is a validated novel method providing better accuracy than the Friedewald equation in the estimation of LDL-C. Calvin SS et al. ASHLEY. 2013;310(19): 1818-5424 (http://education.A[employer]roNova.[employer]/faq/SEA633) CHOL/HDLC RATIO 6.1(H) <5.0 (calc) [facility] NON-HDL CHOLESTEROL 220(H) <130 mg/dL (calc) [facility] Comment: Non-HDL level > or = 220 [...] LAB - BLOOD DRAW Final Resul t [facility] [address] [address], [employer] [facility] [address] [address] * (ABNORMAL) COMPRE METAB PANEL (06/22/2020 2:36 PM EDT) GLUCOSE 99 65 - 99 mg/dL [employer] Comment: Fasting reference interval UREA NITROGEN (BUN) 10 7 - 25 mg/dL [employer] CREATININE (blood) 0.76 0.50 - 1.05 mg/dL [employer] Comment: For patients >49 years of age, the reference limit for Creatinine is approximately 13% higher for people identified as -Kazakh. GFR ESTIMATED 86 > OR = 60 mL/min/1 .73m2 [employer] [facility] EGFR 100 > OR = 60 mL/min/1 .73m2 [employer] BUN/CREATININE RATIO NOT APPLICABLE 6 - 22 [employer] SODIUM 137 135 - 146 mmol/L [facility] POTASSIUM 4.4 3.5 - 5.3 mmol/L [employer] CHLORIDE 102 98 - 110 mmol/L [employer] CARBON DIOXIDE 24 20 - 32 mmol/L [employer] [facility] CALCIUM 9.8 8.6 - 10.4 mg/dL [employer] PROTEIN, TOTAL 7.2 6.1 - 8.1 g/dL [employer] ALBUMIN 4.3 3.6 - 5.1 g/dL [employer] [facility] GLOBULIN 2.9 1.9 - 3.7 g/dL (calc) [employer] ALBUMIN/GLOBULIN RATIO 1.5 1.0 - 2.5 (calc) [facility] BILIRUBIN, TOTAL 0.4 0.2 - 1.2 mg/dL [employer] ALKALINE PHOSPHATASE 75 37 - 153 U/L [employer] AST 35 10 - 35 U/L [employer] [place] [employer] ALT 48(H) 6 - 29 U/L [employer] Blood Blood / Unknown 06/22/2020 2 :36 PM EDT 06/22/2020 2:37 PM EDT Narrative [facility] - 06/22/2020 9:04 PM EDT FASTING:YES Hoda Patino PA-C LAB - BLOOD DRAW Final Resul t [facility] [address] [address], [facility] [address] [address] * PAP, LIQUID BASED (12/22/2017 1:39 PM EDT) PAP normal NORMAL - ABNORMAL [facility] Specimen from uterine cervix (specimen) Cervix uteri structure / Unknown 12/22/2017 1:39 PM EDT Impressions [facility] - 12/30/2017 2:54 PM EST ThinPrep Pap Negative for squamous intraepithelial lesion and malignancy HPV Negative April Pickard PA-C LAB - PATHOLOGY AND CYTOL OGY AMBULATORY Final Result Performing Organization Address City/[facility]/ZIP Co de Phone Number [facility] [address] [place] [address], * (ABNORMAL) HEPATITIS A,B,C PANEL (09/21/2017 10:45 AM EDT) HEPATITIS B SURFACE ANTIBODY NEGATIVE NEGATIVE [facility] HEPATITIS B SURFACE ANTIGEN NEGATIVE NEGATIVE [facility] Comment: Over the counter supplements containing high doses of biotin may interfere with this assay. If interference is suspected, patients shoud be retested after refraining from biotin supplements for 72 hours. HEPATITIS C VIRUS DIAGNOSTIC NEGATIVE NEGATIVE [facility] HEPATITIS B CORE ANTIBODY NEGATIVE NEGATIVE [facility] HEPATITIS A ANTIBODY TOTAL POSITIVE(A) NEGATIVE [facility] Comment: Over the counter supplements containing high doses of biotin may interfere with this assay. If interference is suspected, patients shoud be retested after refraining from biotin supplements for 72 hours. Blood specimen (specimen) Blood / Unknown 09/21/2017 10:45 AM EDT 09/21/2017 12:57 PM EDT [facility] - 09/21/2017 2:24 PM EDT [employer] [address] [place] [address] [place] [id number] ORD# [id number] April Pickard PA-C LAB - BLOOD DRAW Edited [employer] [address] [address], [place] [phone] * HIV-1 & HIV-2 ANTIBODIES (09/21/2017 10:45 AM EDT) [facility] HIV 1 AND 2 ANTIBODY SCREEN NEGATIVE NEGATIVE [facility] Comment: This assay is a 4th generation assay allowing for earlier detection of HIV infection by detecting the presence of the HIV-1 p24 antigen as well as the traditional antibodies to HIV type 1 (including group O) and type 2. Use of a 4th generation assay is the current CDC recommendation for HIV screening. Blood specimen (specimen) Blood / Unknown 09/21/2017 10:45 AM EDT 09/21/2017 12:57 PM EDT [facility] - 09/21/2017 2:53 PM EDT [employer] [address] [place] [address] [place] [id number] ORD# [id number] April Pickard PA-C LAB - BLOOD DRAW Edited [facility] Performing Organization Address City/[facility]/ZIP Co de Phone Number [address] [address], [place] [phone] from Last 3 Months or Most Recently Relevant to Health Maintenance Insurance [employer] Care Teams Major Assembly Inspector Relationship Specialty Start Date End Date Hoda Patino PA-C [address] [place] [address] PCP - General Internal Medicine 02/03/19
== END 2024-10-04 14:40 | disposition home or self-care (01) ==
LOC: HO.HMCH 13:35
PROVIDERS: PCP Internal Medicine; Visit Provider Internal Medicine
DX: Z00.00 Encounter for general adult medical examination without abnormal findings (principal); M79.7 Fibromyalgia; F32.1 Major depressive disorder, single episode, moderate; I25.2 Old myocardial infarction; M25.50 Pain in unspecified joint; R40.0 Somnolence

== ENCOUNTER → 2024-10-04 13:34 | Outpatient (BNVA) | payer OTHER, SELFPAY | PROVIDERS: PCP Internal Medicine; Visit Provider Internal Medicine | DX: Z00.00 Encounter for general adult medical examination without abnormal findings (principal); R40.0 Somnolence; M79.7 Fibromyalgia; M25.50 Pain in unspecified joint; F32.1 Major depressive disorder, single episode, moderate; I21.11 ST elevation (STEMI) myocardial infarction involving right coronary artery; E78.5 Hyperlipidemia, unspecified; D64.9 Anemia, unspecified; R73.01 Impaired fasting glucose; E03.9 Hypothyroidism, unspecified; E55.9 Vitamin D deficiency, unspecified; E53.8 Deficiency of other specified B group vitamins; Z78.0 Asymptomatic menopausal state | CPT/HCPCS: 96127; 99212; 99396 ==

== ENCOUNTER 2024-10-08 09:09 | Outpatient (REF) | payer OTHER, SELFPAY ==
--- OUTSIDE RECORDS SUMMARY | 2024-10-08 09:11 | XMS_ITS | Clinical Summary ---
Author Organization [facility] Address [address] [place] [address] [place] [address] Phone Care Team Providers Care Office Rental Clerk Name Role Phone Wanda Davis MD Primary [...] on file Insurance David[address] [place] [address] [facility] [place] [address] [place] [place] [address] [facility]CO [facility]CO [facility] ACO Care Teams Office Rental Clerk Relationship Specialty Start Date End Date Wanda Davis MD [address] [facility] [address] [address] PCP - General Internal Medicine 05/24/24 Additional Source Comments The information contained in this document represents components of the legal health record. It is not the complete legal health record.[facility]
--- OUTSIDE RECORDS SUMMARY | 2024-10-08 09:11 | XMS_ITS | Clinical Summary ---
Author Organization [facility] Address [address] [place] [address] Care Team Providers Care Mobile Phlebotomist Name Role Phone Hoda Patino PA-C Primary Care Provider + [phone] Source Comments PLEASE NOTE, if this patient [...] Seen by RHEM Dr. Wily Rubio at [facility]: dx: polyarthralgia + polymyalgia. Plan: [...] and depression Overview (04/03/2015): Psych f/u @ [facility], formerly was seen by Dr. Garvin. Hepatic steatosis Overview (07/25/2014): Via [place] 04/06/13 at [facility]. Resolved Problems Problem Noted Date Diagnosed Date Resolved Date Polyarthralgia 11/01/2018 11/01/2018 Immunizations Immunization Administration Dates Next Due Flu, Preservative Free 02/09/2019,12/11/2017 Hep B, Adult/Adol ([id number]/RECOMBIVAX-ADULT) 09/08/2011,12/16/2010,12/27/2007 INFLUENZA, SEASONAL, INJECTABLE 11/23/2012,11/30,11/28/2008 MMR (MMR [...] 11/26/2020, 3 , 11/02/2019, Additional history exists [id number] ( season) 2023 Breast Cancer Screening (Mammogram) [...] TO FT4 1.75 0.40 - 4.50 mIU/L [employer] [facility] Blood Blood / Unknown 11/26/2020 9 :49 AM EDT 11/26/2020 9:49 AM EDT us Hoda Patino PA-C LAB - BLOOD DRAW Final Resul t [employer] [address] [address], [facility] [address] [address] * (ABNORMAL) LIPID PANEL (11/26/2020 9:49 AM EDT) CHOLESTEROL, TOTAL 263(H) <200 mg/dL [facility] HDL CHOLESTEROL 43(L) > OR = 50 mg/dL [facility] TRIGLYCERIDES 279(H) <150 mg/dL [facility] Comment: If a non-fasting specimen was collected, consider repeat triglyceride testing on a fasting specimen if clinically indicated. Rigo et al. J. of Clin. Lipidol. 2015;9:129-169. LDL-CHOLESTEROL 170(H) 99 mg/dL (calc) [facility] Comment: Reference range: <100 Desirable range <100 mg/dL for primary prevention; <70 mg/dL for patients with CHD or diabetic patients with > or = 2 CHD risk factors. LDL-C is now calculated using the Calvin-Jose calculation, which is a validated novel method providing better accuracy than the Friedewald equation in the estimation of LDL-C. Calvin SS et al. ASHLEY. 2013;310(19): 0681-9372 (http://education.[employer].leaselock/faq/BUV461) CHOL/HDLC RATIO 6.1(H) <5.0 (calc) [facility] NON-HDL CHOLESTEROL 220(H) <130 mg/dL (calc) [facility] Comment: Non-HDL level > or = 220 [...] LAB - BLOOD DRAW Final Resul t [employer] [facility] [address] [address], [employer] [facility] [address] [address] * (ABNORMAL) COMPRE METAB PANEL (06/22/2020 2:36 PM EDT) GLUCOSE 99 65 - 99 mg/dL [employer] [facility] Comment: Fasting reference interval UREA NITROGEN (BUN) 10 7 - 25 mg/dL [employer] [facility] CREATININE (blood) 0.76 0.50 - 1.05 mg/dL [employer] [facility] Comment: For patients >49 years of age, the reference limit for Creatinine is approximately 13% higher for people identified as -Botswanan. GFR ESTIMATED 86 > OR = 60 mL/min/[address] [employer] [facility] EGFR 100 > OR = 60 mL/min/1 .[address] [employer] [employer] [facility] BUN/CREATININE RATIO NOT APPLICABLE 6 - [address] [employer] [facility] SODIUM 137 135 - 146 mmol/L [facility] POTASSIUM 4.4 3.5 - 5.3 mmol/L [employer] [facility] CHLORIDE 102 98 - 110 mmol/L [employer] [facility] CARBON DIOXIDE 24 20 - 32 mmol/L [employer] [facility] CALCIUM 9.8 8.6 - 10.4 mg/dL [employer] [facility] PROTEIN, TOTAL 7.2 6.1 - 8.1 g/dL [employer] [facility] ALBUMIN 4.3 3.6 - 5.1 g/dL [employer] [facility] GLOBULIN 2.9 1.9 - 3.7 g/dL (calc) [employer] [facility] ALBUMIN/GLOBULIN RATIO 1.5 1.0 - 2.5 (calc) [facility] BILIRUBIN, TOTAL 0.4 0.2 - 1.2 mg/dL [employer] [facility] ALKALINE PHOSPHATASE 75 37 - 153 U/L [employer] [facility] AST 35 10 - 35 U/L [employer] [place] [employer] ALT 48(H) 6 - 29 U/L [employer] [facility] Blood Blood / Unknown 06/22/2020 2 :36 PM EDT 06/22/2020 2:37 PM EDT Narrative [facility] - 06/22/2020 9:04 PM EDT FASTING:YES Hoda Patino PA-C LAB - BLOOD DRAW Final Resul t [facility] [address] [address], [facility] [address] [address] * PAP, LIQUID BASED (12/22/2017 1:39 PM EDT) PAP normal NORMAL - ABNORMAL [facility] Specimen from uterine cervix (specimen) Cervix uteri structure / Unknown 12/22/2017 1:39 PM EDT Impressions [facility] - 12/30/2017 2:54 PM EST ThinPrep Pap Negative for squamous intraepithelial lesion and malignancy HPV Negative April Pickard PA-C LAB - PATHOLOGY AND CYTOL OGY AMBULATORY Final Result Performing Organization Address City/[facility]/ZIP Co de Phone Number [facility] [address] [place] [address], * (ABNORMAL) HEPATITIS A,B,C PANEL (09/21/2017 10:45 [...] 10:45 AM EDT 09/21/2017 12:57 PM EDT [facility] - 09/21/2017 2:24 PM EDT [employer] [address] [place] [address] [place] [id number] ORD# [id number] April Pickard PA-C LAB - BLOOD DRAW Edited [employer] [address] [address], [place] [phone] * HIV-1 & HIV-2 ANTIBODIES (09/21/2017 10:45 AM EDT) [facility] HIV 1 AND 2 ANTIBODY SCREEN NEGATIVE [...] 10:45 AM EDT 09/21/2017 12:57 PM EDT [facility] - 09/21/2017 2:53 PM EDT [employer] [address] [place] [address] [place] [id number] ORD# [id number] April Pickard PA-C LAB - BLOOD DRAW Edited [employer] Performing Organization Address City/[facility]/ZIP Co de Phone Number [address] [address], [place] [phone] from Last 3 Months or Most Recently Relevant to Health Maintenance Insurance [employer] Care Teams Mobile Phlebotomist Relationship Specialty Start Date End Date Hoda Patino PA-C [address] [place] [address] PCP - General Internal Medicine 02/03/19
--- OUTSIDE RECORDS SUMMARY | 2024-10-08 09:11 | XMS_ITS | Clinical Summary ---
Author Organization [facility] Address [address] [place] [phone] Phone Care Team Providers Care Toll Gate Keeper Name Role Phone Niecy Cabello MD Primary Care Provider [phone] Family History Medical History Relation Name Comments [...] Signed Date: 01/22/2024 11:32 ET Workstation ID: [id number] Transcribed By: Self Edit Transcribed Date: 01/22/2024 11:23 ET Narrative 01/22/2024 11:32 AM EST EXAM: SCREENING MAMMOGRAPHY, BILATERAL HISTORY: SCREENING. Technologist indicates bruise left breast 11 o'clock position COMPARISON: 01/09/2023, 01/06/2022, 01/03/2021, 12/16/2019 TECHNIQUE: Synthesized CC and MLO projections of each breast. Tomosynthesis of each breast in the CC and MLO projections. ADDITIONAL IMAGING: None Computer-aided detection was employed with the [employer] 3-D. TISSUE DENSITY: There are scattered areas [...] None Computer-aided detection was employed with the [employer] AI 3-D. TISSUE DENSITY: There are scattered [...] Signed Date: 01/22/2024 11:32 ET Workstation ID: [id number] Transcribed By: Self Edit Transcribed Date: 01/22/2024 11:23 ET us Self Referral Sppl IMG BI PROCEDURES Final Resul t from Last 3 Months or Most Recently Relevant to Health Maintenance Insurance MEDICAID - [place] Care Teams Toll Gate Keeper Relationship Specialty Start Date End Date Niecy Cabello MD [address] [facility] , [address] [facility] D/B/A: [facility] ALVIN Hernandez PCP - General Internal Medicine 01/22/24
[2024-10-08 09:32] LABS: MANUAL DIFF FLAG NO
[2024-10-08 09:37] LABS: Hematocrit 36.4 % (37.0-47.0); Hemoglobin 11.9 g/dl (12.0-16.0); Imm Gran Abs Auto 0.02 X10*3/uL (0.00-0.03); Imm Gran Pct Auto 0.3 % (0.0-0.4); Lymphocytes Absolute Auto 3.3 X10*3/uL (1.2-4.9); Mean Corpuscular HGB Conc 32.7 g/dl (31.0-35.0); Mean Corpuscular Hemoglobin 29.7 pg (27.0-33.0); Mean Corpuscular Volume 90.8 fL (80.0-98.0); NRBC Abs Auto 0.000 X10*3/uL (0.0-0.012); NRBC Pct Auto 0.0 /100WBC (0.0-0.2); Platelet Count 320 X10*3/uL (160-400); Red Blood Count 4.01 X10*6/uL (4.20-5.50); White Blood Count 6.7 X10*3/uL (4.8-10.8)
[2024-10-08 10:09] LABS: Alanine Aminotransferase 36 U/L (0-31); Albumin Level 4.3 g/dL (3.5-5.0); Alkaline Phosphatase 80 U/L (39-117); Anion Gap 16 (12-20); Aspartate Amino Transferase 32 U/L (5-31); Blood Urea Nitrogen 15 mg/dL (9-16); Calcium 9.1 mg/dL (8.4-10.2); Carbon Dioxide 26 mmol/L (22-29); Chloride 105 mmol/L (96-108); Cholesterol 151 mg/dL (<200); Estimated Glomerular Filt Rate > 60; HDL Cholesterol 39 mg/dL (>40); Iron 71 mcg/dL (30-160); Percent Iron Saturation 22 % (15-50); Potassium 4.7 mmol/L (3.3-5.1); Sodium 142 mmol/L (135-145); Total Iron Binding Capacity 316 mcg/dL (228-428); Total Protein 7.1 g/dL (6.5-8.0); Triglycerides 198 mg/dL (<150); Unsaturated Iron Binding 245 ug/dL
[2024-10-08 10:29] LABS: Thyroid Stimulating Hormone 3.53 uIU/mL (0.32-4.0)
[2024-10-08 10:45] LABS: Folate 9.5 ng/mL (> or = 4.0); Vitamin B12 776 pg/mL (200-900)
[2024-10-08 11:01] LABS: Appearance Urine Clear; Glucose Urine UA Negative (Negative); PH 6.5 (5.0-9.0); Specific Gravity - Urine 1.015 (1.005-1.025); UMIC TRIGGER UACC YES
== END 2024-10-08 09:10 | disposition home or self-care (01) ==
LOC: HO.LAB 09:09
PROVIDERS: Internal Medicine Gastroenterology; PCP Internal Medicine; Visit Provider Internal Medicine
DX: E78.5 Hyperlipidemia, unspecified (principal); E03.9 Hypothyroidism, unspecified; E55.9 Vitamin D deficiency, unspecified; E53.8 Deficiency of other specified B group vitamins; D64.9 Anemia, unspecified; R73.01 Impaired fasting glucose; R22.0 Localized swelling, mass and lump, head
CPT/HCPCS: 36415; 80053; 80061; 81001; 81003; 82306; 82607; 82746; 83540; 84443; 85025

== ENCOUNTER 2024-10-10 08:30 | Outpatient (RCR) | payer OTHER, SELFPAY | END 2024-10-14 14:27 | disposition home or self-care (01) | LOC: HO.CR 08:30 | PROVIDERS: PCP Internal Medicine | DX: I21.3 ST elevation (STEMI) myocardial infarction of unspecified site (principal); Z98.61 Coronary angioplasty status; Z98.890 Other specified postprocedural states | CPT/HCPCS: 93798 ==

== ENCOUNTER 2024-10-17 14:53 | Outpatient (AMB) | payer OTHER, SELFPAY ==
[2024-10-17 15:24] VITALS: BP 120/72; PULSE 89; BMI 36.3
--- NOTE | 2024-10-17 15:24 | MHC.OFFVIS ---
Vital Signs 10/17/24 15:24 Height 5 ft 2 in Weight 198 lb 6.656 oz BMI 36.3 BP 120/72 Blood Pressure Location Lt brachial Position Sitting Pulse 89 Pulse Source Monitor Intake Visit Reasons: new patient ok per KM dx CAD Intake Note: CORE INSERTER- CAD Pilot Manager Required: No Accompanied by: Self / Same As Patient Allergies spicy food Adverse Reaction (Uncoded 10/04/24 14:16) Hives Medication List - Last Reconciled 10/17/24 by John Rea MD acetaminophen ER (Tylenol 8 Hour) 650 mg PO Q8H PRN 30 days aspirin (Adult Low Dose Aspirin) 81 mg PO DAILY [blood pressure machine As directed] cane As directed cetirizine (All Day Allergy (cetirizine)) 10 mg PO DAILY PRN 90 days cholecalciferol (vitamin D3) 50 mcg PO DAILY 90 days clopidogrel 75 mg PO DAILY clotrimazole-betamethasone 1-0.05 % 1 appl topical BID 10 days cyanocobalamin (vitamin B-12) 1,000 mcg IM Q4W 4 weeks fluticasone propionate 50 mcg/actuation (Flonase Allergy Relief) 1 spray intranasal DAILY 30 days hydrocortisone 2.5% 1 appl ID BID-QID PRN 2 weeks hydroxyzine HCl 50 mg PO QID PRN insulin syringe-needle U-100 (Advocate Syringes) As directed levothyroxine 112 mcg PO DAILY rosuvastatin 20 mg PO DAILY [shower chair As directed] syringe with needle (Monoject 3cc Syringe) As directed once a week zolpidem 10 mg PO BEDTIME PRN HPI Comments Details: 64-year-old lady here for 1st office visit. In April 2024 she presented to [facility] with shortness of breath and was diagnosed with inferior ST-elevation LA. She was emergently taken for cardiac catheterization which showed plaque rupture in the right coronary artery with thrombus and underwent primary PCI with thrombectomy. She was started on aspirin and Plavix. She is saying she has been doing well and has no chest discomfort shortness of breath. Her main complaint is bruising over her arms. She also has been noticing some vaginal bleeding which is mostly spotting and does not have any heavy bleeding. She has been postmenopausal and follows with OBGYN and has an appointment coming up in October. She is saying that she was on metoprolol succinate which was discontinued because she reported some low blood pressures but he is asking whether this can be restarted. [facility], [facility] Medical History STEMI (ST elevation myocardial infarction) Polyarthralgia Dry skin dermatitis Impaired fasting glucose Mixed dyslipidemia Vitamin B12 deficiency Vitamin D deficiency Varicose veins of bilateral lower extremities with pain Polyarthralgia Cholelithiasis Insomnia Fibromyalgia Acquired hypothyroidism Anxiety Surgical History Status post cardiac catheterization History of esophagogastroduodenoscopy (EGD) Hx of colonoscopy H/O blepharoplasty S/P cholecystectomy Family History Sister Breast cancer Mother Essential hypertension Cholelithiasis Social History Housing: House Are you a primary healthcare sales representative to a significant other at home: No Do you presently have visiting nurse or other home services: No Alcohol intake: never Patient Tobacco Use Status: Never used Tobacco e-Cigarette/Vaping Use: Never Used Second Hand Smoke Exposure: No service: No Current occupational status: unemployed Cognitive needs: No Hearing needs: No Vision needs: No Review of Systems Const Denies chills, Denies fatigue, Denies fever(s), Denies frequent falls, Denies weakness, Denies weight gain and Denies weight loss ENT Denies dizziness Card Denies chest pain, Denies leg edema, Denies lightheadedness, Denies palpitations, Denies dyspnea, Denies dyspnea on exertion and Denies orthopnea Resp Denies cough, Denies dyspnea and Denies dyspnea on exertion GI Denies bloating and Denies change in bowel habits Musc Denies muscle weakness, Denies numbness and Denies tingling Neuro Denies dizziness, Denies frequent falls, Denies numbness, Denies tingling and Denies weakness Endo Denies fatigue and Denies palpitations Physical Exam Vital Signs: Last Vital Signs Pulse 89 10/17/24 15:24 BP 120/72 10/17/24 15:24 BMI result Body Mass Index 36.3 GENERAL APPEARANCE: in no acute distress, pleasant. NECK: no carotid bruit, no jugular venous distention. SKIN: no suspicious lesions, warm and dry. HEART: no murmurs, regular rate and rhythm. LUNGS: clear to auscultation bilaterally. ABDOMEN: soft, nontender. EXTREMITIES: no edema. PERIPHERAL PULSES: equal. NEUROLOGIC: No gross deficits, AAO X 3 Office Procedures EKG Details: Sinus rhythm 89 beats per minute, normal axis, low voltage, QTC 455 milliseconds. [id number], Complete Assessment & Plan Assessment & Plan (1) STEMI (ST elevation myocardial infarction): Code(s): I21.3 - ST elevation (STEMI) myocardial infarction of unspecified site Category: Medical Qualifiers: Involved coronary artery: right coronary artery Qualified Code(s): I21.11 - ST elevation (STEMI) myocardial infarction involving right coronary artery (2) Status post cardiac catheterization: Comment: 05/22/24- ELEONORA placed in mid RCA Code(s): Z98.890 - Other specified postprocedural states Category: Surgical Plan Pleasant 64-year-old lady here for 1st office visit. She had inferior wall LA in April 2024 and underwent primary PCI. She did not have any significant disease as per the cardiac catheterization report. She is currently on aspirin Plavix. Overall tolerating it well and has some bruising which I have explained to her is expected. She did have some vaginal bleeding and has background of dysfunctional uterine bleeding. She does not have heavy bleeding at this point and we will be seeing her OBGYN in October and we will discuss further. Currently I have explained to her that aspirin and Plavix can not be stopped for these symptoms. I am resuming her Toprol-XL 25 mg daily. I have advised her to keep herself well hydrated. She was referred to cardiac rehabilitation but plans to exercise on her own. Follow up with us in 4 months. Thank you for allowing me to participate in the care of your patient. Please feel free to contact me if you have any questions. Medications: New metoprolol succinate ER 25 mg PO DAILY 90 tabs 3RF Coding Level of Care Code New Pt Level 4 (40709) Diagnoses ST elevation myocardial infarction involving right coronary artery I21.11 Involved coronary artery: right coronary artery Status post cardiac catheterization Z98.890 CPT Codes EKG - CPT: 21578-[id number], Complete ([id number])
--- OUTSIDE RECORDS SUMMARY | 2024-10-17 16:37 | XMS_ITS | Clinical Summary ---
Author Organization [facility] Address [address] [place] [address] [place] [phone] Phone Care Team Providers Care Performance Improvement Consultant Name Role Phone Wanda Davis MD Primary [...] on file Insurance [address] [place] [id number] [facility] [place] [address] [place] [address] [address] [place] [address] [facility] ACO [facility] ACO Care Teams Performance Improvement Consultant Relationship Specialty Start Date End Date Wanda Davis MD [address] [facility] [address] [place] [id number] PCP - General Internal Medicine 05/24/24 Additional Source Comments The information contained in this document represents components of the legal health record. It is not the complete legal health record.[facility]
--- OUTSIDE RECORDS SUMMARY | 2024-10-17 16:37 | XMS_ITS | Clinical Summary ---
Author Organization [facility] Address [address] [place] [phone] Phone Care Team Providers Care Sliver Former Name Role Phone Niecy Cabello MD Primary Care Provider [phone] Family History Medical History Relation Name Comments [...] Signed Date: 01/22/2024 11:32 ET Workstation ID: [id number] Transcribed By: Self Edit Transcribed Date: 01/22/2024 11:23 ET Narrative 01/22/2024 11:32 AM EST EXAM: SCREENING MAMMOGRAPHY, BILATERAL HISTORY: SCREENING. Technologist indicates bruise left breast 11 o'clock position COMPARISON: 01/09/2023, 01/06/2022, 01/03/2021, 12/16/2019 TECHNIQUE: Synthesized CC and MLO projections of each breast. Tomosynthesis of each breast in the CC and MLO projections. ADDITIONAL IMAGING: None Computer-aided detection was employed with the [employer] 3-D. TISSUE DENSITY: There are scattered areas [...] None Computer-aided detection was employed with the [employer] AI 3-D. TISSUE DENSITY: There are scattered [...] Signed Date: 01/22/2024 11:32 ET Workstation ID: [id number] Transcribed By: Self Edit Transcribed Date: 01/22/2024 11:23 ET us Self Referral Sppl IMG BI PROCEDURES Final Resul t from Last 3 Months or Most Recently Relevant to Health Maintenance Insurance MEDICA[place] - [place] Care Teams Sliver Former Relationship Specialty Start Date End Date Niecy Cabello MD [address] [facility] , [address] [facility] D/B/A: [facility] ALVIN Hernandez PCP - General Internal Medicine 01/22/24
== END 2024-10-17 16:19 | disposition home or self-care (01) ==
LOC: HO.HCS 14:54
PROVIDERS: PCP Internal Medicine; Visit Provider Internal Medicine Cardiovascular Disease
DX: I21.11 ST elevation (STEMI) myocardial infarction involving right coronary artery (principal); Z98.890 Other specified postprocedural states
CPT/HCPCS: 93010; 99214

== ENCOUNTER → 2024-10-17 14:53 | Outpatient (BNVA) | payer OTHER, SELFPAY | PROVIDERS: PCP Internal Medicine; Visit Provider Internal Medicine Cardiovascular Disease | DX: I21.11 ST elevation (STEMI) myocardial infarction involving right coronary artery (principal); Z98.890 Other specified postprocedural states | CPT/HCPCS: 93005; 99212 ==

== ENCOUNTER 2024-11-02 13:56 | Outpatient (REF) | payer OTHER, SELFPAY ==
[2024-11-02 22:57] LABS: Bacterial Vaginosis PCR NEGATIVE (Negative); Candida Group PCR DETECTED (Not Detect); Candida glab krusei PCR NOT DETECTED (Not Detect); Trichomonas vaginalis PCR NOT DETECTED (Not Detect)
[2024-11-02 23:32] LABS: CT PCR NOT DETECTED (Not Detect.); NG PCR NOT DETECTED (Not Detect.)
== END 2024-11-02 13:57 | disposition home or self-care (01) ==
LOC: HO.LAB 13:56
PROVIDERS: PCP Internal Medicine; Visit Provider Advanced Practice Midwife
DX: N95.0 Postmenopausal bleeding (principal); N89.8 Other specified noninflammatory disorders of vagina; Z11.3 Encounter for screening for infections with a predominantly sexual mode of transmission; Z11.8 Encounter for screening for other infectious and parasitic diseases
CPT/HCPCS: 81515; 87491; 87591; 99212

== ENCOUNTER 2024-11-02 13:56 | Outpatient (AMB) | payer OTHER, SELFPAY ==
--- NOTE | 2024-11-02 14:02 | A.OFFVIS_ITS ---
Vital Signs 11/02/24 14:11 Height 5 ft 2 in Weight 195 lb BMI 35.7 BP 118/62 Blood Pressure Location Lt brachial Position Sitting Intake Visit Reasons: AUB/Internal Referral/45 mins Intake Note: here for abnormal bleeding . Patient had heart attack in april 2024 on blood thinners Boot Repairer Services: Boot Repairer Offered & Declined Information Interpreted: non-clinical & clinical Low Voltage Electrician: Low Voltage Electrician Present (armond) Allergies spicy food Adverse Reaction (Uncoded 11/02/24 14:06) Hives Medication List - Last Reconciled 11/02/24 by Sandrine Noland LPN acetaminophen ER (Tylenol 8 Hour) 650 mg PO Q8H PRN 30 days aspirin (Adult Low Dose Aspirin) 81 mg PO DAILY [blood pressure machine As directed] cane As directed cetirizine (All Day Allergy (cetirizine)) 10 mg PO DAILY PRN 90 days cholecalciferol (vitamin D3) 50 mcg PO DAILY 90 days clopidogrel 75 mg PO DAILY clotrimazole-betamethasone 1-0.05 % 1 appl topical BID 10 days cyanocobalamin (vitamin B-12) 1,000 mcg IM Q4W 4 weeks fluticasone propionate 50 mcg/actuation (Flonase Allergy Relief) 1 spray intranasal DAILY 30 days hydrocortisone 2.5% 1 appl [place] BID-QID PRN 2 weeks hydroxyzine HCl 50 mg PO QID PRN insulin syringe-needle U-100 (Advocate Syringes) As directed levothyroxine 112 mcg PO DAILY metoprolol succinate ER 25 mg PO DAILY rosuvastatin 20 mg PO DAILY [shower chair As directed] syringe with needle (Monoject 3cc Syringe) As directed once a week zolpidem 10 mg PO BEDTIME PRN Is last menstrual period known: No Post menopausal: No Patient : No Do you need a note to return to daycare/school/sports/work: No HPI Comments Details: Patient is here today for a new patient consult due to bleeding externally when she is wiping x3, feels it may be from irritation. No vaginal odor or discharge. Denies post coital bleeding or pelvic pain. She report leakage of urine x 5 years. Recently had a LA was placed ASA daily. [facility] Medical History STEMI (ST elevation myocardial infarction) Polyarthralgia Dry skin dermatitis Impaired fasting glucose Mixed dyslipidemia Vitamin B12 deficiency Vitamin D deficiency Varicose veins of bilateral lower extremities with pain Polyarthralgia Cholelithiasis Insomnia Fibromyalgia Acquired hypothyroidism Anxiety Surgical History Status post cardiac catheterization History of esophagogastroduodenoscopy (EGD) Hx of colonoscopy H/O blepharoplasty S/P cholecystectomy Family History Sister Breast cancer Mother Essential hypertension Cholelithiasis Social History Housing: House Are you a primary foster care worker to a significant other at home: No Do you presently have visiting nurse or other home services: No Alcohol intake: never Patient Tobacco Use Status: Never used Tobacco e-Cigarette/Vaping Use: Never Used Second Hand Smoke Exposure: No service: No Current occupational status: unemployed Cognitive needs: No Hearing needs: No Vision needs: No Female Reproductive History Menstrual Date of last menstrual period: 11/03/11 Menopause type: natural Date of menopause: 11/02/21 Total pregnancies: 3 Number of Living Children: 3 Review of Systems Const All systems reviewed & are unremarkable except as noted in HPI and below Physical Exam Vital Signs: Last Vital Signs BP 118/62 11/02/24 14:11 BMI result Body Mass Index 35.7 Const General: cooperative, healthy appearing and no acute distress Orientation/consciousness: patient oriented x3 GI Inspection: Yes normal to inspection Palpation (GI): Soft to palpation and Other GI palpation findings present (Nontender) Rectal Exam - Female: visual inspection normal General: Yes bladder normal to palpation External Female Exam: normal appearance of the urethra and erythema (Shaven vulva and labia minora) Speculum Exam - Vagina: normal appearance of the vagina, normal palpation, normal vaginal discharge and vagina atrophic Speculum Exam - Cervix: normal appearance of the cervix and normal palpation Bimanual exam- vagina & uterus: normal bimanual exam, normal palpation, uterine size normal, bladder normal to palpation, normal palpation, uterine shape normal and non-tender Bimanual Exam- Adnexa, other: normal adnexae Neuro General: patient oriented x3 Assessment & Plan Assessment & Plan (1) Postmenopausal bleeding: Code(s): N95.0 - Postmenopausal bleeding Category: Medical Plan Discuss workup for postmenopausal bleeding to include cervical cultures, pelvic ultrasound and endometrial biopsy. Reviewed causes of vaginal bleeding and external irritation, consider not shaving for time being to see if there is any improvements. Counseled regarding preprocedure planning including taking 2 Tylenol with food and fluids 1 hour before her appointment time. Procedure reviewed, and the purpose for the procedure discussed. GC chlamydia and BV panel obtained. Follow up for EMB pending ultrasound results. The patient expressed understanding and agreement with the plan of care. All of her questions and concerns were addressed to the best of my ability. This note is constructed using voice recognition software. While every effort has been made to ensure accuracy, certified peer specialist errors may have been included. Orders: Orders US pelvic and transvaginal Today N95.0 - Postmenopausal bleeding Bacterial Vaginosis Panel Today N89.8 - Other specified noninflammatory disor ders of vagina, N95.0 - Postmenopausal bleeding CT NG by PCR Vag/Cerv Today N89.8 - Other specified noninflammatory disorders of vagina, N95.0 - Postmenopausal bleeding Coding Level of Care Code New Pt Level 3 (71871) Diagnoses Postmenopausal bleeding N95.0
[2024-11-02 14:11] VITALS: BP 118/62; BMI 35.7
--- OUTSIDE RECORDS SUMMARY | 2024-11-02 17:03 | XMS_ITS | Clinical Summary ---
Author Organization [facility] Address [address] [place] [address] [place] [phone] Phone Care Team Providers Care Glass Tube Bender Name Role Phone Wanda Davis MD Primary [...] on file Insurance [address] [place] [address] [facility] [place] [address] [place] [address] [place] [address] [place] [address] [facility]CO [facility] ACO [facility] ACO [facility] ACO Care Teams Glass Tube Bender Relationship Specialty Start Date End Date Wanda Davis MD [address] [facility] [address] [place] [id number] PCP - General Internal Medicine 05/24/24 Additional Source Comments The information contained in this document represents components of the legal health record. It is not the complete legal health record.[facility]
--- OUTSIDE RECORDS SUMMARY | 2024-11-02 17:03 | XMS_ITS | Clinical Summary ---
Author Organization [facility] Address [address] [place] [phone] Phone Care Team Providers Care Mounter Name Role Phone Niecy Cabello MD Primary Care Provider [phone] Family History Medical History Relation Name Comments [...] - Risk 60-74 years 1-dose series) 2022 Depression Screening 02/24/2024 COVID-19 Vaccine ( season) 2024 07/28/2020, 07/07/2020 Influenza Vaccine (#1) 2024 , 02/09/2019, 12/11/2017, [...] Signed Date: 01/22/2024 11:32 ET Workstation ID: [id number] Transcribed By: Self Edit Transcribed Date: 01/22/2024 11:23 ET Narrative 01/22/2024 11:32 AM EST EXAM: SCREENING MAMMOGRAPHY, BILATERAL HISTORY: SCREENING. Technologist indicates bruise left breast 11 o'clock position COMPARISON: 01/09/2023, 01/06/2022, 01/03/2021, 12/16/2019 TECHNIQUE: Synthesized CC and MLO projections of each breast. Tomosynthesis of each breast in the CC and MLO projections. ADDITIONAL IMAGING: None Computer-aided detection was employed with the [employer] 3-D. TISSUE DENSITY: There are scattered areas [...] None Computer-aided detection was employed with the [employer] 3-D. TISSUE DENSITY: There are scattered [...] Signed Date: 01/22/2024 11:32 ET Workstation ID: [id number] Transcribed By: Self Edit Transcribed Date: 01/22/2024 11:23 ET us Self Referral Sppl IMG BI PROCEDURES Final Resul t from Last 3 Months or Most Recently Relevant to Health Maintenance Insurance [place] - [place] Care Teams Mounter Relationship Specialty Start Date End Date Niecy Cabello MD [address] [facility] , [address] [facility] D/B/A: [facility] ALVIN Hernandez PCP - General Internal Medicine 01/22/24
--- OUTSIDE RECORDS SUMMARY | 2024-11-02 17:03 | XMS_ITS | Clinical Summary ---
Author Organization [facility] Address [address] [place] [address] Care Team Providers Care Curtain Stitcher Name Role Phone Hoda Patino PA-C Primary Care Provider + [phone] Source Comments PLEASE NOTE, if this patient [...] Seen by RHEM Dr. Wily Rubio [place] [facility] [place] dx: polyarthralgia + polymyalgia. Plan: labs; pt [...] and depression Overview (04/03/2015): Psych f/u @ [facility], formerly was seen by Dr. Garvin. Hepatic steatosis Overview (07/25/2014): Via [place] 04/06/13 at [facility]. Resolved Problems Problem Noted Date Diagnosed Date Resolved Date Polyarthralgia 11/01/2018 11/01/2018 Immunizations Immunization Administration Dates Next Due Flu, Preservative Free 02/09/2019,12/11/2017 Hep B, Adult/Adol ([id number]-J-[id number]/RECOMBIVAX-ADULT) 09/08/2011,12/16/2010,12/27/2007 INFLUENZA, SEASONAL, INJECTABLE 11/23/2012,11/30,11/28/2008 MMR (MMR [...] Screening (#1) 09/11/2021 Lipid Screening 11/26/2021 11/26/2020, 043 , 11/02/2019, Additional history exists TSH Monitoring 11/26/2021 11/26/2020, 04/3 , 11/02/2019, Additional history exists Breast Cancer Screening (Mammogram) 01/10/2024 01/09/2023, 01/06/2022, 01/03/2021, Additional history exists Alcohol and Drug Screen 02/24/2024 05/23/19 21, 11/02/2019, 08/06/2018, Additional history exists [id number] ( season) 2024 Imm-Hepatitis B Completed 09/08/2011, 11/24, 12/27/2007 HIV [...] TO FT4 1.75 0.40 - 4.50 mIU/L [employer] [facility] Blood Blood / Unknown 11/26/2020 9 :49 AM EDT 11/26/2020 9:49 AM EDT us Hoda Patino PA-C LAB - BLOOD DRAW Final Resul t [employer] [address] [address], [email or web address] [address] [address] * (ABNORMAL) LIPID PANEL (11/26/2020 9:49 AM EDT) CHOLESTEROL, TOTAL 263(H) <200 mg/dL [email or web address] HDL CHOLESTEROL 43(L) > OR = 50 mg/dL [email or web address] TRIGLYCERIDES 279(H) <150 mg/dL [email or web address] Comment: If a non-fasting specimen was collected, consider repeat triglyceride testing on a fasting specimen if clinically indicated. Rigo et al. J. of Clin. Lipidol. 2015;9:129-169. LDL-CHOLESTEROL 170(H) 99 mg/dL (calc) [email or web address] Comment: Reference range: <100 Desirable range <100 mg/dL for primary prevention; <70 mg/dL for patients with CHD or diabetic patients with > or = 2 CHD risk factors. LDL-C is now calculated using the Calvin-Jose calculation, which is a validated novel method providing better accuracy than the Friedewald equation in the estimation of LDL-C. Calvin SS et al. ASHLEY. 2013;310(19): 1729-7970 (http://education.e-INFO Technologies.Polaris Wireless/faq/LKU625) CHOL/HDLC RATIO 6.1(H) <5.0 (calc) [email or web address] NON-HDL CHOLESTEROL 220(H) <130 mg/dL (calc) [email or web address] Comment: Non-HDL level > or = 220 [...] LAB - BLOOD DRAW Final Resul t [employer] [facility] [address] [address], [employer] [facility] [address] [address] * (ABNORMAL) COMPRE METAB PANEL (06/22/2020 2:36 PM EDT) GLUCOSE 99 65 - 99 mg/dL [employer] [facility] Comment: Fasting reference interval UREA NITROGEN (BUN) 10 7 - 25 mg/dL [employer] CREATININE (blood) 0.76 0.50 - 1.05 mg/dL [employer] Comment: For patients >49 years of age, the reference limit for Creatinine is approximately 13% higher for people identified as -Namibian. GFR ESTIMATED 86 > OR = 60 mL/min/1 .73m2 [employer] [facility] EGFR 100 > OR = 60 mL/min/1 .73m2 [employer] BUN/CREATININE RATIO NOT APPLICABLE 6 - 22 [employer] SODIUM 137 135 - 146 mmol/L [email or web address] POTASSIUM 4.4 3.5 - 5.3 mmol/L [employer] CHLORIDE 102 98 - 110 mmol/L [employer] CARBON DIOXIDE 24 20 - 32 mmol/L [employer] [facility] CALCIUM 9.8 8.6 - 10.4 mg/dL [employer] [facility] PROTEIN, TOTAL 7.2 6.1 - 8.1 g/dL [employer] [facility] ALBUMIN 4.3 3.6 - 5.1 g/dL [employer] [facility] GLOBULIN 2.9 1.9 - 3.7 g/dL (calc) [employer] ALBUMIN/GLOBULIN RATIO 1.5 1.0 - 2.5 (calc) [email or web address] BILIRUBIN, TOTAL 0.4 0.2 - 1.2 mg/dL [employer] ALKALINE PHOSPHATASE 75 37 - 153 U/L [employer] AST 35 10 - 35 U/L [employer] ALT 48(H) 6 - 29 U/L [employer] [facility] Blood Blood / Unknown 06/22/2020 2 :36 PM EDT 06/22/2020 2:37 PM EDT Narrative [facility] - 06/22/2020 9:04 PM EDT FASTING:YES Hoda Patino PA-C LAB - BLOOD DRAW Final Resul t [facility] [address] [address], [facility] [address] [address] * PAP, LIQUID BASED (12/22/2017 1:39 PM EDT) PAP normal NORMAL - ABNORMAL [facility] Specimen from uterine cervix (specimen) Cervix uteri structure / Unknown 12/22/2017 1:39 PM EDT Impressions [facility] - 12/30/2017 2:54 PM EST ThinPrep Pap Negative for squamous intraepithelial lesion and malignancy HPV Negative April Pickard PA-C LAB - PATHOLOGY AND CYTOL OGY AMBULATORY Final Result Performing Organization Address City/[facility]/ZIP Co de Phone Number [facility] [address] [place] [address], * (ABNORMAL) HEPATITIS A,B,C PANEL (09/21/2017 10:45 AM EDT) HEPATITIS B SURFACE ANTIBODY NEGATIVE NEGATIVE [facility] HEPATITIS B SURFACE ANTIGEN NEGATIVE NEGATIVE [facility] Comment: Over the counter supplements containing high doses of biotin may interfere with this assay. If interference is suspected, patients shoud be retested after refraining from biotin supplements for 72 hours. HEPATITIS C VIRUS DIAGNOSTIC NEGATIVE NEGATIVE [facility] HEPATITIS B CORE ANTIBODY NEGATIVE NEGATIVE [facility] HEPATITIS A ANTIBODY TOTAL POSITIVE(A) NEGATIVE [facility] Comment: Over the counter supplements containing high doses of biotin may interfere with this assay. If interference is suspected, patients shoud be retested after refraining from biotin supplements for 72 hours. Blood specimen (specimen) Blood / Unknown 09/21/2017 10:45 AM EDT 09/21/2017 12:57 PM EDT [facility] - 09/21/2017 2:24 PM EDT [employer] [address] [place] [address] [place] [id number] ORD# [id number] April Pickard PA-C LAB - BLOOD DRAW Edited [employer] [address] [address], [place] [phone] * HIV-1 & HIV-2 ANTIBODIES (09/21/2017 10:45 AM EDT) [facility] HIV 1 AND 2 ANTIBODY SCREEN NEGATIVE NEGATIVE [facility] Comment: This assay is a [...] 10:45 AM EDT 09/21/2017 12:57 PM EDT [facility] - 09/21/2017 2:53 PM EDT [employer] [address] [place] [address] [place] [id number] ORD# [id number] April Pickard PA-C LAB - BLOOD DRAW Edited [employer] Performing Organization Address City/[facility]/ZIP Co de Phone Number [address] [address], [place] [phone] from Last 3 Months or Most Recently Relevant to Health Maintenance Insurance [employer] Care Teams Curtain Stitcher Relationship Specialty Start Date End Date Hoda Patino PA-C [address] [place] [address] PCP - General Internal Medicine 02/03/19
== END 2024-11-02 14:58 | disposition home or self-care (01) ==
LOC: HO.HWS 13:56
PROVIDERS: PCP Internal Medicine; Visit Provider Advanced Practice Midwife
DX: N95.0 Postmenopausal bleeding (principal)
CPT/HCPCS: 99213

== ENCOUNTER 2024-11-02 14:38 | Outpatient (REF) | payer OTHER, SELFPAY | END 2024-11-02 14:39 | disposition home or self-care (01) | LOC: HO.LNP 14:38 | PROVIDERS: Visit Provider Advanced Practice Midwife | DX: Z13.89 Encounter for screening for other disorder (principal) ==

== ENCOUNTER → 2024-12-13 10:24 | Outpatient (REF) | payer OTHER, SELFPAY ==
--- OUTSIDE RECORDS SUMMARY | 2024-12-13 12:20 | XMS_ITS | Clinical Summary ---
Author Organization [facility] Address [address] [place] [address] Care Team Providers Care Research Neuropsychologist Name Role Phone Hoda Patino PA-C Primary Care Provider + [phone] Source Comments PLEASE NOTE, if this patient [...] Seen by RHEM Dr. Wily Rubio at [facility] [place]: dx: polyarthralgia + polymyalgia. Plan: labs; pt on statin, depression, Could be assoc with fibromyalgia. F/U 4 wks. 03/16/18 - Seen by RHEUM Dr. Wily Rubio at [facility]: polyarthralgia is multifactorial: hypothyroidism, pt is on [...] and depression Overview (04/03/2015): Psych f/u @ [facility], formerly was seen by Dr. Garvin. Hepatic steatosis Overview (07/25/2014): Via [place] 04/06/13 at [facility]. Resolved Problems Problem Noted Date Diagnosed Date Resolved Date Polyarthralgia 11/01/2018 11/01/2018 Immunizations Immunization Administration Dates Next Due Flu, Preservative Free 02/09/2019,12/11/2017 Hep B, Adult/Adol ([id number]-W-[id number]/RECOMBIVAX-ADULT) 09/08/2011,12/16/2010,12/27/2007 INFLUENZA, SEASONAL, INJECTABLE 11/23/2012,11/30,11/28/2008 MMR (MMR [...] 05/23/19 21, 11/02/2019, 08/06/2018, Additional history exists [id number] ( season) 2024 Imm-Hepatitis B Completed 09/08/2011, [...] TO FT4 1.75 0.40 - 4.50 mIU/L [employer] [facility] Blood Blood / Unknown 11/26/2020 9 :49 AM EDT 11/26/2020 9:49 AM EDT us Hoda Pation PA-C LAB - BLOOD DRAW Final Resul t [employer] [address] [address], [employer] [address] [address] * (ABNORMAL) LIPID PANEL (11/26/2020 9:49 AM EDT) CHOLESTEROL, TOTAL 263(H) <200 mg/dL [employer] HDL CHOLESTEROL 43(L) > OR = 50 mg/dL [employer] TRIGLYCERIDES 279(H) <150 mg/dL [facility] Comment: If a non-fasting specimen was collected, consider repeat triglyceride testing on a fasting specimen if clinically indicated. Rigo et al. J. of Clin. Lipidol. 2015;9:129-169. LDL-CHOLESTEROL 170(H) 99 mg/dL (calc) [facility] Comment: Reference range: <100 Desirable range <100 mg/dL for primary prevention; <70 mg/dL for patients with CHD or diabetic patients with > or = 2 CHD risk factors. LDL-C is now calculated using the Calvin-Jose calculation, which is a validated novel method providing better accuracy than the Friedewald equation in the estimation of LDL-C. Calvin SS et al. ASHLEY. 2013;310(19): 8698-9877 (http://education.Bridesandlovers.com.Fresh Direct/faq/JHL791) CHOL/HDLC RATIO 6.1(H) <5.0 (calc) [employer] NON-HDL CHOLESTEROL 220(H) <130 mg/dL (calc) [facility] Comment: Non-HDL level > or = 220 [...] LAB - BLOOD DRAW Final Resul t [employer] [facility] [address] [address], [employer] [facility] [address] [address] * (ABNORMAL) COMPRE METAB PANEL (06/22/2020 2:36 PM EDT) GLUCOSE 99 65 - 99 mg/dL [employer] [facility] Comment: Fasting reference interval UREA NITROGEN (BUN) 10 7 - 25 mg/dL [employer] [facility] CREATININE (blood) 0.76 0.50 - 1.05 mg/dL [employer] [facility] Comment: For patients >49 years of age, the reference limit for Creatinine is approximately 13% higher for people identified as -Malaysian. GFR ESTIMATED 86 > OR = 60 mL/min/1 .73m2 [employer] [facility] EGFR 100 > OR = 60 mL/min/1 .73m2 [employer] [facility] BUN/CREATININE RATIO NOT APPLICABLE 6 - 22 [employer] [facility] [facility] SODIUM 137 135 - 146 mmol/L [employer] POTASSIUM 4.4 3.5 - 5.3 mmol/L [employer] [facility] CHLORIDE 102 98 - 110 mmol/L [employer] [facility] CARBON DIOXIDE 24 20 - 32 mmol/L [employer] [facility] CALCIUM 9.8 8.6 - 10.4 mg/dL [employer] [facility] PROTEIN, TOTAL 7.2 6.1 - 8.1 g/dL [employer] [facility] ALBUMIN 4.3 3.6 - 5.1 g/dL [employer] [facility] GLOBULIN 2.9 1.9 - 3.7 g/dL (calc) [employer] [facility] ALBUMIN/GLOBULIN RATIO 1.5 1.0 - 2.5 (calc) [employer] BILIRUBIN, TOTAL 0.4 0.2 - 1.2 mg/dL [employer] [facility] ALKALINE PHOSPHATASE 75 37 - 153 U/L [employer] [facility] AST 35 10 - 35 U/L [employer] [place] [employer] ALT 48(H) 6 - 29 U/L [employer] [facility] Blood Blood / Unknown 06/22/2020 2 :36 PM EDT 06/22/2020 2:37 PM EDT Narrative [facility] - 06/22/2020 9:04 PM EDT FASTING:YES Hoda Patino PA-C LAB - BLOOD DRAW Final Resul t [facility] [address] [address], [facility] [address] [address] * PAP, LIQUID BASED (12/22/2017 1:39 PM EDT) PAP normal NORMAL - ABNORMAL [facility] Specimen from uterine cervix (specimen) Cervix uteri structure / Unknown 12/22/2017 1:39 PM EDT Impressions [facility] - 12/30/2017 2:54 PM EST ThinPrep Pap Negative for squamous intraepithelial lesion and malignancy HPV Negative April Pickard PA-C LAB - PATHOLOGY AND CYTOL OGY AMBULATORY Final Result Performing Organization Address City/[facility]/ZIP Co de Phone Number [facility] [address] [place] [address], * (ABNORMAL) HEPATITIS A,B,C PANEL (09/21/2017 10:45 AM EDT) HEPATITIS B SURFACE ANTIBODY NEGATIVE NEGATIVE [facility] HEPATITIS B SURFACE ANTIGEN NEGATIVE NEGATIVE [facility] Comment: Over the counter supplements containing high doses of biotin may interfere with this assay. If interference is suspected, patients shoud be retested after refraining from biotin supplements for 72 hours. HEPATITIS C VIRUS DIAGNOSTIC NEGATIVE NEGATIVE [facility] HEPATITIS B CORE ANTIBODY NEGATIVE NEGATIVE [facility] HEPATITIS A ANTIBODY TOTAL POSITIVE(A) NEGATIVE [facility] Comment: Over the counter supplements containing high doses of biotin may interfere with this assay. If interference is suspected, patients shoud be retested after refraining from biotin supplements for 72 hours. Blood specimen (specimen) Blood / Unknown 09/21/2017 10:45 AM EDT 09/21/2017 12:[address] [facility] - 09/21/2017 2:24 PM EDT [facility] [address] [place] [address] [place] [id number] ORD# [id number] April Pickard PA-C LAB - BLOOD DRAW [employer] [address] [address], [place] [phone] * HIV-1 & HIV-2 ANTIBODIES (09/21/2017 10:45 AM EDT) [facility] HIV 1 AND 2 ANTIBODY SCREEN NEGATIVE NEGATIVE [facility] Comment: This assay is a 4th [...] 12:[address] [facility] - 09/21/2017 2:53 PM EDT [facility] [address] [place] [address] [place] [id number] ORD# [id number] April Pickard PA-C LAB - BLOOD DRAW Edited [employer] Per[employer] Organization Address City/[facility]/ZIP Co de Phone Number [address] [address], [place] [phone] from Last 3 Months or Most Recently Relevant to Health Maintenance Insurance [employer] Care Teams Research Neuropsychologist Relationship Specialty Start Date End Date Hoda Patino PA-C [address] [place] [address] PCP - General Internal Medicine 02/03/19
--- OUTSIDE RECORDS SUMMARY | 2024-12-13 12:21 | XMS_ITS | Clinical Summary ---
Author Organization [facility] Address [address] [place] [address] [place] [address] Phone Care Team Providers Care Glove Cutter Name Role Phone Wanda Davis MD Primary [...] on file Insurance [address] [place] [id number] [facility] [place] [place] [address] [address] [place] [address] [facility] [facility] ACO Care Teams Glove Cutter Relationship Specialty Start Date End Date Wanda Davis MD [address] [place] [address] PCP - General Internal Medicine 05/24/24 Additional Source Comments The information contained in this document represents components of the legal health record. It is not the complete legal health record.[facility]
== END ==
LOC: HO.SL 10:24
PROVIDERS: PCP Internal Medicine; Visit Provider Internal Medicine
DX: R40.0 Somnolence (principal); R06.83 Snoring
CPT/HCPCS: 95806

== ENCOUNTER → 2024-12-13 10:42 | Outpatient (BNV) | payer OTHER, SELFPAY | PROVIDERS: PCP Internal Medicine; Visit Provider Internal Medicine | DX: G47.33 Obstructive sleep apnea (adult) (pediatric) (principal) | CPT/HCPCS: 95806 ==

== ENCOUNTER 2024-12-15 10:31 | Outpatient (AMB) | payer OTHER, SELFPAY ==
[2024-12-15 10:34] VITALS: BP 126/70; PULSE 81; TEMP 36.8; O2SAT 100; BMI 36.2
--- NOTE | 2024-12-15 10:34 | AM.OFFWIN_ITS ---
Intake Vital Signs 12/15/24 10:34 Height 5 ft 2 in Weight 198 lb BMI 36.2 BP 126/70 Blood Pressure Location Lt brachial Position Sitting Pulse 81 Pulse Source Pulse Oximeter Temp 98.2 F Temp Source Oral Pulse Oximetry (%) 100 Oxygen Delivery Method Room Air Intake Visit Reasons: EP - Unexplained Bruising, painful, x3days Intake Note: pt presents with 2 swollen and painful bruises on right upper arm and right lower leg with traveling pain to digits x4 days. also experiencing indigestion . h/o heart attack Patient Tobacco Use Status: Never used Tobacco Allergies spicy food Adverse Reaction (Uncoded 12/15/24 10:39) itchy Do you need a note to return to daycare/school/sports/work: No HPI HPI Comments History of Present Illness Details History of Present Illness - The patient is a 64-year-old female pr esenting with hematomas, shortness of breath, and chest pain. - The patient reports developing hematom as, which are painful and have been occurring since starting Plavix. - She has multiple small bruises and now has developed a large raised on the right lower anterior leg and left upper arm. - She has been having bleeding gums when she brushes her teeth as well but has no vaginal or rectal bleeding. - The patient experiences shortness of b reath and chest wall pain midsternal similar to symptoms prior to a previous heart attack. - The patient reports chest pain and has a history of heart attack and stent placement. - She has been having fatigue as well. - She did cardiac rehab after her stent. - The patient has gained weight despite dietary efforts, possibly related to medication. - The patient reports feeling weak but d enies any significant changes in skin color or pallor. - She denies COLLINS, JEAN BAPTISTE, syncope, nausea, v omiting, abd pain, leg edema, or calf pain. Physical Exam General: Cooperative, healthy appearing, comfortable, no acute distress and well developed Orientation: Patient oriented x3 Limitations: No limitations Head: Normal to inspection Eyes: Appearance normal, both eyes and all related structures Neck: Normal visual inspection and Yes full ROM Respiratory: Normal respiratory effort and able to speak in complete sentences. Clear to auscultation bilaterally. No w/r/r noted. Cardiovascular: Regular rate and rhythm. Normal S1 and S2. No m/r/g noted. GI: Normal to inspection. Soft to palpation and nontender Skin: Bruising noted, with two large hematomas present, one on the right anterior lower leg and right upper arm. No rashes or lesions noted Neuro: Patient oriented x3. Sensation intact. Extremities: Normal to inspection, no swelling noted. Patient was informed and verbally consented to the use of an ambient scribe for clinic note documentation during this visit. [facility] Medical History STEMI (ST elevation myocardial infarction) Polyarthralgia Dry skin dermatitis Impaired fasting glucose Mixed dyslipidemia Vitamin B12 deficiency Vitamin D deficiency Varicose veins of bilateral lower extremities with pain Polyarthralgia Cholelithiasis Insomnia Fibromyalgia Acquired hypothyroidism Anxiety Surgical History Status post cardiac catheterization History of esophagogastroduodenoscopy (EGD) Hx of colonoscopy H/O blepharoplasty S/P cholecystectomy Family History Sister Breast cancer Mother Essential hypertension Cholelithiasis Social History Housing: House Are you a primary critical care physician assistant to a significant other at home: No Do you presently have visiting nurse or other home services: No Alcohol intake: never Patient Tobacco Use Status: Never used Tobacco e-Cigarette/Vaping Use: Never Used Second Hand Smoke Exposure: No service: No Current occupational status: unemployed Cognitive needs: No Hearing needs: No Vision needs: No Female Reproductive History Menstrual Date of menopause: 11/02/21 Review of Systems Const All systems reviewed & are unremarkable except as noted in HPI and below Physical Exam Vital Signs: Last Vital Signs Temp 98.2 F 12/15/24 10:34 Pulse 81 12/15/24 10:34 BP 126/70 12/15/24 10:34 Pulse Ox 100 12/15/24 10:34 Oxygen Delivery Method Room Air 12/15/24 10:34 BMI result Body Mass Index 36.2 Results Reviewed Results Reviewed: Reviewed the EKG in the office Assessment & Plan Assessment & Plan (1) Bruising: Code(s): T14.8XXA - Other injury of unspecified body region, initial encounter (2) Chest discomfort: Code(s): R07.89 - Other chest pain Plan Most likely due to her plavix or anemia pt had an EKG in the office plan - Plan to check blood work to assess for anemia or other underlying issues. - EKG planned to assess cardiac function. - Follow-up with wildlife photographer recommended. Orders: Orders Complete Blood Count Auto Diff Today T14.8XXA - Other injury of unspecified body region, initial encounter AMB EKG-In Office Today R07.9 - Chest pain, unspecified Coding Level of Care Code Est Pt Level 4 (56517) Diagnoses Bruising T14.8XXA Chest discomfort R07.89
--- OUTSIDE RECORDS SUMMARY | 2024-12-15 12:42 | XMS_ITS | Clinical Summary ---
Author Organization [facility] Address [address] [place] [address] Care Team Providers Care Tactical Debriefer Name Role Phone Hoda Patino PA-C Primary Care Provider + [phone] Source Comments PLEASE NOTE, if this patient [...] Se[place] by RHEM [place]. [place]ily [place] [facility]: [place]gia + polymyalgia. Plan: labs; pt on statin, depression, Could be assoc with fibromyalgia. F/U 4 wks. 03/16/18 - Seen by RHEUM Dr. Wily Rubio at [facility]: polyarthralgia is multifactorial: hypothyroidism, pt is [...] and depression Overview (04/03/2015): Psych f/u @ [facility], formerly was seen by Dr. Garvin. Hepatic steatosis Overview (07/25/2014): Via US 04/06/13 at [facility]. Resolved Problems Problem Noted Date Diagnosed Date Resolved Date Polyarthralgia 11/01/2018 11/01/2018 Immunizations Immunization Administration Dates Next Due Flu, Preservative Free 02/09/2019,12/11/2017 Hep B, Adult/Adol ([id number]/RECOMBIVAX-ADULT) 09/08/2011,12/16/2010,12/27/2007 INFLUENZA, SEASONAL, INJECTABLE 11/23/2012,11/30,11/28/2008 MMR (MMR [...] 05/23/19 21, 11/02/2019, 08/06/2018, Additional history exists [id number] ( season) 2024 Imm-Hepatitis B Completed 09/08/2011, [...] TO FT4 1.75 0.40 - 4.50 mIU/L [employer] [facility] Blood Blood / Unknown 11/26/2020 9 :49 AM EDT 11/26/2020 9:49 AM EDT us Hoda Patino PA-C LAB - BLOOD DRAW Final Resul t [email or web address] [address] [address], [employer] [address] [address] * (ABNORMAL) LIPID PANEL (11/26/2020 9:49 AM EDT) CHOLESTEROL, TOTAL 263(H) <200 mg/dL [employer] HDL CHOLESTEROL 43(L) > OR = 50 mg/dL [employer] TRIGLYCERIDES 279(H) <150 mg/dL [employer] Comment: If a non-fasting specimen was collected, consider repeat triglyceride testing on a fasting specimen if clinically indicated. Rigo et al. J. of Clin. Lipidol. 2015;9:129-169. LDL-CHOLESTEROL 170(H) 99 mg/dL (calc) [employer] Comment: Reference range: <100 Desirable range <100 mg/dL for primary prevention; <70 mg/dL for patients with CHD or diabetic patients with > or = 2 CHD risk factors. LDL-C is now calculated using the Calvin-Jose calculation, which is a validated novel method providing better accuracy than the Friedewald equation in the estimation of LDL-C. Calvin SS et al. ASHLEY. 2013;310(19): 7757-3061 (http://education.Choose Digital.Smartsy/faq/KHH186) CHOL/HDLC RATIO 6.1(H) <5.0 (calc) [employer] NON-HDL CHOLESTEROL 220(H) <130 mg/dL (calc) [employer] Comment: Non-HDL level > or = 220 [...] LAB - BLOOD DRAW Final Resul t [employer] [facility] [address] [address], [employer] [facility] [address] [address] * (ABNORMAL) COMPRE METAB PANEL (06/22/2020 2:36 PM EDT) GLUCOSE 99 65 - 99 mg/dL [employer] [facility] Comment: Fasting reference interval UREA NITROGEN (BUN) 10 7 - 25 mg/dL [employer] [facility] CREATININE (blood) 0.76 0.50 - 1.05 mg/dL [employer] [facility] Comment: For patients >49 years of age, the reference limit for Creatinine is approximately 13% higher for people identified as -Mosotho. GFR ESTIMATED 86 > OR = 60 mL/min/1 .73m2 [employer] [facility] EGFR 100 > OR = 60 mL/min/1 .73m2 [employer] [facility] BUN/CREATININE RATIO NOT APPLICABLE 6 - 22 [employer] [facility] SODIUM 137 135 - 146 mmol/L [employer] POTASSIUM 4.4 3.5 - 5.3 mmol/L [employer] [facility] CHLORIDE 102 98 - 110 mmol/L [employer] [facility] CARBON DIOXIDE 24 20 - 32 mmol/L [employer] [facility] CALCIUM 9.8 8.6 - 10.4 mg/dL [employer] [facility] PROTEIN, TOTAL 7.2 6.1 - 8.1 g/dL [employer] [facility] ALBUMIN 4.3 3.6 - 5.1 g/dL [employer] [facility] GLOBULIN 2.9 1.9 - 3.7 g/dL (calc) [employer] [facility] ALBUMIN/GLOBULIN RATIO 1.5 1.0 - 2.5 (calc) [employer] BILIRUBIN, TOTAL 0.4 0.2 - 1.2 mg/dL [employer] [facility] ALKALINE PHOSPHATASE 75 37 - 153 U/L [employer] [facility] AST 35 10 - 35 U/L [employer] [place] [employer] ALT 48(H) 6 - 29 U/L [employer] [facility] Blood Blood / Unknown 06/22/2020 2 :36 PM EDT 06/22/2020 2:37 PM EDT Narrative [facility] - 06/22/2020 9:04 PM EDT FASTING:YES Hoda Patino PA-C LAB - BLOOD DRAW Final Resul t [facility] [address] [address], [facility] [address] [address] * PAP, LIQUID BASED (12/22/2017 1:39 PM EDT) PAP normal NORMAL - ABNORMAL [facility] Specimen from uterine cervix (specimen) Cervix uteri structure / Unknown 12/22/2017 1:39 PM EDT Impressions [facility] - 12/30/2017 2:54 PM EST [employer] Pap Negative for squamous intraepithelial lesion and malignancy HPV Negative April Pickard PA-C LAB - PATHOLOGY AND CYTOL OGY AMBULATORY Final Result Performing Organization Address City/[facility]/ZIP Co de Phone Number [facility] [address] [place] [phone], * (ABNORMAL) HEPATITIS A,B,C PANEL (09/21/2017 10:45 AM EDT) HEPATITIS B SURFACE ANTIBODY NEGATIVE NEGATIVE [facility] HEPATITIS B SURFACE ANTIGEN NEGATIVE NEGATIVE [facility] Comment: Over the counter supplements containing high doses of biotin may interfere with this assay. If interference is suspected, patients shoud be retested after refraining from biotin supplements for 72 hours. HEPATITIS C VIRUS DIAGNOSTIC NEGATIVE NEGATIVE [facility] HEPATITIS B CORE ANTIBODY NEGATIVE NEGATIVE [facility] HEPATITIS A ANTIBODY TOTAL POSITIVE(A) NEGATIVE [facility] Comment: Over the counter supplements containing high doses of biotin may interfere with this assay. If interference is suspected, patients shoud be retested after refraining from biotin supplements for 72 hours. Blood specimen (specimen) Blood / Unknown 09/21/2017 10:45 AM EDT 09/21/2017 12:[address] [facility] - 09/21/2017 2:24 PM EDT [employer] [address] [place] [address] [place] [id number] ORD# [id number] April Pickard PA-C LAB - BLOOD DRAW Edited [email or web address] [address] [address], [place] [phone] * HIV-1 & HIV-2 ANTIBODIES (09/21/2017 10:45 AM EDT) [facility] HIV 1 AND 2 ANTIBODY SCREEN NEGATIVE NEGATIVE [facility] Comment: This assay is a 4th [...] 12:[address] [facility] - 09/21/2017 2:53 PM EDT [employer] [address] [place] [address] [place] [id number] ORD# [id number] April Pickard PA-C LAB - BLOOD DRAW Edited [email or web address] Performing Organization Address City/[facility]/ZIP Co de Phone Number [address] [address], [place] [phone] from Last 3 Months or Most Recently Relevant to Health Maintenance Insurance [employer] Care Teams Tactical Debriefer Relationship Specialty Start Date End Date Hoda Patino PA-C [address] [place] [address] PCP - General Internal Medicine 02/03/19
--- OUTSIDE RECORDS SUMMARY | 2024-12-15 12:43 | XMS_ITS | Clinical Summary ---
Author Organization [facility] Address [address] [place] [address] [place] [phone] Phone Care Team Providers Care Osha Inspector Name Role Phone Wanda Davis MD Primary [...] on file Insurance [address] [place] [id number] [facility] [place] [address] [place] [address] [address] [place] [address] [employer] [facility] ACO Care Teams Osha Inspector Relationship Specialty Start Date End Date Wanda Davis MD 1959 [facility] [address] [address] PCP - General Internal Medicine 05/24/24 Additional Source Comments The information contained in this document represents components of the legal health record. It is not the complete legal health record.[facility]
--- OUTSIDE RECORDS SUMMARY | 2024-12-15 12:43 | XMS_ITS | Clinical Summary ---
Author Organization [facility] Address [address] [place] [address] Phone Care Team Providers Care Gas Appliance Mechanic Name Role Phone Niecy Cabello MD Primary Care Provider [phone] Family History Medical History Relation Name Comments [...] Health Maintenance Due Date Last Done Comments Colorectal Cancer Screening: Colonoscopy 1962 Hepatitis A Vaccines (1 of 2 - Risk 2-dose series) 1981 Pneumococcal Vaccine: 50+ Years (1 of 1 - PCV) 2012 RSV Immunization Adult Patients (1 - Risk 50-74 years 1-dose series) 2012 Cervical Cancer Screening: Pap Smear 12/22/2020 12/22/2017 Hepatitis C Screening 01/25/2022 Social Influencers of Health Screening 01/25/2022 Depression Screening 02/24/2024 COVID-19 Vaccine ( season) [...] Signed Date: 01/22/2024 11:32 ET Workstation ID: [id number] Transcribed By: Self Edit Transcribed Date: 01/22/2024 11:23 ET Narrative 01/22/2024 11:32 AM EST EXAM: SCREENING MAMMOGRAPHY, BILATERAL HISTORY: SCREENING. Technologist indicates bruise left breast 11 o'clock position COMPARISON: 01/09/2023, 01/06/2022, 01/03/2021, 12/16/2019 TECHNIQUE: Synthesized CC and MLO projections of each breast. Tomosynthesis of each breast in the CC and MLO projections. ADDITIONAL IMAGING: None Computer-aided detection was employed with the [employer] 3-D. TISSUE DENSITY: There are scattered areas [...] Signed Date: 01/22/2024 11:32 ET Workstation ID: [id number] Transcribed By: Self Edit Transcribed Date: 01/22/2024 11:23 ET us Self Referral Sppl IMG BI PROCEDURES Final Resul t from Last 3 Months or Most Recently Relevant to Health Maintenance Insurance MEDICA[place] - [place] Care Teams Gas Appliance Mechanic Relationship Specialty Start Date End Date Niecy Cabello MD [address] [facility] [address], [address] [facility] D/B/A: [facility] ALVIN Hernandez PCP - General Internal Medicine 01/22/24
== END 2024-12-15 11:28 | disposition home or self-care (01) ==
PROVIDERS: PCP Internal Medicine; Visit Provider Physician Assistant Medical
DX: R07.89 Other chest pain (principal); T14.8XXA Other injury of unspecified body region, initial encounter

== ENCOUNTER 2024-12-15 10:31 | Outpatient (REF) | payer OTHER, SELFPAY ==
[2024-12-15 13:08] LABS: MANUAL DIFF FLAG NO
[2024-12-15 13:24] LABS: Hematocrit 36.2 % (37.0-47.0); Hemoglobin 11.7 g/dl (12.0-16.0); Imm Gran Abs Auto 0.01 X10*3/uL (0.00-0.03); Imm Gran Pct Auto 0.2 % (0.0-0.4); Lymphocytes Absolute Auto 2.7 X10*3/uL (1.2-4.9); Mean Corpuscular HGB Conc 32.3 g/dl (31.0-35.0); Mean Corpuscular Hemoglobin 29.4 pg (27.0-33.0); Mean Corpuscular Volume 91.0 fL (80.0-98.0); NRBC Abs Auto 0.000 X10*3/uL (0.0-0.012); NRBC Pct Auto 0.0 /100WBC (0.0-0.2); Platelet Count 321 X10*3/uL (160-400); Red Blood Count 3.98 X10*6/uL (4.20-5.50); White Blood Count 5.8 X10*3/uL (4.8-10.8)
== END 2024-12-15 10:32 | disposition home or self-care (01) ==
LOC: HO.HMGCLDS 10:31
PROVIDERS: PCP Internal Medicine; Visit Provider Physician Assistant Medical
DX: S80.11XA Contusion of right lower leg, initial encounter (principal); S40.021A Contusion of right upper arm, initial encounter; R07.89 Other chest pain; X58.XXXA Exposure to other specified factors, initial encounter
CPT/HCPCS: 36415; 85025; 93005; 99212

== ENCOUNTER 2024-12-19 13:10 | Outpatient (AMB) | payer OTHER, SELFPAY ==
[2024-12-19 13:15] VITALS: BP 152/94; PULSE 89; TEMP 36.2; O2SAT 100; BMI 35.9
--- NOTE | 2024-12-19 13:15 | MHC.PC.OV ---
Vital Signs 12/19/24 13:15 Height 5 ft 2 in Weight 196 lb 2 oz BMI 35.9 BP 152/94 H Blood Pressure Location Lt brachial Position Sitting Pulse 89 Pulse Source Pulse Oximeter Temp 97.1 F Temp Source Temporal Artery Scan Pulse Oximetry (%) 100 Oxygen Delivery Method Room Air Intake Visit Reasons: unexplained bruises Accompanied by: Spouse Allergies spicy food Adverse Reaction (Uncoded 12/19/24 13:18) itchy Medication List - Last Reconciled 12/19/24 by Mary Vuong MD acetaminophen ER (Tylenol 8 Hour) 650 mg PO Q8H PRN 30 days aspirin (Adult Low Dose Aspirin) 81 mg PO DAILY [blood pressure machine As directed] cane As directed cetirizine (All Day Allergy (cetirizine)) 10 mg PO DAILY PRN 90 days cholecalciferol (vitamin D3) 50 mcg PO DAILY 90 days clopidogrel 75 mg PO DAILY clotrimazole-betamethasone 1-0.05 % 1 appl topical BID 10 days cyanocobalamin (vitamin B-12) 1,000 mcg IM Q4W 4 weeks fluticasone propionate 50 mcg/actuation (Flonase Allergy Relief) 1 spray intranasal DAILY 30 days hydrocortisone 2.5% 1 appl MA BID-QID PRN 2 weeks hydroxyzine HCl 50 mg PO QID PRN insulin syringe-needle U-100 ([employer] Syringes) As directed levothyroxine 112 mcg PO DAILY metoprolol succinate ER 25 mg PO DAILY miconazole nitrate 2% (Monistat 7) 1 appful vaginal BEDTIME 7 days rosuvastatin 20 mg PO DAILY [shower chair As directed] syringe with needle (Monoject 3cc Syringe) As directed once a week zolpidem 10 mg PO BEDTIME PRN Tobacco use date assessed: 12/19/24 Dental Screening Dental Screen Date: 12/19/24 Did you have a dental visit in the last 12 months?: No Did you have a dental problem in the last 6 months where you did not have access to dental care?: No Was dental information given to patient?: No HPI HPI Comments History of Present Illness Details 64 yo F presenting with diffused bruising after she recently started DAPT. She reports history heart attack 3 months ago with stent placed. She follows with Dr. Rea who advised the patient that bruising is expected after starting DAPT. The patient is worried about the bruise on her right leg and right upper extremity because they were tender and with a bump present. These two bruises has been present for two weeks. [facility] Medical History STEMI (ST elevation myocardial infarction) Polyarthralgia Dry skin dermatitis Impaired fasting glucose Mixed dyslipidemia Vitamin B12 deficiency Vitamin D deficiency Varicose veins of bilateral lower extremities with pain Polyarthralgia Cholelithiasis Insomnia Fibromyalgia Acquired hypothyroidism Anxiety Surgical History Status post cardiac catheterization History of esophagogastroduodenoscopy (EGD) Hx of colonoscopy H/O blepharoplasty S/P cholecystectomy Family History Sister Breast cancer Mother Essential hypertension Cholelithiasis Social History Housing: House Are you a primary acute care assistant to a significant other at home: No Do you presently have visiting nurse or other home services: No Alcohol intake: never Patient Tobacco Use Status: Never used Tobacco e-Cigarette/Vaping Use: Never Used Second Hand Smoke Exposure: No service: No Current occupational status: unemployed Cognitive needs: No Hearing needs: No Vision needs: No Female Reproductive History Menstrual Date of menopause: 11/02/21 Questionnaire PHQ-9 Over the last 2 weeks, how often have you been bothered by any of the following problems? 1. Little interest or pleasure in doing things: several days 2. Feeling down, depressed, or hopeless: several days 3. Trouble falling or staying asleep, or sleeping too much: several days 4. Feeling tired or having little energy: several days 5. Poor appetite or overeating: several days 6. Feeling bad about yourself - or that you are a failure or have let yourself or your family down: several days 7. Trouble concentrating on things, such as reading the newspaper or watching television: several days 8. Moving or speaking so slowly that other people could have noticed. Or the opposite - being so fidgety or restless that you have been moving around a lot more than usual: several days 9. Thoughts that you would be better off or of hurting yourself in some way: not at all Total score: 8 Depression Screening Interpretation: Positive Depression Screening Follow-up: Existing condition, In treatment and Follow-up Visit Requested Depression Screening Done: Yes Source: Developed by Drs. Sánchez Gupta, Maria Del Rosario Reyna, Jason Coleman and colleagues, with an educational james from [employer]. Thrive Questionnaire Date Thrive assessed: 10/04/24 I am a: Patient What is your living situation today?: I have a steady place to live Within the past 12 months, did the food you bought not last and you didn't have the money to get more?: I choose not to answer this question Within the past 12 months, did you worry whether your food would run out before you got money to buy more?: I choose not to answer this question Do you have trouble paying for medicines?: I choose not to answer this question Do you have trouble getting transportation to medical appointments?: I choose not to answer this question Do you have trouble paying your heating and electricity bill?: I choose not to answer this question Do you have trouble taking care of your child, family member or friend?: I choose not to answer this question Do you have trouble with day-to-day activities such as bathing, preparing meals, shopping, managing finances, etc.?: I choose not to answer this question Are you currently unemployed and looking for a job?: I choose not to answer this question Are you interested in more education?: I choose not to answer this question Please select the resources that you would like help with: None Currently or been in a relationship where the following occur: I choose not to answer THRIVE Score: 0 AUDIT C Alcohol Use Questionnaire (AUDIT-C) 1. How often do you have a drink containing alcohol?: Never 3. How often do you have six or more drinks on one occasion?: Never Total Score: 0 HEMA-7 AMB Questionnaire HEMA-7 Date HEAM - 7 assessed: 05/27/24 Feeling nervous, anxious, or on edge: 1 = Several days Not being able to stop or control worryin = Several days Worrying too much about different things: 1 = Several days Trouble relaxin = Several days Being so restless that it is hard to sit still: 1 = Several days Becoming easily annoyed or irritable: 1 = Several days Feeling afraid as if something awful might happen: 1 = Several days Total HEMA-7 score (0-4 normal; 5-9 mild; 10-14 moderate; 15-21 severe): 7 Source: Developed by Drs. Sánchez Gupta, Maria Del Rosario Reyna, Jason Coleman and colleagues, with an educational james from [employer]. Review of Systems Const Details: Not done. Physical exam (Primary Care) Vital Signs: Last Vital Signs Temp 97.1 F 12/19/24 13:15 Pulse 89 12/19/24 13:15 BP 152/94 H 12/19/24 13:15 Pulse Ox 100 12/19/24 13:15 Oxygen Delivery Method Room Air 12/19/24 13:15 BMI result Body Mass Index 35.9 Tobacco/Smoking Status: Tobacco use Status Tobacco use date assessed 12/19/24 12/19/24 13:20 Patient Tobacco Use Status Never used Tobacco 12/19/24 13:20 e-Cigarette/Vaping Use Never Used 12/19/24 13:20 PHQ-9: PHQ-9 Score PHQ-9: Total score 8 12/19/24 13:20 Depression Screening Interpretation: Positive Depression Screening Follow-up: Existing condition, In treatment and Follow-up Visit Requested Thrive Assessment: Date of Thrive Assessment Date Thrive assessed 10/04/24 12/19/24 13:20 Currently or been in a relationship where the following occur: I choose not to answer Const Other: Pertinent findings are in BOLD GENERAL APPEARANCE NAD, activity normal for age, well developed/ well nourished, no cyanosis, pallor, or diaphoresis. EYES lids/conjunctiva normal. EARS/NOSE/THROAT Mucous membranes moist, nares normal, lips/teeth normal uvula midline without oral pharyngeal erythema, exudate or swelling TMs normal bilaterally. No lymphangitis/lymphedema. HEAD/NECK normocephalic atraumatic, no facial trauma, neck is supple. RESPIRATORY respiratory effort normal, speaks in full sentences, no tripod position, no accessory muscle use. Lungs clear to auscultation without rhonchi, wheezes, rales CARDIAC Regular rate and rhythm, no edema. ABDOMINAL Soft, ND/NT. No evidence of fluid wave. No pulsatile masses on exam, rebound tenderness, Leggett sign or pain over Mcburney's point. MUSCLES/EXTREMITIES No abnormal range of motion, no swelling. SKIN Warm, pink and dry. No rashes, dermatoses, petechiae or lesions. Bump on right upper and right lower extremity. NEUROLOGICAL Speech is clear and appropriate. Normal level of consciousness. Gait and coordination are normal. 5/5 strength in all extremities. PSYCH Normal mood and affect. Judgement/competence is appropriate Coding Level of Care Code Est Pt Level 3 (11956) Diagnoses Tenderness of right lower extremity M79.604 Time Spent (min) 20 Assessment & Plan Assessment & Plan (1) Tenderness of right lower extremity: Code(s): M79.604 - Pain in right leg Category: Medical Plan: Due to the patient having tenderness on her right lower leg and due to recent skin changes we will get a Lower extremity US of the RLE. Advised patient that her symptoms are most likely 2/2 DAPT and that they will improve with time. Advised patient to discuss further with Dr. Rea in case she continues to have bruising during her F-U with him. Plan US of Right LE to rule out blood clot. If no blood clot present we will continue to monitor. Advised the patient to discuss further with Dr. Rea. Orders: Orders US venous duplex LE RT Today M79.604 - Pain in right leg
--- OUTSIDE RECORDS SUMMARY | 2024-12-19 16:48 | XMS_ITS | Clinical Summary ---
Author Organization [facility] Address [address] [place] [address] Care Team Providers Care Butter Grader Name Role Phone Hoda Patino PA-C Primary Care Provider + [phone] Source Comments PLEASE NOTE, if this patient [...] Seen by RHEM Dr. Wily Rubio at [facility] [place]: dx: polyarthralgia + polymyalgia. Plan: labs; pt on statin, depression, Could be assoc with fibromyalgia. F/U 4 wks. 03/16/18 - Seen by RHEUM Dr. Wily Rubio at [facility]: polyarthralgia is multifactorial: hypothyroidism, pt [...] depression Overview (04/03/2015): Psych f/u @ [facility], formerly was seen by Dr. Garvin. Hepatic steatosis Overview (07/25/2014): Via [place] 04[place]06/13 at [facility]. Resolved Problems Problem Noted Date Diagnosed Date Resolved Date Polyarthralgia 11/01/2018 11/01/2018 Immunizations Immunization Administration Dates Next Due Flu, Preservative Free 02/09/2019,12/11/2017 Hep B, Adult/Adol ([id number]/RECOMBIVAX-ADULT) 09/08/2011,12/16/2010,12/27/2007 INFLUENZA, SEASONAL, INJECTABLE 11/23/2012,11/30,11/28/2008 MMR (MMR [...] 05/23/19 21, 11/02/2019, 08/06/2018, Additional history exists [id number] ( season) 2024 Imm-Hepatitis B Completed 09/08/2011, [...] TO FT4 1.75 0.40 - 4.50 mIU/L [employer] [facility] Blood Blood / Unknown 11/26/2020 9 :49 AM EDT 11/26/2020 9:49 AM EDT us Hoda Patino PA-C LAB - BLOOD DRAW Final Resul t [employer] [address] [address], [employer] [address] [address] * (ABNORMAL) LIPID PANEL (11/26/2020 9:49 AM EDT) CHOLESTEROL, TOTAL 263(H) <200 mg/dL [employer] HDL CHOLESTEROL 43(L) > OR = 50 mg/dL [employer] TRIGLYCERIDES 279(H) <150 mg/dL [employer] Comment: If a non-fasting specimen was collected, consider repeat triglyceride testing on a fasting specimen if clinically indicated. Rigo et al. J. of Clin. Lipidol. 2015;9:129-169. LDL-CHOLESTEROL 170(H) 99 mg/dL (calc) [employer] Comment: Reference range: <100 Desirable range <100 mg/dL for primary prevention; <70 mg/dL for patients with CHD or diabetic patients with > or = 2 CHD risk factors. LDL-C is now calculated using the Calvin-Jose calculation, which is a validated novel method providing better accuracy than the Friedewald equation in the estimation of LDL-C. Calvin SS et al. ASHLEY. 2013;310(19): 8450-7009 (http://education.[employer]anta [employer]/faq/IHL476) CHOL/HDLC RATIO 6.1(H) <5.0 (calc) [employer] NON-HDL CHOLESTEROL 220(H) <130 mg/dL (calc) [employer] Comment: Non-HDL level > or = 220 [...] LAB - BLOOD DRAW Final Resul t [employer] [facility] [address] [address], [employer] [facility] [address] [address] * (ABNORMAL) COMPRE METAB PANEL (06/22/2020 2:36 PM EDT) GLUCOSE 99 65 - 99 mg/dL [employer] [facility] Comment: Fasting reference interval UREA NITROGEN (BUN) 10 7 - 25 mg/dL [employer] [facility] CREATININE (blood) 0.76 0.50 - 1.05 mg/dL [employer] [facility] Comment: For patients >49 years of age, the reference limit for Creatinine is approximately 13% higher for people identified as -Djiboutian. GFR ESTIMATED 86 > OR = 60 mL/min/1 .73m2 [employer] [facility] EGFR 100 > OR = 60 mL/min/1 .73m2 [employer] [facility] BUN/CREATININE RATIO NOT APPLICABLE 6 - 22 [employer] [facility] SODIUM 137 135 - 146 mmol/L [employer] POTASSIUM 4.4 3.5 - 5.3 mmol/L [employer] [facility] CHLORIDE 102 98 - 110 mmol/L [employer] [facility] CARBON DIOXIDE 24 20 - 32 mmol/L [employer] [facility] CALCIUM 9.8 8.6 - 10.4 mg/dL [employer] [facility] PROTEIN, TOTAL 7.2 6.1 - 8.1 g/dL [employer] [facility] ALBUMIN 4.3 3.6 - 5.1 g/dL [employer] [facility] GLOBULIN 2.9 1.9 - 3.7 g/dL (calc) [employer] [facility] ALBUMIN/GLOBULIN RATIO 1.5 1.0 - 2.5 (calc) [employer] BILIRUBIN, TOTAL 0.4 0.2 - 1.2 mg/dL [employer] [facility] ALKALINE PHOSPHATASE 75 37 - 153 U/L [employer] [facility] AST 35 10 - 35 U/L [employer] [place] [employer] ALT 48(H) 6 - 29 U/L [employer] [facility] Blood Blood / Unknown 06/22/2020 2 :36 PM EDT 06/22/2020 2:37 PM EDT Narrative [facility] - 06/22/2020 9:04 PM EDT FASTING:YES Hoda Patino PA-C LAB - BLOOD DRAW Final Resul t [facility] [address] [address], [facility] [address] [address] * PAP, LIQUID BASED (12/22/2017 1:39 PM EDT) PAP normal NORMAL - ABNORMAL [facility] Specimen from uterine cervix (specimen) Cervix uteri structure / Unknown 12/22/2017 1:39 PM EDT Impressions [facility] - 12/30/2017 2:54 PM EST ThinPrep Pap Negative for squamous intraepithelial lesion and malignancy HPV Negative April Pickard PA-C LAB - PATHOLOGY AND CYTOL OGY AMBULATORY Final Result Performing Organization Address City/[facility] Hospital/ZIP Co de Phone Number [facility] [address] [place] [address], * (ABNORMAL) HEPATITIS A,B,C PANEL (09/21/2017 10:45 [...] [facility] - 09/21/2017 2:24 PM EDT [employer] [address] [place] [address] [place] [id number] ORD# [id number] April Pickard PA-C LAB - BLOOD DRAW [employer] [address] [address], [place] [phone] * HIV-1 & HIV-2 ANTIBODIES (09/21/2017 10:45 AM EDT) [facility] HIV 1 AND 2 ANTIBODY SCREEN [...] [facility] - 09/21/2017 2:53 PM EDT [employer] [address] [place] [address] [place] [id number] ORD# [id number] April Pickard PA-C LAB - BLOOD DRAW Edited [employer] Performing Organization Address City/[facility] Hospital/ZIP Co de Phone Number [address] [address], [place] [phone] from Last 3 Months or Most Recently Relevant to Health Maintenance Insurance [employer] Care Teams Butter Grader Relationship Specialty Start Date End Date Hoda Patino PA-C [address] [place] [address] PCP - General Internal Medicine 02/03/19
--- OUTSIDE RECORDS SUMMARY | 2024-12-19 16:48 | XMS_ITS | Clinical Summary ---
Author Organization [facility] Address [address] [place] [address] Phone Care Team Providers Care Wrecker Driver Name Role Phone Niecy Cabello MD Primary Care Provider Family History Medical History Relation Name Comments [...] Signed Date: 01/22/2024 11:32 ET Workstation ID: [id number] Transcribed By: Self Edit Transcribed Date: 01/22/2024 11:23 ET Narrative 01/22/2024 11:32 AM EST EXAM: SCREENING MAMMOGRAPHY, BILATERAL HISTORY: SCREENING. Technologist indicates bruise left breast 11 o'clock position COMPARISON: 01/09/2023, 01/06/2022, 01/03/2021, 12/16/2019 TECHNIQUE: Synthesized CC and MLO projections of each breast. Tomosynthesis of each breast in the CC and MLO projections. ADDITIONAL IMAGING: None Computer-aided detection was employed with the [employer] 3-D. TISSUE DENSITY: There are scattered areas [...] Signed Date: 01/22/2024 11:32 ET Workstation ID: [id number] Transcribed By: Self Edit Transcribed Date: 01/22/2024 11:23 ET us Self Referral Sppl IMG BI PROCEDURES Final Resul t from Last 3 Months or Most Recently Relevant to Health Maintenance Insurance MEDICAID - [place] Care Teams Wrecker Driver Relationship Specialty Start Date End Date Niecy Cabello MD [address] [facility] [address], [address] [facility] D/B/A: [facility] ALVIN Hernandez PCP - General Internal Medicine 01/22/24
--- OUTSIDE RECORDS SUMMARY | 2024-12-19 16:48 | XMS_ITS | Clinical Summary ---
Author Organization [facility] Address [address] [place] [address] [place] [address] Phone Care Team Providers Care Stationary Fireman Name Role Phone Wanda Davis MD Primary [...] on file Insurance [address] [place] [id number] [facility] [place] [address] [place] [address] [place] [place] [address] ACO [facility] ACO [facility] ACO Care Teams Stationary Fireman Relationship Specialty Start Date End Date Wanda Davis MD [address] [place] [id number] PCP - General Internal Medicine 05/24/24 Additional Source Comments The information contained in this document represents components of the legal health record. It is not the complete legal health record.[facility]
== END 2024-12-19 15:26 | disposition home or self-care (01) ==
LOC: HO.HMCH 13:11
PROVIDERS: PCP Internal Medicine; Visit Provider Internal Medicine
DX: M79.604 Pain in right leg (principal)

== ENCOUNTER → 2024-12-19 13:10 | Outpatient (BNVA) | payer OTHER, SELFPAY | PROVIDERS: PCP Internal Medicine; Visit Provider Internal Medicine | DX: M79.604 Pain in right leg (principal); I25.2 Old myocardial infarction; Z95.5 Presence of coronary angioplasty implant and graft; Z79.82 Long term (current) use of aspirin | CPT/HCPCS: 99212 ==

== ENCOUNTER 2024-12-20 15:40 | Outpatient (REF) | payer OTHER, SELFPAY ==
--- NOTE | ~2024-12-20 | US_ITS ---
EXAMINATION: US TRIPLEX LOWER EXTREMITY, RIGHT CLINICAL INFORMATION: Pain, rule out blood clot. COMPARISON: None available. TECHNIQUE: Color-flow triplex imaging with spectral analysis and compression Doppler were performed on the right lower extremity. FINDINGS: Respiratory variation, normal compression and augmented flow are noted throughout the right lower extremity. The visualized common femoral vein, superficial femoral vein, profunda femoral vein, popliteal vein and midcalf peroneal and posterior tibial venous segments show no evidence of deep venous thrombosis. There is no Ortiz's cyst. In the right anterior mid bob, in the area of pain/bruise, is an area of hyperechogenicity in the soft tissues, measuring approximately 2.3 x 1.9 x 2 cm. This could represent a resolving hematoma. US/US venous duplex LE RT IMPRESSION: No evidence of deep venous thrombosis involving the right lower extremity. Area of hyperechogenicity in the anterior soft tissues of the mid bob measuring 2.3 x 1.9 x 2 cm. This could represent a resolving hematoma. Electronically signed by: Rachid Webb MD 12/20/2024 04:14 PM EDT
--- OUTSIDE RECORDS SUMMARY | 2024-12-20 19:58 | XMS_ITS | Clinical Summary ---
Author Organization [facility] Address [address] [place] [address] [place] [address] Phone Care Team Providers Care Coupon Redemption Clerk Name Role Phone Wanda Davis MD [...] on file Insurance [address] [place] [id number] [facility] [place] [address] [place] [address] [place] [place] [address] [employer] ACO [facility] ACO [facility] ACO Care Teams Coupon Redemption Clerk Relationship Specialty Start Date End Date Wanda Davis MD [address] [place] [address] PCP - General Internal Medicine 05/24/24 Additional Source Comments The information contained in this document represents components of the legal health record. It is not the complete legal health record.[facility]
--- OUTSIDE RECORDS SUMMARY | 2024-12-20 19:58 | XMS_ITS | Clinical Summary ---
Author Organization [facility] Address [address] [place] [address] Care Team Providers Care Equipment Maintenance Engineer Name Role Phone Hoda Patino PA-C Primary Care Provider + [phone] Source Comments PLEASE NOTE, if this patient [...] Seen by RHEM Dr. Wily Rubio [place] [facility]: dx: polyarthralgia + polymyalgia. Plan: labs; pt on statin, depression, Could be assoc with fibromyalgia. F/U 4 wks. 03/16/18 - Seen by RHEUM Dr. Wily Rubio at [facility]: polyarthralgia is multifactorial: hypothyroidism, pt is [...] depression Overview (04/03/2015): Psych f/u @ [facility], formerly was seen by Dr. Garvin. Hepatic steatosis Overview (07/25/2014): Via [place] 04/06/13 at [facility]. Resolved Problems Problem Noted Date Diagnosed Date Resolved Date Polyarthralgia 11/01/2018 11/01/2018 Immunizations Immunization Administration Dates Next Due Flu, Preservative Free 02/09/2019,12/11/2017 Hep B, Adult/Adol ([id number]/RECOMBIVAX-ADULT) 09/08/2011,12/16/2010,12/27/2007 INFLUENZA, SEASONAL, INJECTABLE 11/23/2012,11/30,11/28/2008 MMR (MMR [...] 05/23/19 21, 11/02/2019, 08/06/2018, Additional history exists [id number] ( season) 2024 Imm-Hepatitis B Completed 09/08/2011, [...] TO FT4 1.75 0.40 - 4.50 mIU/L [employer] [facility] Blood Blood / Unknown 11/26/2020 9 :49 AM EDT 11/26/2020 9:49 AM EDT us Hoda Patino PA-C LAB - BLOOD DRAW Final Resul t [employer] [address] [address], [employer], [employer] [address] [address] * (ABNORMAL) LIPID PANEL (11/26/2020 9:49 AM EDT) CHOLESTEROL, TOTAL 263(H) <200 mg/dL [employer] HDL CHOLESTEROL 43(L) > OR = 50 mg/dL [employer] TRIGLYCERIDES 279(H) <150 mg/dL [employer] Comment: If a non-fasting specimen was collected, consider repeat triglyceride testing on a fasting specimen if clinically indicated. Rigo et al. J. of Clin. Lipidol. 2015;9:129-169. LDL-CHOLESTEROL 170(H) 99 mg/dL (calc) [employer] Comment: Reference range: <100 Desirable range <100 mg/dL for primary prevention; <70 mg/dL for patients with CHD or diabetic patients with > or = 2 CHD risk factors. LDL-C is now calculated using the Calvin-Jose calculation, which is a validated novel method providing better accuracy than the Friedewald equation in the estimation of LDL-C. Calvin SS et al. ASHLEY. 2013;310(19): 0000-9933 (http://education.[employer]/faq/VSU840) CHOL/HDLC RATIO 6.1(H) <5.0 (calc) [employer], [employer] NON-HDL CHOLESTEROL 220(H) <130 mg/dL (calc) [employer] Comment: Non-HDL level > or = 220 [...] LAB - BLOOD DRAW Final Resul t [employer] [facility] [address] [address], [employer] [facility] [address] [address] * (ABNORMAL) COMPRE METAB PANEL (06/22/2020 2:36 PM EDT) GLUCOSE 99 65 - 99 mg/dL [employer] [facility] Comment: Fasting reference interval UREA NITROGEN (BUN) 10 7 - 25 mg/dL [employer] [facility] CREATININE (blood) 0.76 0.50 - 1.05 mg/dL [employer] [facility] Comment: For patients >49 years of age, the reference limit for Creatinine is approximately 13% higher for people identified as -Canadian. GFR ESTIMATED 86 > OR = 60 mL/min/1 .73m2 [employer] [facility] EGFR 100 > OR = 60 mL/min/1 .73m2 [employer] [facility] BUN/CREATININE RATIO NOT APPLICABLE 6 - 22 [employer] [facility] SODIUM 137 135 - 146 mmol/L [employer] POTASSIUM 4.4 3.5 - 5.3 mmol/L [employer] [facility] CHLORIDE 102 98 - 110 mmol/L [employer] [facility] CARBON DIOXIDE 24 20 - 32 mmol/L [employer] [facility] CALCIUM 9.8 8.6 - 10.4 mg/dL [employer] [facility] PROTEIN, TOTAL 7.2 6.1 - 8.1 g/dL [employer] [facility] ALBUMIN 4.3 3.6 - 5.1 g/dL [employer] [facility] GLOBULIN 2.9 1.9 - 3.7 g/dL (calc) [employer] [facility] ALBUMIN/GLOBULIN RATIO 1.5 1.0 - 2.5 (calc) [employer], [employer] BILIRUBIN, TOTAL 0.4 0.2 - 1.2 mg/dL [employer] [facility] ALKALINE PHOSPHATASE 75 37 - 153 U/L [employer] [facility] AST 35 10 - 35 U/L [employer] ALT 48(H) 6 - 29 U/L [employer] [facility] Blood Blood / Unknown 06/22/2020 2 :36 PM EDT 06/22/2020 2:37 PM EDT Narrative [facility] - 06/22/2020 9:04 PM EDT FASTING:YES Hoda Patino PA-C LAB - BLOOD DRAW Final Resul t [facility] [address] [address], [facility] [address] [address] * PAP, LIQUID BASED (12/22/2017 1:39 PM EDT) PAP normal NORMAL - ABNORMAL [facility] Specimen from uterine cervix (specimen) Cervix uteri structure / Unknown 12/22/2017 1:39 PM EDT Impressions [facility] - 12/30/2017 2:54 PM EST ThinPrep Pap Negative for squamous intraepithelial lesion and malignancy HPV Negative April Pickard PA-C LAB - PATHOLOGY AND CYTOL OGY AMBULATORY Final Result Performing Organization Address City/[facility]/ZIP Co de Phone Number [facility] [address] [place] [address], * (ABNORMAL) HEPATITIS A,B,C PANEL (09/21/2017 10:45 AM EDT) HEPATITIS B SURFACE ANTIBODY NEGATIVE NEGATIVE [facility] HEPATITIS B SURFACE ANTIGEN NEGATIVE NEGATIVE [facility] Comment: Over the counter supplements containing high doses of biotin may interfere with this assay. If interference is suspected, patients shoud be retested after refraining from biotin supplements for 72 hours. HEPATITIS C VIRUS DIAGNOSTIC NEGATIVE NEGATIVE [facility] HEPATITIS B CORE ANTIBODY NEGATIVE NEGATIVE [facility] HEPATITIS A ANTIBODY TOTAL POSITIVE(A) NEGATIVE [facility] Comment: Over the counter supplements containing high doses of biotin may interfere with this assay. If interference is suspected, patients shoud be retested after refraining from biotin supplements for 72 hours. Blood specimen (specimen) Blood / Unknown 09/21/2017 10:45 AM EDT 09/21/2017 12:57 PM EDT [facility] - 09/21/2017 2:24 PM EDT [employer] [address] [place] [address] [place] [id number] ORD# [id number] April Pickard PA-C LAB - BLOOD DRAW [employer] [address] [address], [place] [phone] * HIV-1 & HIV-2 ANTIBODIES (09/21/2017 10:45 AM EDT) [facility] HIV 1 AND 2 ANTIBODY SCREEN NEGATIVE NEGATIVE [facility] Comment: This assay is a [...] 10:45 AM EDT 09/21/2017 12:57 PM EDT [facility] - 09/21/2017 2:53 PM EDT [employer] [address] [place] [address] [place] [id number] ORD# [id number] April Pickard PA-C LAB - BLOOD DRAW [employer] Performing Organization Address City/[facility]/ZIP Co de Phone Number [address] [address], [place] [phone] from Last 3 Months or Most Recently Relevant to Health Maintenance Insurance [employer] Care Teams Equipment Maintenance Engineer Relationship Specialty Start Date End Date Hoda Patino PA-C [address] [place] [address] PCP - General Internal Medicine 02/03/19
--- OUTSIDE RECORDS SUMMARY | 2024-12-20 19:58 | XMS_ITS | Clinical Summary ---
Author Organization [facility] Address [address] [place] [address] Phone Care Team Providers Care Tube Dispatcher Name Role Phone Niecy Cabello MD Primary Care Provider [phone] Family History Medical History Relation Name Comments [...] Signed Date: 01/22/2024 11:32 ET Workstation ID: [id number] Transcribed By: Self Edit Transcribed Date: 01/22/2024 11:23 ET Narrative 01/22/2024 11:32 AM EST EXAM: SCREENING MAMMOGRAPHY, BILATERAL HISTORY: SCREENING. Technologist indicates bruise left breast 11 o'clock position COMPARISON: 01/09/2023, 01/06/2022, 01/03/2021, 12/16/2019 TECHNIQUE: Synthesized CC and MLO projections of each breast. Tomosynthesis of each breast in the CC and MLO projections. ADDITIONAL IMAGING: None Computer-aided detection was employed with the [employer] 3-D. TISSUE DENSITY: There are scattered areas [...] Signed Date: 01/22/2024 11:32 ET Workstation ID: [id number] Transcribed By: Self Edit Transcribed Date: 01/22/2024 11:23 ET us Self Referral Sppl IMG BI PROCEDURES Final Resul t from Last 3 Months or Most Recently Relevant to Health Maintenance Insurance MEDICAID - [place] Care Teams Tube Dispatcher Relationship Specialty Start Date End Date Niecy Cabello MD [address] [facility] [address], [address] [facility] D/B/A: [facility] ALVIN Hernandez PCP - General Internal Medicine 01/22/24
== END 2024-12-20 15:41 | disposition home or self-care (01) ==
LOC: HO.US 15:40
PROVIDERS: PCP Internal Medicine; Visit Provider Internal Medicine
DX: M79.604 Pain in right leg (principal)
CPT/HCPCS: 93971

== ENCOUNTER 2024-12-21 15:43 | Outpatient (REF) | payer OTHER, SELFPAY ==
--- NOTE | ~2024-12-21 | US_ITS ---
EXAMINATION: US PELVIS CLINICAL INFORMATION: Postmenopausal bleeding COMPARISON: 12/10/2021 TECHNIQUE: Ultrasound of the pelvis is performed using both transabdominal and transvaginal transducers along with Doppler. Transvaginal imaging is performed due to inadequate visualization transabdominally. FINDINGS: Uterus: The uterus is anteflexed and measures 8.5 x 3.0 x 5.6 cm. The double wall endometrial thickness is 5 mm. The uterus is smooth in contour and has normal myometrial echogenicity. No visible fibroid. Adnexa: Right ovary measures 2.5 x 1.0 x 2.0 cm. Left ovary: Not visualized. US/US pelvic and transvaginal IMPRESSION: Nonvisualized left ovary. Otherwise, unremarkable study. Electronically signed by: Sreedhar Warner MD 12/21/2024 04:32 PM EDT
--- OUTSIDE RECORDS SUMMARY | 2024-12-21 19:57 | XMS_ITS | Clinical Summary ---
Author Organization [facility] Address [address] [place] [address] Care Team Providers Care Packaging Sales Representative Name Role Phone Hoda Patino PA-C Primary Care Provider + [phone] Source Comments PLEASE NOTE, if this patient [...] Seen by RHEM Dr. Wily Rubio at [facility]: dx: polyarthralgia + polymyalgia. Plan: labs; pt on statin, depression, Could be assoc with fibromyalgia. F/U 4 wks. 03/16/18 - Seen by RHEUM Dr. Wily Rubio at [facility]: polyarthralgia is multifactorial: hypothyroidism, pt is [...] and depression Overview (04/03/2015): Psych f/u @ [facility], formerly was seen by Dr. Garvin. Hepatic steatosis Overview (07/25/2014): Via [place] 04/06/13 at [facility]. Resolved Problems Problem Noted Date Diagnosed Date Resolved Date Polyarthralgia 11/01/2018 11/01/2018 Immunizations Immunization Administration Dates Next Due Flu, Preservative Free 02/09/2019,12/11/2017 Hep B, Adult/Adol (YGALPIP-O-ONGSF/RECOMBIVAX-ADULT) 09/08/2011,12/16/2010,12/27/2007 INFLUENZA, SEASONAL, INJECTABLE 11/23/2012,11/30,11/28/2008 MMR (MMR [...] 05/23/19 21, 11/02/2019, 08/06/2018, Additional history exists [id number] ( season) 2024 Imm-Hepatitis B Completed 09/08/2011, [...] TO FT4 1.75 0.40 - 4.50 mIU/L [facility] Blood Blood / Unknown 11/26/2020 9 :49 AM EDT 11/26/2020 9:49 AM EDT us Hoda Patino PA-C LAB - BLOOD DRAW Final Resul t [facility] [address] [address], [facility] [address] [address] * (ABNORMAL) LIPID PANEL (11/26/2020 9:49 AM EDT) CHOLESTEROL, TOTAL 263(H) <200 mg/dL [facility] HDL CHOLESTEROL 43(L) > OR = 50 mg/dL [facility] TRIGLYCERIDES 279(H) <150 mg/dL [facility] Comment: If a non-fasting specimen was collected, consider repeat triglyceride testing on a fasting specimen if clinically indicated. Rigo et al. J. of Clin. Lipidol. 2015;9:129-169. LDL-CHOLESTEROL 170(H) 99 mg/dL (calc) [facility] Comment: Reference range: <100 Desirable range <100 mg/dL for primary prevention; <70 mg/dL for patients with CHD or diabetic patients with > or = 2 CHD risk factors. LDL-C is now calculated using the Calvin-Jose calculation, which is a validated novel method providing better accuracy than the Friedewald equation in the estimation of LDL-C. Calvin SS et al. ASHLEY. 2013;310(19): 5230-0221 (http://education.[employer].Band Metrics/faq/OTZ741) CHOL/HDLC RATIO 6.1(H) <5.0 (calc) [facility] NON-HDL CHOLESTEROL 220(H) <130 mg/dL (calc) [facility] Comment: Non-HDL level > or = 220 [...] LAB - BLOOD DRAW Final Resul t [facility] [address] [address], [facility] [address] [address] * (ABNORMAL) COMPRE METAB PANEL (06/22/2020 2:36 PM EDT) GLUCOSE 99 65 - 99 mg/dL [facility] Comment: Fasting reference interval UREA NITROGEN (BUN) 10 7 - 25 mg/dL [facility] CREATININE (blood) 0.76 0.50 - 1.05 mg/dL [facility] Comment: For patients >49 years of age, the reference limit for Creatinine is approximately 13% higher for people identified as -Turkish. GFR ESTIMATED 86 > OR = 60 mL/min/[address] [facility] EGFR 100 > OR = 60 mL/min/[address] [facility] BUN/CREATININE RATIO NOT APPLICABLE 6 - [address] [facility] SODIUM 137 135 - 146 mmol/L [facility] POTASSIUM 4.4 3.5 - 5.3 mmol/L [facility] CHLORIDE 102 98 - 110 mmol/L [facility] CARBON DIOXIDE 24 20 - 32 mmol/L [facility] CALCIUM 9.8 8.6 - 10.4 mg/dL [facility] PROTEIN, TOTAL 7.2 6.1 - 8.1 g/dL [facility] ALBUMIN 4.3 3.6 - 5.1 g/dL [facility] GLOBULIN 2.9 1.9 - 3.7 g/dL (calc) [facility] ALBUMIN/GLOBULIN RATIO 1.5 1.0 - 2.5 (calc) [facility] BILIRUBIN, TOTAL 0.4 0.2 - 1.2 mg/dL [facility] ALKALINE PHOSPHATASE 75 37 - 153 U/L [facility] AST 35 10 - 35 U/L [facility] [place] [facility] ALT 48(H) 6 - 29 U/L [facility] Blood Blood / Unknown 06/22/2020 2 :36 PM EDT 06/22/2020 2:37 PM EDT Narrative [facility] - 06/22/2020 9:04 PM EDT FASTING:YES Hoda Patino PA-C LAB - BLOOD DRAW Final Resul t [facility] [address] [address], [facility] [address] [address] * PAP, LIQUID BASED (12/22/2017 1:39 PM EDT) PAP normal NORMAL - ABNORMAL [facility] Specimen from uterine cervix (specimen) Cervix uteri structure / Unknown 12/22/2017 1:39 PM EDT Impressions [facility] - 12/30/2017 2:54 PM EST ThinPrep Pap Negative for squamous intraepithelial lesion and malignancy HPV Negative April Pickard PA-C LAB - PATHOLOGY AND CYTOL OGY AMBULATORY Final Result Performing Organization Address City/[facility]/ZIP Co de Phone Number [facility] [address] [place] [address], * (ABNORMAL) HEPATITIS A,B,C PANEL (09/21/2017 10:45 AM EDT) HEPATITIS B SURFACE ANTIBODY NEGATIVE NEGATIVE [facility] HEPATITIS B SURFACE ANTIGEN NEGATIVE NEGATIVE [facility] Comment: Over the counter supplements containing high doses of biotin may interfere with this assay. If interference is suspected, patients shoud be retested after refraining from biotin supplements for 72 hours. HEPATITIS C VIRUS DIAGNOSTIC NEGATIVE NEGATIVE [facility] HEPATITIS B CORE ANTIBODY NEGATIVE NEGATIVE [facility] HEPATITIS A ANTIBODY TOTAL POSITIVE(A) NEGATIVE [facility] Comment: Over the counter supplements containing high doses of biotin may interfere with this assay. If interference is suspected, patients shoud be retested after refraining from biotin supplements for 72 hours. Blood specimen (specimen) Blood / Unknown 09/21/2017 10:45 AM EDT 09/21/2017 12:57 PM EDT [facility] - 09/21/2017 2:24 PM EDT [facility] [address] [place] [address] [place] [id number] ORD# [id number] April Pickard PA-C LAB - BLOOD DRAW Edited [employer] [address] [address], [place] [phone] * HIV-1 & HIV-2 ANTIBODIES (09/21/2017 10:45 AM EDT) [facility] HIV 1 AND 2 ANTIBODY SCREEN NEGATIVE NEGATIVE [facility] Comment: This assay is a 4th generation [...] Services Hospital - 09/21/2017 2:53 PM EDT [facility] [address] [place] [address] [place] [id number] ORD# [id number] April Pickard PA-C LAB - BLOOD DRAW Edited [employer] Performing Organization Address City/[facility]/ZIP Co de Phone Number [address] [address], [place] [phone] from Last 3 Months or Most Recently Relevant to Health Maintenance Insurance [employer] Care Teams Packaging Sales Representative Relationship Specialty Start Date End Date Hoda Patino PA-C [address] [place] [address] PCP - General Internal Medicine 02/03/19
--- OUTSIDE RECORDS SUMMARY | 2024-12-21 19:57 | XMS_ITS | Clinical Summary ---
Author Organization [facility] Address [address] [place] [address] Phone Care Team Providers Care Couture Alterations Dressmaker Name Role Phone Niecy Cabello MD Primary [...] Signed Date: 01/22/2024 11:32 ET Workstation ID: [id number] Transcribed By: Self Edit Transcribed Date: 01/22/2024 11:23 ET Narrative 01/22/2024 11:32 AM EST EXAM: SCREENING MAMMOGRAPHY, BILATERAL HISTORY: SCREENING. Technologist indicates bruise left breast 11 o'clock position COMPARISON: 01/09/2023, 01/06/2022, 01/03/2021, 12/16/2019 TECHNIQUE: Synthesized CC and MLO projections of each breast. Tomosynthesis of each breast in the CC and MLO projections. ADDITIONAL IMAGING: None Computer-aided detection was employed with the [employer] 3-D. TISSUE DENSITY: There are scattered areas [...] Signed Date: 01/22/2024 11:32 ET Workstation ID: [id number] Transcribed By: Self Edit Transcribed Date: 01/22/2024 11:23 ET us Self Referral Sppl IMG BI PROCEDURES Final Resul t from Last 3 Months or Most Recently Relevant to Health Maintenance Insurance MEDICAID - [place] Care Teams Couture Alterations Dressmaker Relationship Specialty Start Date End Date Niecy Cabello MD [address], [address] [facility] D/B/A: [facility] ALVIN Hernandez PCP - General Internal Medicine 01/22/24
--- OUTSIDE RECORDS SUMMARY | 2024-12-21 19:57 | XMS_ITS | Clinical Summary ---
Author Organization [facility] Address [address] [place] [address] [place] [address] Phone Care Team Providers Care Source Water Protection Specialist Name Role Phone Wanda Davis MD Primary [...] on file Insurance [address] [place] [id number] [facility] [place] [place] [address] [place] [address] [place] [address] [place] [address] [facility] ACO [facility] ACO [facility] ACO Care Teams Source Water Protection Specialist Relationship Specialty Start Date End Date Wanda Davis MD [address] [facility] [address] [place] [id number] PCP - General Internal Medicine 05/24/24 Additional Source Comments The information contained in this document represents components of the legal health record. It is not the complete legal health record.[facility]
== END 2024-12-21 15:44 | disposition home or self-care (01) ==
LOC: HO.US 15:43
PROVIDERS: PCP Internal Medicine; Visit Provider Advanced Practice Midwife
DX: N95.0 Postmenopausal bleeding (principal)
CPT/HCPCS: 76830; 76856

== ENCOUNTER → 2024-12-21 15:45 | Outpatient (BNV) | payer OTHER, SELFPAY | PROVIDERS: PCP Internal Medicine; Visit Provider Radiology Diagnostic Radiology | DX: N95.0 Postmenopausal bleeding (principal) | CPT/HCPCS: 76830; 76856 ==

== ENCOUNTER 2025-01-03 14:31 | Outpatient (AMB) | payer OTHER, SELFPAY ==
--- NOTE | 2025-01-03 14:43 | A.OFFVIS_ITS ---
Vital Signs 01/03/25 14:49 Height 5 ft 2 in Weight 192 lb BMI 35.1 BP 132/72 Blood Pressure Location Lt brachial Position Sitting Intake Visit Reasons: Ultrasound follow up/EMB Intake Note: follow up on 12/21/24 u/s results Postdoctoral Research Associate Required: No Information Interpreted: non-clinical & clinical Caustic Pump Operator: Caustic Pump Operator Present (Janelle) Accompanied by: Self / Same As Patient Allergies spicy food Adverse Reaction (Uncoded 01/03/25 14:46) itchy Medication List - Last Reconciled 01/03/25 by Sandrine Noland LPN acetaminophen ER (Tylenol 8 Hour) 650 mg PO Q8H PRN 30 days aspirin (Adult Low Dose Aspirin) 81 mg PO DAILY [blood pressure machine As directed] cane As directed cetirizine (All Day Allergy (cetirizine)) 10 mg PO DAILY PRN 90 days cholecalciferol (vitamin D3) 50 mcg PO DAILY 90 days clopidogrel 75 mg PO DAILY clotrimazole-betamethasone 1-0.05 % 1 appl topical BID 10 days cyanocobalamin (vitamin B-12) 1,000 mcg IM Q4W 4 weeks fluticasone propionate 50 mcg/actuation (Flonase Allergy Relief) 1 spray intranasal DAILY 30 days hydrocortisone 2.5% 1 appl IA BID-QID PRN 2 weeks hydroxyzine HCl 50 mg PO QID PRN insulin syringe-needle U-100 (Advocate Syringes) As directed levothyroxine 112 mcg PO DAILY metoprolol succinate ER 25 mg PO DAILY miconazole nitrate 2% (Monistat 7) 1 appful vaginal BEDTIME 7 days rosuvastatin 20 mg PO DAILY [shower chair As directed] syringe with needle (Monoject 3cc Syringe) As directed once a week zolpidem 10 mg PO BEDTIME PRN Is last menstrual period known: Yes Do you need a note to return to daycare/school/sports/work: No HPI Comments Details: Patient is here today for an endometrial biopsy due to postmenopausal bleeding 1 episode light spotting around the time of her cardiac event. PENDING SALE TO [facility] Medical History STEMI (ST elevation myocardial infarction) Polyarthralgia Dry skin dermatitis Impaired fasting glucose Mixed dyslipidemia Vitamin B12 deficiency Vitamin D deficiency Varicose veins of bilateral lower extremities with pain Polyarthralgia Cholelithiasis Insomnia Fibromyalgia Acquired hypothyroidism Anxiety Surgical History Status post cardiac catheterization History of esophagogastroduodenoscopy (EGD) Hx of colonoscopy H/O blepharoplasty S/P cholecystectomy Family History Sister Breast cancer Mother Essential hypertension Cholelithiasis Social History Housing: House Are you a primary caregivers homecare to a significant other at home: No Do you presently have visiting nurse or other home services: No Alcohol intake: never Patient Tobacco Use Status: Never used Tobacco e-Cigarette/Vaping Use: Never Used Second Hand Smoke Exposure: No service: No Current occupational status: unemployed Cognitive needs: No Hearing needs: No Vision needs: No Female Reproductive History Menstrual Age of Menarche: 14 Date of menopause: 11/02/21 Total pregnancies: 3 Number of Living Children: 3 Review of Systems Const All systems reviewed & are unremarkable except as noted in HPI and below Endo Reports no additional complaints Physical Exam Vital Signs: Last Vital Signs BP 132/72 01/03/25 14:49 BMI result Body Mass Index 35.1 Const General: cooperative, healthy appearing and no acute distress Orientation/consciousness: patient oriented x3 GI Inspection: Yes normal to inspection Palpation (GI): Soft to palpation and Other GI palpation findings present (Nontender) Rectal Exam - Female: visual inspection normal General: Yes bladder normal to palpation External Female Exam: normal appearance of the urethra Speculum Exam - Vagina: normal appearance of the vagina, normal palpation and normal vaginal discharge Speculum Exam - Cervix: normal appearance of the cervix and normal palpation Bimanual exam- vagina & uterus: normal bimanual exam, normal palpation, uterine size normal, bladder normal to palpation, normal palpation, uterine shape normal and non-tender Bimanual Exam- Adnexa, other: normal adnexae Neuro General: patient oriented x3 Psych Appearance: well kempt Attitude: cooperative Thought process: Normal thought process present Assessment & Plan Assessment & Plan (1) Postmenopausal bleeding: Code(s): N95.0 - Postmenopausal bleeding Category: Medical (2) Thickened endometrium: Code(s): R93.89 - Abnormal findings on diagnostic imaging of other specified body structures Plan Counseled regarding EMB procedure recommendations, purpose of the test is to determine abnormal cells from the endometrial lining including atypia, hyperplasia, precancer or cancer. Recommended EMB to be completed, avoid delays in care and diagnosis. Patient is very reluctant about having the procedure and is concerned due to her medical changes in medications including a blood thinner. She reports she is in a lot of pain and does not want to have the biopsy done today, she wants to talk with her family members and we will decide in a future date. The patient expressed understanding and agreement with the plan of care. All of her questions and concerns were addressed to the best of my ability. Coding Level of Care Code Est Pt Level 3 (16615) Diagnoses Postmenopausal bleeding N95.0 Thickened endometrium R93.89
[2025-01-03 14:49] VITALS: BP 132/72; BMI 35.1
--- OUTSIDE RECORDS SUMMARY | 2025-01-03 16:15 | XMS_ITS | Clinical Summary ---
Author Organization [facility] Address [address] [place] [address] [place] [address] Phone Care Team Providers Care Video Tape Duplicator Name Role Phone Wanda Davis MD Primary [...] on file Insurance [address] [place] [address] [facility] [place] [place] [address] [place] [address] [place] [address] ACO [facility] ACO Care Teams Video Tape Duplicator Relationship Specialty Start Date End Date Wanda Davis MD [address] [facility] [address] [place] [id number] PCP - General Internal Medicine 05/24/24 Additional Source Comments The information contained in this document represents components of the legal health record. It is not the complete legal health record.[facility]
== END 2025-01-03 15:43 | disposition home or self-care (01) ==
LOC: HO.HWS 14:32
PROVIDERS: PCP Internal Medicine; Visit Provider Advanced Practice Midwife
DX: N95.0 Postmenopausal bleeding (principal); R93.89 Abnormal findings on diagnostic imaging of other specified body structures
CPT/HCPCS: 99213

== ENCOUNTER → 2025-01-03 14:31 | Outpatient (BNVA) | payer OTHER, SELFPAY | PROVIDERS: PCP Internal Medicine; Visit Provider Advanced Practice Midwife | DX: N95.0 Postmenopausal bleeding (principal); R93.89 Abnormal findings on diagnostic imaging of other specified body structures | CPT/HCPCS: 99212 ==

== ENCOUNTER 2025-01-11 10:26 | Outpatient (REF) | payer OTHER, SELFPAY ==
--- NOTE | ~2025-01-11 | MM_ITS ---
EXAMINATION: DXA BONE DENSITY AXIAL HISTORY: Z78.0 - Asymptomatic menopausal state TECHNIQUE: Svbtle Dual energy absorptiometry (DEXA) of the lumbar spine, total left hip, and femoral neck was performed. COMPARISON: There are no prior studies for comparison. FINDINGS: The bone mineral density of the lumbar spine is 1.101 g/cm2, corresponding to a T-score of -0.7, and a Z-score of 0.0. This is indicative of normal bone mineral density. The bone mineral density of the left total hip is 1.021 g/cm2, corresponding to a T-score of 0.1, and a Z-score of 0.6. This is indicative of normal bone mineral density. The bone mineral density of the left femoral neck is 0.834 g/cm2, corresponding to a T-score of -1.5, and a Z-score of -0.6. This is indicative of osteopenia. FRACTURE RISK: The FRAX index suggests a risk of major osteoporotic fracture of 4.3%, and of hip fracture 0.4%. MM/XR DEXA axial skeleton IMPRESSION: Based on bone mineral density, and according to World Health Organization (WHO) criteria, the diagnosis is consistent with osteopenia. Statistically, 68% of repeat scans fall within 1 SD (+/- 0.010 g/cm2 for AP spine L1-L4) and 1 SD (+/- 0.012 g/cm2 for femur total) FRAX is a trademark of the [employer] [place] for Metabolic Bone Disease, a World Health Organization (WHO) Collaborating Center. Electronically signed by: Sánchez Hill MD 01/11/2025 11:09 AM [facility]
--- OUTSIDE RECORDS SUMMARY | 2025-01-11 20:06 | XMS_ITS | Clinical Summary ---
Author Organization [facility] Address [address] [place] [address] [place] [address] Phone Care Team Providers Care Hydraulic Rock Drill Operator Name Role Phone Wanda Davis MD Primary [...] on file Insurance [address] [place] [id number] [facility] [place] [address] [address] [place] [address] [address] ACO [facility] ACO [facility] ACO [facility] ACO Care Teams Hydraulic Rock Drill Operator Relationship Specialty Start Date End Date Wanda Davis MD [address] [facility] [address] [place] [id number] PCP - General Internal Medicine 05/24/24 Additional Source Comments The information contained in this document represents components of the legal health record. It is not the complete legal health record.[facility]
--- OUTSIDE RECORDS SUMMARY | 2025-01-11 20:07 | XMS_ITS | Clinical Summary ---
Author Organization [facility] Address [address] [place] [address] Phone Care Team Providers Care Chute Greaser Name Role Phone Niecy Cabello MD Primary Care Provider [phone] Family History Medical History Relation Name Comments [...] Signed Date: 01/22/2024 11:32 ET Workstation ID: [id number] Transcribed By: Self Edit Transcribed Date: 01/22/2024 11:23 ET Narrative 01/22/2024 11:32 AM EST EXAM: SCREENING MAMMOGRAPHY, BILATERAL HISTORY: SCREENING. Technologist indicates bruise left breast 11 o'clock position COMPARISON: 01/09/2023, 01/06/2022, 01/03/2021, 12/16/2019 TECHNIQUE: Synthesized CC and MLO projections of each breast. Tomosynthesis of each breast in the CC and MLO projections. ADDITIONAL IMAGING: None Computer-aided detection was employed with the [employer] 3-D. TISSUE DENSITY: There are scattered areas [...] Signed Date: 01/22/2024 11:32 ET Workstation ID: [id number] Transcribed By: Self Edit Transcribed Date: 01/22/2024 11:23 ET us Self Referral Sppl IMG BI PROCEDURES Final Resul t from Last 3 Months or Most Recently Relevant to Health Maintenance Insurance [place] - [place] Care Teams Chute Greaser Relationship Specialty Start Date End Date Niecy Cabello MD [address] [facility] [address], [address] [facility] D/B/A: [facility] ALVIN Hernandez PCP - General Internal Medicine 01/22/24
== END 2025-01-11 10:27 | disposition home or self-care (01) ==
LOC: HO.MAMMO 10:26
PROVIDERS: PCP Internal Medicine; Visit Provider Internal Medicine
DX: Z78.0 Asymptomatic menopausal state (principal)
CPT/HCPCS: 77080

== ENCOUNTER → 2025-01-11 11:00 | Outpatient (BNV) | payer OTHER, SELFPAY | PROVIDERS: PCP Internal Medicine; Visit Provider Radiology Diagnostic Radiology | DX: E28.39 Other primary ovarian failure (principal) | CPT/HCPCS: 77080 ==

== ENCOUNTER 2025-01-13 13:58 | Outpatient (AMB) | payer OTHER, SELFPAY ==
--- NOTE | 2025-01-13 14:07 | A.OFFVIS_ITS ---
Vital Signs 01/13/25 14:08 Height 5 ft 2 in Weight 198 lb 13.711 oz BMI 36.4 BP 134/72 Blood Pressure Location Lt brachial Position Sitting Pulse 86 Pulse Source Pulse Oximeter Intake Visit Reasons: 4 Month f/u ([facility]) Outpatient Facility Physical Therapist Required: No Accompanied by: Spouse Allergies spicy food Adverse Reaction (Uncoded 01/03/25 14:46) itchy Medication List - Last Reconciled 01/13/25 by Aakash Jiménez NP acetaminophen ER (Tylenol 8 Hour) 650 mg PO Q8H PRN 30 days aspirin (Adult Low Dose Aspirin) 81 mg PO DAILY [blood pressure machine As directed] calcium carbonate (Oyster Shell Calcium) 500 mg PO BID 90 days cane As directed cetirizine (All Day Allergy (cetirizine)) 10 mg PO DAILY PRN 90 days cholecalciferol (vitamin D3) 50 mcg PO DAILY 90 days clopidogrel 75 mg PO DAILY clotrimazole-betamethasone 1-0.05 % 1 appl topical BID 10 days cyanocobalamin (vitamin B-12) 1,000 mcg IM Q4W 4 weeks fluticasone propionate 50 mcg/actuation (Flonase Allergy Relief) 1 spray intranasal DAILY 30 days hydrocortisone 2.5% 1 appl MS BID-QID PRN 2 weeks hydroxyzine HCl 50 mg PO QID PRN insulin syringe-needle U-100 (Advocate Syringes) As directed levothyroxine 112 mcg PO DAILY metoprolol succinate ER 25 mg PO DAILY miconazole nitrate 2% (Monistat 7) 1 appful vaginal BEDTIME 7 days rosuvastatin 20 mg PO DAILY [shower chair As directed] syringe with needle (Monoject 3cc Syringe) As directed once a week zolpidem 10 mg PO BEDTIME PRN HPI Comments Details: This is a 64-year-old female patient coming in for a follow-up visit, accompanied by her . Patient with a history of coronary artery disease, STEMI in 2024 status post PCI in the RCA with thrombectomy. At her last visit, patient had reported vaginal spotting spotting and concerns were raised by patient being on aspirin Plavix. Patient has since seen OBGYN and is recommending receiving inspector biopsy. Patient otherwise is reporting feeling well overall without any cardiac symptoms of exertional chest pain, shortness of breath, palpitations, dizziness, orthopnea, PND, leg edema, presyncope, or syncope. Patient is reporting compliance with all her medications. Patient is also asking about if she needs to continue being on her blood thinners as patient is worried about undergoing the biopsy on the blood thinners. Patient was also restarted back on her metoprolol at her last visit for which patient states that she is fatigued most of the days. Patient is otherwise reporting that she is trying to stay active and exercise at home. [facility] Medical History STEMI (ST elevation myocardial infarction) Polyarthralgia Dry skin dermatitis Impaired fasting glucose Mixed dyslipidemia Vitamin B12 deficiency Vitamin D deficiency Varicose veins of bilateral lower extremities with pain Polyarthralgia Cholelithiasis Insomnia Fibromyalgia Acquired hypothyroidism Anxiety Surgical History Status post cardiac catheterization History of esophagogastroduodenoscopy (EGD) Hx of colonoscopy H/O blepharoplasty S/P cholecystectomy Family History Sister Breast cancer Mother Essential hypertension Cholelithiasis Social History Housing: House Are you a primary respiratory care assistant to a significant other at home: No Do you presently have visiting nurse or other home services: No Alcohol intake: never Patient Tobacco Use Status: Never used Tobacco e-Cigarette/Vaping Use: Never Used Second Hand Smoke Exposure: No service: No Current occupational status: unemployed Cognitive needs: No Hearing needs: No Vision needs: No Female Reproductive History Menstrual Age of Menarche: 14 Date of menopause: 11/02/21 Review of Systems Const Denies daytime sleepiness, Denies difficulty sleeping, Denies snoring, Denies stops breathing during sleep and Denies weakness Card Denies chest pain, Denies rapid heart rate, Denies irregular heart rhythm, Denies claudication, Denies leg edema, Denies lightheadedness, Denies palpitations, Denies dyspnea, Denies dyspnea on exertion, Reports orthopnea, Reports paroxysmal nocturnal dyspnea and Denies slow heart rate Resp Denies cough, Denies dyspnea, Denies dyspnea on exertion and Denies snoring GI Reports no additional complaints, Denies hematochezia, Denies change in stool character and Denies dyspepsia Musc Denies abnormal gait, Denies muscle weakness and Denies numbness Neuro Denies abnormal gait, Denies numbness and Denies weakness Endo Denies palpitations Physical Exam Vital Signs: Last Vital Signs Pulse 86 01/13/25 14:08 BP 134/72 01/13/25 14:08 BMI result Body Mass Index 36.4 Const General: cooperative, healthy appearing, comfortable and no acute distress Orientation/consciousness: patient oriented x3 HEENT Head: Yes normal to inspection Neck Neck: Yes normal visual inspection, Yes trachea midline and Yes supple Chest Chest palpation & inspection: normal inspection of the chest Resp Effort & Inspection: normal respiratory effort Auscultation: clear to auscultation bilaterally, no crackles, no rales, no rhonchi and no wheezes Cardio Jugular venous distension: no JVD Palpation: normal PMI Rate: regular rate Rhythm: regular rhythm Heart sounds: S1 normal heart sound present, S2 normal heart sound present, no click, no gallops, no murmurs and no rubs Peripheral pulses: Peripheral pulses 2+ throughout GI Inspection: Yes normal to inspection Palpation (GI): Soft to palpation Auscultation: normal bowel sounds Skin General skin exam: no rashes or lesions noted Neuro General: patient oriented x3 Extrem General: Yes normal to inspection, No no pedal edema and No calf tenderness Psych Appearance: grossly normal Mental Status: mental status grossly normal Speech and movement: Normal speech and movement present Assessment & Plan Assessment & Plan (1) STEMI (ST elevation myocardial infarction): Code(s): I21.3 - ST elevation (STEMI) myocardial infarction of unspecified site Category: Medical Qualifiers: Involved coronary artery: right coronary artery Qualified Code(s): I21.11 - ST elevation (STEMI) myocardial infarction involving right coronary artery Plan: STEMI in April of 2024, underwent cardiac catheterization that showed 99% steno sis in the RCA status post PCI placement. Patient was also noted to have 30-40% disease in the LAD and LCX. Patient never went to cardiac rehab and states that she is staying active at home by exercising regularly. Continue lifelong aspirin therapy. Continue Plavix for another 5 months. No reported signs of bleeding. Most recent LDL at 78. We will increase her statin therapy to 40 mg daily. Ideally, LDL goal less than 60. We will repeat lipid profile in 3 months. Continue with aggressive diabetes management with an A1c goal less than 7%. In regards to her feeling fatigued, suggested taking metoprolol at bedtime. Patient does have a plan for uterine biopsy with her receiving inspector. She can hold Plavix 5 days prior to procedure however patient to continue with the aspirin therapy unless suggested otherwise by the surgeon. (2) Status post cardiac catheterization: Comment: 05/22/24- ELEONORA placed in mid RCA Code(s): Z98.890 - Other specified postprocedural states Category: Surgical Plan: As above. (3) Mixed dyslipidemia: Code(s): E78.2 - Mixed hyperlipidemia Category: Medical Plan: As above. Advised on heart healthy diet, regular exercise, losing weight, med compliance, and aggressive management of vascular risk factors. Follow up in 4 months. In the interim, patient will call the office with any concerns or change in symptoms. This note was generated using voice recognition software. While every effort has been made to ensure accuracy and proper cognos consultant, there may be occasional errors that could affect the content or meaning of the described symptoms. Medications: New rosuvastatin 40 mg PO DAILY 90 tabs 3RF Discontinued rosuvastatin Discontinued Reason: Doctor's Order 20 mg PO DAILY 90 tabs 3RF Coding Level of Care Code Est Pt Level 4 (56468) Complex visit Add On G2211 Diagnoses ST elevation myocardial infarction involving right coronary artery I21.11 Involved coronary artery: right coronary artery Status post cardiac catheterization Z98.890 Mixed dyslipidemia E78.2 Time Spent (min) 32 Comment Time spent in reviewing the chart, test results, assessment, counseling and documentation.
--- NOTE | 2025-01-13 14:07 | MHC.OFFVISCO ---
Intake Intake Visit Reasons: 4 Month f/u ([facility]) Allergies spicy food Adverse Reaction (Uncoded 01/03/25 14:46) itchy Anti-Coag Initial Assessment Social Hx Patient Tobacco Use Status: Never used Tobacco alcohol intake: never Alcohol intake frequency: does not drink Coding
[2025-01-13 14:08] VITALS: BP 134/72; PULSE 86; BMI 36.4
--- OUTSIDE RECORDS SUMMARY | 2025-01-13 14:25 | XMS_ITS | Clinical Summary ---
Author Organization [facility] Address [address] [place] [address] Phone Care Team Providers Care Metal Mold Dresser Name Role Phone Niecy Cabello MD Primary Care Provider [phone] Family History Medical History Relation Name Comments [...] Signed Date: 01/22/2024 11:32 ET Workstation ID: [id number] Transcribed By: Self Edit Transcribed Date: 01/22/2024 11:23 ET Narrative 01/22/2024 11:32 AM EST EXAM: SCREENING MAMMOGRAPHY, BILATERAL HISTORY: SCREENING. Technologist indicates bruise left breast 11 o'clock position COMPARISON: 01/09/2023, 01/06/2022, 01/03/2021, 12/16/2019 TECHNIQUE: Synthesized CC and MLO projections of each breast. Tomosynthesis of each breast in the CC and MLO projections. ADDITIONAL IMAGING: None Computer-aided detection was employed with the [employer] 3-D. TISSUE DENSITY: There are scattered areas [...] Signed Date: 01/22/2024 11:32 ET Workstation ID: [id number] Transcribed By: Self Edit Transcribed Date: 01/22/2024 11:23 ET us Self Referral Sppl IMG BI PROCEDURES Final Resul t from Last 3 Months or Most Recently Relevant to Health Maintenance Insurance MEDICAID - [place] Care Teams Metal Mold Dresser Relationship Specialty Start Date End Date Niecy Cabello MD [address], [address] [facility] D[facility]B/A: [facility] ALVIN Hernandez PCP - General Internal Medicine 01/22/24
--- OUTSIDE RECORDS SUMMARY | 2025-01-13 14:25 | XMS_ITS | Clinical Summary ---
Author Organization [facility] Address [address] [place] [address] [place] [id number] Phone Care Team Providers Care Janitor Caretaker Name Role Phone Wanda Davis MD Primary [...] on file Insurance [address] [place] [id number] [facility] [place] [address] [place] [address] [place] [address] [facility] Care Teams Janitor Caretaker Relationship Specialty Start Date End Date Wanda Davis MD [address] [facility] [address] [id number] PCP - General Internal Medicine 05/24/24 Additional Source Comments The information contained in this document represents components of the legal health record. It is not the complete legal health record.[facility]
== END 2025-01-13 14:35 | disposition home or self-care (01) ==
LOC: HO.HCS 13:59
PROVIDERS: PCP Internal Medicine
DX: I21.11 ST elevation (STEMI) myocardial infarction involving right coronary artery (principal); Z98.890 Other specified postprocedural states; E78.2 Mixed hyperlipidemia
CPT/HCPCS: 99214

== ENCOUNTER → 2025-01-13 13:58 | Outpatient (BNVA) | payer OTHER, SELFPAY | PROVIDERS: PCP Internal Medicine | DX: I21.11 ST elevation (STEMI) myocardial infarction involving right coronary artery (principal); E78.2 Mixed hyperlipidemia | CPT/HCPCS: 99212 ==